=== PATIENT | female | born 1935 | race Caucasian/White ===

== ENCOUNTER → 2016-12-28 | Outpatient (CLI) | payer OTHER ==
[2015-07-13 09:33] VITALS: BP 134/63
[2016-12-28 10:12] LABS: BASOPHILS % (AUTO) 0.7 % (0.2-1.0); EOSINOPHILS # (AUTO) 0.1 x10^3/uL (0.0-0.2); EOSINOPHILS % (AUTO) 2.7 % (0.9-2.9); HEMATOCRIT 42.1 % (36.0-47.0); HEMOGLOBIN 14.1 g/dL (12.0-16.0); LYMPHOCYTES # (AUTO) 1.1 X10^3/uL (1.3-2.9); LYMPHOCYTES % (AUTO) 30.9 % (21.0-51.0); MEAN CORPUSCULAR HEMOGLOBIN 33.2 pg (27.0-34.0); MEAN CORPUSCULAR HGB CONC 33.5 g/dL (33.0-35.0); MEAN CORPUSCULAR VOLUME 99.1 fL (80.0-100.0); MEAN PLATELET VOLUME 9.2 fL (7.4-11.0); MONOCYTES # (AUTO) 0.7 x10^3/uL (0.3-0.8); MONOCYTES % (AUTO) 19.8 % (0.0-13.0); NEUTROPHILS # (AUTO) 1.6 x10^3/uL (2.2-4.8); NEUTROPHILS % (AUTO) 45.9 % (42.0-75.0); PLATELET COUNT 122 X10^3/uL (150.0-450.0); RED BLOOD COUNT 4.25 X10^6/uL (3.5-5.4); RED CELL DISTRIBUTION WIDTH 16.5 % (11.6-16.5); WHITE BLOOD COUNT 3.5 X10^3/uL (3.6-10.0)
[2016-12-28 10:22] LABS: ALANINE AMINOTRANSFERASE 26 Units/L (12-78); ALBUMIN 3.6 g/dL (3.4-5.0); ALKALINE PHOSPHATASE 77 Units/L (46-116); ASPARTATE AMINO TRANSFERASE 29 Units/L (15-37); BLOOD UREA NITROGEN 14 mg/dL (7-18); CALCIUM 8.8 mg/dL (8.5-10.1); CARBON DIOXIDE 30.1 mmol/L (21-32); CHLORIDE 107 mmol/L (98-107); CREATININE 0.87 mg/dL (0.55-1.02); GLUCOSE 90 mg/dL (65-99); SODIUM 146 mmol/L (136-145); TOTAL PROTEIN 7.3 g/dL (6.4-8.2); eGFR BLACK RACES > 60 (>60); eGFR NON BLACK RACES > 60 (>60)
== END ==
LOC: LAB 09:36
PROVIDERS: ATTEND Internal Medicine Medical Oncology
DX: C18.0 Malignant neoplasm of cecum (principal)
CPT/HCPCS: 36415; 80053; 85025

== ENCOUNTER → 2017-01-02 | Outpatient (CLI) | payer OTHER ==
[2015-07-13 09:33] VITALS: BP 134/63
[2017-01-02 10:12] LABS: BASOPHILS % (AUTO) 1.3 % (0.2-1.0); EOSINOPHILS # (AUTO) 0.1 x10^3/uL (0.0-0.2); HEMATOCRIT 40.3 % (36.0-47.0); HEMOGLOBIN 13.5 g/dL (12.0-16.0); LYMPHOCYTES # (AUTO) 1.2 X10^3/uL (1.3-2.9); LYMPHOCYTES % (AUTO) 31.8 % (21.0-51.0); MEAN CORPUSCULAR HEMOGLOBIN 33.2 pg (27.0-34.0); MEAN CORPUSCULAR HGB CONC 33.6 g/dL (33.0-35.0); MEAN CORPUSCULAR VOLUME 98.9 fL (80.0-100.0); MEAN PLATELET VOLUME 8.7 fL (7.4-11.0); MONOCYTES # (AUTO) 0.8 x10^3/uL (0.3-0.8); MONOCYTES % (AUTO) 20.5 % (0.0-13.0); NEUTROPHILS # (AUTO) 1.6 x10^3/uL (2.2-4.8); NEUTROPHILS % (AUTO) 43.4 % (42.0-75.0); PLATELET COUNT 90 X10^3/uL (150.0-450.0); RED BLOOD COUNT 4.08 X10^6/uL (3.5-5.4); RED CELL DISTRIBUTION WIDTH 16.6 % (11.6-16.5); WHITE BLOOD COUNT 3.7 X10^3/uL (3.6-10.0)
[2017-01-02 10:18] LABS: ALANINE AMINOTRANSFERASE 23 Units/L (12-78); ALBUMIN 3.4 g/dL (3.4-5.0); ALKALINE PHOSPHATASE 75 Units/L (46-116); ASPARTATE AMINO TRANSFERASE 31 Units/L (15-37); BLOOD UREA NITROGEN 9 mg/dL (7-18); CALCIUM 8.6 mg/dL (8.5-10.1); CARBON DIOXIDE 28.1 mmol/L (21-32); CHLORIDE 106 mmol/L (98-107); CREATININE 0.79 mg/dL (0.55-1.02); GLUCOSE 96 mg/dL (65-99); SODIUM 143 mmol/L (136-145); eGFR BLACK RACES > 60 (>60); eGFR NON BLACK RACES > 60 (>60)
[2017-01-02 10:38] LABS: PLATELET MORPHOLOGY COMMENT NORMAL (NORMAL)
== END ==
LOC: LAB 09:42
PROVIDERS: ATTEND Internal Medicine Medical Oncology
DX: C18.0 Malignant neoplasm of cecum (principal)
CPT/HCPCS: 36415; 80053; 85025

== ENCOUNTER → 2017-01-04 | Outpatient (CLI) | payer OTHER ==
[2015-07-13 09:33] VITALS: BP 134/63
== END ==
LOC: LAB 09:22
PROVIDERS: ATTEND Internal Medicine Medical Oncology
DX: C18.0 Malignant neoplasm of cecum (principal)
CPT/HCPCS: 36415; 82378

== ENCOUNTER → 2017-01-11 | Outpatient (CLI) | payer OTHER ==
[2015-07-13 09:33] VITALS: BP 134/63
[2017-01-11 09:12] LABS: BASOPHILS % (AUTO) 1.1 % (0.2-1.0); EOSINOPHILS # (AUTO) 0.1 x10^3/uL (0.0-0.2); HEMATOCRIT 41.2 % (36.0-47.0); LYMPHOCYTES # (AUTO) 1.2 X10^3/uL (1.3-2.9); LYMPHOCYTES % (AUTO) 38.2 % (21.0-51.0); MEAN CORPUSCULAR HEMOGLOBIN 33.4 pg (27.0-34.0); MEAN CORPUSCULAR VOLUME 98.3 fL (80.0-100.0); MEAN PLATELET VOLUME 8.5 fL (7.4-11.0); MONOCYTES # (AUTO) 0.7 x10^3/uL (0.3-0.8); MONOCYTES % (AUTO) 22.4 % (0.0-13.0); NEUTROPHILS # (AUTO) 1.1 x10^3/uL (2.2-4.8); NEUTROPHILS % (AUTO) 35.3 % (42.0-75.0); PLATELET COUNT 108 X10^3/uL (150.0-450.0); RED BLOOD COUNT 4.19 X10^6/uL (3.5-5.4); RED CELL DISTRIBUTION WIDTH 15.6 % (11.6-16.5); WHITE BLOOD COUNT 3.1 X10^3/uL (3.6-10.0)
[2017-01-11 09:20] LABS: ALANINE AMINOTRANSFERASE 25 Units/L (12-78); ALBUMIN 3.6 g/dL (3.4-5.0); ALKALINE PHOSPHATASE 65 Units/L (46-116); ASPARTATE AMINO TRANSFERASE 32 Units/L (15-37); BLOOD UREA NITROGEN 13 mg/dL (7-18); CALCIUM 8.8 mg/dL (8.5-10.1); CARBON DIOXIDE 28.4 mmol/L (21-32); CHLORIDE 104 mmol/L (98-107); CREATININE 0.92 mg/dL (0.55-1.02); GLUCOSE 104 mg/dL (65-99); SODIUM 143 mmol/L (136-145); TOTAL PROTEIN 7.4 g/dL (6.4-8.2); eGFR BLACK RACES > 60 (>60); eGFR NON BLACK RACES > 60 (>60)
[2017-01-11 10:35] LABS: PLATELET MORPHOLOGY COMMENT NORMAL (NORMAL)
== END ==
LOC: LAB 08:50
PROVIDERS: ATTEND Internal Medicine Medical Oncology
DX: C18.0 Malignant neoplasm of cecum (principal)
CPT/HCPCS: 36415; 80053; 85025

== ENCOUNTER → 2017-02-01 | Outpatient (CLI) | payer OTHER ==
[2015-07-13 09:33] VITALS: BP 134/63
[2017-02-01 10:26] LABS: BASOPHILS % (AUTO) 0.8 % (0.2-1.0); EOSINOPHILS # (AUTO) 0.1 x10^3/uL (0.0-0.2); EOSINOPHILS % (AUTO) 3.2 % (0.9-2.9); HEMATOCRIT 40.9 % (36.0-47.0); HEMOGLOBIN 13.9 g/dL (12.0-16.0); LYMPHOCYTES # (AUTO) 1.2 X10^3/uL (1.3-2.9); LYMPHOCYTES % (AUTO) 29.2 % (21.0-51.0); MEAN CORPUSCULAR HEMOGLOBIN 33.7 pg (27.0-34.0); MEAN CORPUSCULAR VOLUME 99.2 fL (80.0-100.0); MEAN PLATELET VOLUME 9.4 fL (7.4-11.0); MONOCYTES # (AUTO) 0.7 x10^3/uL (0.3-0.8); MONOCYTES % (AUTO) 17.5 % (0.0-13.0); NEUTROPHILS # (AUTO) 2.1 x10^3/uL (2.2-4.8); NEUTROPHILS % (AUTO) 49.3 % (42.0-75.0); PLATELET COUNT 140 X10^3/uL (150.0-450.0); RED BLOOD COUNT 4.12 X10^6/uL (3.5-5.4); RED CELL DISTRIBUTION WIDTH 15.2 % (11.6-16.5); WHITE BLOOD COUNT 4.2 X10^3/uL (3.6-10.0)
[2017-02-01 11:02] LABS: ALANINE AMINOTRANSFERASE 18 Units/L (12-78); ALBUMIN 3.5 g/dL (3.4-5.0); ALKALINE PHOSPHATASE 64 Units/L (46-116); ASPARTATE AMINO TRANSFERASE 29 Units/L (15-37); BLOOD UREA NITROGEN 14 mg/dL (7-18); CARBON DIOXIDE 30.7 mmol/L (21-32); CHLORIDE 107 mmol/L (98-107); CREATININE 0.81 mg/dL (0.55-1.02); GLUCOSE 89 mg/dL (65-99); SODIUM 144 mmol/L (136-145); TOTAL PROTEIN 7.2 g/dL (6.4-8.2); eGFR BLACK RACES > 60 (>60); eGFR NON BLACK RACES > 60 (>60)
== END ==
LOC: LAB 09:16
PROVIDERS: ATTEND Internal Medicine Medical Oncology
DX: I26.99 Other pulmonary embolism without acute cor pulmonale (principal)
CPT/HCPCS: 36415; 80053; 85025

== ENCOUNTER → 2017-05-02 | Outpatient (CLI) | payer OTHER ==
[2015-07-13 09:33] VITALS: BP 134/63
[2017-05-02 11:07] LABS: BASOPHILS # (AUTO) 0.1 X10^3/uL (0.0-0.1); EOSINOPHILS # (AUTO) 0.1 x10^3/uL (0.0-0.2); EOSINOPHILS % (AUTO) 2.7 % (0.9-2.9); HEMATOCRIT 44.9 % (36.0-47.0); HEMOGLOBIN 15.3 g/dL (12.0-16.0); LYMPHOCYTES # (AUTO) 1.2 X10^3/uL (1.3-2.9); LYMPHOCYTES % (AUTO) 21.6 % (21.0-51.0); MEAN CORPUSCULAR HEMOGLOBIN 32.8 pg (27.0-34.0); MEAN CORPUSCULAR HGB CONC 34.2 g/dL (33.0-35.0); MEAN CORPUSCULAR VOLUME 95.9 fL (80.0-100.0); MEAN PLATELET VOLUME 9.4 fL (7.4-11.0); MONOCYTES # (AUTO) 0.4 x10^3/uL (0.3-0.8); MONOCYTES % (AUTO) 7.3 % (0.0-13.0); NEUTROPHILS # (AUTO) 3.7 x10^3/uL (2.2-4.8); NEUTROPHILS % (AUTO) 67.4 % (42.0-75.0); PLATELET COUNT 198 X10^3/uL (150.0-450.0); RED BLOOD COUNT 4.68 X10^6/uL (3.5-5.4); RED CELL DISTRIBUTION WIDTH 12.6 % (11.6-16.5); WHITE BLOOD COUNT 5.5 X10^3/uL (3.6-10.0)
[2017-05-02 11:26] LABS: ALANINE AMINOTRANSFERASE 19 Units/L (12-78); ALBUMIN 3.8 g/dL (3.4-5.0); ALKALINE PHOSPHATASE 64 Units/L (46-116); ASPARTATE AMINO TRANSFERASE 21 Units/L (15-37); BLOOD UREA NITROGEN 12 mg/dL (7-18); CALCIUM 9.2 mg/dL (8.5-10.1); CHLORIDE 106 mmol/L (98-107); CREATININE 0.92 mg/dL (0.55-1.02); GLUCOSE 99 mg/dL (65-99); SODIUM 145 mmol/L (136-145); TOTAL PROTEIN 7.6 g/dL (6.4-8.2); eGFR BLACK RACES > 60 (>60); eGFR NON BLACK RACES > 60 (>60)
== END ==
LOC: LAB 10:04
PROVIDERS: ATTEND Internal Medicine Medical Oncology
DX: C18.0 Malignant neoplasm of cecum (principal)
CPT/HCPCS: 36415; 80053; 82378; 85025

== ENCOUNTER 2017-06-08 07:02 | Day surgery (SDC) | payer OTHER ==
[2017-06-08] MEDS ORDERED: D5 LR 1000 ML 1,000 ML IV ONE (07:18)
[2017-06-08] MEDS ORDERED: XYLOCAINE 2 % (PLAIN) ONE (08:27)
[2017-06-08] MEDS ORDERED: DIPRIVAN VIAL 20 ML ONE (08:27)
[2017-06-08 10:16] VITALS: BP 137/76
== END 2017-06-08 09:25 | disposition home or self-care (01) ==
LOC: SURG1 07:02
PROVIDERS: ATTEND Internal Medicine Gastroenterology
PROC: 0DJD8ZZ Inspection of Lower Intestinal Tract, Via Natural or Artificial Opening Endoscopic (ICD-10-PCS; principal; 2017-06-08 08:30)
DX: K57.30 Diverticulosis of large intestine without perforation or abscess without bleeding (principal); Z80.0 Family history of malignant neoplasm of digestive organs
CPT/HCPCS: 99100; A4217; J2001; J3490; J7120

== ENCOUNTER → 2017-07-24 | Outpatient (CLI) | payer OTHER ==
[2015-07-13 09:33] VITALS: BP 134/63
--- NOTE | 2017-07-24 16:29 | MG ---
HISTORY: Screening, left breast cancer treated by mastectomy Study: Screening digital unilateral mammogram Comparison: 07/19/2016 Findings Cc and MLO views of the right breast are provided. Patient is status post left mastectomy. H eterogeneously dense fibroglandular tissue is seen with scattered coarse and benign calcifications. N o dominant mass, pathological microcalcification, architectural distortion or skin thickening is seen . Images are reviewed by the R2 device. Impression: Benign findings ACR category 2-benign findings Follow-up examination 1 year. Diagnostic CAD was utilized and reviewed. A negative x-ray report should not delay biopsy if a dominant or clinically suspicious mass is presen t; 4-8% of cancers are not identified by x-ray. A negative report may reinforce clinical impression. Adenosis and dense breast may obscure an underlying neoplasm. Reported By:
== END ==
LOC: RAD 08:44
PROVIDERS: ATTEND Internal Medicine Medical Oncology
DX: C18.2 Malignant neoplasm of ascending colon (principal); C50.912 Malignant neoplasm of unspecified site of left female breast; Z17.0 Estrogen receptor positive status [ER+]; I26.99 Other pulmonary embolism without acute cor pulmonale
CPT/HCPCS: 77067

== ENCOUNTER → 2017-08-08 | Outpatient (CLI) | payer OTHER ==
[2017-08-08 09:30] LABS: BASOPHILS % (AUTO) 0.7 % (0.2-1.0); EOSINOPHILS # (AUTO) 0.2 x10^3/uL (0.0-0.2); EOSINOPHILS % (AUTO) 3.3 % (0.9-2.9); HEMOGLOBIN 14.8 g/dL (12.0-16.0); LYMPHOCYTES # (AUTO) 1.4 X10^3/uL (1.3-2.9); LYMPHOCYTES % (AUTO) 23.6 % (21.0-51.0); MEAN CORPUSCULAR HEMOGLOBIN 32.4 pg (27.0-34.0); MEAN CORPUSCULAR HGB CONC 34.4 g/dL (33.0-35.0); MEAN CORPUSCULAR VOLUME 94.2 fL (80.0-100.0); MEAN PLATELET VOLUME 9.1 fL (7.4-11.0); MONOCYTES # (AUTO) 0.7 x10^3/uL (0.3-0.8); MONOCYTES % (AUTO) 11.9 % (0.0-13.0); NEUTROPHILS # (AUTO) 3.5 x10^3/uL (2.2-4.8); NEUTROPHILS % (AUTO) 60.5 % (42.0-75.0); PLATELET COUNT 195 X10^3/uL (150.0-450.0); RED BLOOD COUNT 4.56 X10^6/uL (3.5-5.4); RED CELL DISTRIBUTION WIDTH 13.3 % (11.6-16.5); WHITE BLOOD COUNT 5.8 X10^3/uL (3.6-10.0)
[2017-08-08 09:40] LABS: ALANINE AMINOTRANSFERASE 15 Units/L (12-78); ALBUMIN 3.8 g/dL (3.4-5.0); ALKALINE PHOSPHATASE 76 Units/L (46-116); ASPARTATE AMINO TRANSFERASE 18 Units/L (15-37); BLOOD UREA NITROGEN 12 mg/dL (7-18); CALCIUM 9.3 mg/dL (8.5-10.1); CHLORIDE 104 mmol/L (98-107); SODIUM 142 mmol/L (136-145); TOTAL PROTEIN 7.7 g/dL (6.4-8.2); eGFR BLACK RACES > 60 (>60); eGFR NON BLACK RACES 57 (>60)
== END ==
LOC: LAB 08:54
PROVIDERS: ATTEND Internal Medicine Medical Oncology
DX: C18.2 Malignant neoplasm of ascending colon (principal); C50.912 Malignant neoplasm of unspecified site of left female breast; Z17.0 Estrogen receptor positive status [ER+]; I26.99 Other pulmonary embolism without acute cor pulmonale
CPT/HCPCS: 36415; 80053; 82378; 85025

== ENCOUNTER → 2017-12-15 | Outpatient (CLI) | payer OTHER ==
[2017-12-15 10:05] LABS: BASOPHILS % (AUTO) 0.5 % (0.2-1.0); EOSINOPHILS # (AUTO) 0.2 x10^3/uL (0.0-0.2); EOSINOPHILS % (AUTO) 2.7 % (0.9-2.9); HEMOGLOBIN 14.9 g/dL (12.0-16.0); LYMPHOCYTES # (AUTO) 1.8 X10^3/uL (1.3-2.9); LYMPHOCYTES % (AUTO) 31.4 % (21.0-51.0); MEAN CORPUSCULAR HEMOGLOBIN 32.1 pg (27.0-34.0); MEAN CORPUSCULAR VOLUME 94.6 fL (80.0-100.0); MEAN PLATELET VOLUME 9.4 fL (7.4-11.0); MONOCYTES # (AUTO) 0.6 x10^3/uL (0.3-0.8); MONOCYTES % (AUTO) 10.1 % (0.0-13.0); NEUTROPHILS # (AUTO) 3.2 x10^3/uL (2.2-4.8); NEUTROPHILS % (AUTO) 55.3 % (42.0-75.0); PLATELET COUNT 199 X10^3/uL (150.0-450.0); RED BLOOD COUNT 4.65 X10^6/uL (3.5-5.4); RED CELL DISTRIBUTION WIDTH 13.7 % (11.6-16.5); WHITE BLOOD COUNT 5.8 X10^3/uL (3.6-10.0)
[2017-12-15 10:13] LABS: ALANINE AMINOTRANSFERASE 19 Units/L (12-78); ALKALINE PHOSPHATASE 60 Units/L (46-116); ASPARTATE AMINO TRANSFERASE 19 Units/L (15-37); BLOOD UREA NITROGEN 14 mg/dL (7-18); CALCIUM 9.1 mg/dL (8.5-10.1); CHLORIDE 104 mmol/L (98-107); CREATININE 0.99 mg/dL (0.55-1.02); SODIUM 143 mmol/L (136-145); TOTAL PROTEIN 7.5 g/dL (6.4-8.2); eGFR BLACK RACES > 60 (>60); eGFR NON BLACK RACES 57 (>60)
== END ==
LOC: LAB 09:39
PROVIDERS: ATTEND Internal Medicine Medical Oncology
DX: C18.2 Malignant neoplasm of ascending colon (principal); E55.9 Vitamin D deficiency, unspecified
CPT/HCPCS: 36415; 80053; 82306; 82378; 85025

== ENCOUNTER → 2018-03-01 | Outpatient (CLI) | payer OTHER ==
--- NOTE | 2018-03-01 10:55 | RAD ---
HISTORY: Left knee pain. History of colon cancer. Breast cancer. Study: Left knee: 2 views Comparison: None Findings: Moderate joint space narrowing is noted in the medial compartment with mild sclerosis of the tibial p lateau and medial femoral condyle. Moderate spurring is noted medially. Minimal is noted laterally. Mild patellofemoral joint degeneration is noted. Tiny joint effusion is noted. IMPRESSION: 1. Degenerative change in the left knee as described above. 2. Tiny joint effusion. Reported By:
== END | disposition home or self-care (01) | DRG 556 ==
LOC: RAD 10:19
PROVIDERS: ATTEND Nurse Practitioner Family
DX: M25.562 Pain in left knee (principal); M17.12 Unilateral primary osteoarthritis, left knee; M25.462 Effusion, left knee
CPT/HCPCS: 73560

== ENCOUNTER 2021-12-22 22:30 | Inpatient (IN) ==
[2021-12-22] MEDS ORDERED: LEVSIN/MAALOX/LIDOC VISC PO ONE (23:18)
[2021-12-22] MEDS ORDERED: LEVSIN/MAALOX/LIDOC VISC ONE (23:23)
--- NOTE | 2021-12-22 23:24 | DR.NAUSEAF ---
HPI Time Seen Time Seen by Provider: 12/22/21 23:12 Primary Care Physician Primary Care Physician: LISSETT BOWDEN HPI Comment HPI Comment: An 86 y/o female presenting with c/o epigastric pain onset since about 1630 hrs. this evening. She can't describe the pain, "it just hurts". There is associated nausea and she has vomited thrice since. She had similar p ain about 2.5 months ago and the ED work-up was unrevealing. She has since had an EGD done by the gastro-enterologist (Dr. Vasquez), with findings of gastritis. She is maintained on a PPI (she doesn't recollect which one). She is s/p Cholecystectomy by hx. Complaints Chief Complaint:: PT AMBULTORY IN ED WITH C/O 10/10 RUQ & LUQ ABD PAIN. PT C/O VOMITING SINCE 1630 TODAY. PT STATES SHE WAS HERE IN SEPTEMBER FOR SAME ISSUE. PT HAD EGD DONE ON 11/11/[address] VASQUEZ Self Treatment fo Chief Complaint: PT STATES AT 1700 SHE TOOK "HALF OF A PAIN PILL" THAT SHE GOT FROM HER DAUGHTER, BUT CANNOT RECALL THE NAME OF THE MED. COVID-19 Coronavirus risk:travel/contact w/high risk person: No Has patient experienced Coronavirus symptoms: No Reviewed Nurses Notes Reviewed: Yes Source History Provided: Patient and Family Member Mode of Arrival Mode of Arrival: Ambulatory Timing Onset of Chief Complaint: 12/22/21 Context Onset: Spontaneous Recent: denies Travel, Contact Exposure and None : No Associated Signs and Symptoms Abdominal Pain Location: Epigastric Symptoms: Abdominal Pain PMH PMH Past Medical History: Yes Past Medical History: Arthritis, Asthma, COPD, Coronary Artery Disease, Diabetes, Dyslipidemia, GERD, Hypertension, Hypothyroidism and Kidney Stones Past Medical History Comment: BREAST CA COLON CA GASTRITIS ESOPHAGITIS Past Surgical History: Yes Surgical History: Cholecystectomy, Hysterectomy and Mastectomy Past Surgical History Comment: BILAT MASTECTOMY HERNIA REPAIR COLON MASS REMOVAL EGD LYPOMA REMOVAL Family History History of Family Medical Conditions: Yes Family Medical History: Diabetes Mellitus Social History Type of Tobacco Use: None Alcohol Use: None Do you use any recreational Drugs:: No Travel Risk Coronavirus risk:travel/contact w/high risk person: No Has patient experienced Coronavirus symptoms: No Infectious screening Have you traveled outside the country in the last 6 months?: No Isolation: Standard ROS Review of Systems Constitutional: No Symptoms Reported Eyes: No Symptoms Reported ENTM: No Symptoms Reported Respiratoy: No Symptoms Reported Cardiovascular: No Symptoms Reported Gastrointestinal/Abdominal: Abdominal Pain (epigastric), Nausea and Vomiting Genitourinary: No Symptoms Reported Neurological: No Symptoms Reported Musculoskeletal: No Symptoms Reported Integumentary: No Symptoms Reported Hematologic/Lymphatic: No Symptoms Reported Endocrine: No Symptoms Reported Psychiatric: No Symptoms Reported PE Vital Signs Vitals: Temperature 98.7 F Pulse Rate 74 Respiratory Rate 20 Blood Pressure [Right Arm] 134/63 Blood Pressure 136/76 O2 Sat by Pulse Oximetry 97 General Limitations: No Limitations General Appearance: Alert and In No Apparent Distress Head Head Exam: Normal Inspection, Atraumatic and Normocephalic Eyes Eye exam: Normal Appearance and EOMI ENT ENT Exam: Normal Exam, Normal Oropharynx, Normal External Ear Exam and Mucous Membranes Moist Neck Neck Exam: Normal Inspection, Full ROM and Trachea Midline Chest Chest Inspection: Normal Inspection and Symmetric Chest Wall Rise Respiratory Respiratory Exam: Normal Lung Sounds Bilat Cardiovascular Cardiovascular Exam: Regular Rate, Normal Rhythm, Normal Heart Sounds, +S1 and +S2 Abdominal Exam Abdominal Exam: Normal Inspection, Normal Bowel Sounds, Soft and Tenderness Abdominal Tenderness: Epigastrium Rectal Rectal Exam: Deferred External Exam: Female: Deferred Extremities Extremities Exam: Normal Inspection and Full ROM Back Back Exam: Normal Inspection and Full ROM Neurologic Neurological Exam: Alert and Oriented X3 Psychiatric Psychiatric Exam: Normal Affect and Normal Mood Skin Skin Exam: Intact COURSE Reevaluation 1st: Improved Consultation Consultation Comments: I spoke with Dr. León ( staff Surgeon ) at about 0015 hrs. discussing the pt's presentation, clinical and radiographic findings. He agrees to Obs. admission to his service with repeat labs and abd. x-rays in the morning. I informed the pt. and her daughter of the findings and recommended care plan. Their questions were answered. Education/Counseling Education/Counseling: Patient, Family, Education and Counseling Educated On: Treatment, Diagnosis, Prognosis and Needs for Follow Up ROR Labs Reviewed Result Diagrams: 12/22/21 23:30 12/22/21 23:30 Laboratory: WBC 11.2 X10^3/uL (3.6-10.0) H 12/22/21 23:30 RBC 4.11 X10^6/uL (3.5-5.4) 12/22/21 23:30 Hgb 13.2 g/dL (12.0-16.0) 12/22/21: Hct 38.9 % (36.0-47.0) 12/22/21: MCV 94.6 fL (80.0-100.0) 12/22/21: MCH 32.1 pg (27.0-34.0) 12/22/21: MCHC 33.9 g/dL (33.0-35.0) 12/22/21: RDW 14.4 % (11.6-16.5) 12/22/21: Plt Count 231 X10^3/uL (150.0-450.0) 12/22/21: MPV 9.4 fL (7.4-11.0) 12/22/21 Neut % (Auto) 86.8 % (42.0-75.0) H 12/22/21: Lymph % (Auto) 6.0 % (21.0-51.0) L 12/22/21: [place] % (Auto) 6.1 % (0.0-13.0) 12/22/21: Eos % (Auto) 0.5 % (0.9-2.9) L 12/22/21: Baso % (Auto) 0.6 % (0.2-1.0) 12/22/21: Neut # (Auto) 9.7 x10^3/uL (2.2-4.8) H 12/22/21: Lymph # (Auto) 0.7 X10^3/uL (1.3-2.9) L 12/22/21: [place] # (Auto) 0.7 x10^3/uL (0.3-0.8) 12/22/21: Eos # (Auto) 0.1 x10^3/uL (0.0-0.2) 12/22/21 Baso # (Auto) 0.1 X10^3/uL (0.0-0.1) 12/22/21: Absolute Nucleated RBC 0.0 /100WBC 03/09/22 23:30 Sodium 139 mmol/L (136-145) 12/22/21 23:30 Corrected Sodium 139 mmol/L (136-145) 12/22/21 23:30 Potassium 3.6 mmol/L (3.5-5.1) 12/22/21 23:30 Chloride 104 mmol/L (98-107) 12/22/21 23:30 Carbon Dioxide 30.3 mmol/L (21-32) 12/22/21 23:30 BUN 14 mg/dL (7-18) 12/22/21 23:30 Creatinine 1.15 mg/dL (0.55-1.02) H 12/22/21 23:30 Est GFR (MDRD) Af Amer 58 (>60) L 12/22/21 23:30 Est GFR (MDRD) Non-Af 48 (>60) L 12/22/21 23:30 Glucose 120 mg/dL (65-99) H 12/22/21 23:30 Calcium 8.7 mg/dL (8.5-10.1) 12/22/21 23:30 Corrected Calcium TNP 12/22/21 23:30 Total Bilirubin 1.00 mg/dL (0.2-1.0) 12/22/21 23:30 AST 22 Units/L (15-37) 12/22/21 23:30 ALT 19 Units/L (12-78) 12/22/21 23:30 Alkaline Phosphatase 78 Units/L (46-116) 12/22/21 23:30 Total Protein 6.6 g/dL (6.4-8.2) 12/22/21 23:30 Albumin 3.4 g/dL (3.4-5.0) 12/22/21 23:30 Globulin 3.2 g/dL (2.5-4.5) 12/22/21 23:30 Albumin/Globulin Ratio 1.1 Ratio (1.1-2.1) 12/22/21 23:30 Lipase 115 Units/L (73-393) 12/22/21 23:30 SARS CoV-2 RNA Rapid SORIN Negative (NEGATIVE) 12/23/21 00:18 Opioid Opioid Risk Tool Age (Jeet box if 16-45): No History of Preadolescent Sexual Abuse: No Total: 0 Total Score Risk Category: Low Risk Copyright: Dockery LR predicting aberrant behaviors Diagnosis Discharge Problem: Partial small bowel obstruction, Abdominal pain, epigastric, Hypothyroidism, Essential hypertension Hyperlipidemia Qualifiers: Hyperlipidemia type: mixed hyperlipidemia Qualified Code(s): E78.2 - Mixed hyperlipidemia Diabetes Qualifiers: Diabetes mellitus type: type 2 Diabetes mellitus cloth drier insulin use: without cloth drier use Diabetes mellitus complication status: without complication Qual ified Code(s): E11.9 - Type 2 diabetes mellitus without complications
[2021-12-22 23:36] LABS: BASOPHILS # (AUTO) 0.1 X10^3/uL (0.0-0.1); BASOPHILS % (AUTO) 0.6 % (0.2-1.0); EOSINOPHILS # (AUTO) 0.1 x10^3/uL (0.0-0.2); EOSINOPHILS % (AUTO) 0.5 % (0.9-2.9); HEMATOCRIT 38.9 % (36.0-47.0); HEMOGLOBIN 13.2 g/dL (12.0-16.0); LYMPHOCYTES # (AUTO) 0.7 X10^3/uL (1.3-2.9); MEAN CORPUSCULAR HEMOGLOBIN 32.1 pg (27.0-34.0); MEAN CORPUSCULAR HGB CONC 33.9 g/dL (33.0-35.0); MEAN CORPUSCULAR VOLUME 94.6 fL (80.0-100.0); MEAN PLATELET VOLUME 9.4 fL (7.4-11.0); MONOCYTES # (AUTO) 0.7 x10^3/uL (0.3-0.8); MONOCYTES % (AUTO) 6.1 % (0.0-13.0); NEUTROPHILS # (AUTO) 9.7 x10^3/uL (2.2-4.8); NEUTROPHILS % (AUTO) 86.8 % (42.0-75.0); RED BLOOD COUNT 4.11 X10^6/uL (3.5-5.4); RED CELL DISTRIBUTION WIDTH 14.4 % (11.6-16.5); WHITE BLOOD COUNT 11.2 X10^3/uL (3.6-10.0)
[2021-12-22 23:47] LABS: ALANINE AMINOTRANSFERASE 19 Units/L (12-78); ALBUMIN 3.4 g/dL (3.4-5.0); ALKALINE PHOSPHATASE 78 Units/L (46-116); ASPARTATE AMINO TRANSFERASE 22 Units/L (15-37); BLOOD UREA NITROGEN 14 mg/dL (7-18); CALCIUM 8.7 mg/dL (8.5-10.1); CARBON DIOXIDE 30.3 mmol/L (21-32); CHLORIDE 104 mmol/L (98-107); COR NA(FOR HYPERGLY) 139 mmol/L (136-145); CREATININE 1.15 mg/dL (0.55-1.02); LIPASE 115 Units/L (73-393); SODIUM 139 mmol/L (136-145); TOTAL PROTEIN 6.6 g/dL (6.4-8.2); eGFR NON BLACK RACES 48 (>60)
--- NOTE | 2021-12-22 23:55 | CT ---
PROCEDURE: CT Abdomen and Pelvis without Contrast .HISTORY: Right and left upper quadrant pain.TECHNIQUE: Axial images were performed through the abdomen and pelvis without the administration of IV contrast with multiplanar reformations . Oral contrast was not administered . Dose reduction techniques including Automated Exposure Control (AEC) and adjustment of mA and kV were utilized .COMPARISON: 08/29/2019.TECHNICAL QUALITY: Satisfactory .FINDINGS:Clear lung bases.Punctate calcified granulomas in the liver and spleen. Adrenals and pancreas are unremarkable.Kidneys show no stones or obstruction.Previous cholecystectomy.Small amount of ascites adjacent to the liver and spleen and in the pericolic gutters. No pneumoperitoneum.Moderate atherosclerosis aorta. [place] filter in the inferior vena cava.No lymphadenopathy.Dilated small bowel loops throughout the abdomen may represent partial obstruction with perienteric stranding and dilatation to 3 cm. Site knee etiology of the partial obstruction is not apparent from the study. Normal distal small-bowel loops with ileocolic anastomosis right upper quadrant. Mild colonic diverticulosis. No bowel inflammation.Pelvis shows previous hysterectomy and no masses. Small amount of free fluid inferior pericolic gutters. Normal urinary bladder.No acute bony abnormality.IMPRESSION:1. Findings suspicious for partial small bowel obstruction with site knee etiology not apparent from the study.2. Ileocolic anastomosis right abdomen.3. Small amount of ascites.4. [place]annielle filter.5. Mild colonic diverticulosis.Electronically signed by: Fercho Mora (Dec 22, 2021 23:54:21)
[2021-12-23] MEDS ORDERED: ZOFRAN INJ 4 MG VIAL IVP PRN (00:52)
[2021-12-23 02:28] VITALS: BMI 30.8
--- NOTE | 2021-12-23 05:48 | RAD ---
PROCEDURE: Acute Abdomen Series .HISTORY: Small-bowel obstruction.TECHNIQUE: AP supine and upright abdomen with AP chest x-ray views .COMPARISON: 10/06/2021.TECHNICAL QUALITY: Satisfactory .FINDINGS:Unchanged start size upper limits of normal.Clear lungs.No pneumoperitoneum.Mild gas and feces in the colon without distention. Some small bowel gas mid abdomen that is nondistended. The fluid filled dilated small bowel loops seen on CT from 12/23/2019 2s not visible on the plain films.Surgical clips right upper quadrant. [place] filter in the inferior vena cava.No abnormal calcifications.No acute bony abnormality.IMPRESSION:1. Nonspecific bowel gas pattern.2. Unchanged start size upper limits of normal.Electronically signed by: Fercho Mora (Dec 23, 2021 05:47:08)
[2021-12-23 06:22] LABS: BASOPHILS % (AUTO) 0.5 % (0.2-1.0); EOSINOPHILS # (AUTO) 0.1 x10^3/uL (0.0-0.2); EOSINOPHILS % (AUTO) 0.7 % (0.9-2.9); HEMOGLOBIN 12.2 g/dL (12.0-16.0); LYMPHOCYTES % (AUTO) 12.7 % (21.0-51.0); MEAN CORPUSCULAR HEMOGLOBIN 32.4 pg (27.0-34.0); MEAN CORPUSCULAR VOLUME 95.2 fL (80.0-100.0); MEAN PLATELET VOLUME 9.8 fL (7.4-11.0); MONOCYTES # (AUTO) 0.5 x10^3/uL (0.3-0.8); MONOCYTES % (AUTO) 6.3 % (0.0-13.0); NEUTROPHILS # (AUTO) 6.3 x10^3/uL (2.2-4.8); NEUTROPHILS % (AUTO) 79.8 % (42.0-75.0); RED BLOOD COUNT 3.78 X10^6/uL (3.5-5.4); RED CELL DISTRIBUTION WIDTH 14.5 % (11.6-16.5); WHITE BLOOD COUNT 7.9 X10^3/uL (3.6-10.0)
[2021-12-23 06:27] LABS: ALANINE AMINOTRANSFERASE 18 Units/L (12-78); ALBUMIN 2.8 g/dL (3.4-5.0); ALKALINE PHOSPHATASE 63 Units/L (46-116); ASPARTATE AMINO TRANSFERASE 19 Units/L (15-37); BLOOD UREA NITROGEN 14 mg/dL (7-18); CALCIUM 7.7 mg/dL (8.5-10.1); CARBON DIOXIDE 29.2 mmol/L (21-32); CHLORIDE 105 mmol/L (98-107); COR CA(FOR HYPOALB) 8.7 mg/dL (8.5-10.1); CREATININE 0.91 mg/dL (0.55-1.02); SODIUM 141 mmol/L (136-145); TOTAL PROTEIN 5.6 g/dL (6.4-8.2); eGFR NON BLACK RACES > 60 (>60)
[2021-12-23] MEDS: NS 1,000 ML IV 1,000 ML IV SCH ×2 (07:13→16:55)
[2021-12-23] MEDS ORDERED: EXEMESTANE 25 MG PO SCH (12:45)
[2021-12-23] MEDS: ASPIRIN EC 81 MG PO SCH (13:54)
[2021-12-23] MEDS: CALAN SR 120 MG PO SCH (13:55)
[2021-12-23] MEDS: HYDROCHLOROTHIAZIDE 25 MG TAB PO SCH (13:55)
[2021-12-23] MEDS: PROTONIX TAB 40 MG PO SCH (13:55)
--- NOTE | 2021-12-23 14:51 | DR.CONSULT ---
CONSULT Consultation for Day of: Date: 12/23/21 Chief Complaint Chief Complaint: abdominal pain, vomiting Allergies Allergies Allergy/AdvReac Type Severity Reaction Status Date / Time zolpidem [From Ambien] Allergy Verified 11/11/21 09:12 History of Present Illness History of Present Illness: Ms Daniel is a 86y/o female with multiple comorbidities including CVA, breast cancer, colon cancer, PE, IVC filter, hypothyroidism and arthritis presented with worsening abdominal pain, nausea and vomiting. Patient has had similar episodes in the past. She has a hx of several abdominal surgeries including right hemicolectomy and cholecystectomy. In the ER, she was found to have partial SBO. Dr León was consulted and patient was admitted to his service. She has been kept NPO with IV fluids. She does feel better today. Denies any nausea or vomiting. She states abdominal pain has improved. Medicine consulted for chronic disease management. Labs/imaging reviewed Plan: follow recommendations as per surgery. Continue IVF and anti-emetics. Replace K as per protocol. Discuss starting clear liquids as patient's symptoms have resolved. Will resume home medications. Continue warfarin. Monitor AM labs. Past Medical History Past Medical History: Arthritis, Asthma, COPD, Dyslipidemia, GERD, Hypertension, Hypothyroidism and Kidney Stones Additional Medical History: Syncope, Left Carotid Artery Occlusion, Chronic Back Pain, Breast Cancer Colon cancer PE Past Surgical History Surgical History: Unknown, Abdominal Surgery, Carotid Endarterectomy, Hysterectomy and Mastectomy Additional Surgical History: Heart Catherization x 2, Left Mastectomy, Hernia Repair Colon surgery IVC Family History Family Medical History: Diabetes Mellitus Social History Does patient currently use any type of tobacco product: No Have you used tobacco products in the last 12 months: No Type of Tobacco Use: None Does any household member use tobacco: Yes Alcohol Use: None Drug Use: None Medications Home Medications: zolpidem [From Ambien] Allergy (Verified 11/11/21 09:12) CONTINUE taking the following medications pantoprazole 40 mg PO DAILY 12/23/21 [History] simvastatin 20 mg PO HS 12/23/21 [History] warfarin 5 mg PO DAILY 12/23/21 [History] Review of Systems Constitutional: No Symptoms Reported Eyes: No Symptoms Reported ENT: No Symptoms Reported Respiratory: No Symptoms Reported Cardiovascular: No Symptoms Reported Gastrointestinal: Nausea, Vomiting and Abdominal Pain Genitourinary: No Symptoms Reported Musculoskeletal: No Symptoms Reported Skin: No Symptoms Reported Neurological: No Symptoms Reported Physical Exam Vital Signs: Temperature 98 F Pulse Rate [Right Brachial] 92 Pulse Rate 74 Respiratory Rate 20 Blood Pressure [Left Arm] 136/71 Blood Pressure [Right Arm] 130/60 Blood Pressure 136/76 O2 Sat by Pulse Oximetry 95 Oriented: Normal Eyes: Normal Ear: Normal Nose: Normal Respiratory: Diminished Throughout Cardiovascular: Normal Auscultation: Bowel Sounds: Decreased Palpation: Normal Tenderness: Normal Skin: Decreased [place] Musculoskeletal: Normal Psychiatric: Normal Mood Description: Calm Affect: Normal Speech Pattern: Clear and Appropriate Plan (1) Partial small bowel obstruction: Status: Acute (2) Nausea & vomiting: Status: Acute Qualifiers: Vomiting type: unspecified Qualified Code(s): R11.2 - Nausea with vomiting, unspecified (3) Dehydration: Status: Acute (4) Essential hypertension: Status: Chronic (5) Hypothyroidism: Status: Chronic (6) CVA (cerebral vascular accident): Status: Acute Qualifiers: CVA mechanism: unspecified Qualified Code(s): I63.9 - Cerebral inf arction, unspecified (7) Hyperlipidemia: Status: Chronic Qualifiers: Hyperlipidemia type: mixed hyperlipidemia Qualified Code(s): E78.2 - Mixed hyperlipidemia (8) Breast cancer: Status: Chronic Qualifiers: Breast location: unspecified site of breast Estrogen receptor status: unspecified Laterality: unspecified laterality Patient gender: female Patient sex: female Qualified Code(s): C50.919 - Malignant neoplasm of unspecified site of unspecified female breast (9) S/P CABG (coronary artery bypass graft): Status: Chronic (10) H/O mastectomy: Status: Chronic Qualifiers: Laterality: left Qualified Code(s): Z90.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
--- NOTE | 2021-12-23 17:17 | DR.PROGNOT ---
Hospital Progress Notes - Progress Note for Day of: Progress Note Date: 12/23/21 - Chief Complaint Chief Complaint: feeling better with less abdominal pain . no nausea or vomiting . X ray showed no obstruction .. - Past Medical Family Social History Past Med/Fam/Surg Hx: No changes since H&P Allergies: Allergies zolpidem [From Ambien] Allergy (Verified 11/11/21 09:12) - Vital Signs Vital Signs: Temperature 97.8 F Pulse Rate [Right Brachial] 66 Pulse Rate 74 Respiratory Rate 18 Blood Pressure [Left Arm] 167/80 Blood Pressure [Right Arm] 130/60 Blood Pressure 136/76 O2 Sat by Pulse Oximetry 96 - Physical Exam Oriented: Normal Eyes: Normal Ear: Normal Nose: Normal Cardiovascular: Normal GI:Auscultation: Decreased GI:Palpation: Normal GI: Tenderness: Normal (soft, flat abdomen .. BS+ only moderate diffuse tenderness .) Skin: Decreased Turgur Musculoskeletal: Normal Psychiatric: Normal Mood Description: Calm Affect: Normal Speech Pattern: Clear, Appropriate - Laboratory and Diagnostics Result Diagrams: 12/23/21 05:45 12/23/21 05:45 Labs: Laboratory WBC 7.9 X10^3/uL (3.6-10.0) 12/23/21 05:45 RBC 3.78 X10^6/uL (3.5-5.4) 12/23/21 05:45 Hgb 12.2 g/dL (12.0-16.0) 12/23/21 05:45 Hct 36.0 % (36.0-47.0) 12/23/21 05:45 MCV 95.2 fL (80.0-100.0) 12/23/21 05:45 MCH 32.4 pg (27.0-34.0) 12/23/21 05:45 MCHC 34.0 g/dL (33.0-35.0) 12/23/21 05:45 RDW 14.5 % (11.6-16.5) 12/23/21 05:45 Plt Count 189 X10^3/uL (150.0-450.0) 12/23/21 05:45 MPV 9.8 fL (7.4-11.0) 12/23/21 05:45 Neut % (Auto) 79.8 % (42.0-75.0) H 12/23/21 05:45 Lymph % (Auto) 12.7 % (21.0-51.0) L 12/23/21 05:45 [place] % (Auto) 6.3 % (0.0-13.0) 12/23/21 05:45 Eos % (Auto) 0.7 % (0.9-2.9) L 12/23/21 05:45 Baso % (Auto) 0.5 % (0.2-1.0) 12/23/21 05:45 Neut # (Auto) 6.3 x10^3/uL (2.2-4.8) H 12/23/21 05:45 Lymph # (Auto) 1.0 X10^3/uL (1.3-2.9) L 12/23/21 05:45 [place] # (Auto) 0.5 x10^3/uL (0.3-0.8) 12/23/21 05:45 Eos # (Auto) 0.1 x10^3/uL (0.0-0.2) 12/23/21 05:45 Baso # (Auto) 0.0 X10^3/uL (0.0-0.1) 12/23/21 05:45 Absolute Nucleated RBC 0.0 /100WBC 12/23/21 05:45 PT 19.3 SECONDS (11.8-14.3) 12/23/21 05:45 INR Target Range - 12/23/21 05:45 INR 1.72 (0.8-1.3) H 12/23/21 05:45 APTT 34.0 SECONDS (22.9-36.5) 12/23/21 05:45 PTT Comment - 12/23/21 05:45 Sodium 141 mmol/L (136-145) 12/23/21 05:45 Corrected Sodium TNP 12/23/21 05:45 Potassium 3.3 mmol/L (3.5-5.1) L 12/23/21 05:45 Chloride 105 mmol/L (98-107) 12/23/21 05:45 Carbon Dioxide 29.2 mmol/L (21-32) 12/23/21 05:45 BUN 14 mg/dL (7-18) 12/23/21 05:45 Creatinine 0.91 mg/dL (0.55-1.02) 12/23/21 05:45 Est GFR (MDRD) Af Amer > 60 (>60) 12/23/21 05:45 Est GFR (MDRD) Non-Af > 60 (>60) 12/23/21 05:45 Glucose 103 mg/dL (65-99) H 12/23/21 05:45 Calcium 7.7 mg/dL (8.5-10.1) L 12/23/21 05:45 Corrected Calcium 8.7 mg/dL (8.5-10.1) 12/23/21 05:45 Total Bilirubin 0.90 mg/dL (0.2-1.0) 12/23/21 05:45 AST 19 Units/L (15-37) 12/23/21 05:45 ALT 18 Units/L (12-78) 12/23/21 05:45 Alkaline Phosphatase 63 Units/L (46-116) 12/23/21 05:45 Total Protein 5.6 g/dL (6.4-8.2) L 12/23/21 05:45 Albumin 2.8 g/dL (3.4-5.0) L 12/23/21 05:45 Globulin 2.8 g/dL (2.5-4.5) 12/23/21 05:45 Albumin/Globulin Ratio 1.0 Ratio (1.1-2.1) L 12/23/21 05:45 Lipase 115 Units/L (73-393) 12/22/21 23:30 SARS CoV-2 RNA Rapid SORIN Negative (NEGATIVE) 12/23/21 00:18 - Assessment and Plan 1: subsiding partial SBO . abdominal adhesions . to advance diet . - Problem Patient Problems: Patient Problems Essential hypertension (Chronic) Hypothyroidism (Chronic) Diabetes (Chronic) E11.9 Hyperlipidemia (Chronic) E78.5 Partial small bowel obstruction (Acute) K56.600 Abdominal pain, epigastric (Acute) R10.13
[2021-12-23] MEDS ORDERED: COUMADIN TAB 5 MG (JANTOVEN) PO SCH (21:00)
[2021-12-23] MEDS ORDERED: ZOCOR TAB 20 MG PO SCH (21:00)
[2021-12-24 04:57] LABS: BASOPHILS % (AUTO) 0.7 % (0.2-1.0); BLOOD UREA NITROGEN 12 mg/dL (7-18); CALCIUM 7.9 mg/dL (8.5-10.1); CARBON DIOXIDE 29.2 mmol/L (21-32); CHLORIDE 106 mmol/L (98-107); CREATININE 0.83 mg/dL (0.55-1.02); EOSINOPHILS # (AUTO) 0.1 x10^3/uL (0.0-0.2); EOSINOPHILS % (AUTO) 2.5 % (0.9-2.9); HEMATOCRIT 33.8 % (36.0-47.0); HEMOGLOBIN 11.5 g/dL (12.0-16.0); LYMPHOCYTES % (AUTO) 21.6 % (21.0-51.0); MEAN CORPUSCULAR HEMOGLOBIN 32.5 pg (27.0-34.0); MEAN CORPUSCULAR HGB CONC 34.1 g/dL (33.0-35.0); MEAN CORPUSCULAR VOLUME 95.5 fL (80.0-100.0); MEAN PLATELET VOLUME 10.2 fL (7.4-11.0); MONOCYTES # (AUTO) 0.5 x10^3/uL (0.3-0.8); MONOCYTES % (AUTO) 10.7 % (0.0-13.0); NEUTROPHILS # (AUTO) 2.9 x10^3/uL (2.2-4.8); NEUTROPHILS % (AUTO) 64.5 % (42.0-75.0); RED BLOOD COUNT 3.54 X10^6/uL (3.5-5.4); RED CELL DISTRIBUTION WIDTH 14.9 % (11.6-16.5); SODIUM 144 mmol/L (136-145); WHITE BLOOD COUNT 4.5 X10^3/uL (3.6-10.0); eGFR NON BLACK RACES > 60 (>60)
[2021-12-24] MEDS: NS 1,000 ML IV 1,000 ML IV SCH (05:45)
[2021-12-24] MEDS ORDERED: POTASSIUM CHL 60 MEQ/NS 0.45% 500 ML IV PRN (07:18)
[2021-12-24] MEDS ORDERED: K-DUR TAB 20 MEQ PO PRN (07:18)
[2021-12-24] MEDS ORDERED: POTASSIUM CHL 40 MEQ/NS 0.45% 500 ML IV PRN (07:18)
[2021-12-24] MEDS ORDERED: KLOR-CON PO PRN (07:18)
[2021-12-24] MEDS ORDERED: K-RIDER 10 MEQ/NS 100 ML 10 MEQ/100 ML BAG IV PRN (07:18)
[2021-12-24] MEDS ORDERED: MICRO K EXTEN CAP 10 MEQ PO PRN (07:18)
[2021-12-24] MEDS ORDERED: POTASSIUM CHLORIDE LIQ 20 MEQ UDC PO PRN (07:18)
[2021-12-24] MEDS ORDERED: MAGNESIUM SULFATE 1 GRAM/100 mL PREMIX 1 G/100 ML BAG IV PRN (07:59)
[2021-12-24] MEDS: ASPIRIN EC 81 MG PO SCH (08:18)
[2021-12-24] MEDS: HYDROCHLOROTHIAZIDE 25 MG TAB PO SCH (08:19)
[2021-12-24] MEDS: PROTONIX TAB 40 MG PO SCH (08:19)
[2021-12-24] MEDS: CALAN SR 120 MG PO SCH (08:27)
[2021-12-24] MEDS ORDERED: SYNTHROID 100 mcg TAB PO SCH (09:00)
[2021-12-24] MEDS ORDERED: MICRO K EXTEN CAP 10 MEQ PO SCH (11:00)
--- NOTE | 2021-12-24 11:15 | RAD ---
HISTORYSMALL BOWEL OBSTRUCTIONSTUDYKUB x-ray one viewCOMPARISONX-ray 12/23/2021FINDINGSDiminished small-bowel air is seen without dilation. Little colonic air is seen. Postsurgical changes are seen in the right upper quadrant of the abdomen. IVC filter is unchanged in position. Persistent moderate levoscoliosis in the lumbar spine.IMPRESSIONNo small bowel dilation is seen. Appearance is improved from prior study.Electronically signed by: Piotr Cameron (Dec 24, 2021 11:14:15)
--- NOTE | 2021-12-24 12:55 | PCM.PROG ---
Progress Note Progress Note for Day of Date of Exam: 12/24/21 Subjective Subjective: Patient seen at bedside, no events overnight. She has been doing well. She was started on clear liquids and tolerated well. Denies abdominal pain, N/V. She did have 2 normal BMs. Labs/imaging reviewed Plan: advance diet as tolerated, Dr León advanced her to soft diet for lunch. Continue home medications. Resume home KCl dose. Replace K as per protocol. Patient can be discharged after lunch if she is able to tolerate her diet. F/U with PCP and Dr León as scheduled. Past Medical Family Social History Past Med/Fam/Surg Hx: No changes since H&P Allergies: Allergies zolpidem [From Ambien] Allergy (Verified 11/11/21 09:12) Review of Systems ROS: No change since H&P Vital Signs and I&O's Vital Signs: Temperature 98 F Pulse Rate [Right Brachial] 65 Pulse Rate 74 Respiratory Rate 20 Blood Pressure [Left Arm] 130/61 Blood Pressure [Right Arm] 130/60 Blood Pressure 136/76 O2 Sat by Pulse Oximetry 96 Intake and Output: Intake & Output 12/21/21 12/22/21 12/23/21 12/24/21 23:59 23:59 23:59 23:59 Intake Total 1440 / 1440 100 / 100 Balance 1440 / 1440 100 / 100 Physical Exam Oriented: Normal Eyes: Normal Ear: Normal Nose: Normal Respiratory: Normal Cardiovascular: Normal Auscultation: Bowel Sounds: Normal Tenderness: Normal Skin: Decreased [place]urgur Musculoskeletal: Normal Psychiatric: Normal Mood Description: Calm Affect: Normal Speech Pattern: Clear and Appropriate Laboratory and Diagnostics Result Diagrams: 12/24/21 03:46 12/24/21 03:46 Labs: Laboratory WBC 4.5 X10^3/uL (3.6-10.0) 12/24/21 03:46 RBC 3.54 X10^6/uL (3.5-5.4) 12/24/21 03:46 Hgb 11.5 g/dL (12.0-16.0) L 12/24/21 03:46 Hct 33.8 % (36.0-47.0) L 12/24/21 03:46 MCV 95.5 fL (80.0-100.0) 12/24/21 03:46 MCH 32.5 pg (27.0-34.0) 12/24/21 03:46 MCHC 34.1 g/dL (33.0-35.0) 12/24/21 03:46 RDW 14.9 % (11.6-16.5) 12/24/21 03:46 Plt Count 168 X10^3/uL (150.0-450.0) 12/24/21 03:46 MPV 10.2 fL (7.4-11.0) 12/24/21 03:46 Neut % (Auto) 64.5 % (42.0-75.0) 12/24/21 03:46 Lymph % (Auto) 21.6 % (21.0-51.0) 12/24/21 03:46 [place] % (Auto) 10.7 % (0.0-13.0) 12/24/21 03:46 Eos % (Auto) 2.5 % (0.9-2.9) 12/24/21 03:46 Baso % (Auto) 0.7 % (0.2-1.0) 12/24/21 03:46 Neut # (Auto) 2.9 x10^3/uL (2.2-4.8) 12/24/21 03:46 Lymph # (Auto) 1.0 X10^3/uL (1.3-2.9) L 12/24/21 03:46 [place] # (Auto) 0.5 x10^3/uL (0.3-0.8) 12/24/21 03:46 Eos # (Auto) 0.1 x10^3/uL (0.0-0.2) 12/24/21 03:46 Baso # (Auto) 0.0 X10^3/uL (0.0-0.1) 12/24/21 03:46 Absolute Nucleated RBC 0.1 /100WBC 12/24/21 03:46 PT 17.8 SECONDS (11.8-14.3) 12/24/21 03:46 INR Target Range - 12/24/21 03:46 INR 1.55 (0.8-1.3) H 12/24/21 03:46 APTT 34.0 SECONDS (22.9-36.5) 12/23/21 05:45 PTT Comment - 12/23/21 05:45 Sodium 144 mmol/L (136-145) 12/24/21 03:46 Corrected Sodium TNP 12/24/21 03:46 Potassium 3.3 mmol/L (3.5-5.1) L 12/24/21 03:46 Chloride 106 mmol/L (98-107) 12/24/21 03:46 Carbon Dioxide 29.2 mmol/L (21-32) 12/24/21 03:46 BUN 12 mg/dL (7-18) 12/24/21 03:46 Creatinine 0.83 mg/dL (0.55-1.02) 12/24/21 03:46 Est GFR (MDRD) Af Amer > 60 (>60) 12/24/21 03:46 Est GFR (MDRD) Non-Af > 60 (>60) 12/24/21 03:46 Glucose 88 mg/dL (65-99) 12/24/21 03:46 Calcium 7.9 mg/dL (8.5-10.1) L 12/24/21 03:46 Corrected Calcium 8.7 mg/dL (8.5-10.1) 12/23/21 05:45 Magnesium 2.1 mg/dL (1.7-2.9) 12/24/21 03:46 Total Bilirubin 0.90 mg/dL (0.2-1.0) 12/23/21 05:45 AST 19 Units/L (15-37) 12/23/21 05:45 ALT 18 Units/L (12-78) 12/23/21 05:45 Alkaline Phosphatase 63 Units/L (46-116) 12/23/21 05:45 Total Protein 5.6 g/dL (6.4-8.2) L 12/23/21 05:45 Albumin 2.8 g/dL (3.4-5.0) L 12/23/21 05:45 Globulin 2.8 g/dL (2.5-4.5) 12/23/21 05:45 Albumin/Globulin Ratio 1.0 Ratio (1.1-2.1) L 12/23/21 05:45 Lipase 115 Units/L (73-393) 12/22/21 23:30 SARS CoV-2 RNA Rapid SORIN Negative (NEGATIVE) 12/23/21 00:18 Plan (1) Partial small bowel obstruction: Status: Acute (2) Nausea & vomiting: Status: Acute Qualifiers: Vomiting type: unspecified Qualified Code(s): R11.2 - Nausea with vomiting, unspecified (3) Dehydration: Status: Acute (4) Essential hypertension: Status: Chronic (5) Hypothyroidism: Status: Chronic (6) CVA (cerebral vascular accident): Status: Acute Qualifiers: CVA mechanism: unspecified Qualified Code(s): I63.9 - Cerebral infarction, unspecified (7) Hyperlipidemia: Status: Chronic Qualifiers: Hyperlipidemia type: mixed hyperlipidemia Qualified Code(s): E78.2 - Mixed hyperlipidemia (8) Breast cancer: Status: Chronic Qualifiers: Breast location: unspecified site of breast Estrogen receptor status: unspecified Laterality: unspecified laterality Patient gender: female Patient sex: female Qualified Code(s): C50.919 - Malignant neoplasm of unspecified site of unspecified female breast (9) S/P CABG (coronary artery bypass graft): Status: Chronic (10) H/O mastectomy: Status: Chronic Qualifiers: Laterality: left Qualified Code(s): Z90.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
[2021-12-24 13:35] VITALS: BP 111/51
[2021-12-24] MEDS ORDERED: EXEMESTANE 25 MG PO SCH (21:00)
[2021-12-24] MEDS ORDERED: COUMADIN TAB 5 MG (JANTOVEN) PO SCH (21:00)
== END 2021-12-24 14:45 | disposition home or self-care (01) | DRG 389 ==
LOC: ER 22:30 → MED/SURG 12-23 00:51
PROVIDERS: ADMIT Surgery; ATTEND Surgery
DX: Z85.3 Personal history of malignant neoplasm of breast; E11.9 Type 2 diabetes mellitus without complications; Z86.711 Personal history of pulmonary embolism; E03.9 Hypothyroidism, unspecified; Z11.52 Encounter for screening for COVID-19; Z95.828 Presence of other vascular implants and grafts; J44.9 Chronic obstructive pulmonary disease, unspecified; R06.02 Shortness of breath; R26.2 Difficulty in walking, not elsewhere classified; Z85.038 Personal history of other malignant neoplasm of large intestine; K56.51 Intestinal adhesions [bands], with partial obstruction; Z98.0 Intestinal bypass and anastomosis status; Z90.10 Acquired absence of unspecified breast and nipple; I10 Essential (primary) hypertension; R10.9 Unspecified abdominal pain; E86.0 Dehydration; D68.9 Coagulation defect, unspecified; I25.10 Atherosclerotic heart disease of native coronary artery without angina pectoris

== ENCOUNTER 2022-08-15 23:34 | Observation (INO) ==
--- NOTE | 2022-08-15 23:50 | DR.GENAD ---
HPI Time Seen Time Seen by Provider: 08/15/22 23:49 HPI Comment HPI Comment: PATIENT IS 87YR OLD FEMALE IN ER VIA EMS WITH SPEECH DISTURBANCES. PATIENT HAD CVA RECENTLY 08/04/22. SHE ALSO HAD AORTIC HEART VALVE SURGERY 08/02/22. EVALUATED BY TELESTROKE AND OBSERVATION IN HOSPITAL RECOMENTED. PATIENT ANSWERING QUESTIONS AND FOLLOWING COMMAND IN ER. SPEECH IS CHANGE. SHE IS ON ANTICOAGULATION THERAPY. Complaint/Symptoms Chief Complaint Doctors Comments: PATIENT IN ER VIA EMS FOR SPEECH DISTURBANCES. COVID-19 Coronavirus risk:travel/contact w/high risk person: No Has patient experienced Coronavirus symptoms: No Nurses notes reviewed Nurses Notes Review: Yes Source History Provided: Patient and Family Member Mode of Arrival Mode of Arrival: EMS Timing Came on: Suddenly Duration Duration: Constant Duration: Hours PMH PMH Past Medical History: Arthritis, Asthma, COPD, Dyslipidemia, GERD, Hypertension, Hypothyroidism and Kidney Stones Past Surgical History: Yes Surgical History: Unknown, Abdominal Surgery, Carotid Endarterectomy, Hysterectomy and Mastectomy Family History Family Medical History: Diabetes Mellitus Social History Do you use any recreational Drugs:: No ROS Review of Systems Constitutional: Weakness and Fatigue; negative Fever Eyes: No Symptoms Reported ENTM: No Symptoms Reported; negative Nose Discharge or Nose Congestion Respiratoy: No Symptoms Reported; negative Moist Cough, Short of Breath or Wheezing Cardiovascular: No Symptoms Reported; negative Chest Pain Gastrointestinal/Abdominal: No Symptoms Reported; negative Abdominal Pain, Diarrhea, Nausea or Vomiting Genitourinary: No Symptoms Reported; negative Dysuria Neurological: Weakness; negative Headache or Dizziness Musculoskeletal: No Symptoms Reported Integumentary: Dryness; negative Rash or Juandice Hematologic/Lymphatic: Easy Bleeding and Easy Bruising Endocrine: No Symptoms Reported; negative Increased Thirst or Increased Urine Psychiatric: No Symptoms Reported All Other Systems: Reviewed and Negative PE Vital Signs Vitals: Temperature 98.5 F Pulse Rate 66 Respiratory Rate 18 Blood Pressure [Left Arm] 111/51 Blood Pressure [Right Arm] 130/60 Blood Pressure 122/59 O2 Sat by Pulse Oximetry 99 General Limitations: No Limitations General Appearance: Alert and In No Apparent Distress Head Head Exam: Normal Inspection and Atraumatic Eyes Eye exam: Normal Appearance ENT ENT Exam: Normal Exam, Normal Oropharynx, Normal External Ear Exam and TM's Normal Bilaterally External Ear Exam: Normal External Inspection; negative Mastoid Tenderness TM/Canal Exam: Bilateral: Normal Nose Exam: Normal Nose Exam Throat Exam: Normal Inspection; negative Tonsillar Erythema, Tonsillomegaly or Tonsillar Exudate Neck Neck Exam: Normal Inspection and Trachea Midline; negative Tenderness Chest Chest Inspection: Normal Inspection and Symmetric Chest Wall Rise; negative Tenderness Respiratory Respiratory Exam: Normal Lung Sounds Bilat; negative Accessory Muscle Use, Chest Wall Tenderness or Respiratory Distress Respiratory Exam: Bilateral: Rhonchi Cardiovascular Cardiovascular Exam: Regular Rate, Normal Rhythm, Normal Heart Sounds and Systolic Murmur; negative Diastolic Murmur Abdominal Exam Abdominal Exam: Normal Inspection, Normal Bowel Sounds and Soft; negative Tenderness Extremities Extremities Exam: Normal Inspection and Normal Capillary Refill Back Back Exam: Normal Inspection; negative (R) CVA Tenderness or (L) CVA Tenderness Neurologic Neurological Exam: Alert, Oriented X3 and Other (DYSARTHRIA.); negative Motor Sensory Deficit Psychiatric Psychiatric Exam: Normal Affect and Anxious Skin Skin Exam: Intact; negative Rash or Pallor MDM Differential Diagnosis Differential Diagnosis: DYSARTHRIA, RECENT AORTIC VALVE SURGERY, RECENT CVA, HYPERTENSION. COURSE Treatment Treatment: SEE ORDERS DONE WHILE PATIENT WAS IN ER. DISCUSSED LABS AND XRAY, EKG, AND CT REPORTS WITH PATIENT AND FAMILY. Consultation Consultation Comments: DISCUSSED PATIENT WITH DR. MISHRA. HE WILL ADMIT PATIENT. Education/Counseling Education/Counseling: Patient Educated On: Needs for Follow Up ROR Labs Reviewed Laboratory Results Reviewed?: Yes Result Diagrams: 08/17/22 04:55 08/17/22 04:55 Laboratory: WBC 10.7 X10^3/uL (3.6-10.0) H 08/16/22 00:10 RBC 3.54 X10^6/uL (3.5-5.4) 08/16/22 00:10 Hgb 10.8 g/dL (12.0-16.0) L 08/16/22 00:10 Hct 32.2 % (36.0-47.0) L 08/16/22 00:10 MCV 90.9 fL (80.0-100.0) 08/16/22 00:10 MCH 30.6 pg (27.0-34.0) 08/16/22 00:10 MCHC 33.7 g/dL (33.0-35.0) 08/16/22 00:10 RDW 16.2 % (11.6-16.5) 08/16/22 00:10 Plt Count 235 X10^3/uL (150.0-450.0) 08/16/22 00:10 MPV 9.3 fL (7.4-11.0) 08/16/22 00:10 Neut % (Auto) 79.7 % (42.0-75.0) H 08/16/22 00:10 Lymph % (Auto) 10.8 % (21.0-51.0) L 08/16/22 00:10 [place] % (Auto) 7.9 % (0.0-13.0) 08/16/22 00:10 Eos % (Auto) 1.6 % (0.9-2.9) 08/16/22 00:10 Baso % (Auto) 0 % (0.2-1.0) L 08/16/22 00:10 Neut # (Auto) 8.5 x10^3/uL (2.2-4.8) H 08/16/22 00:10 Lymph # (Auto) 1.2 X10^3/uL (1.3-2.9) L 08/16/22 00:10 [place] # (Auto) 0.8 x10^3/uL (0.3-0.8) 08/16/22 00:10 Eos # (Auto) 0.2 x10^3/uL (0.0-0.2) 08/16/22 00:10 Baso # (Auto) 0.0 X10^3/uL (0.0-0.1) 08/16/22 00:10 Absolute Nucleated RBC 0.0 /100WBC 08/16/22 00:10 PT 26.3 SECONDS (11.8-14.3) 08/16/22 00:10 INR Target Range - 08/16/22 00:10 INR 2.55 (0.8-1.3) H 08/16/22 00:10 APTT 59.2 SECONDS (22.9-36.5) H 08/16/22 00:10 PTT Comment - 08/16/22 00:10 Sodium 138 mmol/L (136-145) 08/16/22 00:10 Corrected Sodium TNP 08/16/22 00:10 Potassium 4.0 mmol/L (3.5-5.1) 08/16/22 00:10 Chloride 100 mmol/L (98-107) 08/16/22 00:10 Carbon Dioxide 31.5 mmol/L (21-32) 08/16/22 00:10 BUN 18 mg/dL (7-18) 08/16/22 00:10 Creatinine 1.15 mg/dL (0.55-1.02) H 08/16/22 00:10 Est GFR (MDRD) Af Amer 58 (>60) L 08/16/22 00:10 Est GFR (MDRD) Non-Af 48 (>60) L 08/16/22 00:10 Glucose 86 mg/dL (65-99) 08/16/22 00:10 Calcium 8.7 mg/dL (8.5-10.1) 08/16/22 00:10 Corrected Calcium 9.7 mg/dL (8.5-10.1) 08/16/22 00:10 Total Bilirubin 0.50 mg/dL (0.2-1.0) 08/16/22 00:10 AST 42 Units/L (15-37) H 08/16/22 00:10 ALT 32 Units/L (12-78) 08/16/22 00:10 Alkaline Phosphatase 69 Units/L (46-116) 08/16/22 00:10 Creatine Kinase 77 Units/L (26-192) 08/16/22 00:10 Troponin I High Sens 148.2 ng/L (4.0-60.0) H* 08/16/22 00:10 B-Natriuretic Peptide 301 pg/mL (0-79) H 08/16/22 00:10 Total Protein 6.3 g/dL (6.4-8.2) L 08/16/22 00:10 Albumin 2.8 g/dL (3.4-5.0) L 08/16/22 00:10 Globulin 3.5 g/dL (2.5-4.5) 08/16/22 00:10 Albumin/Globulin Ratio 0.8 Ratio (1.1-2.1) L 08/16/22 00:10 Specimen Type Clean catch urine 08/16/22 Urine Color Pale yellow (YELLOW) 08/16/22 Urine Appearance Clear (CLEAR) 08/16/22: Urine pH 6.5 (5.0 - 8.0) 08/16/22 01: Ur Specific [place] 1.010 (1.000-1.030) 08/16/22 01: Urine Protein Negative (NEGATIVE) 08/16/22: Urine Glucose (UA) Negative (NEGATIVE) 08/16/22: Urine Ketones Negative (NEGATIVE) 08/16/22: Urine Blood 4+ (NEGATIVE) 08/16/22: Urine Nitrite Negative (NEGATIVE) 08/16/22: Urine Bilirubin Negative (NEGATIVE) 08/16/22: Urine Urobilinogen Normal (NORMAL) 08/16/22: Ur Leukocyte Esterase Negative (NEGATIVE) 08/16/22: Urine RBC 3-5 /HPF (0-3) A 08/16/22: Urine WBC None seen /HPF (0-5) 08/16/22: Ur Squamous Epith Cells Few /HPF (NEGATIVE) 08/16/22: Urine Bacteria Trace /HPF (NEGATIVE) 08/16/22: Ur Culture Indicated? No/not indicated 08/16/22 01: XRAY XRAY Interpreted by: Radiologist (REPORT NOTED.) and Self EKG Rate: 73 [place]: Normal Rhythm: Paced Block: None Hypertrophy: None ST: Nonsp Opioid Opioid Risk Tool Age (Jeet box if 16-45): No History of Preadolescent Sexual Abuse: No Total: 0 Total Score Risk Category: Low Risk Copyright: Sarkis NOGUERA predicting aberrant behaviors Discharge Plan Diagnosis Discharge Problem: Neurological impairment in adult, Hypertension, S/P placement of cardiac pacemaker Discharge Plan Patient Disposition: 09 ADMITTED INPATIENT Condition: Stable
[2022-08-16 00:20] LABS: EOSINOPHILS # (AUTO) 0.2 x10^3/uL (0.0-0.2); HEMOGLOBIN 10.8 g/dL (12.0-16.0)
[2022-08-16 00:25] LABS: BASOPHILS % (AUTO) 0 % (0.2-1.0); EOSINOPHILS % (AUTO) 1.6 % (0.9-2.9); HEMATOCRIT 32.2 % (36.0-47.0); LYMPHOCYTES # (AUTO) 1.2 X10^3/uL (1.3-2.9); LYMPHOCYTES % (AUTO) 10.8 % (21.0-51.0); MEAN CORPUSCULAR HEMOGLOBIN 30.6 pg (27.0-34.0); MEAN CORPUSCULAR HGB CONC 33.7 g/dL (33.0-35.0); MEAN CORPUSCULAR VOLUME 90.9 fL (80.0-100.0); MEAN PLATELET VOLUME 9.3 fL (7.4-11.0); MONOCYTES # (AUTO) 0.8 x10^3/uL (0.3-0.8); MONOCYTES % (AUTO) 7.9 % (0.0-13.0); NEUTROPHILS # (AUTO) 8.5 x10^3/uL (2.2-4.8); NEUTROPHILS % (AUTO) 79.7 % (42.0-75.0); RED BLOOD COUNT 3.54 X10^6/uL (3.5-5.4); RED CELL DISTRIBUTION WIDTH 16.2 % (11.6-16.5); WHITE BLOOD COUNT 10.7 X10^3/uL (3.6-10.0)
[2022-08-16 00:54] LABS: ALANINE AMINOTRANSFERASE 32 Units/L (12-78); ALBUMIN 2.8 g/dL (3.4-5.0); ALKALINE PHOSPHATASE 69 Units/L (46-116); ASPARTATE AMINO TRANSFERASE 42 Units/L (15-37); BLOOD UREA NITROGEN 18 mg/dL (7-18); CALCIUM 8.7 mg/dL (8.5-10.1); CARBON DIOXIDE 31.5 mmol/L (21-32); CHLORIDE 100 mmol/L (98-107); COR CA(FOR HYPOALB) 9.7 mg/dL (8.5-10.1); CREATINE KINASE 77 Units/L (26-192); CREATININE 1.15 mg/dL (0.55-1.02); SODIUM 138 mmol/L (136-145); TOTAL PROTEIN 6.3 g/dL (6.4-8.2); eGFR NON BLACK RACES 48 (>60)
--- NOTE | 2022-08-16 01:01 | CT ---
History: PT IN ED VIA [facility]. EMS STATES THEY WERE CALLED OUT D/T DIFFICUTY SPEAKING, STATES UPON ARRIVAL THAT PT WAS EXPERIENCING SOME DYSPHAGIA BUT WAS ABLE TO FOLLOW COMMANDS APPROPRIATELY. 08/02/22 - HEART VALVE REPLACEMENT @ [facility]. 08/04/22 - PT FLOWN BACK TO [facility] D/T STROKE. 08/08/22 - CARDIAC ICP PLACEMENT. ASTHMA, COPD, CAD, CVA, DM, GERD, HTN, COLON CA, BREAST CA, ARRHYTHMIA, HX OF PE SX: CABG/VALVE SURG, HYST, MAST, PACEMAKER, CAROTID ENDARTERECTOMYExam :BRAIN W/O CONTechnique: Thin section axial ct images of the brain were obtained from the foramen magnum to the vertex without contrast. Sagittal and coronal reconstructions were also performed.Comparison: NoneFindings:The ventricles are within normal limits in size. No midline shift, mass effect or extra-axial fluid collections. No evidence of acute hemorrhage or acute macroinfarction. Moderate cortical atrophy compatible with patient's age. Decreased attenuation in the periventricular and subcortical white matter consistent with microvascular ischemic white matter changes.The visualized paranasal sinuses and mastoids are unremarkable. The calvarium is intact.Impression:Moderate cortical atrophy with microvascular ischemic white matter changes.No acute intracranial pathology.Electronically signed by: Jimy Coats (Aug 16, 2022 00:59:38)
--- NOTE | 2022-08-16 01:16 | TELESTROKE ---
Tele[facility]Specialist Consult Date of Consult Date of Exam: 08/15/22 Time of Arrival to the ED: 01:14 Allergies Allergies Allergy/AdvReac Type Severity Reaction Status Date / Time zolpidem [From Ambien] Allergy Verified 11/11/21 09:12 Vital Signs Vital Signs: Temp Pulse Resp BP BP BP Pulse Ox 08/16/22 01:01 114/73 08/16/22 01:01 66 98 08/16/22 01:00 67 99 08/16/22 00:49 120/56 08/16/22 00:49 67 95 08/16/22 00:48 70 95 08/16/22 00:30 69 97 08/16/22 00:15 70 97 08/16/22 00:00 70 97 08/15/22 23:46 75 99 08/15/22 23:42 98.5 F 75 18 122/59 99 08/04/22 22:01 140/64 12/24/21 12:00 111/51 12/23/21 04:00 130/60 O2 Del Method 08/16/22 01:01 08/16/22 01:01 08/16/22 01:00 08/16/22 00:49 08/16/22 00:49 08/16/22 00:48 08/16/22 00:30 08/16/22 00:15 08/16/22 00:00 08/15/22 23:46 08/15/22 23:42 Room Air 08/04/22 22:01 12/24/21 12:00 12/23/21 04:00 Medical Decision Making Result Diagrams: 08/16/22 00:10 08/16/22 00:10 Labs: Laboratory Results - last 24 hr 08/16/22 08/16/22 00:10 00:10 WBC 10.7 H RBC 3.54 Hgb 10.8 L Hct 32.2 L MCV 90.9 MCH 30.6 MCHC 33.7 RDW 16.2 Plt Count 235 MPV 9.3 Neut % (Auto) 79.7 H Lymph % (Auto) 10.8 L [place] % (Auto) 7.9 Eos % (Auto) 1.6 Baso % (Auto) 0 L Neut # (Auto) 8.5 H Lymph # (Auto) 1.2 L [place] # (Auto) 0.8 Eos # (Auto) 0.2 Baso # (Auto) 0.0 Absolute Nucleated RBC 0.0 Sodium 138 Corrected Sodium TNP Potassium 4.0 Chloride 100 Carbon Dioxide 31.5 BUN 18 Creatinine 1.15 H Est GFR (MDRD) Af Amer 58 L Est GFR (MDRD) Non-Af 48 L Glucose 86 Calcium 8.7 Corrected Calcium 9.7 Total Bilirubin 0.50 AST 42 H ALT 32 Alkaline Phosphatase 69 Creatine Kinase 77 Troponin I High Sens 148.2 H* B-Natriuretic Peptide 301 H Total Protein 6.3 L Albumin 2.8 L Globulin 3.5 Albumin/Globulin Ratio 0.8 L HPI PCP Primary Care Physician: LISSETT BOWDEN HPI comment HPI Comment: [facility] Patient Name: VICENTA THORNE Date of : 1935 Identification Number: Date of Service: 08/16/2022 00:11:34 Diagnosis: R47.81 - Slurred speech Impression: 87 yo female with history of HTN, HLD, recent hospitalization for valve replacement complicated by multifocal strokes currently on ASA (only 7 day course, last dose tomorrow) and warfarin presenting now with an episode of choking followed by some mild confusion and slurred speech. She is currently m ostly back to baseline, daughters still feel like her speech is "slow". NIHSS 1 for mild confusion. She is not a thrombolytic candidate due to recent strokes. Etiology for symptoms not entirely clear, possible transient symptom worsening given prior stroke. Would obtain MRI Brain wo for further evaluation to ensure no new or worsening stroke. Infectious/metabolic work-up per primary team. Metrics: Last Known Well: 08/15/2022 21:00:00 [facility] Notification Time: 08/16/2022 00:11:34 Arrival Time: 08/15/2022 23:34:00 Stamp Time: 08/16/2022 00:11:34 Initial Response Time: 08/16/2022 00:12:39 Symptoms: slurred speech. NIHSS Start Assessment Time: 08/16/2022 00:17:31 Patient is not a candidate for Thrombolytic. Thrombolytic Medical Decision: 08/16/2022 00:15:32 Patient was not deemed candidate for Thrombolytic because of following reasons: Stroke in last [address] head showed no acute hemorrhage or acute core infarct. ED Physician notified of diagnostic impression and management plan on 08/16/2022 01:12:14 Advanced Imaging: Advanced Imaging Not Completed because: Low suspicion for LVO given current symptoms Our recommendations are outlined below. Recommendations: Stroke/Telemetry Floor Neuro Checks Bedside Swallow Eval DVT Prophylaxis IV Fluids, Normal Saline Head of Bed 30 Degrees Euglycemia and Avoid Hyperthermia (PRN Acetaminophen) Antihypertensives PRN if Blood pressure is greater than 220/120 or there is a concern for End organ damage/contraindications for permissive HTN. If blood pressure is greater than 220/120 give labetalol PO or IV or Vasotec IV with a goal of 15% reduction in BP during the first 24 hours. Okay to continue warfarin pending INR Routine Consultation with Inhouse Neurology for Follow up Care Sign Out: Discussed with Emergency Department Provider History of Present Illness: Patient is a 87 year old Female. Patient was brought by private transportation with symptoms of slurred speech. Patient presenting from home accompanied by her daughters who help to provide the history. Patient woke up abruptly like she was choking to clear her throat and was having difficulty. They noticed that her speech seemed slurred and that she was having difficulty getting her words out. She was recently discharge home on 08/11 following a valve replacement complicated by multifocal strokes on 08/04. Has been recovering well from her stroke, though still has some confusion. She is having home health therapies for rehab. Past Medical History: Hypertension Hyperlipidemia Stroke heart valve replacement a few weeks ago Anticoagulant use: Yes warfarin Antiplatelet use: Yes ASA 81 mg Allergies: Reviewed Examination: BP(122/59), Pulse(71), 1A: Level of Consciousness - Alert; keenly responsive + 0 1B: Ask Month and Age - 1 Question Right + 1 1C: Blink Eyes & Squeeze Hands - Performs Both Tasks + 0 2: Test Horizontal Extraocular Movements - Normal + 0 3: Test Visual [place] - No Visual Loss + 0 4: Test Facial Palsy (Use Grimace if Obtunded) - Normal symmetry + 0 5A: Test Left Arm Motor Drift - No Drift for 10 Seconds + 0 5B: Test Right Arm Motor Drift - No Drift for 10 Seconds + 0 6A: Test Left Leg Motor Drift - No Drift for 5 Seconds + 0 6B: Test Right Leg Motor Drift - No Drift for 5 Seconds + 0 7: Test Limb Ataxia (FNF/Heel-Goodman) - No Ataxia + 0 8: Test Sensation - Normal; No sensory loss + 0 9: Test Language/Aphasia - Normal; No aphasia + 0 10: Test Dysarthria - Normal + 0 11: Test Extinction/Inattention - No abnormality + 0 NIHSS Score: 1 Pre-Morbid Modified [place] Scale: 3 Points = Moderate disability; requiring some help, but able to walk without assistance Patient/Family was informed the Neurology Consult would occur via TeleHealth consult by way of interactive audio and video telecommunications and consented to receiving care in this manner. Patient is being evaluated for possible acute neurologic impairment and high pr obability of imminent or life-threatening deterioration. I spent total of 30 minutes providing care to this patient, including time for face to face visit via telemedicine, review of medical records, imaging studies and discussion of findings with providers, the patient and/or family. Dr Richard Saba [facility] Case [id number] Complaint Chief Complaint:: PT IN ED VIA [facility]. EMS STATES THEY WERE CALLED OUT D/T DIFFICUTY SPEAKING, STATES UPON ARRIVAL THAT PT WAS EXPERIENCING SOME DYSPHAGIA BUT WAS ABLE TO FOLLOW COMMANDS APPROPRIATELY. UPON ARRIVAL TO ER PT IS A&O, ABLE TO FOLLOW COMMANDS AND ANSWER QUESTIONS APPROPRIATELY. Source History Provided: Patient and EMS Mode of Arrival Mode of Arrival: EMS Timing Onset of Chief Complaint: 08/15/22
--- NOTE | 2022-08-16 01:18 | RAD ---
HISTORYPT IN ED VIA [facility]. EMS STATES THEY WERE CALLED OUT D/T DIFFICUTY SPEAKING, STATES UPON ARRIVAL THAT PT WAS EXPERIENCING SOME DYSPHAGIA BUT WAS ABLE TO FOLLOW COMMANDS APPROPRIATELY.STUDYCHEST, 1 VIEWCOMPARISONNone.TECHNIQUEA single frontal view of the chest was obtained.FINDINGSThere is a permanent pacemaker overlying the left chest wall with its proximal lead in the right atrium and distal lead in the right ventricle. There are multiple EKG leads and wires seen overlying the patient. There is mild to moderate cardiomegaly. There is no focal infiltrate. There is no effusion. There is no pneumothorax. The osseous structures are intact. There are surgical clips within the left axilla.IMPRESSIONNo focal infiltrate or effusion.Electronically signed by: Rola Velarde (Aug 16, 2022 01:16:45)
[2022-08-16 01:25] LABS: INR 2.55 (0.8-1.3)
[2022-08-16 01:33] LABS: BILIRUBIN,URINE NEGATIVE (NEGATIVE); BLOOD/HEMOGLOBIN,URINE 4+ (NEGATIVE); GLUCOSE, URINE NEGATIVE (NEGATIVE); KETONES,URINE NEGATIVE (NEGATIVE); LEUKOCYTE ESTERASE ,URINE NEGATIVE (NEGATIVE); NITRITES,URINE NEGATIVE (NEGATIVE); PH,URINE 6.5 (5.0 - 8.0); PROTEIN,URINE NEGATIVE (NEGATIVE); UROBILINOGEN,URINE NORMAL (NORMAL)
[2022-08-16 01:40] LABS: APPEARANCE,URINE CLEAR (CLEAR); COLOR,URINE PALE YELLOW (YELLOW)
[2022-08-16 01:41] LABS: BACTERIA,URINE TRACE /HPF (NEGATIVE)
[2022-08-16 01:42] LABS: SQUAMOUS EPITHELIAL CELL,UR FEW /HPF (NEGATIVE)
[2022-08-16] MEDS ORDERED: NS 1/2 1,000 ML IV 1,000 ML IV SCH (04:02)
[2022-08-16 05:13] VITALS: BMI 30.1
[2022-08-16] MEDS ORDERED: NS 1/2 1,000 ML IV 1,000 ML IV ONE (05:34)
[2022-08-16 06:31] LABS: BASOPHILS % (AUTO) 0 % (0.2-1.0); EOSINOPHILS # (AUTO) 0.2 x10^3/uL (0.0-0.2); EOSINOPHILS % (AUTO) 1.7 % (0.9-2.9); HEMATOCRIT 30.8 % (36.0-47.0); HEMOGLOBIN 10.5 g/dL (12.0-16.0); LYMPHOCYTES # (AUTO) 0.9 X10^3/uL (1.3-2.9); LYMPHOCYTES % (AUTO) 8.7 % (21.0-51.0); MEAN CORPUSCULAR HEMOGLOBIN 30.9 pg (27.0-34.0); MEAN PLATELET VOLUME 9.1 fL (7.4-11.0); MONOCYTES # (AUTO) 0.6 x10^3/uL (0.3-0.8); MONOCYTES % (AUTO) 6.3 % (0.0-13.0); NEUTROPHILS # (AUTO) 8.3 x10^3/uL (2.2-4.8); NEUTROPHILS % (AUTO) 83.3 % (42.0-75.0); RED BLOOD COUNT 3.39 X10^6/uL (3.5-5.4); WHITE BLOOD COUNT 9.9 X10^3/uL (3.6-10.0)
[2022-08-16 07:03] LABS: ALANINE AMINOTRANSFERASE 26 Units/L (12-78); ALBUMIN 2.7 g/dL (3.4-5.0); ALKALINE PHOSPHATASE 64 Units/L (46-116); ASPARTATE AMINO TRANSFERASE 39 Units/L (15-37); BLOOD UREA NITROGEN 17 mg/dL (7-18); CALCIUM 8.7 mg/dL (8.5-10.1); CARBON DIOXIDE 28.4 mmol/L (21-32); CHLORIDE 102 mmol/L (98-107); COR CA(FOR HYPOALB) 9.7 mg/dL (8.5-10.1); CREATINE KINASE 69 Units/L (26-192); CREATININE 0.98 mg/dL (0.55-1.02); SODIUM 139 mmol/L (136-145); TOTAL PROTEIN 3.8 g/dL (6.4-8.2); eGFR NON BLACK RACES 57 (>60)
[2022-08-16] MEDS ORDERED: HYDROCHLOROTHIAZIDE 25 MG TAB PO SCH ×2 (11:00→21:00)
[2022-08-16] MEDS: PROTONIX TAB 40 MG PO SCH (12:02)
[2022-08-16] MEDS: CALAN SR 120 MG PO SCH (12:02)
[2022-08-16] MEDS: ASPIRIN EC 81 MG PO SCH (12:02)
--- NOTE | 2022-08-16 19:19 | DR.H&P ---
H&P History & Physical for Day of: H&P Date: 08/16/22 Chief Complaint Chief Complaint: Speech difficulty Allergies Allergies Allergy/AdvReac Type Severity Reaction Status Date / Time zolpidem [From Ambien] Allergy Verified 11/11/21 09:12 History of Present Illness History of Present Illness: Pt is a 87 year old female past medical history of CVA, Aortic valve replacement, Pacemaker, Hypertension, Hypothyroidism, and COPD presenting after having episode with speech difficulty around 11PM last night. Per daughter, pt stays with her and all of a sudden sat up in bed and was having difficulty speaking. Daughter called EMS and patient was taken to [facility], which after neuro-telemedicine consult was recommended she get admitted for observation and MRI if possible. Pt's symptoms had resolved. She does have a history of recent aortic valve replacement at [facility] and then was transferred shortly after discharge back due to CVA and embolism per daughter. Will need to obtain records for review. She also required a pacemaker. Labs/imaging: Wbc 9.9, Hgb 10.5, Plt 193, Na 139, K 3.8, Creatinine 0.98, Glucose 92, INR 2.5, UA negative, Troponin 148>172, CXR: no acute cardiopulmonary findings, CT brain: Moderate cortical atrophy with microvascular ischemic white matter changes. No acute intracranial pathology. Will restart home medications that includes coumadin and statin that patient is currently taking. Unable to obtain MRI due to pacemaker. Pt's symptoms have resolved. Her troponin is elevated but patient does not exhibit cardiopulmonary symptoms. Will continue to trend and consult cardiology. Pt is on telemetry. Will continue to closely monitor and follow up labs/imaging. Past Medical History Past Medical History: Arthritis, Asthma, COPD, Dyslipidemia, GERD, Hypertension, Hypothyroidism and Kidney Stones Additional Medical History: Syncope, Left Carotid Artery Occlusion, Chronic Back Pain, Breast Cancer Colon cancer PE Past Surgical History Surgical History: CABG/Valve Surgery, Carotid Endarterectomy, Cholecystectomy, Hysterectomy and Mastectomy Additional Surgical History: Heart Catherization x 2, Left Mastectomy, Hernia Repair Colon surgery IVC Family History Family Medical History: Diabetes Mellitus Social History Does patient currently use any type of tobacco product: No Have you used tobacco products in the last 12 months: No Type of Tobacco Use: None Does any household member use tobacco: No Alcohol Use: None Drug Use: None Medications Home Medications: zolpidem [From Ambien] Allergy (Verified 11/11/21 09:12) CONTINUE taking the following medications atorvastatin 80 mg tablet 80 mg PO QHS 08/16/22 [History] famotidine 20 mg tablet 20 mg PO QHS 08/16/22 [History] Labs Result Diagrams: 08/16/22 06:15 08/16/22 06:15 Labs: Laboratory WBC 9.9 X10^3/uL (3.6-10.0) 08/16/22 06:15 RBC 3.39 X10^6/uL (3.5-5.4) L 08/16/22 06:15 Hgb 10.5 g/dL (12.0-16.0) L 08/16/22 06:15 Hct 30.8 % (36.0-47.0) L 08/16/22 06:15 MCV 91.0 fL (80.0-100.0) 08/16/22 06:15 MCH 30.9 pg (27.0-34.0) 08/16/22 06:15 MCHC 34.0 g/dL (33.0-35.0) 08/16/22 06:15 RDW 16.0 % (11.6-16.5) 08/16/22 06:15 Plt Count 193 X10^3/uL (150.0-450.0) 08/16/22 06:15 MPV 9.1 fL (7.4-11.0) 08/16/22 06:15 Neut % (Auto) 83.3 % (42.0-75.0) H 08/16/22 06:15 Lymph % (Auto) 8.7 % (21.0-51.0) L 08/16/22 06:15 [place] % (Auto) 6.3 % (0.0-13.0) 08/16/22 06:15 Eos % (Auto) 1.7 % (0.9-2.9) 08/16/22 06:15 Baso % (Auto) 0 % (0.2-1.0) L 08/16/22 06:15 Neut # (Auto) 8.3 x10^3/uL (2.2-4.8) H 08/16/22 06:15 Lymph # (Auto) 0.9 X10^3/uL (1.3-2.9) L 08/16/22 06:15 [place] # (Auto) 0.6 x10^3/uL (0.3-0.8) 08/16/22 06:15 Eos # (Auto) 0.2 x10^3/uL (0.0-0.2) 08/16/22 06:15 Baso # (Auto) 0.0 X10^3/uL (0.0-0.1) 08/16/22 06:15 Absolute Nucleated RBC 0.0 /100WBC 08/16/22 06:15 PT 26.3 SECONDS (11.8-14.3) 08/16/22 00:10 INR Target Range - 08/16/22 00:10 INR 2.55 (0.8-1.3) H 08/16/22 00:10 APTT 59.2 SECONDS (22.9-36.5) H 08/16/22 00:10 PTT Comment - 08/16/22 00:10 Sodium 139 mmol/L (136-145) 08/16/22 06:15 Corrected Sodium TNP 08/16/22 06:15 Potassium 3.8 mmol/L (3.5-5.1) 08/16/22 06:15 Chloride 102 mmol/L (98-107) 08/16/22 06:15 Carbon Dioxide 28.4 mmol/L (21-32) 08/16/22 06:15 BUN 17 mg/dL (7-18) 08/16/22 06:15 Creatinine 0.98 mg/dL (0.55-1.02) 08/16/22 06:15 Est GFR (MDRD) Af Amer > 60 (>60) 08/16/22 06:15 Est GFR (MDRD) Non-Af 57 (>60) L 08/16/22 06:15 Glucose 92 mg/dL (65-99) 08/16/22 06:15 Calcium 8.7 mg/dL (8.5-10.1) 08/16/22 06:15 Corrected Calcium 9.7 mg/dL (8.5-10.1) 08/16/22 06:15 Total Bilirubin 0.40 mg/dL (0.2-1.0) 08/16/22 06:15 AST 39 Units/L (15-37) H 08/16/22 06:15 ALT 26 Units/L (12-78) 08/16/22 06:15 Alkaline Phosphatase 64 Units/L (46-116) 08/16/22 06:15 Creatine Kinase 69 Units/L (26-192) 08/16/22 06:15 Troponin I High Sens 212.5 ng/L (4.0-60.0) H* 08/16/22 18:20 B-Natriuretic Peptide 301 pg/mL (0-79) H 08/16/22 00:10 Total Protein 3.8 g/dL (6.4-8.2) L 08/16/22 06:15 Albumin 2.7 g/dL (3.4-5.0) L 08/16/22 06:15 Globulin 1.1 g/dL (2.5-4.5) L 08/16/22 06:15 Albumin/Globulin Ratio 2.5 Ratio (1.1-2.1) H 08/16/22 06:15 Specimen Type Clean catch urine 08/16/22 01:23 Urine Color Pale yellow (YELLOW) 08/16/22 01: Urine Appearance Clear (CLEAR) 08/16/22 01: Urine pH 6.5 (5.0 - 8.0) 08/16/22 01:23 Ur Specific [place] 1.010 (1.000-1.030) 08/16/22 01: Urine Protein Negative (NEGATIVE) 08/16/22 01: Urine Glucose (UA) Negative (NEGATIVE) 08/16/22: Urine Ketones Negative (NEGATIVE) 08/16/22 01: Urine Blood 4+ (NEGATIVE) 08/16/22 01: Urine Nitrite Negative (NEGATIVE) 08/16/22 01: Urine Bilirubin Negative (NEGATIVE) 08/16/22 01: Urine Urobilinogen Normal (NORMAL) 08/16/22 01: Ur Leukocyte Esterase Negative (NEGATIVE) 08/16/22 01: Urine RBC 3-5 /HPF (0-3) A 08/16/22 01: Urine WBC None seen /HPF (0-5) 08/16/22 01: Ur Squamous Epith Cells Few /HPF (NEGATIVE) 08/16/22 01: Urine Bacteria Trace /HPF (NEGATIVE) 08/16/22 01:23 Ur Culture Indicated? No/not indicated 08/16/22 01:23 Review of Systems Constitutional: No Symptoms Reported Eyes: No Symptoms Reported ENT: No Symptoms Reported Respiratory: No Symptoms Reported Cardiovascular: No Symptoms Reported Gastrointestinal: No Symptoms Reported Genitourinary: No Symptoms Reported Musculoskeletal: No Symptoms Reported Skin: No Symptoms Reported Neurological: Change in Speech Physical Exam Vital Signs: Temperature 98.2 F Pulse Rate [Apical] 66 Pulse Rate 66 Respiratory Rate 21 Blood Pressure [Left Arm] 111/51 Blood Pressure [Right Arm] 116/59 Blood Pressure 122/58 O2 Sat by Pulse Oximetry 95 Oriented: Normal Eyes: Normal Ear: Normal Nose: Normal Throat: Normal Respiratory: Clear Throughout Cardiovascular: Normal : Normal Auscultation: Bowel Sounds: Normal Palpation: Normal Tenderness: Normal Skin: Normal Musculoskeletal: Normal Psychiatric: Normal Mood Description: Calm and Appropriate Affect: Normal Speech Pattern: Clear and Appropriate Assessment/Plan (1) Difficulty with speech: Status: Acute Plan: Symptoms resolved Restart home medications, continue neuro checks. (2) Elevated troponin: Narrative Support Text: Continue to trend cardiac enzymes. Consult cardiology Status: Acute Review H&P Reviewed: Yes Patient was examined?: Yes
[2022-08-16] MEDS ORDERED: COUMADIN TAB 5 MG (JANTOVEN) PO SCH (21:00)
[2022-08-16] MEDS ORDERED: PEPCID TAB 20 MG PO SCH (21:00)
[2022-08-16] MEDS ORDERED: LIPITOR TAB 80 MG PO SCH (21:00)
[2022-08-17 05:36] LABS: BASOPHILS # (AUTO) 0.1 X10^3/uL (0.0-0.1); BASOPHILS % (AUTO) 1.2 % (0.2-1.0); EOSINOPHILS # (AUTO) 0.2 x10^3/uL (0.0-0.2); EOSINOPHILS % (AUTO) 2.2 % (0.9-2.9); HEMATOCRIT 30.1 % (36.0-47.0); HEMOGLOBIN 10.3 g/dL (12.0-16.0); LYMPHOCYTES # (AUTO) 0.8 X10^3/uL (1.3-2.9); LYMPHOCYTES % (AUTO) 8.4 % (21.0-51.0); MEAN CORPUSCULAR HGB CONC 34.2 g/dL (33.0-35.0); MEAN CORPUSCULAR VOLUME 90.6 fL (80.0-100.0); MEAN PLATELET VOLUME 9.5 fL (7.4-11.0); MONOCYTES # (AUTO) 0.6 x10^3/uL (0.3-0.8); NEUTROPHILS # (AUTO) 8.1 x10^3/uL (2.2-4.8); NEUTROPHILS % (AUTO) 82.2 % (42.0-75.0); RED BLOOD COUNT 3.32 X10^6/uL (3.5-5.4); WHITE BLOOD COUNT 9.9 X10^3/uL (3.6-10.0)
[2022-08-17 06:08] LABS: ALANINE AMINOTRANSFERASE 25 Units/L (12-78); ALBUMIN 2.7 g/dL (3.4-5.0); ALKALINE PHOSPHATASE 70 Units/L (46-116); ASPARTATE AMINO TRANSFERASE 35 Units/L (15-37); BLOOD UREA NITROGEN 15 mg/dL (7-18); CALCIUM 8.8 mg/dL (8.5-10.1); CHLORIDE 103 mmol/L (98-107); COR CA(FOR HYPOALB) 9.8 mg/dL (8.5-10.1); CREATININE 0.99 mg/dL (0.55-1.02); SODIUM 141 mmol/L (136-145); TOTAL PROTEIN 6.2 g/dL (6.4-8.2); eGFR NON BLACK RACES 57 (>60)
[2022-08-17] MEDS: PROTONIX TAB 40 MG PO SCH (09:25)
[2022-08-17] MEDS: CALAN SR 120 MG PO SCH (09:25)
[2022-08-17] MEDS: ASPIRIN EC 81 MG PO SCH (09:25)
--- NOTE | 2022-08-17 11:50 | W.DIS.FURT ---
Summary of Discharge Admission Diagnosis Patient Problems (Updated 08/20/22 @ 06:43 by RIGOBERTO DONALD) Neurological impairment in adult (Acute) R29.818 Hypertension (Acute) I10 S/P placement of cardiac pacemaker (Acute) Z95.0 Vital Signs: Vital Signs (72 hours) 08/15/22 23:42 08/15/22 23:46 08/16/22 00:00 Temperature 98.5 F Pulse Rate 75 75 70 Pulse Rate [Apical] Respiratory Rate 18 Blood Pressure 122/59 Blood Pressure [Right Arm] O2 Sat by Pulse Oximetry 99 99 97 Oxygen Delivery Method Room Air 08/16/22 00:15 08/16/22 00:30 08/16/22 00:48 Temperature Pulse Rate 70 69 70 Pulse Rate [Apical] Respiratory Rate Blood Pressure Blood Pressure [Right Arm] O2 Sat by Pulse Oximetry 97 97 95 Oxygen Delivery Method 08/16/22 00:49 08/16/22 00:49 08/16/22 01:00 Temperature Pulse Rate 67 67 Pulse Rate [Apical] Respiratory Rate Blood Pressure 120/56 Blood Pressure [Right Arm] O2 Sat by Pulse Oximetry 95 99 Oxygen Delivery Method 08/16/22 01:01 08/16/22 01:01 08/16/22 01:15 Temperature Pulse Rate 66 67 Pulse Rate [Apical] Respiratory Rate Blood Pressure 114/73 Blood Pressure [Right Arm] O2 Sat by Pulse Oximetry 98 97 Oxygen Delivery Method 08/16/22 01:30 08/16/22 01:30 08/16/22 01:45 Temperature Pulse Rate 70 66 Pulse Rate [Apical] Respiratory Rate Blood Pressure 142/62 Blood Pressure [Right Arm] O2 Sat by Pulse Oximetry 97 97 Oxygen Delivery Method 08/16/22 02:00 08/16/22 02:03 08/16/22 02:03 Temperature Pulse Rate 66 65 Pulse Rate [Apical] Respiratory Rate Blood Pressure 121/59 Blood Pressure [Right Arm] O2 Sat by Pulse Oximetry 94 L 96 Oxygen Delivery Method 08/16/22 02:15 08/16/22 02:30 08/16/22 02:30 Temperature Pulse Rate 66 65 Pulse Rate [Apical] Respiratory Rate Blood Pressure 122/59 Blood Pressure [Right Arm] O2 Sat by Pulse Oximetry 92 L 98 Oxygen Delivery Method 08/16/22 02:30 08/16/22 02:30 08/16/22 02:45 Temperature Pulse Rate 66 Pulse Rate [Apical] Respiratory Rate Blood Pressure 122/59 122/59 Blood Pressure [Right Arm] O2 Sat by Pulse Oximetry 99 Oxygen Delivery Method 08/16/22 03:00 08/16/22 03:00 08/16/22 03:15 Temperature Pulse Rate 65 66 Pulse Rate [Apical] Respiratory Rate Blood Pressure 122/58 Blood Pressure [Right Arm] O2 Sat by Pulse Oximetry 94 L 98 Oxygen Delivery Method 08/16/22 03:35 08/16/22 04:00 08/16/22 03:35 Temperature 98.3 F Pulse Rate Pulse Rate [Apical] 65 66 Respiratory Rate 22 24 Blood Pressure Blood Pressure [Right Arm] 147/67 117/55 O2 Sat by Pulse Oximetry 97 97 Oxygen Delivery Method Room Air Room Air Room Air 08/16/22 05:00 08/16/22 06:00 08/16/22 07:00 Temperature Pulse Rate Pulse Rate [Apical] 65 66 80 Respiratory Rate 23 18 20 Blood Pressure Blood Pressure [Right Arm] 98/51 95/48 110/53 O2 Sat by Pulse Oximetry 97 96 96 Oxygen Delivery Method Room Air Room Air Room Air 08/16/22 08:00 08/16/22 09:00 08/16/22 07:00 Temperature 98.4 F Pulse Rate Pulse Rate [Apical] 65 72 Respiratory Rate 18 20 Blood Pressure Blood Pressure [Right Arm] 114/55 133/59 O2 Sat by Pulse Oximetry 95 95 Oxygen Delivery Method Room Air Room Air Room Air 08/16/22 10:00 08/16/22 11:00 08/16/22 12:00 Temperature 98.4 F Pulse Rate Pulse Rate [Apical] 72 67 67 Respiratory Rate 16 21 14 Blood Pressure Blood Pressure [Right Arm] 114/55 135/63 124/58 O2 Sat by Pulse Oximetry 96 97 97 Oxygen Delivery Method Room Air Room Air Room Air 08/16/22 14:00 08/16/22 15:00 08/16/22 16:00 Temperature 98.2 F Pulse Rate Pulse Rate [Apical] 68 66 66 Respiratory Rate 16 15 24 Blood Pressure Blood Pressure [Right Arm] 130/63 143/67 120/60 O2 Sat by Pulse Oximetry 97 97 95 Oxygen Delivery Method Room Air Room Air Room Air 08/16/22 17:00 08/16/22 18:00 08/16/22 19:00 Temperature Pulse Rate Pulse Rate [Apical] 66 66 Respiratory Rate 23 21 Blood Pressure Blood Pressure [Right Arm] 120/57 116/59 O2 Sat by Pulse Oximetry 93 L 95 Oxygen Delivery Method Room Air Room Air Room Air 08/16/22 19:00 08/16/22 20:00 08/16/22 22:00 Temperature 98.7 F Pulse Rate Pulse Rate [Apical] 61 60 60 Respiratory Rate 24 24 20 Blood Pressure Blood Pressure [Right Arm] 115/55 114/54 106/53 O2 Sat by Pulse Oximetry 92 L 92 L 93 L Oxygen Delivery Method Room Air Room Air Room Air 08/16/22 23:00 08/17/22 00:00 08/17/22 01:00 Temperature 98.9 F Pulse Rate Pulse Rate [Apical] 60 64 63 Respiratory Rate 18 18 18 Blood Pressure Blood Pressure [Right Arm] 109/54 118/56 115/56 O2 Sat by Pulse Oximetry 93 L 96 94 L Oxygen Delivery Method Room Air Room Air Room Air 08/17/22 02:00 08/17/22 03:00 08/17/22 04:00 Temperature Pulse Rate Pulse Rate [Apical] 68 67 65 Respiratory Rate 22 20 21 Blood Pressure Blood Pressure [Right Arm] 123/58 95/49 108/55 O2 Sat by Pulse Oximetry 96 97 95 Oxygen Delivery Method Nasal Cannula Nasal Cannula Nasal Cannula 08/17/22 05:00 08/17/22 06:00 08/17/22 07:00 Temperature 98.4 F Pulse Rate Pulse Rate [Apical] 63 62 62 Respiratory Rate 20 21 21 Blood Pressure Blood Pressure [Right Arm] 112/56 107/53 126/58 O2 Sat by Pulse Oximetry 96 95 94 L Oxygen Delivery Method Nasal Cannula Nasal Cannula Nasal Cannula 08/17/22 07:00 08/17/22 08:30 08/17/22 09:00 Temperature 97.8 F 97.8 F Pulse Rate Pulse Rate [Apical] 66 64 Respiratory Rate 20 18 Blood Pressure Blood Pressure [Right Arm] 111/55 111/55 O2 Sat by Pulse Oximetry 99 98 Oxygen Delivery Method Room Air Room Air Room Air 08/17/22 10:00 Temperature Pulse Rate Pulse Rate [Apical] 66 Respiratory Rate 21 Blood Pressure Blood Pressure [Right Arm] 133/60 O2 Sat by Pulse Oximetry 95 Oxygen Delivery Method Room Air Labs: Laboratory Last Values WBC 9.9 X10^3/uL (3.6-10.0) 08/17/22 04:55 RBC 3.32 X10^6/uL (3.5-5.4) L 08/17/22 04:55 Hgb 10.3 g/dL (12.0-16.0) L 08/17/22 04:55 Hct 30.1 % (36.0-47.0) L 08/17/22 04:55 MCV 90.6 fL (80.0-100.0) 08/17/22 04:55 MCH 31.0 pg (27.0-34.0) 08/17/22 04:55 MCHC 34.2 g/dL (33.0-35.0) 08/17/22 04:55 RDW 16.0 % (11.6-16.5) 08/17/22 04:55 Plt Count 217 X10^3/uL (150.0-450.0) 08/17/22 04:55 MPV 9.5 fL (7.4-11.0) 08/17/22 04:55 Neut % (Auto) 82.2 % (42.0-75.0) H 08/17/22 04:55 Lymph % (Auto) 8.4 % (21.0-51.0) L 08/17/22 04:55 [place] % (Auto) 6.0 % (0.0-13.0) 08/17/22 04:55 Eos % (Auto) 2.2 % (0.9-2.9) 08/17/22 04:55 Baso % (Auto) 1.2 % (0.2-1.0) H 08/17/22 04:55 Neut # (Auto) 8.1 x10^3/uL (2.2-4.8) H 08/17/22 04:55 Lymph # (Auto) 0.8 X10^3/uL (1.3-2.9) L 08/17/22 04:55 [place] # (Auto) 0.6 x10^3/uL (0.3-0.8) 08/17/22 04:55 Eos # (Auto) 0.2 x10^3/uL (0.0-0.2) 08/17/22 04:55 Baso # (Auto) 0.1 X10^3/uL (0.0-0.1) 08/17/22 04:55 Absolute Nucleated RBC 0.0 /100WBC 08/17/22 04:55 PT 26.3 SECONDS (11.8-14.3) 08/16/22 00:10 INR Target Range - 08/16/22 00:10 INR 2.55 (0.8-1.3) H 08/16/22 00:10 APTT 59.2 SECONDS (22.9-36.5) H 08/16/22 00:10 PTT Comment - 08/16/22 00:10 Sodium 141 mmol/L (136-145) 08/17/22 04:55 Corrected Sodium TNP 08/17/22 04:55 Potassium 3.8 mmol/L (3.5-5.1) 08/17/22 04:55 Chloride 103 mmol/L (98-107) 08/17/22 04:55 Carbon Dioxide 29.0 mmol/L (21-32) 08/17/22 04:55 BUN 15 mg/dL (7-18) 08/17/22 04:55 Creatinine 0.99 mg/dL (0.55-1.02) 08/17/22 04:55 Est GFR (MDRD) Af Amer > 60 (>60) 08/17/22 04:55 Est GFR (MDRD) Non-Af 57 (>60) L 08/17/22 04:55 Glucose 107 mg/dL (65-99) H 08/17/22 04:55 Calcium 8.8 mg/dL (8.5-10.1) 08/17/22 04:55 Corrected Calcium 9.8 mg/dL (8.5-10.1) 08/17/22 04:55 Total Bilirubin 0.40 mg/dL (0.2-1.0) 08/17/22 04:55 AST 35 Units/L (15-37) 08/17/22 04:55 ALT 25 Units/L (12-78) 08/17/22 04:55 Alkaline Phosphatase 70 Units/L (46-116) 08/17/22 04:55 Creatine Kinase 69 Units/L (26-192) 08/16/22 06:15 Troponin I High Sens 197.7 ng/L (4.0-60.0) H* 08/17/22 04:55 B-Natriuretic Peptide 301 pg/mL (0-79) H 08/16/22 00:10 Total Protein 6.2 g/dL (6.4-8.2) L 08/17/22 04:55 Albumin 2.7 g/dL (3.4-5.0) L 08/17/22 04:55 Globulin 3.5 g/dL (2.5-4.5) 08/17/22 04:55 Albumin/Globulin Ratio 0.8 Ratio (1.1-2.1) L 08/17/22 04:55 Specimen Type Clean catch urine 08/16/22 01: Urine Color Pale yellow (YELLOW) 08/16/22: Urine Appearance Clear (CLEAR) 08/16/22: Urine pH 6.5 (5.0 - 8.0) 08/16/22: Ur Specific [place] 1.010 (1.000-1.030) 08/16/22 01: Urine Protein Negative (NEGATIVE) 08/16/22: Urine Glucose (UA) Negative (NEGATIVE) 08/16/22: Urine Ketones Negative (NEGATIVE) 08/16/22: Urine Blood 4+ (NEGATIVE) 08/16/22: Urine Nitrite Negative (NEGATIVE) 08/16/22: Urine Bilirubin Negative (NEGATIVE) 08/16/22: Urine Urobilinogen Normal (NORMAL) 08/16/22 01: Ur Leukocyte Esterase Negative (NEGATIVE) 08/16/22: Urine RBC 3-5 /HPF (0-3) A 08/16/22 01: Urine WBC None seen /HPF (0-5) 08/16/22 01: Ur Squamous Epith Cells Few /HPF (NEGATIVE) 08/16/22 01: Urine Bacteria Trace /HPF (NEGATIVE) 08/16/22: Ur Culture Indicated? No/not indicated 08/16/22 01: Reason For Visit: ACUTE NEUROLOGIC IMPAIRMENT, RECENT PACEMAKER Discharge Diagnosis All Active Problems (Updated 08/20/22 @ 06:40 by RIGOBERTO DONALD) Neurological impairment in adult (Acute) Hypertension (Acute) S/P placement of cardiac pacemaker (Acute) Elevated troponin (Acute) Difficulty with speech (Acute) Cardiac arrhythmia (Acute) Altered mental status (Acute) Nausea & vomiting (Acute) Dehydration (Acute) Presence of IVC filter (Acute) History of pulmonary embolism (Acute) Essential hypertension (Chronic) Hypothyroidism (Chronic) CVA (cerebral vascular accident) (Acute) Diabetes (Chronic) CAD (coronary artery disease) (Chronic) Hyperlipidemia (Chronic) Breast cancer (Chronic) S/P CABG (coronary artery bypass graft) (Chronic) H/O mastectomy (Chronic) Abdominal pain (Acute) Nausea & vomiting (Acute) Partial small bowel obstruction (Acute) Abdominal pain, epigastric (Acute) Plan of Treatment: Continue with present treatment and follow up plan. Pt is to keep follow up appointment as instructed and take medications as ordered. Discharge Medications Discharge Medications: zolpidem [From Ambien] Allergy (Verified 11/11/21 09:12) CONTINUE taking the following medications atorvastatin 80 mg tablet 80 mg PO QHS 08/16/22 [History] famotidine 20 mg tablet 20 mg PO QHS 08/16/22 [History] Discharge Plan Discharge Plan Patient Disposition: 06 [facility] Condition: Stable Health Concerns: Post Hospitalization: new medications and changes needed to prevent readmission or further decline. Pt educated and given instructions on all concerns. Care Plan Goals: Problem: Pain/Alteration in Comfort Goal: Improve/ Resolve Pain; Achieve Pain Tolerance Instructions: Take pain medications as prescribed. Contact your primary care provider if your pain is unrelieved or worsens. Follow up with primary care provider as directed. Plan of Treatment: Continue with present treatment and follow up plan. Pt is to keep follow up appointment as instructed and take medications as ordered. Prescriptions: Continued verapamil 120 MG tablet extended release 120 mg PO DAILY aspirin [Aspir-Low] 81 MG tablet,delayed release (DR/EC) 81 mg PO DAILY hydrochlorothiazide 25 MG tablet 25 mg PO DAILY cholecalciferol (vitamin D3) [Vitamin D3] 1,000 UNIT tablet,chewable 2,000 unit PO DAILY exemestane [Aromasin] 25 MG tablet 25 mg PO DAILY cyanocobalamin (vitamin B-12) 5,000 MCG tablet,disintegrating 5,000 mcg PO DAILY atorvastatin 80 mg Tablet 80 mg PO QHS famotidine 20 mg Tablet 20 mg PO QHS levothyroxine [Euthyrox] 100 mcg tablet 100 mcg PO DAILY warfarin 5 mg Tablet 5 mg PO DAILY pantoprazole 40 mg Tablet,Delayed Release (Dr/Ec) 40 mg PO DAILY Follow ups/Referrals Follow ups/Referrals: MACKENZIE BOWDEN [Primary Care Provider] - 3 days ALEYDA MEDINA [REFERRING] - 08/24/22 3:45 pm (hospital follow up ) Instructions Instructions: Eating Plan After Stroke, Nausea and Vomiting, Adult, [id number], Diabetes Basics, Rehabilitation After a Stroke, Adult, Ischemic Stroke Activity Restrictions/Additional Instructions: Follow up with primary care and cardio as scheduled Continue home health services Stand Alone Forms: Excuse From Work or School, Precautions for COVID19, [facility], Patient Portal, Social Distancing
[2022-08-17 12:53] VITALS: BP 132/62
== END 2022-08-17 13:00 | disposition home health service (06) ==
LOC: ER 23:34 → ICU 23:34
PROVIDERS: ADMIT Family Medicine; ATTEND Family Medicine
DX: R77.8 Other specified abnormalities of plasma proteins; E03.8 Other specified hypothyroidism; R29.818 Other symptoms and signs involving the nervous system; Z95.0 Presence of cardiac pacemaker; Z98.890 Other specified postprocedural states; R79.1 Abnormal coagulation profile; M19.90 Unspecified osteoarthritis, unspecified site; R94.31 Abnormal electrocardiogram [ECG] [EKG]; R13.11 Dysphagia, oral phase; R47.81 Slurred speech; Z86.73 Personal history of transient ischemic attack (TIA), and cerebral infarction without residual deficits

== ENCOUNTER 2022-10-11 18:06 | Observation (INO) ==
--- NOTE | 2022-10-11 18:14 | DR.WEAKNES ---
HPI Time Seen Time Seen by Provider: 10/11/22 18:14 Complaints Chief Complaint Doctors Comments: 87 y/o female brought in with slurred speech. Was fine this am. Developed some itchy eyes, took a benadryl. Then had physical therapy. After physical therapy, felt tired, started slurring her speech, vomi lisa x 1. Has felt too weak to walk since. Has had CVAs recently. Also had elevated troponin few weeks ago. Had a pacemaker placed in 07/2022. Denies headache, chest pain, diaphoresis, nausea at present. No abdominal pain. Reviewed Nurses Notes Reviewed: Yes Source History Provided: Patient and Family Member Timing Symptom Onset: Known Context Stroke Symptoms: Slurring PMH PMH Past Medical History: Arthritis, Asthma, COPD, Dyslipidemia, GERD, Hypertension, Hypothyroidism and Kidney Stones Past Surgical History: Yes Surgical History: CABG/Valve Surgery, Carotid Endarterectomy, Cholecystectomy, Hysterectomy and Mastectomy Past Surgical History Comment: pacemaker Family History Family Medical History: Diabetes Mellitus Social History Do you use any recreational Drugs:: No ROS Review of Systems Constitutional: Weakness Eyes: No Symptoms Reported ENTM: No Symptoms Reported Respiratoy: No Symptoms Reported Cardiovascular: No Symptoms Reported Gastrointestinal/Abdominal: Vomiting Genitourinary: No Symptoms Reported Neurological: Weakness and Speech Problem Musculoskeletal: No Symptoms Reported Integumentary: No Symptoms Reported Hematologic/Lymphatic: No Symptoms Reported Psychiatric: No Symptoms Reported All Other Systems: Reviewed and Negative PE Vital Signs Vitals: Temperature 97.9 F Pulse Rate 61 Respiratory Rate 17 Blood Pressure [Left Arm] 111/51 Blood Pressure [Right Arm] 132/62 Blood Pressure 126/60 O2 Sat by Pulse Oximetry 98 General General Appearance: Alert and In No Apparent Distress Head Head Exam: Normal Inspection, Atraumatic and Normocephalic Eyes Eye exam: PERRL and EOMI ENT ENT Exam: Normal Exam, Normal Oropharynx, Mucous Membranes Moist and TM's Normal Bilaterally COURSE Treatment Treatment: 87 y/o female presents with stroke like symptoms. Per family, started around 6 hours ago, with an episode of vomiting. Speech started being affected then. W/u initiated for CVA. Pt sent to CT, no obvious bleed. Has a good glucose level. Teleneurology done. No criteria for tPA. Recommends admission for metabolic w/u, MRI (if pacer compatible). 2110 - CBC, CMP, U/a all acceptable. Troponin elevated a bit @ 88.9. Will do a 2 hr repeat (was here recently with higher level). Repeat higher, 298. Had discussed admission with Dr Maradiaga, updated him with the higher troponin. To repeat troponin in am, continue the eliquis, consult with Dr Caldwell tomorrow. [facility] Labs Reviewed Laboratory Results Reviewed?: Yes Result Diagrams: 10/11/22 18:30 10/11/22 18:30 Laboratory: WBC 6.5 X10^3/uL (3.6-10.0) 10/11/22 18:30 RBC 3.34 X10^6/uL (3.5-5.4) L 10/11/22 18:30 Hgb 10.5 g/dL (12.0-16.0) L 10/11/22 18:30 Hct 31.5 % (36.0-47.0) L 10/11/22 18:30 MCV 94.6 fL (80.0-100.0) 10/11/22 18: MCH 31.5 pg (27.0-34.0) 10/11/22 18:30 MCHC 33.3 g/dL (33.0-35.0) 10/11/22 18:30 RDW 19.0 % (11.6-16.5) H 10/11/22 18: Plt Count 132 X10^3/uL (150.0-450.0) L 10/11/22 18:30 MPV 9.5 fL (7.4-11.0) 10/11/22 18:30 Neut % (Auto) 72.3 % (42.0-75.0) 10/11/22 18:30 Lymph % (Auto) 18.0 % (21.0-51.0) L 10/11/22 18:30 [place] % (Auto) 8.7 % (0.0-13.0) 10/11/22 18: Eos % (Auto) 0.6 % (0.9-2.9) L 10/11/22 18:30 Baso % (Auto) 0.4 % (0.2-1.0) 10/11/22 18: Neut # (Auto) 4.7 x10^3/uL (2.2-4.8) 10/11/22 18:30 Lymph # (Auto) 1.2 X10^3/uL (1.3-2.9) L 10/11/22 18:30 [place] # (Auto) 0.6 x10^3/uL (0.3-0.8) 10/11/22 18:30 Eos # (Auto) 0.0 x10^3/uL (0.0-0.2) 10/11/22 18:30 Baso # (Auto) 0.0 X10^3/uL (0.0-0.1) 10/11/22 18:30 Absolute Nucleated RBC 0.1 /100WBC 10/11/22 18:30 PT 18.6 SECONDS (11.8-14.3) 10/11/22 18:30 INR Target Range - 10/11/22 18:30 INR 1.62 (0.8-1.3) H 10/11/22 18:30 APTT 35.3 SECONDS (22.9-36.5) 10/11/22 18:30 PTT Comment - 10/11/22 18:30 Fibrinogen 425 mg/dL (239-489) 10/11/22 18:30 Sodium 143 mmol/L (136-145) 10/11/22 18:30 Corrected Sodium TNP 10/11/22 18:30 Potassium 3.9 mmol/L (3.5-5.1) 10/11/22 18:30 Chloride 107 mmol/L (98-107) 10/11/22 18:30 Carbon Dioxide 31.1 mmol/L (21-32) 10/11/22 18:30 BUN 18 mg/dL (7-18) 10/11/22 18:30 Creatinine 1.23 mg/dL (0.55-1.02) H 10/11/22 18:30 Est GFR (MDRD) Af Amer 53 (>60) L 10/11/22 18:30 Est GFR (MDRD) Non-Af 44 (>60) L 10/11/22 18:30 Glucose 95 mg/dL (65-99) 10/11/22 18:30 POC Glucose (mg/dL) 89 mg/dL (65-99) 10/11/22 18:23 Calcium 8.3 mg/dL (8.5-10.1) L 10/11/22 18:30 Corrected Calcium 9.3 mg/dL (8.5-10.1) 10/11/22 18:30 Total Bilirubin 0.90 mg/dL (0.2-1.0) 10/11/22 18:30 AST 23 Units/L (15-37) 10/11/22 18:30 ALT 16 Units/L (12-78) 10/11/22 18:30 Alkaline Phosphatase 73 Units/L (46-116) 10/11/22 18:30 Creatine Kinase 39 Units/L (26-192) 10/11/22 18:30 Troponin I High Sens 298.0 ng/L (4.0-60.0) H* 10/11/22 21:20 Total Protein 5.6 g/dL (6.4-8.2) L 10/11/22 18:30 Albumin 2.7 g/dL (3.4-5.0) L 10/11/22 18:30 Globulin 2.9 g/dL (2.5-4.5) 10/11/22 18:30 Albumin/Globulin Ratio 0.9 Ratio (1.1-2.1) L 10/11/22 18:30 Triglycerides 64 mg/dL (0-150) 10/11/22 18:30 Cholesterol 118 mg/dL (0-200) 10/11/22 18:30 LDL Cholesterol, Calc 47 mg/dL (0-100) 10/11/22 18:30 HDL Cholesterol 58 mg/dL (40-60) 10/11/22 18:30 Cholesterol/HDL Ratio 2.0 (0.0-5.0) 10/11/22 18:30 Specimen Type Catherized urine 10/11/22 19:50 Urine Color Pale yellow (YELLOW) 10/11/22 19:50 Urine Appearance Clear (CLEAR) 10/11/22 19:50 Urine pH 6.0 (5.0 - 8.0) 10/11/22 19:50 Ur Specific [place] 1.015 (1.000-1.030) 10/11/22 19:50 Urine Protein Negative (NEGATIVE) 10/11/22 19:50 Urine Glucose (UA) Negative (NEGATIVE) 10/11/22 19:50 Urine Ketones Negative (NEGATIVE) 10/11/22 19:50 Urine Blood Negative (NEGATIVE) 10/11/22 19:50 Urine Nitrite Negative (NEGATIVE) 10/11/22 19:50 Urine Bilirubin Negative (NEGATIVE) 10/11/22 19:50 Urine Urobilinogen Normal (NORMAL) 10/11/22 19:50 Ur Leukocyte Esterase 1+ (NEGATIVE) 10/11/22 19:50 Urine RBC 0-2 /HPF (0-3) 10/11/22 19:50 Urine WBC 0-2 /HPF (0-5) 10/11/22 19:50 Ur Squamous Epith Cells Rare /HPF (NEGATIVE) 10/11/22 19:50 Urine Bacteria Negative /HPF (NEGATIVE) 10/11/22 19:50 Ur Culture Indicated? No/not indicated 10/11/22 19:50 Elevated troponin XRAY XRAY Interpreted by: Radiologist X-ray Results: CT head without acute abnormalities EKG Rate: 64 [place]: Normal Rhythm: NSR Block: [address]: Nonsp Opioid Opioid Risk Tool Age (Jeet box if 16-45): No History of Preadolescent Sexual Abuse: No Total: 0 Total Score Risk Category: Low Risk Copyright: Sarkis NOGUERA predicting aberrant behaviors Discharge Plan Diagnosis Discharge Problem: Difficulty with speech, Elevated troponin, General weakness Discharge Plan Patient Disposition: 09 ADMITTED INPATIENT Condition: Stable Orders to Discharge Patient Discharge Orders: Transfer (Routine); Ordered 10/11/22 Ordered By: Pavan Dickson
[2022-10-11 18:43] LABS: BASOPHILS % (AUTO) 0.4 % (0.2-1.0); EOSINOPHILS % (AUTO) 0.6 % (0.9-2.9); HEMATOCRIT 31.5 % (36.0-47.0); HEMOGLOBIN 10.5 g/dL (12.0-16.0); LYMPHOCYTES # (AUTO) 1.2 X10^3/uL (1.3-2.9); MEAN CORPUSCULAR HEMOGLOBIN 31.5 pg (27.0-34.0); MEAN CORPUSCULAR HGB CONC 33.3 g/dL (33.0-35.0); MEAN CORPUSCULAR VOLUME 94.6 fL (80.0-100.0); MEAN PLATELET VOLUME 9.5 fL (7.4-11.0); MONOCYTES # (AUTO) 0.6 x10^3/uL (0.3-0.8); MONOCYTES % (AUTO) 8.7 % (0.0-13.0); NEUTROPHILS # (AUTO) 4.7 x10^3/uL (2.2-4.8); NEUTROPHILS % (AUTO) 72.3 % (42.0-75.0); RED BLOOD COUNT 3.34 X10^6/uL (3.5-5.4); WHITE BLOOD COUNT 6.5 X10^3/uL (3.6-10.0)
--- NOTE | 2022-10-11 18:45 | EKG ---
Test Reason : SLURRED SPEECH Blood Pressure : */* mmHG Vent. Rate : 64 BPM Atrial Rate : 64 BPM P-R Int : 248 ms QRS Dur : 134 ms QT Int : 450 ms P-R-T Axes : 7 -13 7 degrees QTc Int : 464 ms Sinus rhythm with 1st degree AV block Left bundle branch block Abnormal ECG When compared with ECG of 01-SEP-2022 18:45, Sinus rhythm has replaced Atrial fibrillation Vent. rate has decreased BY 72 BPM Left bundle branch block has replaced Incomplete left bundle branch block Confirmed by Chandler Caldwell ([id number]) on 10/12/2022 9:50:48 AM Referred By: Confirmed By: Chandler Caldwell
[2022-10-11 18:49] LABS: INR 1.62 (0.8-1.3)
--- NOTE | 2022-10-11 18:55 | TELESTROKE ---
[facility]ist Consult Date of Consult Date of Exam: 10/11/22 Time of Arrival to the ED: 18:15 Allergies Allergies Allergy/AdvReac Type Severity Reaction Status Date / Time zolpidem [From Ambien] Allergy Verified 11/11/21 09:12 Vital Signs Vital Signs: Temp Pulse Resp BP BP BP Pulse Ox 10/11/22 18:15 66 97 10/11/22 18:15 146/70 10/11/22 18:13 66 98 10/11/22 18:13 149/67 10/11/22 18:12 97.9 F 62 24 145/70 100 09/02/22 14:01 147/66 08/17/22 12:00 132/62 12/24/21 12:00 111/51 O2 Del Method 10/11/22 18:15 10/11/22 18:15 10/11/22 18:13 10/11/22 18:13 10/11/22 18:12 Room Air 09/02/22 14:01 08/17/22 12:00 12/24/21 12:00 History of Present Illness History of Present Illness: [facility] TeleNeurology Consult Services Patient Name:Shantell Daniel Date of :1935 Identification Number: Date of Service:10/11/2022 18:19:09 Diagnosis:I63.9 - Cerebrovascular accident (CVA), unspecified mechanism (HCC) Impression: 87-year-old woman with history of strokes and mild slurred speech and imbalance. I would like to check an MRI of her brain to rule out any new stroke. She is not a thrombolytic candidate. Continue Eliquis at this point. We will have to confirm that her pacemaker is MRI compatible. Metrics: Last Known Well: 10/11/2022 12:00:00 [facility] Notification Time: 10/11/2022 18:19:09 Arrival Time: 10/11/2022 18:15:00 Stamp Time: 10/11/2022 18:19:09 Initial Response Time: 10/11/2022 18:26:42Symptoms: slurred speech. NIHSS Start Assessment Time: 10/11/2022 18:40:09Patient is not a candidate for Thrombolytic. Thrombolytic Medical Decision: 10/11/2022 18:33:04Patient was not deemed michael date for Thrombolytic because of following reasons: Last Well Known Above 4.5 Hours. Use of NOAs within 48 hours. I personally reviewed the CT head ED Physician notified of diagnostic impression and management plan on 10/11/2022 18:44:42 Advanced Imaging:Advanced Imaging Not Completed because: not indicated Our recommendations are outlined below. Recommendations: Stroke/Telemetry Floor Neuro Checks Bedside Swallow Eval DVT Prophylaxis IV Fluids, Normal Saline Head of Bed 30 Degrees Euglycemia and Avoid Hyperthermia (PRN Acetaminophen) History of Present Illness:Patient is a 87 year old Female. Patient was brought by private transportation with symptoms of slurred speech. This is an 87 year old woman who presents with confusion and slurred speech. Her last known was well was about 12:00 today. She was with her physical therapist. She felt as if her head was falling to the side. Her balance was poor and she started to slur her speech Past Medical History: Stroke Medications: Anticoagulant use:Yeseliquis No Antiplatelet use Reviewed EMR for current medications Allergies: Reviewed Social History: Smoking: No Family History: There is no family history of premature cerebrovascular disease pertinent to this consultation ROS : 14 Points Review of Systems was performed and was negative except mentioned in HPI. Past Surgical History: There Is No Surgical History Contributory To Todays Visit Examination: 1A: Level of Consciousness - Alert; keenly responsive+ 0 1B: Ask Month and Age - Both Questions Right+ 0 1C: Blink Eyes & Squeeze Hands - Performs Both Tasks+ 0 2: Test Horizontal Extraocular Movements - Normal+ 0 3: Test Visual B[place]reaux - No Visual Loss+ 0 4: Test Facial Palsy (Use Grimace if Obtunded) - Normal symmetry+ 0 5A: Test Left Arm Motor Drift - Drift, but doesn't hit bed+ 1 5B: Test Right Arm Motor Drift - No Drift for 10 Seconds+ 0 6A: Test Left Leg Motor Drift - No Drift for 5 Seconds+ 0 6B: Test Right Leg Motor Drift - No Drift for 5 Seconds+ 0 7: Test Limb Ataxia (FNF/Heel-Goodman) - No Ataxia+ 0 8: Test Sensation - Normal; No sensory loss+ 0 9: Test Language/Aphasia - Normal; No aphasia+ 0 10: Test Dysarthria - Mild-Moderate Dysarthria: Slurring but can be understood+ 1 11: Test Extinction/Inattention - No abnormality+ 0 NIHSS Score:2 Pre-Morbid Modified [place] Scale:2 Points = Slight disability; unable to carry out all previous activities, but able to look after own affairs without assistance Patient/Family was informed the Neurology Consult would occur via TeleHealth consult by way of interactive audio and video telecommunications and consented to receiving care in this manner. Patient is being evaluated for possible acute neurologic impairment and high probability of imminent or life-threatening deterioration. I spent total of 30 minutes providing care to this patient, including time for face to face visit via telemedicine, review of medical records, imaging studies and discussion of findings with providers, the patient and/or family. Dr Frank James [facility] Case [id number] Medical Decision Making Result Diagrams: 10/11/22 18:30 10/11/22 18:30 Labs: Laboratory Results - last 24 hr 10/11/22 10/11/22 10/11/22 18:23 18:30 18:30 WBC 6.5 RBC 3.34 L Hgb 10.5 L Hct 31.5 L MCV 94.6 MCH 31.5 MCHC 33.3 RDW 19.0 H Plt Count 132 L MPV 9.5 Neut % (Auto) 72.3 Lymph % (Auto) 18.0 L [place] % (Auto) 8.7 Eos % (Auto) 0.6 L Baso % (Auto) 0.4 Neut # (Auto) 4.7 Lymph # (Auto) 1.2 L [place] # (Auto) 0.6 Eos # (Auto) 0.0 Baso # (Auto) 0.0 Absolute Nucleated RBC 0.1 INR Target Range - PTT Comment - Fibrinogen 425 POC Glucose (mg/dL) 89
--- NOTE | 2022-10-11 18:59 | CT ---
HISTORYC/O HER EYES ITCHING, DGT GAVE BENADRYL, THEN PT VOMITTED X1, SPEECH BEGAN TO SLUR, INCREASE IN UNSTEADY GAIT; BALANCE AND COORDINATION IS "OFF" PER DAUGHTERS.STUDYBRAIN W/O [id number]/01/2022.TECHNIQUE br techniques including Automated Exposure Control (AEC) and adjustment of mA and kV were utilized.Contrast: NoneFINDINGSBRAIN PARENCHYMA: No acute hemorrhage, infarct, mass, or mass effect.Mai-white differentiation is maintained.Scattered white matter chronic small vessel ischemic changes.VENTRICLES/EXTRA-AXIAL SPACES: Unremarkable size and configuration. No hydrocephalus or extra-axial fluid collections.EXTRACRANIAL STRUCTURES:Unremarkable bones and soft tissues. Visualized paranasal sinuses and mastoids are clear.IMPRESSION1. Nothing acute. 2. Generalized atrophy and small vessel ischemic disease.Electronically signed by: Dev Parrish (Oct 11, 2022 18:56:28)
[2022-10-11 19:11] LABS: ALANINE AMINOTRANSFERASE 16 Units/L (12-78); ALBUMIN 2.7 g/dL (3.4-5.0); ALKALINE PHOSPHATASE 73 Units/L (46-116); ASPARTATE AMINO TRANSFERASE 23 Units/L (15-37); BLOOD UREA NITROGEN 18 mg/dL (7-18); CALCIUM 8.3 mg/dL (8.5-10.1); CARBON DIOXIDE 31.1 mmol/L (21-32); CHLORIDE 107 mmol/L (98-107); CHOLESTEROL 118 mg/dL (0-200); COR CA(FOR HYPOALB) 9.3 mg/dL (8.5-10.1); CREATINE KINASE 39 Units/L (26-192); CREATININE 1.23 mg/dL (0.55-1.02); HDL CHOLESTEROL 58 mg/dL (40-60); SODIUM 143 mmol/L (136-145); TOTAL PROTEIN 5.6 g/dL (6.4-8.2); TRIGLYCERIDES 64 mg/dL (0-150); eGFR NON BLACK RACES 44 (>60)
[2022-10-11 20:00] LABS: BILIRUBIN,URINE NEGATIVE (NEGATIVE); BLOOD/HEMOGLOBIN,URINE NEGATIVE (NEGATIVE); GLUCOSE, URINE NEGATIVE (NEGATIVE); KETONES,URINE NEGATIVE (NEGATIVE); LEUKOCYTE ESTERASE ,URINE 1+ (NEGATIVE); NITRITES,URINE NEGATIVE (NEGATIVE); PROTEIN,URINE NEGATIVE (NEGATIVE); UROBILINOGEN,URINE NORMAL (NORMAL)
[2022-10-11 20:08] LABS: APPEARANCE,URINE CLEAR (CLEAR); COLOR,URINE PALE YELLOW (YELLOW)
[2022-10-11 20:09] LABS: BACTERIA,URINE NEGATIVE /HPF (NEGATIVE); RBC,URINE 0-2 /HPF (0-3); SQUAMOUS EPITHELIAL CELL,UR RARE /HPF (NEGATIVE)
--- NOTE | 2022-10-11 22:15 | RAD ---
HISTORYC/O HER EYES ITCHING, DGT GAVE BENADRYL, THEN PT VOMITTED X1, SPEECH BEGAN TO SLUR, INCREASE IN UNSTEADY GAIT; BALANCE AND COORDINATION IS "OFF" PER DAUGHTERS. Relevant Clinical InformationSTUDYCHEST, 1 [id number]/17/2022.FINDINGSThe trachea is midline. The cardiac silhouette is enlarged. Aorta is tortuous with calcification. The lungs are grossly clear without effusion. The bony thorax is unremarkable.IMPRESSIONNo acute cardiopulmonary findings .Electronically signed by: Dev Parrish (Oct 11, 2022 22:12:41)
[2022-10-11] MEDS ORDERED: LOVENOX INJ 30 MG SYR SC SCH (23:00)
[2022-10-11 23:45] VITALS: BMI 29.2
[2022-10-11] MEDS: PEPCID TAB 20 MG PO SCH (23:50)
[2022-10-11] MEDS: LIPITOR TAB 80 MG PO SCH (23:50)
[2022-10-12 04:12] LABS: BASOPHILS % (AUTO) 0.7 % (0.2-1.0); EOSINOPHILS # (AUTO) 0.1 x10^3/uL (0.0-0.2); EOSINOPHILS % (AUTO) 1.2 % (0.9-2.9); HEMATOCRIT 28.4 % (36.0-47.0); HEMOGLOBIN 9.6 g/dL (12.0-16.0); LYMPHOCYTES # (AUTO) 1.3 X10^3/uL (1.3-2.9); LYMPHOCYTES % (AUTO) 24.4 % (21.0-51.0); MEAN CORPUSCULAR HEMOGLOBIN 31.6 pg (27.0-34.0); MEAN CORPUSCULAR HGB CONC 33.8 g/dL (33.0-35.0); MEAN CORPUSCULAR VOLUME 93.4 fL (80.0-100.0); MEAN PLATELET VOLUME 9.9 fL (7.4-11.0); MONOCYTES # (AUTO) 0.6 x10^3/uL (0.3-0.8); MONOCYTES % (AUTO) 10.9 % (0.0-13.0); NEUTROPHILS # (AUTO) 3.4 x10^3/uL (2.2-4.8); NEUTROPHILS % (AUTO) 62.8 % (42.0-75.0); RED BLOOD COUNT 3.04 X10^6/uL (3.5-5.4); RED CELL DISTRIBUTION WIDTH 18.5 % (11.6-16.5); WHITE BLOOD COUNT 5.4 X10^3/uL (3.6-10.0)
[2022-10-12 04:27] LABS: ALANINE AMINOTRANSFERASE 14 Units/L (12-78); ALBUMIN 2.3 g/dL (3.4-5.0); ALKALINE PHOSPHATASE 62 Units/L (46-116); ASPARTATE AMINO TRANSFERASE 23 Units/L (15-37); BLOOD UREA NITROGEN 16 mg/dL (7-18); CARBON DIOXIDE 34.9 mmol/L (21-32); CHLORIDE 108 mmol/L (98-107); COR CA(FOR HYPOALB) 9.4 mg/dL (8.5-10.1); CREATININE 1.12 mg/dL (0.55-1.02); SODIUM 144 mmol/L (136-145); TOTAL PROTEIN 4.9 g/dL (6.4-8.2); eGFR NON BLACK RACES 49 (>60)
[2022-10-12] MEDS ORDERED: KLOR-CON PO PRN (07:38)
[2022-10-12] MEDS ORDERED: POTASSIUM CHLORIDE LIQ 20 MEQ UDC PO PRN (07:38)
[2022-10-12] MEDS ORDERED: MICRO K EXTEN CAP 10 MEQ PO PRN (07:38)
[2022-10-12] MEDS ORDERED: POTASSIUM CHL 40 MEQ/NS 0.45% 500 ML IV PRN (07:38)
[2022-10-12] MEDS ORDERED: K-DUR TAB 20 MEQ PO PRN (07:38)
[2022-10-12] MEDS ORDERED: POTASSIUM CHL 60 MEQ/NS 0.45% 500 ML IV PRN (07:38)
[2022-10-12] MEDS ORDERED: K-RIDER 10 MEQ/NS 100 ML 10 MEQ/100 ML BAG IV PRN (07:38)
[2022-10-12] MEDS ORDERED: [UNRECOGNIZED DRUG - OTHER] PO SCH (09:00)
[2022-10-12] MEDS ORDERED: CHOLECALCIFEROL 1000 UNIT PO SCH (09:00)
[2022-10-12] MEDS: VITAMIN D3 25 mcg (1,000 UNITS) PO SCH (09:04)
[2022-10-12] MEDS: SYNTHROID 100 mcg TAB PO SCH (09:04)
[2022-10-12] MEDS: COZAAR PO SCH (09:04)
[2022-10-12] MEDS: ELIQUIS PO SCH ×2 (09:04→20:23)
[2022-10-12] MEDS: VITAMIN B-12 PO SCH (09:05)
[2022-10-12] MEDS: PROTONIX TAB 40 MG PO SCH (09:05)
[2022-10-12] MEDS: EXEMESTANE 25 MG PO SCH (09:06)
--- NOTE | 2022-10-12 11:10 | EKG ---
Test Reason : Elevated Troponin Blood Pressure : */* mmHG Vent. Rate : 60 BPM Atrial Rate : 60 BPM P-R Int : 244 ms QRS Dur : 132 ms QT Int : 484 ms P-R-T Axes : 27 -28 12 degrees QTc Int : 484 ms Atrial-paced rhythm with prolonged AV conduction Left bundle branch block Abnormal ECG When compared with ECG of 11-OCT-2022 18:43, (Unconfirmed) Electronic atrial pacemaker has replaced Sinus rhythm Confirmed by Chandler Caldwell ([id number]) on 10/13/2022 10:29:31 AM Referred By: Confirmed By: Chandler Caldwell
[2022-10-12] MEDS: CORDARONE TAB 200 MG PO SCH (11:36)
[2022-10-12] MEDS: LASIX PO SCH (11:36)
--- NOTE | 2022-10-12 13:23 | EKG ---
Test Reason : R/O AMI Blood Pressure : */* mmHG Vent. Rate : 60 BPM Atrial Rate : 60 BPM P-R Int : 284 ms QRS Dur : 126 ms QT Int : 484 ms P-R-T Axes : 21 -25 -10 degrees QTc Int : 484 ms Atrial-paced rhythm with prolonged AV conduction Left bundle branch block Abnormal ECG When compared with ECG of 12-OCT-2022 08:22, (Unconfirmed) No significant change was found Confirmed by Chandler Caldwell ([id number]) on 10/13/2022 10:26:41 AM Referred By: Confirmed By: Chandler Caldwell
--- NOTE | 2022-10-12 17:30 | EKG ---
Test Reason : R/O AMI Blood Pressure : */* mmHG Vent. Rate : 70 BPM Atrial Rate : 70 BPM P-R Int : 252 ms QRS Dur : 136 ms QT Int : 474 ms P-R-T Axes : 39 83 39 degrees QTc Int : 511 ms Sinus rhythm with 1st degree AV block with occasional premature ventricular complexes Nonspecific intraventricular block Cannot rule out Septal infarct , age undetermined Abnormal ECG LBBB When compared with ECG of 12-OCT-2022 13:18, (Unconfirmed) Sinus rhythm has replaced Electronic atrial pacemaker QRS axis shifted right Confirmed by Chandler Caldwell ([id number]) on 10/13/2022 10:26:31 AM Referred By: Confirmed By: Chandler Caldwell
--- NOTE | 2022-10-12 19:01 | DR.H&P ---
H&P - History & Physical for Day of: H&P Date: 10/11/22 - Chief Complaint Chief Complaint: slurred speech, weakness - History of Present Illness History of Present Illness: History of Present Illness: Pt is a 87 year old female patient of [facility]. She has a past medical history of CVA, CABG/Aortic valve replacement, Pacemaker, Hypertension, Hypothyroidism, dyslipidemia, and COPD presenting at approximately 18:00 on 10/11 after having slurred speech. Per daughter, patient had an episode of itchy, watery eyes. She reportedly took Benadryl 25mg x 1 dose and then went to physical therapy. After therapy, patient was noted to have increased drowsiness, weakness, and slurred speech. Patient denied headache, chest pain, diaphoresis, abdominal pain, or fever. She does have a history of recent aortic valve replacement at [facility] and then was transferred shortly after discharge back due to CVA and embolism per daughter. She also required placement of the pacemaker at that time. Additionally, patient was hospitalized at the beginning of August with these same neurological symptoms. She had a Tele-neurology consult at that time. A brain MRI was recommended, but was not performed due to pacemaker. During that hospital stay, patient was noted to have elevated troponins. , curtains and draperies salesperson, consulted with patient during the August visit. At that time, he recommended that patient take an 81mg Aspirin in addition to her current anticoagulant therapy. He did not feel that further work-up was indicated at that time due to recent extensive work-up and procedures. On arrival to the er at this visit, slurred speech had resolved. Her vitals were: 97.9-62-24-100%-145/70. Labs were obtained. WBC 6.5, RBC 3.34, HGB 10.5, HCT 31.5, PLT COUNT 132, INR 1.62, SODIUM 143, POTASSIUM 3.9, CHLORIDE 107, CARBON DIOXIDE 31.1, BUN 18, CREATININE 1.23, GLUCOSE 95, CALCIUM 8.3, TOTAL BILI 0.90, AST 23, ALT 16, ALK PHOS 73, CREATINE KINASE 39, TROPONIN 88.9, TOTAL PROTEIN 5.6, ALBUMIN 2.7, TRIGLYCERIDES 64, CHOLESTEROL 118, LDL 47, HDL 58. URINALYSIS WAS OBTAINED AND WAS UNREMARKABLE. BRAIN CT WAS OBTAINED AND REVEALED: 1. Nothing acute. 2. Generalized atrophy and small vessel ischemic disease. CHEST XRAY WAS OBTAINED AND REVEALED: The trachea is midline. The cardiac silhouette is enlarged. Aorta is tortuous with calcification. The lungs are grossly clear without effusion. The bony thorax is unremarkable. EKG WAS OBTAINED AND REVEALED: Sinus rhythm with 1st degree AV block. Left bundle branch block. Rate 64 BPM. Tele-Neurology consult was done in the ER. Dr.Joshua James recommended a brain MRI if pacemaker is MRI compatible. She is not a thrombolytic candidate. He suggested to continue Eliquis. She was admitted to the hospital for further evaluation and treatment of slurred speech, generalized weakness, elevated troponin. We planned to obtained serial cardiac enzymes and ekgs. Her home medications of amiodarone, Eliquis, Lipitor, vitamin d3, vitamin b12, Pepcid, Lasix, Synthroid, cozaar, melatonin, multivitamins, and protonix were resumed. Otherwise, we planned to follow-up with am labs and continue to monitor. TIME SPENT ON CLINICAL ASSESSMENT, REVIEWING LABS AND IMAGING, DECISION MAKING, AND DOCUMENTATION GREATER THAN 75 MINUTES. - Past Medical History Past Medical History: Hypertension, Dyslipidemia, Hypothyroidism, COPD, Asthma, GERD, Arthritis, Kidney Stones Additional Medical History: Syncope, Left Carotid Artery Occlusion, Chronic Back Pain, Breast Cancer. Colon cancer. PE - Past Surgical History Surgical History: Abdominal Surgery, Cholecystectomy, Hysterectomy, Mastectomy Additional Surgical History: Heart Catherization x 2, Left Mastectomy, Hernia Repair. Colon surgery. IVC - Family History Family Medical History: Diabetes Mellitus, Cancer, [place], Heart Failure, Hypertension - Social History Does patient currently use any type of tobacco product: No Have you used tobacco products in the last 12 months: No Type of Tobacco Use: None Does any household member use tobacco: No Alcohol Use: None Drug Use: None - Medications Home Medications: zolpidem [From Ambien] Allergy (Verified 10/12/22 00:32) CONTINUE taking the following medications amiodarone 200 mg tablet 200 mg PO QDAY 10/12/22 [History] apixaban 5 mg tablet (Eliquis) 5 mg PO BID 10/12/22 [History] carvedilol 3.125 mg tablet 3.125 mg PO QDAY 10/12/22 [History] furosemide 20 mg tablet 20 mg PO QDAY 10/12/22 [History] levothyroxine 100 mcg tablet (Euthyrox) 100 mcg PO QDAY 10/12/22 [History] losartan 25 mg tablet 12.5 mg PO QDAY 10/12/22 [History] melatonin 10 mg tablet 10 mg PO HS 10/12/22 [History] plcwkmlw-svj-vyzo-FA-Ca carb-vit K 18 mg iron-400 mcg-500 mg tablet 1 tab PO QDAY 10/12/22 [History] potassium bicarbonate-citric acid 10 mEq effervescent tablet 10 meq PO BID 10/12/22 [History] - Review of Systems Constitutional: Weakness Eyes: No Symptoms Reported ENT: No Symptoms Reported Respiratory: No Symptoms Reported Cardiovascular: No Symptoms Reported Gastrointestinal: No Symptoms Reported Genitourinary: No Symptoms Reported Musculoskeletal: No Symptoms Reported Skin: No Symptoms Reported Neurological: See HPI, Weakness, Change in Speech - Physical Exam Vital Signs: Temperature 98.4 F Pulse Rate [Brachial] 64 Pulse Rate 61 Respiratory Rate 20 Blood Pressure [Left Arm] 131/60 Blood Pressure [Right Arm] 135/62 Blood Pressure 126/60 O2 Sat by Pulse Oximetry 98 Oriented: Normal Eyes: Normal Ear: Normal Nose: Normal Throat: Normal Respiratory: Diminished Throughout Cardiovascular: Normal : Normal Auscultation: Bowel Sounds: Normal Palpation: Normal Tenderness: Normal Skin: Normal Musculoskeletal: Normal Psychiatric: Normal Mood Description: Calm Affect: Normal Speech Pattern: Clear, Appropriate - Assessment/Plan (1) Neurological impairment in adult Status: Acute Plan: ADMIT, RESUME HOME MEDS, IF PACEMAKER IS MRI COMPATIBLE, OBTAIN MRI. IF NOT, REPEAT BRAIN CT. SERIAL CARDIAC ENZYMES AND EKGS. OBTAIN CAROTID DOPPLER. [facility] (2) Slurred speech Status: Acute (3) General weakness Status: Acute (4) Elevated troponin Status: Acute (5) Hypertension Qualifiers: Hypertension type: primary hypertension Qualified Code(s): I10 - Essential (primary) hypertension Status: Chronic (6) Paroxysmal atrial fibrillation Status: Chronic (7) History of pulmonary embolism Status: Chronic (8) Hypothyroidism Status: Chronic (9) CVA (cerebral vascular accident) Qualifiers: CVA mechanism: unspecified Qualified Code(s): I63.9 - Cerebral infarction, unspecified Status: Chronic (10) CAD (coronary artery disease) Qualifiers: Coronary Disease-Associated Artery/Lesion type: bypass graft [place] vs. transplanted heart: [place] heart Associated angina: without angina Qualified Code(s): I25.810 - Atherosclerosis of coronary artery bypass graft(s) without angina pectoris Status: Chronic (11) Hyperlipidemia Qualifiers: Hyperlipidemia type: mixed hyperlipidemia Qualified Code(s): E78.2 - Mixed hyperlipidemia Status: Chronic - Allergies Allergies/Adverse Reactions: Allergies Allergy/AdvReac Type Severity Reaction Status Date / Time zolpidem [From Ambien] Allergy Verified 10/12/22 00:32
[2022-10-12] MEDS: LIPITOR TAB 80 MG PO SCH (20:23)
[2022-10-12] MEDS: PEPCID TAB 20 MG PO SCH (20:23)
[2022-10-12] MEDS ORDERED: MELATONIN PO SCH (21:00)
--- NOTE | 2022-10-12 21:06 | EKG ---
Test Reason : R/O AMI Blood Pressure : */* mmHG Vent. Rate : 60 BPM Atrial Rate : 60 BPM P-R Int : 294 ms QRS Dur : 130 ms QT Int : 484 ms P-R-T Axes : -9 -8 -12 degrees QTc Int : 484 ms Atrial-paced rhythm with prolonged AV conduction Left bundle branch block Abnormal ECG When compared with ECG of 12-OCT-2022 17:25, (Unconfirmed) Electronic atrial pacemaker has replaced Sinus rhythm Questionable change in QRS axis Confirmed by Chandler Caldwell ([id number]) on 10/13/2022 10:25:46 AM Referred By: Confirmed By: Chandler Caldwell
[2022-10-13 05:27] LABS: BASOPHILS % (AUTO) 0.6 % (0.2-1.0); EOSINOPHILS # (AUTO) 0.1 x10^3/uL (0.0-0.2); EOSINOPHILS % (AUTO) 1.4 % (0.9-2.9); HEMATOCRIT 27.5 % (36.0-47.0); HEMOGLOBIN 9.3 g/dL (12.0-16.0); LYMPHOCYTES # (AUTO) 1.1 X10^3/uL (1.3-2.9); LYMPHOCYTES % (AUTO) 20.5 % (21.0-51.0); MEAN CORPUSCULAR HEMOGLOBIN 31.5 pg (27.0-34.0); MEAN CORPUSCULAR HGB CONC 33.9 g/dL (33.0-35.0); MEAN CORPUSCULAR VOLUME 92.9 fL (80.0-100.0); MEAN PLATELET VOLUME 9.8 fL (7.4-11.0); MONOCYTES # (AUTO) 0.6 x10^3/uL (0.3-0.8); MONOCYTES % (AUTO) 10.6 % (0.0-13.0); NEUTROPHILS # (AUTO) 3.7 x10^3/uL (2.2-4.8); NEUTROPHILS % (AUTO) 66.9 % (42.0-75.0); RED BLOOD COUNT 2.96 X10^6/uL (3.5-5.4); WHITE BLOOD COUNT 5.6 X10^3/uL (3.6-10.0)
[2022-10-13 05:52] LABS: ALANINE AMINOTRANSFERASE 14 Units/L (12-78); ALBUMIN 2.3 g/dL (3.4-5.0); ALKALINE PHOSPHATASE 66 Units/L (46-116); ASPARTATE AMINO TRANSFERASE 18 Units/L (15-37); BLOOD UREA NITROGEN 13 mg/dL (7-18); CALCIUM 7.8 mg/dL (8.5-10.1); CARBON DIOXIDE 34.7 mmol/L (21-32); CHLORIDE 107 mmol/L (98-107); COR CA(FOR HYPOALB) 9.2 mg/dL (8.5-10.1); CREATININE 1.25 mg/dL (0.55-1.02); SODIUM 145 mmol/L (136-145); TOTAL PROTEIN 4.8 g/dL (6.4-8.2); eGFR NON BLACK RACES 43 (>60)
[2022-10-13 06:25] LABS: ANISOCYTOSIS SLIGHT; PLATELET MORPHOLOGY COMMENT NORMAL (NORMAL)
[2022-10-13 06:26] LABS: SCHISTOCYTES SLIGHT
--- NOTE | 2022-10-13 07:46 | CT ---
HISTORYSpeech difficultySTUDYCT head without contrastTechnique: Axial noncontrast images with coronal and sagittal reformats. Dose reduction procedures were used with mA/kv adjusted for body size.[id number]/27/2022, 08/16/2022FINDINGSThe ventricles are normal in size shape and position. There is generalized cortical atrophy present likely age related. There is decreased attenuation in the periventricular white matter suggestive of diffuse small vessel vascular disease. There is a focus of decreased attenuation in the left centrum semiovale likely representing an old CVA. It is unchanged since 08/16/2022. There are no areas of abnormal attenuation to suggest recent CVA, hemorrhage, mass lesion, or extra-axial fluid collection. The visualized sinuses are clear. The calvarium is intact. If acute CVA or extension of the patient's old CVA is a strong clinical consideration MRI with diffusion imaging is recommended for further evaluation.IMPRESSIONNo definite acute intracranial abnormality identified. See recommendation as aboveGeneralized cortical atrophy likely age relatedDiffuse small vessel vascular diseaseOld CVA in the left centrum semiovale, unchangedElectronically signed by: AURORA TAFOYA (Oct 13, 2022 07:44:03)
--- NOTE | 2022-10-13 07:54 | VAS ---
HISTORYSpeech difficulty, left-sided weaknessSTUDYBilateral carotid sonogramTechnique: Multiple grayscale sonographic images were obtained. Color duplex Doppler evaluation was performed.COMPARISONNoneFINDINGSOn the right, plaque is identified in the carotid bulb. Peak systolic velocity in the internal carotid artery 121 cm/second. ICA/CCA ratio 1.9. Findings are consistent with a less than 50 percent stenosis of the proximal internal carotid artery not hemodynamically significant. Flow in the vertebral artery was antegrade. On the left, plaques identified in the carotid bulb. Peak systolic velocity in the internal carotid artery 86 cm/second. ICA/CCA ratio 1.0. No hemodynamically significant stenosis identified. Flow in the left vertebral artery was antegrade.IMPRESSIONNo evidence for hemodynamically significant stenosis on either sideElectronically signed by: AURORA TAFOYA (Oct 13, 2022 07:53:03)
[2022-10-13] MEDS ORDERED: TAB-A-VITE PO SCH (09:00)
[2022-10-13] MEDS: CORDARONE TAB 200 MG PO SCH (09:22)
[2022-10-13] MEDS: PROTONIX TAB 40 MG PO SCH (09:22)
[2022-10-13] MEDS: SYNTHROID 100 mcg TAB PO SCH (09:23)
[2022-10-13] MEDS: ELIQUIS PO SCH (09:23)
[2022-10-13] MEDS: LASIX PO SCH (09:23)
[2022-10-13] MEDS: COZAAR PO SCH (09:23)
[2022-10-13] MEDS: VITAMIN B-12 PO SCH (09:23)
[2022-10-13] MEDS: EXEMESTANE 25 MG PO SCH (09:24)
[2022-10-13] MEDS: VITAMIN D3 25 mcg (1,000 UNITS) PO SCH (09:24)
[2022-10-13] MEDS ORDERED: PLAVIX PO SCH (13:00)
[2022-10-13 15:48] VITALS: BP 124/58
== END 2022-10-13 17:40 | disposition short-term general hospital (02) ==
LOC: ER 18:06 → MED/SURG 18:06
PROVIDERS: ADMIT Internal Medicine; ATTEND Internal Medicine
DX: Z86.73 Personal history of transient ischemic attack (TIA), and cerebral infarction without residual deficits; Z95.0 Presence of cardiac pacemaker; I48.0 Paroxysmal atrial fibrillation; Z79.01 Long term (current) use of anticoagulants; I25.810 Atherosclerosis of coronary artery bypass graft(s) without angina pectoris; R94.4 Abnormal results of kidney function studies; R47.81 Slurred speech; R94.31 Abnormal electrocardiogram [ECG] [EKG]; K21.9 Gastro-esophageal reflux disease without esophagitis; E03.8 Other specified hypothyroidism; I10 Essential (primary) hypertension; R29.818 Other symptoms and signs involving the nervous system; R79.1 Abnormal coagulation profile; Z86.711 Personal history of pulmonary embolism; R26.89 Other abnormalities of gait and mobility; E78.2 Mixed hyperlipidemia; J44.9 Chronic obstructive pulmonary disease, unspecified; R77.8 Other specified abnormalities of plasma proteins; R53.1 Weakness

== ENCOUNTER 2023-02-16 11:44 | Observation (INO) ==
[2023-02-16] MEDS ORDERED: NS 500 ML IV 500 ML IV ONE ×2 (11:53→12:10)
[2023-02-16 12:01] VITALS: BMI 26.7
[2023-02-16 12:15] LABS: HEMATOCRIT 31.2 % (36.0-47.0); HEMOGLOBIN 10.7 g/dL (12.0-16.0); LYMPHOCYTES # (AUTO) 0.2 X10^3/uL (1.3-2.9); MEAN CORPUSCULAR HGB CONC 34.2 g/dL (33.0-35.0); MONOCYTES # (AUTO) 0.2 x10^3/uL (0.3-0.8); PLATELET COUNT 147 X10^3/uL (150.0-450.0)
[2023-02-16 12:18] LABS: BASOPHILS % (AUTO) 0.3 % (0.2-1.0); EOSINOPHILS % (AUTO) 0.6 % (0.9-2.9); LYMPHOCYTES % (AUTO) 3.4 % (21.0-51.0); MEAN CORPUSCULAR HEMOGLOBIN 32.7 pg (27.0-34.0); MEAN CORPUSCULAR VOLUME 95.6 fL (80.0-100.0); MEAN PLATELET VOLUME 9.7 fL (7.4-11.0); MONOCYTES % (AUTO) 3.4 % (0.0-13.0); NEUTROPHILS # (AUTO) 6.1 x10^3/uL (2.2-4.8); NEUTROPHILS % (AUTO) 92.3 % (42.0-75.0); RED BLOOD COUNT 3.26 X10^6/uL (3.5-5.4); RED CELL DISTRIBUTION WIDTH 14.7 % (11.6-16.5); WHITE BLOOD COUNT 6.6 X10^3/uL (3.6-10.0)
--- NOTE | 2023-02-16 12:18 | RAD ---
HISTORYWEAKNESS Relevant Clinical InformationSTUDYCHEST, 1 [id number]/30/2023FINDINGSTrachea is midline. There is mild cardiomegaly. There is a left-sided pacemaker with 2 leads. There is an aortic stent unchanged since prior, there are surgical clips in the left axillary region. There is no evidence of pneumothorax, no dominant pleural effusions. There is mild central congestion with vascular cephalization and Eulalia B-lines in the bases, it could represent early interstitial pulmonary edema.IMPRESSIONEarly interstitial pulmonary edema.Electronically signed by: Jazmin Burton (February 16, 2023 12:16:28)
[2023-02-16 12:25] LABS: ALANINE AMINOTRANSFERASE 332 Units/L (12-78); ALBUMIN 2.9 g/dL (3.4-5.0); ALKALINE PHOSPHATASE 209 Units/L (46-116); ASPARTATE AMINO TRANSFERASE 640 Units/L (15-37); BLOOD UREA NITROGEN 19 mg/dL (7-18); CARBON DIOXIDE 28.6 mmol/L (21-32); CHLORIDE 104 mmol/L (98-107); COR CA(FOR HYPOALB) 8.9 mg/dL (8.5-10.1); CREATININE 1.33 mg/dL (0.55-1.02); GLUCOSE 95 mg/dL (65-99); LIPASE 300 Units/L (73-393); POTASSIUM 3.3 mmol/L (3.5-5.1); SODIUM 139 mmol/L (136-145); TOTAL PROTEIN 5.7 g/dL (6.4-8.2); eGFR NON BLACK RACES 40 (>60)
[2023-02-16 12:33] LABS: PLATELET MORPHOLOGY COMMENT NORMAL (NORMAL)
--- NOTE | 2023-02-16 12:33 | DR.GENAD ---
HPI Time Seen Time Seen by Provider: 02/16/23 11:52 PCP Primary Care Physician: Alyssa Kunz Complaint/Symptoms Chief Complaint Doctors Comments: 87 y/o female brought in by EMS for evaluation. Not feeling well past few days, having generalized weakness. Having pain in both of her legs this am. Was having chills all last night. No known fever. + nausea vomited once this am. Having discomfort across the upper abdomen. Denies diarrhea or constipation. Is urinating frequently, no dysuria. + slight blood in her depends the other day. Chief Complaint:: EMS reports that she is having weakness and bilateral pain and has noticed blood in her depends x2 weeks Self Treatment fo Chief Complaint: none COVID-19 Coronavirus risk:travel/contact w/high risk person: No Has patient experienced Coronavirus symptoms: No Source History Provided: Patient and EMS Mode of Arrival Mode of Arrival: EMS Timing Onset of Chief Complaint: 02/14/23 PMH PMH Past Medical History: Yes Past Medical History: CVA and Hypertension Past Surgical History: Yes Surgical History: Mastectomy Past Surgical History Comment: left sided mastectomy pacemaker Family History Family Medical History: Diabetes Mellitus, Cancer, [place], Heart Failure and Hypertension Social History Does patient currently use any type of tobacco product: No Alcohol Use: None Do you use any recreational Drugs:: No Travel Risk Coronavirus risk:travel/contact w/high risk person: No Has patient experienced Coronavirus symptoms: No Infectious screening Have you traveled outside the country in the last 6 months?: No Isolation: Standard ROS Review of Systems Constitutional: Chills and Weakness Eyes: No Symptoms Reported ENTM: No Symptoms Reported Respiratoy: No Symptoms Reported Cardiovascular: No Symptoms Reported Gastrointestinal/Abdominal: Abdominal Pain, Nausea and Vomiting Genitourinary: Frequency Neurological: Weakness Musculoskeletal: Muscle Pain Integumentary: No Symptoms Reported Hematologic/Lymphatic: No Symptoms Reported Psychiatric: No Symptoms Reported All Other Systems: Reviewed and Negative PE Vital Signs Vitals: Temperature 98.8 F Pulse Rate [Left Radial] 65 Pulse Rate 61 Respiratory Rate 18 Blood Pressure [Left Arm] 120/57 Blood Pressure [Right Arm] 135/62 Blood Pressure 90/45 O2 Sat by Pulse Oximetry 98 General General Appearance: Alert and In No Apparent Distress Eyes Eye exam: PERRL and EOMI ENT ENT Exam: Normal Oropharynx and Mucous Membranes Moist Neck Neck Exam: Normal Inspection; negative Tenderness Respiratory Respiratory Exam: Normal Lung Sounds Bilat; negative Accessory Muscle Use or Respiratory Distress Cardiovascular Cardiovascular Exam: Regular Rate, Normal Rhythm and Normal Heart Sounds Abdominal Exam Abdominal Exam: Normal Bowel Sounds, Soft and Tenderness (across upper abdomen. No guarding or rebound) Extremities Extremities Exam: Normal Inspection and Full ROM; negative Edema Neurologic Neurological Exam: Alert, Oriented X3 and CN II-XII Intact; negative Motor Sensory Deficit Skin Skin Exam: Warm and Dry COURSE Treatment Treatment: 87 y/o with weakness, muscle pain. W/u initiated. Given IV fluids. 1424 - CBC acceptable. CMP notable for elevated AST 640, ALT 332. CXR with degree of pulmonary vascular congestion. BNP 669. Negative for Covid/flu. CT abd/pelvis obtained. Has small, bilateral pleural effusions, has small amount of ascites. IVC filter present, has some struts that extend thru the IVC wall. CT otherwise unremarkable. BP running a bit low. Will give additional IV fluiids, with lasix, 20 mg IV. Call put out to Dr San, her attending, to see about admission. 1627 - Dr San accepts the admission. [facility]OR Labs Reviewed Laboratory Results Reviewed?: Yes Result Diagrams: 02/16/23 12:04 02/16/23 12:04 Laboratory: WBC 6.6 X10^3/uL (3.6-10.0) 02/16/23 12:04 RBC 3.26 X10^6/uL (3.5-5.4) L 02/16/23 12:04 Hgb 10.7 g/dL (12.0-16.0) L 02/16/23 12:04 Hct 31.2 % (36.0-47.0) L 02/16/23 12:04 MCV 95.6 fL (80.0-100.0) 02/16/23 12:04 MCH 32.7 pg (27.0-34.0) 02/16/23 12:04 MCHC 34.2 g/dL (33.0-35.0) 02/16/23 12:04 RDW 14.7 % (11.6-16.5) 02/16/23 12:04 Plt Count 147 X10^3/uL (150.0-450.0) L 02/16/23 12:04 Plt Count Comment Adequate (ADEQUATE) 02/16/23 12:04 MPV 9.7 fL (7.4-11.0) 02/16/23 12:04 Neut % (Auto) 92.3 % (42.0-75.0) H 02/16/23 12:04 Lymph % (Auto) 3.4 % (21.0-51.0) L 02/16/23 12:04 [place] % (Auto) 3.4 % (0.0-13.0) 02/16/23 12:04 Eos % (Auto) 0.6 % (0.9-2.9) L 02/16/23 12:04 Baso % (Auto) 0.3 % (0.2-1.0) 02/16/23 12:04 Neut # (Auto) 6.1 x10^3/uL (2.2-4.8) H 02/16/23 12:04 Lymph # (Auto) 0.2 X10^3/uL (1.3-2.9) L 02/16/23 12:04 [place] # (Auto) 0.2 x10^3/uL (0.3-0.8) L 02/16/23 12:04 Eos # (Auto) 0.0 x10^3/uL (0.0-0.2) 02/16/23 12:04 Baso # (Auto) 0.0 X10^3/uL (0.0-0.1) 02/16/23 12:04 Absolute Nucleated RBC 0.0 /100WBC 02/16/23 12:04 Total Counted 100 02/16/23 12:04 Neutrophils % (Manual) 96 % (39-76) H 02/16/23 12:04 Lymphocytes % (Manual) 3 % (13-43) L 02/16/23 12:04 Monocytes % (Manual) 1 % (4-9) L 02/16/23 12:04 Plt Morphology Comment Normal (NORMAL) 02/16/23 12:04 RBC Morphology Abnormal (NORMAL) A 02/16/23 12:04 Acanthocytes (Spur) Present 02/16/23 12:04 Sodium 139 mmol/L (136-145) 02/16/23 12:04 Corrected Sodium TNP 02/16/23 12:04 Potassium 3.3 mmol/L (3.5-5.1) L 02/16/23 12:04 Chloride 104 mmol/L (98-107) 02/16/23 12:04 Carbon Dioxide 28.6 mmol/L (21-32) 02/16/23 12:04 BUN 19 mg/dL (7-18) H 02/16/23 12:04 Creatinine 1.33 mg/dL (0.55-1.02) H 02/16/23 12:04 Est GFR (MDRD) Af Amer 49 (>60) L 02/16/23 12:04 Est GFR (MDRD) Non-Af 40 (>60) L 02/16/23 12:04 Glucose 95 mg/dL (65-99) 02/16/23 12:04 Calcium 8.0 mg/dL (8.5-10.1) L 02/16/23 12:04 Corrected Calcium 8.9 mg/dL (8.5-10.1) 02/16/23 12:04 Total Bilirubin 1.90 mg/dL (0.2-1.0) H 02/16/23 12:04 AST 640 Units/L (15-37) H 02/16/23 12:04 ALT 332 Units/L (12-78) H 02/16/23 12:04 Alkaline Phosphatase 209 Units/L (46-116) H 02/16/23 12:04 Troponin I High Sens 30.5 ng/L (4.0-60.0) 02/16/23 12:04 B-Natriuretic Peptide 669 pg/mL (0-79) H* 02/16/23 12:04 Total Protein 5.7 g/dL (6.4-8.2) L 02/16/23 12:04 Albumin 2.9 g/dL (3.4-5.0) L 02/16/23 12:04 Globulin 2.8 g/dL (2.5-4.5) 02/16/23 12:04 Albumin/Globulin Ratio 1.0 Ratio (1.1-2.1) L 02/16/23 12:04 Lipase 300 Units/L (73-393) 02/16/23 12:04 Specimen Type Clean catch urine 02/16/23 14:34 Urine Color Yellow (YELLOW) 02/16/23 14:34 Urine Appearance Clear (CLEAR) 02/16/23 14:34 Urine pH 5.0 (5.0 - 8.0) 02/16/23 14:34 Ur Specific [place] 1.015 (1.000-1.030) 02/16/23 14:34 Urine Protein 2+ (NEGATIVE) 02/16/23 14:34 Urine Glucose (UA) Negative (NEGATIVE) 02/16/23 14:34 Urine Ketones Negative (NEGATIVE) 02/16/23 14:34 Urine Blood Negative (NEGATIVE) 02/16/23 14:34 Urine Nitrite Negative (NEGATIVE) 02/16/23 14:34 Urine Bilirubin Negative (NEGATIVE) 02/16/23 14:34 Urine Urobilinogen 1+ (NORMAL) 02/16/23 14:34 Ur Leukocyte Esterase Negative (NEGATIVE) 02/16/23 14:34 Urine RBC 0-2 /HPF (0-3) 02/16/23 14:34 Urine WBC 3-5 /HPF (0-5) 02/16/23 14:34 Ur Squamous Epith Cells Few /HPF (NEGATIVE) 02/16/23 14:34 Urine Bacteria Trace /HPF (NEGATIVE) 02/16/23 14:34 Ur Culture Indicated? No/not indicated 02/16/23 14:34 SARS-CoV-2 (PCR) Negative (NEGATIVE) 02/16/23 12:17 Influenza Type A (PCR) Negative (NEGATIVE) 02/16/23 12:17 Influenza Type B (PCR) Negative (NEGATIVE) 02/16/23 12:17 RSV (PCR) Negative (NEGATIVE) 02/16/23 12:17 Elevated BNP 669 XRAY XRAY Interpreted by: Both X-ray Results: CXR - + cardiomegaly, w/pulmonary vascular congestion. CT abd/pelvis - + bilateral small pleural effusions, degree of ascites. Opioid Opioid Risk Tool Age (Jeet box if 16-45): No History of Preadolescent Sexual Abuse: No Total: 0 Total Score Risk Category: Low Risk Copyright: Sarkis NOGUERA predicting aberrant behaviors Discharge Plan Diagnosis Discharge Problem: Congestive heart failure Discharge Plan Patient Disposition: 09 ADMITTED INPATIENT Condition: Stable Orders to Discharge Patient Discharge Orders: Transfer (Routine); Ordered 02/16/23 Ordered By: Pavan Dickson
--- NOTE | 2023-02-16 14:15 | CT ---
HISTORYAbdominal pain, elevated liver enzymesSTUDYCT abdomen pelvis with contrastTechnique: Axial post-contrast images with coronal and sagittal reformats. Dose reduction procedures were used with mA/kv adjusted for body size.[id number]/09/2022FINDINGSTrace bilateral pleural effusions are identified. The lung bases are free of acute infiltrates. Bibasilar interstitial lung disease is present. The heart is enlarged. There is a small amount of ascites present perhaps just slightly more than on the prior examination. The liver is normal in size and configuration and without focal space-occupying disease. Patient is status post cholecystectomy. There is biliary ductal dilatation which can be followed to the ampulla. No opaque choledocholithiasis is identified. Findings are not significantly changed from the prior examination and are most likely due to post cholecystectomy state. However clinical and laboratory correlation is recommended in order to exclude an obstructive picture that would require further evaluation with ERCP or MRCP. The spleen, adrenal glands, and pancreas are within normal limits. Kidneys are unobstructed and without masses. No renal calculi identified. No ureteral calculi are identified. There is a CAVAL FILTER present. Calcific atherosclerotic changes present in a nondilated abdominal aorta. No intraperitoneal or retroperitoneal lymphadenopathy of significance is identified. Patient is status post ileocolic anastomosis which appears patent. There are no definite findings suggestive of enteritis, colitis or diverticulitis. There is no evidence for small or large bowel obstruction. No pelvic masses or pelvic lymphadenopathy identified. No bladder abnormality identified. No lytic or blastic skeletal lesions of significance are identified.IMPRESSIONNo definite acute intra-abdominal or intrapelvic abnormality identifiedSmall amount of ascites present but slightly increased when compared to the prior examination.Biliary ductal dilatation as described above most likely due to post cholecystectomy state however clinical and laboratory correlation is recommended in order to exclude an obstructive process which would require evaluation with MRCP or ERCP.Patent ileocolic anastomosisCAVAL FILTER presentElectronically signed by: AURORA TAFOYA (February 16, 2023 14:14:10)
[2023-02-16 14:46] LABS: BILIRUBIN,URINE NEGATIVE (NEGATIVE); BLOOD/HEMOGLOBIN,URINE NEGATIVE (NEGATIVE); GLUCOSE, URINE NEGATIVE (NEGATIVE); KETONES,URINE NEGATIVE (NEGATIVE); LEUKOCYTE ESTERASE ,URINE NEGATIVE (NEGATIVE); NITRITES,URINE NEGATIVE (NEGATIVE); PROTEIN,URINE 2+ (NEGATIVE); UROBILINOGEN,URINE 1+ (NORMAL)
[2023-02-16 15:00] LABS: APPEARANCE,URINE CLEAR (CLEAR); COLOR,URINE YELLOW (YELLOW)
[2023-02-16] MEDS ORDERED: LASIX IVP ONE (15:05)
[2023-02-16 15:07] LABS: BACTERIA,URINE TRACE /HPF (NEGATIVE); RBC,URINE 0-2 /HPF (0-3); SQUAMOUS EPITHELIAL CELL,UR FEW /HPF (NEGATIVE)
[2023-02-16] MEDS ORDERED: LASIX ONE (15:07)
[2023-02-16] MEDS: NS 1,000 ML IV 1,000 ML ONE ×2 (15:17→15:20)
[2023-02-16] MEDS: NS 500 ML IV 500 ML IV SCH ×3 (15:20→21:56)
[2023-02-16] MEDS ORDERED: ELIQUIS PO STA (16:31)
[2023-02-16] MEDS ORDERED: ELIQUIS ONE (16:33)
[2023-02-16] MEDS ORDERED: NORCO 7.5/325 MG TAB PO PRN (19:12)
[2023-02-16] MEDS ORDERED: PROVENTIL NEB TX 0.083% 2.5MG/ 3ML NEB PRN (19:17)
[2023-02-16] MEDS ORDERED: MELATONIN PO PRN (19:19)
[2023-02-16] MEDS: LASIX IVP SCH (20:20)
[2023-02-16] MEDS: CORDARONE TAB 200 MG PO SCH ×2 (20:45→21:53)
[2023-02-16] MEDS: MICRO K EXTEN CAP 10 MEQ PO SCH (21:54)
[2023-02-16] MEDS: ELIQUIS PO SCH (21:54)
[2023-02-16] MEDS: ARICEPT TAB 10 MG PO SCH (21:54)
[2023-02-16] MEDS: LIPITOR TAB 80 MG PO SCH (21:55)
[2023-02-16] MEDS: PEPCID TAB 20 MG PO SCH (21:55)
[2023-02-17] MEDS: NS 500 ML IV 500 ML IV SCH ×9 (02:00→21:01)
[2023-02-17 05:36] LABS: BASOPHILS % (AUTO) 0.3 % (0.2-1.0); EOSINOPHILS % (AUTO) 0.1 % (0.9-2.9); HEMATOCRIT 27.8 % (36.0-47.0); HEMOGLOBIN 9.4 g/dL (12.0-16.0); LYMPHOCYTES # (AUTO) 0.5 X10^3/uL (1.3-2.9); LYMPHOCYTES % (AUTO) 3.1 % (21.0-51.0); MEAN CORPUSCULAR HEMOGLOBIN 32.2 pg (27.0-34.0); MEAN CORPUSCULAR HGB CONC 33.7 g/dL (33.0-35.0); MEAN CORPUSCULAR VOLUME 95.5 fL (80.0-100.0); MEAN PLATELET VOLUME 10.5 fL (7.4-11.0); MONOCYTES # (AUTO) 0.5 x10^3/uL (0.3-0.8); MONOCYTES % (AUTO) 3.3 % (0.0-13.0); NEUTROPHILS % (AUTO) 93.2 % (42.0-75.0); PLATELET COUNT 126 X10^3/uL (150.0-450.0); RED BLOOD COUNT 2.91 X10^6/uL (3.5-5.4); RED CELL DISTRIBUTION WIDTH 14.7 % (11.6-16.5)
[2023-02-17 05:53] LABS: ALANINE AMINOTRANSFERASE 267 Units/L (12-78); ALBUMIN 2.5 g/dL (3.4-5.0); ALKALINE PHOSPHATASE 171 Units/L (46-116); ASPARTATE AMINO TRANSFERASE 322 Units/L (15-37); BLOOD UREA NITROGEN 22 mg/dL (7-18); CALCIUM 7.4 mg/dL (8.5-10.1); CHLORIDE 101 mmol/L (98-107); COR CA(FOR HYPOALB) 8.6 mg/dL (8.5-10.1); CREATININE 1.58 mg/dL (0.55-1.02); GLUCOSE 87 mg/dL (65-99); POTASSIUM 3.5 mmol/L (3.5-5.1); SODIUM 135 mmol/L (136-145); eGFR NON BLACK RACES 33 (>60)
[2023-02-17 05:59] LABS: BAND NEUTROPHILS % 1 % (0-10); PLATELET MORPHOLOGY COMMENT NORMAL (NORMAL)
[2023-02-17] MEDS ORDERED: KLOR-CON PO PRN (08:04)
[2023-02-17] MEDS ORDERED: MICRO K EXTEN CAP 10 MEQ PO PRN (08:04)
[2023-02-17] MEDS ORDERED: POTASSIUM CHL 60 MEQ/NS 0.45% 500 ML IV PRN (08:04)
[2023-02-17] MEDS ORDERED: K-RIDER 10 MEQ/NS 100 ML 10 MEQ/100 ML BAG IV PRN (08:04)
[2023-02-17] MEDS ORDERED: POTASSIUM CHL 40 MEQ/NS 0.45% 500 ML IV PRN (08:04)
[2023-02-17] MEDS ORDERED: POTASSIUM CHLORIDE LIQ 20 MEQ UDC PO PRN (08:04)
[2023-02-17] MEDS: ELIQUIS PO SCH ×2 (09:05→20:56)
[2023-02-17] MEDS: ARICEPT TAB 10 MG PO SCH ×2 (09:05→20:56)
[2023-02-17] MEDS: FERROUS GLUCONATE PO SCH (09:06)
[2023-02-17] MEDS: MICRO K EXTEN CAP 10 MEQ PO SCH ×2 (09:06→21:04)
[2023-02-17] MEDS: LASIX IVP SCH ×2 (09:06→17:49)
[2023-02-17] MEDS: PROTONIX TAB 40 MG PO SCH (09:06)
[2023-02-17] MEDS: VITAMIN D3 25 mcg (1,000 UNITS) PO SCH (09:07)
[2023-02-17] MEDS: MAGNESIUM SULFATE 1 GRAM/100 mL PREMIX 1 G/100 ML BAG IV PRN ×4 (09:58→14:59)
[2023-02-17] MEDS: COREG TAB 3.125 MG PO SCH (13:42)
[2023-02-17] MEDS: K-DUR TAB 20 MEQ PO PRN (14:21)
[2023-02-17] MEDS: LIPITOR TAB 80 MG PO SCH (20:53)
[2023-02-17] MEDS: LEVAQUIN PREMIX IV 500 MG 500 MG/100 ML BAG IV SCH (20:53)
[2023-02-17] MEDS: PEPCID TAB 20 MG PO SCH (20:56)
[2023-02-17] MEDS: CORDARONE TAB 200 MG PO SCH (21:01)
[2023-02-18] MEDS: NS 500 ML IV 500 ML IV SCH ×6 (00:37→21:16)
[2023-02-18 05:54] LABS: BASOPHILS % (AUTO) 0.4 % (0.2-1.0); EOSINOPHILS # (AUTO) 0.1 x10^3/uL (0.0-0.2); EOSINOPHILS % (AUTO) 1.1 % (0.9-2.9); HEMATOCRIT 26.7 % (36.0-47.0); HEMOGLOBIN 9.3 g/dL (12.0-16.0); LYMPHOCYTES # (AUTO) 0.4 X10^3/uL (1.3-2.9); LYMPHOCYTES % (AUTO) 3.6 % (21.0-51.0); MEAN CORPUSCULAR HEMOGLOBIN 33.3 pg (27.0-34.0); MEAN CORPUSCULAR HGB CONC 34.9 g/dL (33.0-35.0); MEAN CORPUSCULAR VOLUME 95.3 fL (80.0-100.0); MONOCYTES # (AUTO) 0.5 x10^3/uL (0.3-0.8); MONOCYTES % (AUTO) 5.1 % (0.0-13.0); NEUTROPHILS # (AUTO) 9.2 x10^3/uL (2.2-4.8); NEUTROPHILS % (AUTO) 89.8 % (42.0-75.0); PLATELET COUNT 109 X10^3/uL (150.0-450.0); RED BLOOD COUNT 2.81 X10^6/uL (3.5-5.4); WHITE BLOOD COUNT 10.2 X10^3/uL (3.6-10.0)
[2023-02-18 06:06] LABS: ALANINE AMINOTRANSFERASE 180 Units/L (12-78); ALBUMIN 2.4 g/dL (3.4-5.0); ALKALINE PHOSPHATASE 163 Units/L (46-116); ASPARTATE AMINO TRANSFERASE 180 Units/L (15-37); BLOOD UREA NITROGEN 21 mg/dL (7-18); CALCIUM 7.4 mg/dL (8.5-10.1); CARBON DIOXIDE 25.7 mmol/L (21-32); CHLORIDE 102 mmol/L (98-107); COR CA(FOR HYPOALB) 8.7 mg/dL (8.5-10.1); CREATININE 1.43 mg/dL (0.55-1.02); GLUCOSE 83 mg/dL (65-99); POTASSIUM 3.4 mmol/L (3.5-5.1); SODIUM 135 mmol/L (136-145); eGFR NON BLACK RACES 37 (>60)
[2023-02-18] MEDS: VITAMIN D3 25 mcg (1,000 UNITS) PO SCH (09:08)
[2023-02-18] MEDS: ARICEPT TAB 10 MG PO SCH ×2 (09:08→21:05)
[2023-02-18] MEDS: LASIX IVP SCH ×2 (09:08→18:02)
[2023-02-18] MEDS: MICRO K EXTEN CAP 10 MEQ PO SCH ×2 (09:08→21:06)
[2023-02-18] MEDS: LEVAQUIN PREMIX IV 500 MG 500 MG/100 ML BAG IV SCH (09:08)
[2023-02-18] MEDS: FERROUS GLUCONATE PO SCH (09:09)
[2023-02-18] MEDS: COREG TAB 3.125 MG PO SCH (09:09)
[2023-02-18] MEDS: PROTONIX TAB 40 MG PO SCH (09:09)
[2023-02-18] MEDS: ELIQUIS PO SCH ×2 (09:09→21:05)
--- NOTE | 2023-02-18 11:49 | DR.H&P ---
H&P History & Physical for Day of: H&P Date: 02/17/23 Chief Complaint Chief Complaint: shortness of breath generalized weakness Allergies Allergies Allergy/AdvReac Type Severity Reaction Status Date / Time zolpidem [From Ambien] Allergy Verified 10/12/22 00:32 History of Present Illness History of Present Illness: Pt is a 87 year old female with past medical history of hypertension, CVA, presenting after generalized weakness and shortness of breath for the past 2-3 days. She reports having chills the previous night but no known fever. She has been having nausea and vomited once. Denies diarrhea, constipation, or dysuria. Labs/imaging: Wbc 15, Hgb 9.4, Plt 126, Na 135, K 3.5, Creatinine 1.58, Glucose 87, CXR: Early interstitial pulmonary edema. CT abdomen and pelvis was obtained that revealed: No definite acute intra-abdominal or intrapelvic abnormality identified. Pt was admitted for CHF exacerbation and pneumonia. She was started on IV lasix 20mg bid and antibiotics IV levaquin. Will restart home medications. Will continue to closely monitor and follow up labs/imaging. Past Medical History Past Medical History: CVA and Hypertension Additional Medical History: Syncope, Left Carotid Artery Occlusion, Chronic Back Pain, Breast Cancer Colon cancer PE Past Surgical History Surgical History: Cholecystectomy and Hysterectomy Additional Surgical History: Heart Catherization x 2, Left Mastectomy, Hernia Repair Colon surgery IVC Family History Family Medical History: Cancer Social History Does patient currently use any type of tobacco product: No Have you used tobacco products in the last 12 months: No Type of Tobacco Use: None Alcohol Use: None Drug Use: None Medications Home Medications: zolpidem [From Ambien] Allergy (Verified 10/12/22 00:32) CONTINUE taking the following medications albuterol sulfate 90 mcg/actuation aerosol inhaler 2 puff inhalation QID PRN 02/16/23 [History] apixaban 5 mg tablet (Eliquis) 5 mg PO BID 02/16/23 [History] cholecalciferol (vitamin D3) 50 mcg (2,000 unit) tablet (Vitamin D3) 50 mcg PO QDAY 02/16/23 [History] clopidogrel 75 mg tablet (Plavix) 75 mg PO QDAY 02/16/23 [History] cyanocobalamin (vitamin B-12) 5,000 mcg sublingual tablet (Vitamin B-12) 5,000 mcg sublingual QDAY 02/16/23 [History] donepezil 10 mg tablet (Aricept) 10 mg PO BID 02/16/23 [History] ferrous sulfate 27 mg iron tablet 27 mg PO QDAY 02/16/23 [History] hydrocodone 7.5 mg-acetaminophen 325 mg tablet 1 tab PO Q4-6H PRN 02/16/23 [History] melatonin 10 mg tablet 10 mg PO HS PRN 02/16/23 [History] ondansetron HCl 4 mg tablet 4 mg PO Q6H PRN 02/16/23 [History] potassium chloride 10 mEq capsule,extended release 10 meq PO BID 02/16/23 [History] Labs Result Diagrams: 02/18/23 04:56 02/18/23 04:56 Labs: Laboratory WBC 10.2 X10^3/uL (3.6-10.0) H 02/18/23 04:56 RBC 2.81 X10^6/uL (3.5-5.4) L 02/18/23 04:56 Hgb 9.3 g/dL (12.0-16.0) L 02/18/23 04:56 Hct 26.7 % (36.0-47.0) L 02/18/23 04:56 MCV 95.3 fL (80.0-100.0) 02/18/23 04:56 MCH 33.3 pg (27.0-34.0) 02/18/23 04:56 MCHC 34.9 g/dL (33.0-35.0) 02/18/23 04:56 RDW 15.0 % (11.6-16.5) 02/18/23 04:56 Plt Count 109 X10^3/uL (150.0-450.0) L 02/18/23 04:56 Plt Count Comment Decreased (ADEQUATE) A 02/17/23 04:50 MPV 11.0 fL (7.4-11.0) 02/18/23 04:56 Neut % (Auto) 89.8 % (42.0-75.0) H 02/18/23 04:56 Lymph % (Auto) 3.6 % (21.0-51.0) L 02/18/23 04:56 [place] % (Auto) 5.1 % (0.0-13.0) 02/18/23 04:56 Eos % (Auto) 1.1 % (0.9-2.9) 02/18/23 04:56 Baso % (Auto) 0.4 % (0.2-1.0) 02/18/23 04:56 Neut # (Auto) 9.2 x10^3/uL (2.2-4.8) H 02/18/23 04:56 Lymph # (Auto) 0.4 X10^3/uL (1.3-2.9) L 02/18/23 04:56 [place] # (Auto) 0.5 x10^3/uL (0.3-0.8) 02/18/23 04:56 Eos # (Auto) 0.1 x10^3/uL (0.0-0.2) 02/18/23 04:56 Baso # (Auto) 0.0 X10^3/uL (0.0-0.1) 02/18/23 04:56 Absolute Nucleated RBC 0.1 /100WBC 02/18/23 04:56 Total Counted 100 02/17/23 04:50 Neutrophils % (Manual) 96 % (39-76) H 02/17/23 04:50 Band Neutrophils % 1 % (0-10) 02/17/23 04:50 Lymphocytes % (Manual) 2 % (13-43) L 02/17/23 04:50 Monocytes % (Manual) 1 % (4-9) L 02/17/23 04:50 Plt Morphology Comment Normal (NORMAL) 02/17/23 04:50 RBC Morphology Abnormal (NORMAL) A 02/17/23 04:50 Acanthocytes (Spur) Present 02/17/23 04:50 Sodium 135 mmol/L (136-145) L 02/18/23 04:56 Corrected Sodium TNP 02/18/23 04:56 Potassium 3.4 mmol/L (3.5-5.1) L 02/18/23 04:56 Chloride 102 mmol/L (98-107) 02/18/23 04:56 Carbon Dioxide 25.7 mmol/L (21-32) 02/18/23 04:56 BUN 21 mg/dL (7-18) H 02/18/23 04:56 Creatinine 1.43 mg/dL (0.55-1.02) H 02/18/23 04:56 Est GFR (MDRD) Af Amer 45 (>60) L 02/18/23 04:56 Est GFR (MDRD) Non-Af 37 (>60) L 02/18/23 04:56 Glucose 83 mg/dL (65-99) 02/18/23 04:56 POC Glucose (mg/dL) 86 mg/dL (65-99) 02/17/23 05:37 Calcium 7.4 mg/dL (8.5-10.1) L 02/18/23 04:56 Corrected Calcium 8.7 mg/dL (8.5-10.1) 02/18/23 04:56 Magnesium 2.0 mg/dL (2.0-2.9) 02/18/23 04:56 Total Bilirubin 1.90 mg/dL (0.2-1.0) H 02/18/23 04:56 AST 180 Units/L (15-37) H 02/18/23 04:56 ALT 180 Units/L (12-78) H 02/18/23 04:56 Alkaline Phosphatase 163 Units/L (46-116) H 02/18/23 04:56 Troponin I High Sens 30.5 ng/L (4.0-60.0) 02/16/23 12:04 B-Natriuretic Peptide 669 pg/mL (0-79) H* 02/16/23 12:04 Total Protein 5.0 g/dL (6.4-8.2) L 02/18/23 04:56 Albumin 2.4 g/dL (3.4-5.0) L 02/18/23 04:56 Globulin 2.6 g/dL (2.5-4.5) 02/18/23 04:56 Albumin/Globulin Ratio 0.9 Ratio (1.1-2.1) L 02/18/23 04:56 Lipase 300 Units/L (73-393) 02/16/23 12:04 Specimen Type Clean catch urine 02/16/23 14:34 Urine Color Yellow (YELLOW) 02/16/23 14:34 Urine Appearance Clear (CLEAR) 02/16/23 14:34 Urine pH 5.0 (5.0 - 8.0) 02/16/23 14:34 Ur Specific [place] 1.015 (1.000-1.030) 02/16/23 14:34 Urine Protein 2+ (NEGATIVE) 02/16/23 14:34 Urine Glucose (UA) Negative (NEGATIVE) 02/16/23 14:34 Urine Ketones Negative (NEGATIVE) 02/16/23 14:34 Urine Blood Negative (NEGATIVE) 02/16/23 14:34 Urine Nitrite Negative (NEGATIVE) 02/16/23 14:34 Urine Bilirubin Negative (NEGATIVE) 02/16/23 14:34 Urine Urobilinogen 1+ (NORMAL) 02/16/23 14:34 Ur Leukocyte Esterase Negative (NEGATIVE) 02/16/23 14:34 Urine RBC 0-2 /HPF (0-3) 02/16/23 14:34 Urine WBC 3-5 /HPF (0-5) 02/16/23 14:34 Ur Squamous Epith Cells Few /HPF (NEGATIVE) 02/16/23 14:34 Urine Bacteria Trace /HPF (NEGATIVE) 02/16/23 14:34 Ur Culture Indicated? No/not indicated 02/16/23 14:34 SARS-CoV-2 (PCR) Negative (NEGATIVE) 02/16/23 12:17 Influenza Type A (PCR) Negative (NEGATIVE) 02/16/23 12:17 Influenza Type B (PCR) Negative (NEGATIVE) 02/16/23 12:17 RSV (PCR) Negative (NEGATIVE) 02/16/23 12:17 Review of Systems Constitutional: Chills and Weakness Eyes: No Symptoms Reported ENT: No Symptoms Reported Respiratory: Shortness of Breath Cardiovascular: No Symptoms Reported Gastrointestinal: No Symptoms Reported Genitourinary: No Symptoms Reported Musculoskeletal: No Symptoms Reported Skin: No Symptoms Reported Neurological: No Symptoms Reported Physical Exam Vital Signs: Temperature 97.6 F Pulse Rate [Left Radial] 62 Pulse Rate 64 Respiratory Rate 18 Blood Pressure [Left Arm] 118/56 Blood Pressure [Right Arm] 145/67 Blood Pressure 134/59 O2 Sat by Pulse Oximetry 99 Oriented: Normal Eyes: Normal Ear: Normal Nose: Normal Throat: Normal Respiratory: Clear Throughout Cardiovascular: Normal : Normal Auscultation: Bowel Sounds: Normal Palpation: Normal Tenderness: Normal Skin: Normal Musculoskeletal: Normal Psychiatric: Normal Mood Description: Calm and Appropriate Affect: Normal Speech Pattern: Clear and Appropriate Assessment/Plan (1) CHF exacerbation: Status: Acute Plan: Continue IV lasix. (2) Pneumonia: Status: Acute Plan: antibiotics: IV Levaquin Review H&P Reviewed: Yes Patient was examined?: Yes
--- NOTE | 2023-02-18 13:50 | RAD ---
HISTORYSOBSTUDYPortable AP chestCOMPARISONMay 2022FINDINGSBorderline cardiomegaly remains with pacemaker and T AVR. There is interval improvement in the previous interstitial edema. The lungs are now relatively clear without definite congestion, pneumonia or pleural fluid.IMPRESSIONInterval improvement in the congestive pattern. Residual cardiac prominence with no new abnormality identified.Electronically signed by: RAF PIZANO (February 18, 2023 13:48:59)
[2023-02-18] MEDS: K-DUR TAB 20 MEQ PO PRN (14:54)
[2023-02-18] MEDS: LIPITOR TAB 80 MG PO SCH (21:05)
[2023-02-18] MEDS: CORDARONE TAB 200 MG PO SCH (21:06)
[2023-02-18] MEDS: PEPCID TAB 20 MG PO SCH (21:06)
[2023-02-19] MEDS: NS 500 ML IV 500 ML IV SCH ×2 (02:39)
[2023-02-19 05:08] LABS: BASOPHILS % (AUTO) 0.4 % (0.2-1.0); EOSINOPHILS # (AUTO) 0.1 x10^3/uL (0.0-0.2); EOSINOPHILS % (AUTO) 1.3 % (0.9-2.9); HEMATOCRIT 27.4 % (36.0-47.0); HEMOGLOBIN 9.5 g/dL (12.0-16.0); LYMPHOCYTES # (AUTO) 0.5 X10^3/uL (1.3-2.9); LYMPHOCYTES % (AUTO) 7.3 % (21.0-51.0); MEAN CORPUSCULAR HEMOGLOBIN 32.8 pg (27.0-34.0); MEAN CORPUSCULAR HGB CONC 34.6 g/dL (33.0-35.0); MONOCYTES # (AUTO) 0.6 x10^3/uL (0.3-0.8); MONOCYTES % (AUTO) 7.7 % (0.0-13.0); NEUTROPHILS # (AUTO) 6.1 x10^3/uL (2.2-4.8); NEUTROPHILS % (AUTO) 83.3 % (42.0-75.0); PLATELET COUNT 117 X10^3/uL (150.0-450.0); RED BLOOD COUNT 2.88 X10^6/uL (3.5-5.4); RED CELL DISTRIBUTION WIDTH 14.6 % (11.6-16.5); WHITE BLOOD COUNT 7.3 X10^3/uL (3.6-10.0)
[2023-02-19 05:18] LABS: ALANINE AMINOTRANSFERASE 147 Units/L (12-78); ALBUMIN 2.6 g/dL (3.4-5.0); ALKALINE PHOSPHATASE 181 Units/L (46-116); ASPARTATE AMINO TRANSFERASE 139 Units/L (15-37); BLOOD UREA NITROGEN 16 mg/dL (7-18); CALCIUM 7.6 mg/dL (8.5-10.1); CARBON DIOXIDE 28.7 mmol/L (21-32); CHLORIDE 102 mmol/L (98-107); COR CA(FOR HYPOALB) 8.7 mg/dL (8.5-10.1); CREATININE 1.46 mg/dL (0.55-1.02); GLUCOSE 89 mg/dL (65-99); POTASSIUM 3.5 mmol/L (3.5-5.1); SODIUM 136 mmol/L (136-145); TOTAL PROTEIN 5.5 g/dL (6.4-8.2); eGFR NON BLACK RACES 36 (>60)
--- NOTE | 2023-02-19 06:04 | RAD ---
HISTORYCHFSTUDYCHEST, 1 [id number]/06/2023.FINDINGSThere is a dual lead cardiac pacing device on the left. The cardiac silhouette is enlarged similar to the comparison study. The lungs are clear without focal consolidation, pleural effusion or pneumothorax. Surgical clips project over the left axillary region. The bony thorax is grossly unremarkable.IMPRESSIONUnchanged exam compared with the previous day.Electronically signed by: SIMIN REDD (February 19, 2023 06:03:19)
[2023-02-19 09:46] VITALS: BP 144/63
[2023-02-19] MEDS: FERROUS GLUCONATE PO SCH (10:22)
[2023-02-19] MEDS: VITAMIN D3 25 mcg (1,000 UNITS) PO SCH (10:22)
[2023-02-19] MEDS: ARICEPT TAB 10 MG PO SCH (10:22)
[2023-02-19] MEDS: MICRO K EXTEN CAP 10 MEQ PO SCH (10:22)
[2023-02-19] MEDS: PROTONIX TAB 40 MG PO SCH (10:22)
[2023-02-19] MEDS: LEVAQUIN PREMIX IV 500 MG 500 MG/100 ML BAG IV SCH (10:23)
[2023-02-19] MEDS: ELIQUIS PO SCH (10:23)
[2023-02-19] MEDS: LASIX IVP SCH (10:23)
[2023-02-19] MEDS: COREG TAB 3.125 MG PO SCH (10:23)
--- NOTE | 2023-02-19 10:49 | PCM.PROG ---
Progress Note Progress Note for Day of Date of Exam: 02/18/23 Subjective Subjective: Pt is a 87 year old female with past medical history of hypertension, CVA, admitted for CHF exacerbation and pneumonia. This morning patient reports some improvement in her symptoms. No acute events overnight. Labs/imaging: Wbc 10.2, Hgb 9.3, Plt 109, Na 135, K 3.4, Creatinine 1.43, Glucose 83, CXR was obtained that revealed: Interval improvement in the congestive pattern. Residual cardiac prominence with no new abnormality identified. Pt is currently receiving IV lasix 20mg bid and antibiotics IV levaquin. Home medications have been resumed. Replete potassium per protocol. Otherwise, will continue with current treatment plan. Continue to closely monitor and follow up labs/imaging. Past Medical Family Social History Allergies: Allergies zolpidem [From Ambien] Allergy (Verified 10/12/22 00:32) Review of Systems ROS changes noted: see HPI Vital Signs and I&O's Vital Signs: Temperature 97.6 F Pulse Rate [Left Radial] 62 Pulse Rate 64 Respiratory Rate 18 Blood Pressure [Left Arm] 118/56 Blood Pressure [Right Arm] 145/67 Blood Pressure 134/59 O2 Sat by Pulse Oximetry 99 Intake and Output: Intake & Output 02/15/23 02/16/23 02/17/23 02/18/23 23:59 23:59 23:59 23:59 Intake Total 240 / 240 1320 / 1320 1116 / 1116 Balance 240 / 240 1320 / 1320 1116 / 1116 Physical Exam Oriented: Normal Eyes: Normal Ear: Normal Nose: Normal Throat: Normal Respiratory: Normal Cardiovascular: Normal : Normal Auscultation: Bowel Sounds: Normal Tenderness: Normal Skin: Normal Musculoskeletal: Normal Psychiatric: Normal Mood Description: Calm and Appropriate Affect: Normal Speech Pattern: Clear and Appropriate Laboratory and Diagnostics Result Diagrams: 02/19/23 04:13 02/19/23 04:13 Labs: Laboratory WBC 10.2 X10^3/uL (3.6-10.0) H 02/18/23 04:56 RBC 2.81 X10^6/uL (3.5-5.4) L 02/18/23 04:56 Hgb 9.3 g/dL (12.0-16.0) L 02/18/23 04:56 Hct 26.7 % (36.0-47.0) L 02/18/23 04:56 MCV 95.3 fL (80.0-100.0) 02/18/23 04:56 MCH 33.3 pg (27.0-34.0) 02/18/23 04:56 MCHC 34.9 g/dL (33.0-35.0) 02/18/23 04:56 RDW 15.0 % (11.6-16.5) 02/18/23 04:56 Plt Count 109 X10^3/uL (150.0-450.0) L 02/18/23 04:56 Plt Count Comment Decreased (ADEQUATE) A 02/17/23 04:50 MPV 11.0 fL (7.4-11.0) 02/18/23 04:56 Neut % (Auto) 89.8 % (42.0-75.0) H 02/18/23 04:56 Lymph % (Auto) 3.6 % (21.0-51.0) L 02/18/23 04:56 [place] % (Auto) 5.1 % (0.0-13.0) 02/18/23 04:56 Eos % (Auto) 1.1 % (0.9-2.9) 02/18/23 04:56 Baso % (Auto) 0.4 % (0.2-1.0) 02/18/23 04:56 Neut # (Auto) 9.2 x10^3/uL (2.2-4.8) H 02/18/23 04:56 Lymph # (Auto) 0.4 X10^3/uL (1.3-2.9) L 02/18/23 04:56 [place] # (Auto) 0.5 x10^3/uL (0.3-0.8) 02/18/23 04:56 Eos # (Auto) 0.1 x10^3/uL (0.0-0.2) 02/18/23 04:56 Baso # (Auto) 0.0 X10^3/uL (0.0-0.1) 02/18/23 04:56 Absolute Nucleated RBC 0.1 /100WBC 02/18/23 04:56 Total Counted 100 02/17/23 04:50 Neutrophils % (Manual) 96 % (39-76) H 02/17/23 04:50 Band Neutrophils % 1 % (0-10) 02/17/23 04:50 Lymphocytes % (Manual) 2 % (13-43) L 02/17/23 04:50 Monocytes % (Manual) 1 % (4-9) L 02/17/23 04:50 Plt Morphology Comment Normal (NORMAL) 02/17/23 04:50 RBC Morphology Abnormal (NORMAL) A 02/17/23 04:50 Acanthocytes (Spur) Present 02/17/23 04:50 Sodium 135 mmol/L (136-145) L 02/18/23 04:56 Corrected Sodium TNP 02/18/23 04:56 Potassium 3.4 mmol/L (3.5-5.1) L 02/18/23 04:56 Chloride 102 mmol/L (98-107) 02/18/23 04:56 Carbon Dioxide 25.7 mmol/L (21-32) 02/18/23 04:56 BUN 21 mg/dL (7-18) H 02/18/23 04:56 Creatinine 1.43 mg/dL (0.55-1.02) H 02/18/23 04:56 Est GFR (MDRD) Af Amer 45 (>60) L 02/18/23 04:56 Est GFR (MDRD) Non-Af 37 (>60) L 02/18/23 04:56 Glucose 83 mg/dL (65-99) 02/18/23 04:56 POC Glucose (mg/dL) 86 mg/dL (65-99) 02/17/23 05:37 Calcium 7.4 mg/dL (8.5-10.1) L 02/18/23 04:56 Corrected Calcium 8.7 mg/dL (8.5-10.1) 02/18/23 04:56 Magnesium 2.0 mg/dL (2.0-2.9) 02/18/23 04:56 Total Bilirubin 1.90 mg/dL (0.2-1.0) H 02/18/23 04:56 AST 180 Units/L (15-37) H 02/18/23 04:56 ALT 180 Units/L (12-78) H 02/18/23 04:56 Alkaline Phosphatase 163 Units/L (46-116) H 02/18/23 04:56 Troponin I High Sens 30.5 ng/L (4.0-60.0) 02/16/23 12:04 B-Natriuretic Peptide 669 pg/mL (0-79) H* 02/16/23 12:04 Total Protein 5.0 g/dL (6.4-8.2) L 02/18/23 04:56 Albumin 2.4 g/dL (3.4-5.0) L 02/18/23 04:56 Globulin 2.6 g/dL (2.5-4.5) 02/18/23 04:56 Albumin/Globulin Ratio 0.9 Ratio (1.1-2.1) L 02/18/23 04:56 Lipase 300 Units/L (73-393) 02/16/23 12:04 Specimen Type Clean catch urine 02/16/23 14:34 Urine Color Yellow (YELLOW) 02/16/23 14:34 Urine Appearance Clear (CLEAR) 02/16/23 14:34 Urine pH 5.0 (5.0 - 8.0) 02/16/23 14:34 Ur Specific [place] 1.015 (1.000-1.030) 02/16/23 14:34 Urine Protein 2+ (NEGATIVE) 02/16/23 14:34 Urine Glucose (UA) Negative (NEGATIVE) 02/16/23 14:34 Urine Ketones Negative (NEGATIVE) 02/16/23 14:34 Urine Blood Negative (NEGATIVE) 02/16/23 14:34 Urine Nitrite Negative (NEGATIVE) 02/16/23 14:34 Urine Bilirubin Negative (NEGATIVE) 02/16/23 14:34 Urine Urobilinogen 1+ (NORMAL) 02/16/23 14:34 Ur Leukocyte Esterase Negative (NEGATIVE) 02/16/23 14:34 Urine RBC 0-2 /HPF (0-3) 02/16/23 14:34 Urine WBC 3-5 /HPF (0-5) 02/16/23 14:34 Ur Squamous Epith Cells Few /HPF (NEGATIVE) 02/16/23 14:34 Urine Bacteria Trace /HPF (NEGATIVE) 02/16/23 14:34 Ur Culture Indicated? No/not indicated 02/16/23 14:34 SARS-CoV-2 (PCR) Negative (NEGATIVE) 02/16/23 12:17 Influenza Type A (PCR) Negative (NEGATIVE) 02/16/23 12:17 Influenza Type B (PCR) Negative (NEGATIVE) 02/16/23 12:17 RSV (PCR) Negative (NEGATIVE) 02/16/23 12:17 Plan (1) CHF exacerbation: Status: Acute Plan: Continue IV lasix. (2) Pneumonia: Status: Acute Plan: antibiotics: IV Levaquin
--- NOTE | 2023-02-21 14:32 | W.DIS.FURT ---
Summary of Discharge Discharge Summary of Date Date of Exam: 02/19/23 Admission Date Date of Admission: 02/16/23 Admission Diagnosis Patient Problems (Updated 02/18/23 @ 11:48 by Fletcher Garrett) Congestive heart failure (Acute) I50.9 Hospital Course: Pt is a 87 year old female with past medical history of hypertension, CVA, admitted for CHF exacerbation and pneumonia. Her hospital/treatment course i ncluded receiving IV lasix 20mg bid and antibiotics IV levaquin. Pt responded well to treatment and symptoms resolved. Pt was discharged in stable condition. Rx Levaquin. Pt instructed to follow up with pcp in 1 week. Vital Signs: Vital Signs (72 hours) 02/16/23 11:53 02/16/23 12:00 02/16/23 12:02 Temperature 98.8 F 98.8 F Pulse Rate 65 64 Pulse Rate [Left Radial] 65 Respiratory Rate 20 18 Blood Pressure 120/57 Blood Pressure [Left Arm] 120/57 Blood Pressure [Right Arm] O2 Sat by Pulse Oximetry 100 100 99 Oxygen Delivery Method Nasal Cannula Room Air Oxygen Flow Rate FIO2% 02/16/23 12:15 02/16/23 12:30 02/16/23 12:45 Temperature Pulse Rate 62 60 61 Pulse Rate [Left Radial] Respiratory Rate Blood Pressure Blood Pressure [Left Arm] Blood Pressure [Right Arm] O2 Sat by Pulse Oximetry 99 100 100 Oxygen Delivery Method Oxygen Flow Rate FIO2% 02/16/23 13:00 02/16/23 13:24 02/16/23 13:30 Temperature Pulse Rate 61 67 64 Pulse Rate [Left Radial] Respiratory Rate Blood Pressure Blood Pressure [Left Arm] Blood Pressure [Right Arm] O2 Sat by Pulse Oximetry 99 93 L 95 Oxygen Delivery Method Oxygen Flow Rate FIO2% 02/16/23 13:45 02/16/23 14:00 02/16/23 14:11 Temperature Pulse Rate 60 64 Pulse Rate [Left Radial] Respiratory Rate Blood Pressure 95/50 Blood Pressure [Left Arm] Blood Pressure [Right Arm] O2 Sat by Pulse Oximetry 95 99 Oxygen Delivery Method Oxygen Flow Rate FIO2% 02/16/23 14:11 02/16/23 14:15 02/16/23 14:27 Temperature Pulse Rate 61 62 Pulse Rate [Left Radial] Respiratory Rate Blood Pressure 111/68 Blood Pressure [Left Arm] Blood Pressure [Right Arm] O2 Sat by Pulse Oximetry 94 L 93 L Oxygen Delivery Method Oxygen Flow Rate FIO2% 02/16/23 14:27 02/16/23 14:32 02/16/23 14:33 Temperature Pulse Rate 62 Pulse Rate [Left Radial] Respiratory Rate Blood Pressure 121/56 Blood Pressure [Left Arm] Blood Pressure [Right Arm] O2 Sat by Pulse Oximetry 98 74 L Oxygen Delivery Method Oxygen Flow Rate FIO2% 02/16/23 14:33 02/16/23 14:45 02/16/23 15:00 Temperature Pulse Rate 77 61 61 Pulse Rate [Left Radial] Respiratory Rate Blood Pressure 108/53 Blood Pressure [Left Arm] Blood Pressure [Right Arm] O2 Sat by Pulse Oximetry 96 99 Oxygen Delivery Method Nasal Cannula Oxygen Flow Rate 99 FIO2% 02/16/23 15:15 02/16/23 15:00 02/16/23 15:01 Temperature Pulse Rate 62 61 Pulse Rate [Left Radial] Respiratory Rate Blood Pressure 106/60 108/53 Blood Pressure [Left Arm] Blood Pressure [Right Arm] O2 Sat by Pulse Oximetry 99 99 Oxygen Delivery Method Nasal Cannula Oxygen Flow Rate FIO2% 02/16/23 15:01 02/16/23 15:15 02/16/23 15:25 Temperature Pulse Rate 61 62 Pulse Rate [Left Radial] Respiratory Rate Blood Pressure 105/55 Blood Pressure [Left Arm] Blood Pressure [Right Arm] O2 Sat by Pulse Oximetry 99 100 Oxygen Delivery Method Oxygen Flow Rate FIO2% 02/16/23 15:25 02/16/23 15:30 02/16/23 15:30 Temperature Pulse Rate 61 60 Pulse Rate [Left Radial] Respiratory Rate Blood Pressure 107/51 Blood Pressure [Left Arm] Blood Pressure [Right Arm] O2 Sat by Pulse Oximetry 100 100 Oxygen Delivery Method Oxygen Flow Rate FIO2% 02/16/23 15:40 02/16/23 15:45 02/16/23 15:54 Temperature Pulse Rate 60 60 Pulse Rate [Left Radial] Respiratory Rate Blood Pressure 93/45 Blood Pressure [Left Arm] Blood Pressure [Right Arm] O2 Sat by Pulse Oximetry 99 98 Oxygen Delivery Method Oxygen Flow Rate FIO2% 02/16/23 16:00 02/16/23 16:00 02/16/23 16:15 Temperature Pulse Rate 61 Pulse Rate [Left Radial] Respiratory Rate Blood Pressure 90/42 90/45 Blood Pressure [Left Arm] Blood Pressure [Right Arm] O2 Sat by Pulse Oximetry 98 Oxygen Delivery Method Oxygen Flow Rate FIO2% 02/16/23 16:15 02/16/23 16:30 02/16/23 16:30 Temperature Pulse Rate 61 64 Pulse Rate [Left Radial] Respiratory Rate Blood Pressure 89/52 Blood Pressure [Left Arm] Blood Pressure [Right Arm] O2 Sat by Pulse Oximetry 98 98 Oxygen Delivery Method Oxygen Flow Rate FIO2% 02/16/23 16:45 02/16/23 16:46 02/16/23 16:46 Temperature Pulse Rate 60 61 Pulse Rate [Left Radial] Respiratory Rate Blood Pressure 104/85 Blood Pressure [Left Arm] Blood Pressure [Right Arm] O2 Sat by Pulse Oximetry 93 L 100 Oxygen Delivery Method Oxygen Flow Rate FIO2% 02/16/23 17:00 02/16/23 17:00 02/16/23 17:15 Temperature Pulse Rate 61 Pulse Rate [Left Radial] Respiratory Rate Blood Pressure 117/58 131/59 Blood Pressure [Left Arm] Blood Pressure [Right Arm] O2 Sat by Pulse Oximetry 100 Oxygen Delivery Method Oxygen Flow Rate FIO2% 02/16/23 17:15 02/16/23 17:21 02/16/23 17:21 Temperature Pulse Rate 61 64 Pulse Rate [Left Radial] Respiratory Rate Blood Pressure 134/59 Blood Pressure [Left Arm] Blood Pressure [Right Arm] O2 Sat by Pulse Oximetry 97 98 Oxygen Delivery Method Oxygen Flow Rate FIO2% 02/16/23 17:25 02/16/23 17:06 02/16/23 19:00 Temperature 100.3 F H Pulse Rate Pulse Rate [Left Radial] 63 Respiratory Rate 20 Blood Pressure Blood Pressure [Left Arm] 134/59 Blood Pressure [Right Arm] O2 Sat by Pulse Oximetry 98 Oxygen Delivery Method Nasal Cannula Room Air Room Air Oxygen Flow Rate 2 FIO2% 02/16/23 20:00 02/16/23 20:30 02/16/23 20:30 Temperature 98.9 F Pulse Rate Pulse Rate [Left Radial] 58 L Respiratory Rate 18 Blood Pressure Blood Pressure [Left Arm] 93/47 Blood Pressure [Right Arm] O2 Sat by Pulse Oximetry 98 98 Oxygen Delivery Method Nasal Cannula Nasal Cannula Oxygen Flow Rate 2 FIO2% 28 02/17/23 00:00 02/17/23 04:00 02/17/23 08:00 Temperature 99.0 F 98.1 F 99.4 F Pulse Rate Pulse Rate [Left Radial] 61 63 67 Respiratory Rate 20 20 18 Blood Pressure Blood Pressure [Left Arm] 92/47 106/55 111/53 Blood Pressure [Right Arm] O2 Sat by Pulse Oximetry 98 99 99 Oxygen Delivery Method Nasal Cannula Nasal Cannula Nasal Cannula Oxygen Flow Rate FIO2% 02/17/23 07:00 02/17/23 12:00 02/17/23 16:00 Temperature 99.1 F 98.0 F Pulse Rate Pulse Rate [Left Radial] 62 61 Respiratory Rate 18 18 Blood Pressure Blood Pressure [Left Arm] 98/49 115/55 Blood Pressure [Right Arm] O2 Sat by Pulse Oximetry 96 97 Oxygen Delivery Method Room Air Nasal Cannula Nasal Cannula Oxygen Flow Rate FIO2% 02/17/23 19:25 02/17/23 20:00 02/17/23 21:00 Temperature 98.4 F Pulse Rate Pulse Rate [Left Radial] 60 Respiratory Rate 19 Blood Pressure Blood Pressure [Left Arm] Blood Pressure [Right Arm] 145/67 O2 Sat by Pulse Oximetry 100 Oxygen Delivery Method Nasal Cannula Nasal Cannula Nasal Cannula Oxygen Flow Rate 2 2 FIO2% 28 02/18/23 00:00 02/18/23 04:00 02/18/23 07:00 Temperature 98.2 F 98.2 F Pulse Rate Pulse Rate [Left Radial] 61 70 Respiratory Rate 20 22 Blood Pressure Blood Pressure [Left Arm] 125/63 128/59 Blood Pressure [Right Arm] O2 Sat by Pulse Oximetry 99 98 Oxygen Delivery Method Nasal Cannula Nasal Cannula Nasal Cannula Oxygen Flow Rate 2 FIO2% 02/18/23 07:56 02/18/23 08:00 02/18/23 12:00 Temperature 97.6 F 98.2 F Pulse Rate Pulse Rate [Left Radial] 62 60 Respiratory Rate 18 20 Blood Pressure Blood Pressure [Left Arm] 118/56 109/54 Blood Pressure [Right Arm] O2 Sat by Pulse Oximetry 99 96 Oxygen Delivery Method Nasal Cannula Nasal Cannula Room Air Oxygen Flow Rate 2 FIO2% 28 02/18/23 16:00 02/18/23 19:00 02/18/23 20:00 Temperature 97.8 F 98.3 F Pulse Rate Pulse Rate [Left Radial] 60 61 Respiratory Rate 18 18 Blood Pressure Blood Pressure [Left Arm] 124/58 118/53 Blood Pressure [Right Arm] O2 Sat by Pulse Oximetry 97 97 Oxygen Delivery Method Room Air Nasal Cannula Room Air Oxygen Flow Rate 2 FIO2% 02/18/23 20:25 02/19/23 00:00 02/19/23 04:00 Temperature 98.6 F 97.6 F Pulse Rate Pulse Rate [Left Radial] 60 61 Respiratory Rate 18 18 Blood Pressure Blood Pressure [Left Arm] 124/56 134/62 Blood Pressure [Right Arm] O2 Sat by Pulse Oximetry 98 100 Oxygen Delivery Method Nasal Cannula Room Air Room Air Oxygen Flow Rate 2 FIO2% 28 02/19/23 09:35 02/19/23 07:00 02/19/23 08:00 Temperature 97.9 F Pulse Rate Pulse Rate [Left Radial] 62 Respiratory Rate 20 Blood Pressure Blood Pressure [Left Arm] 144/63 Blood Pressure [Right Arm] O2 Sat by Pulse Oximetry 100 Oxygen Delivery Method Room Air Room Air Oxygen Flow Rate 2 FIO2% 28 Labs: Laboratory Last Values WBC 7.3 X10^3/uL (3.6-10.0) 02/19/23 04:13 RBC 2.88 X10^6/uL (3.5-5.4) L 02/19/23 04:13 Hgb 9.5 g/dL (12.0-16.0) L 02/19/23 04:13 Hct 27.4 % (36.0-47.0) L 02/19/23 04:13 MCV 95.0 fL (80.0-100.0) 02/19/23 04:13 MCH 32.8 pg (27.0-34.0) 02/19/23 04:13 MCHC 34.6 g/dL (33.0-35.0) 02/19/23 04:13 RDW 14.6 % (11.6-16.5) 02/19/23 04:13 Plt Count 117 X10^3/uL (150.0-450.0) L 02/19/23 04:13 Plt Count Comment Decreased (ADEQUATE) A 02/17/23 04:50 MPV 11.0 fL (7.4-11.0) 02/19/23 04:13 Neut % (Auto) 83.3 % (42.0-75.0) H 02/19/23 04:13 Lymph % (Auto) 7.3 % (21.0-51.0) L 02/19/23 04:13 [place] % (Auto) 7.7 % (0.0-13.0) 02/19/23 04:13 Eos % (Auto) 1.3 % (0.9-2.9) 02/19/23 04:13 Baso % (Auto) 0.4 % (0.2-1.0) 02/19/23 04:13 Neut # (Auto) 6.1 x10^3/uL (2.2-4.8) H 02/19/23 04:13 Lymph # (Auto) 0.5 X10^3/uL (1.3-2.9) L 02/19/23 04:13 [place] # (Auto) 0.6 x10^3/uL (0.3-0.8) 02/19/23 04:13 Eos # (Auto) 0.1 x10^3/uL (0.0-0.2) 02/19/23 04:13 Baso # (Auto) 0.0 X10^3/uL (0.0-0.1) 02/19/23 04:13 Absolute Nucleated RBC 0.0 /100WBC 02/19/23 04:13 Total Counted 100 02/17/23 04:50 Neutrophils % (Manual) 96 % (39-76) H 02/17/23 04:50 Band Neutrophils % 1 % (0-10) 02/17/23 04:50 Lymphocytes % (Manual) 2 % (13-43) L 02/17/23 04:50 Monocytes % (Manual) 1 % (4-9) L 02/17/23 04:50 Plt Morphology Comment Normal (NORMAL) 02/17/23 04:50 RBC Morphology Abnormal (NORMAL) A 02/17/23 04:50 Acanthocytes (Spur) Present 02/17/23 04:50 Sodium 136 mmol/L (136-145) 02/19/23 04:13 Corrected Sodium TNP 02/19/23 04:13 Potassium 3.5 mmol/L (3.5-5.1) 02/19/23 04:13 Chloride 102 mmol/L (98-107) 02/19/23 04:13 Carbon Dioxide 28.7 mmol/L (21-32) 02/19/23 04:13 BUN 16 mg/dL (7-18) 02/19/23 04:13 Creatinine 1.46 mg/dL (0.55-1.02) H 02/19/23 04:13 Est GFR (MDRD) Af Amer 44 (>60) L 02/19/23 04:13 Est GFR (MDRD) Non-Af 36 (>60) L 02/19/23 04:13 Glucose 89 mg/dL (65-99) 02/19/23 04:13 POC Glucose (mg/dL) 86 mg/dL (65-99) 02/17/23 05:37 Calcium 7.6 mg/dL (8.5-10.1) L 02/19/23 04:13 Corrected Calcium 8.7 mg/dL (8.5-10.1) 02/19/23 04:13 Magnesium 2.0 mg/dL (2.0-2.9) 02/18/23 04:56 Total Bilirubin 1.40 mg/dL (0.2-1.0) H 02/19/23 04:13 AST 139 Units/L (15-37) H 02/19/23 04:13 ALT 147 Units/L (12-78) H 02/19/23 04:13 Alkaline Phosphatase 181 Units/L (46-116) H 02/19/23 04:13 Troponin I High Sens 30.5 ng/L (4.0-60.0) 02/16/23 12:04 B-Natriuretic Peptide 669 pg/mL (0-79) H* 02/16/23 12:04 Total Protein 5.5 g/dL (6.4-8.2) L 02/19/23 04:13 Albumin 2.6 g/dL (3.4-5.0) L 02/19/23 04:13 Globulin 2.9 g/dL (2.5-4.5) 02/19/23 04:13 Albumin/Globulin Ratio 0.9 Ratio (1.1-2.1) L 02/19/23 04:13 Lipase 300 Units/L (73-393) 02/16/23 12:04 Specimen Type Clean catch urine 02/16/23 14:34 Urine Color Yellow (YELLOW) 02/16/23 14:34 Urine Appearance Clear (CLEAR) 02/16/23 14:34 Urine pH 5.0 (5.0 - 8.0) 02/16/23 14:34 Ur Specific [place] 1.015 (1.000-1.030) 02/16/23 14:34 Urine Protein 2+ (NEGATIVE) 02/16/23 14:34 Urine Glucose (UA) Negative (NEGATIVE) 02/16/23 14:34 Urine Ketones Negative (NEGATIVE) 02/16/23 14:34 Urine Blood Negative (NEGATIVE) 02/16/23 14:34 Urine Nitrite Negative (NEGATIVE) 02/16/23 14:34 Urine Bilirubin Negative (NEGATIVE) 02/16/23 14:34 Urine Urobilinogen 1+ (NORMAL) 02/16/23 14:34 Ur Leukocyte Esterase Negative (NEGATIVE) 02/16/23 14:34 Urine RBC 0-2 /HPF (0-3) 02/16/23 14:34 Urine WBC 3-5 /HPF (0-5) 02/16/23 14:34 Ur Squamous Epith Cells Few /HPF (NEGATIVE) 02/16/23 14:34 Urine Bacteria Trace /HPF (NEGATIVE) 02/16/23 14:34 Ur Culture Indicated? No/not indicated 02/16/23 14:34 SARS-CoV-2 (PCR) Negative (NEGATIVE) 02/16/23 12:17 Influenza Type A (PCR) Negative (NEGATIVE) 02/16/23 12:17 Influenza Type B (PCR) Negative (NEGATIVE) 02/16/23 12:17 RSV (PCR) Negative (NEGATIVE) 02/16/23 12:17 Reason For Visit: CHF Discharge Date Discharge Date: 02/19/23 Discharge Diagnosis All Active Problems (Updated 11/11/22 @ 16:26 by Lidia Brizuela) Pneumonia (Acute) CHF exacerbation (Acute) Difficulty with speech (Acute) Elevated troponin (Acute) General weakness (Acute) Slurred speech (Acute) Head trauma (Acute) Neck pain (Acute) Acute dehydration (Acute) Hematoma of occipital region of scalp (Acute) Congestive heart failure (Acute) Neurological impairment in adult (Acute) Hypertension (Chronic) S/P placement of cardiac pacemaker (Chronic) Paroxysmal atrial fibrillation (Chronic) Acute hypokalemia (Acute) Elevated troponin (Acute) Difficulty with speech (Acute) Cardiac arrhythmia (Acute) Nausea & vomiting (Acute) Dehydration (Acute) Presence of IVC filter (Chronic) History of pulmonary embolism (Chronic) Hypothyroidism (Chronic) CVA (cerebral vascular accident) (Chronic) Diabetes (Chronic) CAD (coronary artery disease) (Chronic) Hyperlipidemia (Chronic) Breast cancer (Chronic) S/P CABG (coronary artery bypass graft) (Chronic) H/O mastectomy (Chronic) Plan of Treatment: Continue with present treatment and follow up plan. Pt is to keep follow up appointment as instructed and take medications as ordered. Discharge Medications Discharge Medications: zolpidem [From Ambien] Allergy (Verified 10/12/22 00:32) CONTINUE taking the following medications albuterol sulfate 90 mcg/actuation aerosol inhaler 2 puff inhalation QID PRN 02/16/23 [History] apixaban 5 mg tablet (Eliquis) 5 mg PO BID 02/16/23 [History] cholecalciferol (vitamin D3) 50 mcg (2,000 unit) tablet (Vitamin D3) 50 mcg PO QDAY 02/16/23 [History] clopidogrel 75 mg tablet (Plavix) 75 mg PO QDAY 02/16/23 [History] cyanocobalamin (vitamin B-12) 5,000 mcg sublingual tablet (Vitamin B-12) 5,000 mcg sublingual QDAY 02/16/23 [History] donepezil 10 mg tablet (Aricept) 10 mg PO BID 02/16/23 [History] ferrous sulfate 27 mg iron tablet 27 mg PO QDAY 02/16/23 [History] hydrocodone 7.5 mg-acetaminophen 325 mg tablet 1 tab PO Q4-6H PRN 02/16/23 [History] melatonin 10 mg tablet 10 mg PO HS PRN 02/16/23 [History] ondansetron HCl 4 mg tablet 4 mg PO Q6H PRN 02/16/23 [History] potassium chloride 10 mEq capsule,extended release 10 meq PO BID 02/16/23 [History] New Prescriptions levofloxacin 500 mg tablet 500 mg PO QDAY 5 days #5 tabs 02/19/23 [Rx] Discharge Plan Discharge Plan Hospital Course: Pt is a 87 year old female with past medical history of hypertension, CVA, admitted for CHF exacerbation and pneumonia. Her hospital/treatment course included receiving IV lasix 20mg bid and antibiotics IV levaquin. Pt responded well to treatment and symptoms resolved. Pt was discharged in stable condition. Rx Levaquin. Pt instructed to follow up with pcp in 1 week. Patient Disposition: 01 HOME, SELF-CARE Condition: Stable Health Concerns: Post Hospitalization: new medications and changes needed to prevent readmission or further decline. Pt educated and given instructions on all concerns. Plan of Treatment: Continue with present treatment and follow up plan. Pt is to keep follow up appointment as instructed and take medications as ordered. Prescriptions: New levofloxacin 500 mg tablet 500 mg PO QDAY 5 Days Qty: 5 0RF Continued atorvastatin 80 mg Tablet 80 mg PO QPM famotidine 20 mg Tablet 20 mg PO QHS potassium chloride 10 mEq Capsule, Extended Release 10 meq PO BID donepezil [Aricept] 10 mg Tablet 10 mg PO BID ondansetron HCl [Zofran] 4 mg Tablet 4 mg PO Q6H PRN clopidogrel [Plavix] 75 mg Tablet 75 mg PO QDAY hydrocodone-acetaminophen [[place]] 7.5-325 mg Tablet 1 tab PO Q4-6H PRN albuterol sulfate 90 mcg/actuation Hfa Aerosol Inhaler 2 puff INHALATION QID PRN ferrous sulfate 27 mg iron Tablet 27 mg PO QDAY cholecalciferol (vitamin D3) [Vitamin D3] 50 mcg (2,000 unit) Tablet 50 mcg PO QDAY cyanocobalamin (vitamin B-12) [Vitamin B-12] 5,000 mcg Tablet, Sublingual 5,000 mcg SUBLINGUAL QDAY melatonin 10 mg Tablet 10 mg PO HS PRN Eliquis 5 mg Tablet 5 mg PO BID pantoprazole 40 mg Tablet,Delayed Release (Dr/Ec) 40 mg PO DAILY amiodarone 200 mg Tablet 200 mg PO QPM carvedilol 3.125 mg Tablet 3.125 mg PO QDAY Rx Instructions: must administer with a meal/food furosemide 20 mg Tablet 20 mg PO QDAY Orders to Discharge Patient Discharge Orders: Discharge (Routine); Ordered 02/19/23 Ordered By: Fletcher Garrett Follow ups/Referrals Follow ups/Referrals: MACKENZIE BOWDEN [Primary Care Provider] - 3 days Instructions Stand Alone Forms: Excuse From Work or School
== END 2023-02-19 11:10 | disposition home or self-care (01) ==
LOC: ER 11:44 → MED/SURG 11:44
PROVIDERS: ADMIT Family Medicine; ATTEND Family Medicine
DX: Z20.822 Contact with and (suspected) exposure to COVID-19; I11.0 Hypertensive heart disease with heart failure; I50.9 Heart failure, unspecified; R53.1 Weakness; R94.5 Abnormal results of liver function studies; R06.02 Shortness of breath; J18.8 Other pneumonia, unspecified organism; Z86.73 Personal history of transient ischemic attack (TIA), and cerebral infarction without residual deficits

== ENCOUNTER 2023-06-10 22:15 | Observation (INO) ==
[2023-06-10 23:16] LABS: BILIRUBIN,URINE NEGATIVE (NEGATIVE); BLOOD/HEMOGLOBIN,URINE NEGATIVE (NEGATIVE); GLUCOSE, URINE NEGATIVE (NEGATIVE); KETONES,URINE NEGATIVE (NEGATIVE); LEUKOCYTE ESTERASE ,URINE 2+ (NEGATIVE); NITRITES,URINE NEGATIVE (NEGATIVE); PROTEIN,URINE 1+ (NEGATIVE); UROBILINOGEN,URINE NORMAL (NORMAL)
[2023-06-10] MEDS ORDERED: ZOFRAN INJ 4 MG VIAL IVP ONE (23:27)
[2023-06-10] MEDS ORDERED: DEMEROL INJ IVP ONE (23:27)
[2023-06-10 23:29] LABS: APPEARANCE,URINE CLEAR (CLEAR); BACTERIA,URINE 3+ /HPF (NEGATIVE); COLOR,URINE YELLOW (YELLOW); RBC,URINE NONE SEEN /HPF (0-3); SQUAMOUS EPITHELIAL CELL,UR FEW /HPF (NEGATIVE)
[2023-06-10] MEDS ORDERED: DEMEROL INJ ONE (23:30)
[2023-06-10] MEDS ORDERED: ZOFRAN INJ 4 MG VIAL ONE (23:31)
[2023-06-10] MEDS ORDERED: NS 1,000 ML IV 1,000 ML ONE (23:31)
--- NOTE | 2023-06-10 23:32 | ED.ABDFE ---
HPI Time Seen Time Seen by Provider: 06/10/23 23:32 PCP Primary Care Physician: Joaquina Complaint Chief Complaint:: Pt c/o abd pain and dizziness. She states this started this afternoon. Family member states pt has been diagnosed with hydronephrosis and h as appt with urology Monday. Source History Provided: Patient Mode of arrival Mode of Arrival: Wheelchair Timing Onset of Chief Complaint: 06/10/23 PMH PMH Past Medical History: Yes Past Medical History: CVA and Hypertension Past Surgical History: Yes Surgical History: Cholecystectomy and Hysterectomy Past Surgical History Comment: pacemaker Family History History of Family Medical Conditions: Yes Family Medical History: Cancer Social History Does patient currently use any type of tobacco product: No Have you used tobacco products in the last 12 months: No Type of Tobacco Use: None Does any household member use tobacco: No Alcohol Use: None Do you use any recreational Drugs:: No Lives With: Family Lives Where: Home Infectious screening In the last 2 months have you had wt loss of >10#?: NO Have you had fever, night sweats or hemotysis?: No Have you traveled outside the country in the last 6 months?: No Isolation: Standard PE Vital Signs Vitals: Vital Signs Temperature 97.9 F Pulse Rate 60 Pulse Rate 60 Pulse Rate 60 Pulse Rate 60 Pulse Rate 60 Pulse Rate 60 Pulse Rate 60 Pulse Rate 67 Pulse Rate 60 Pulse Rate 60 Pulse Rate 61 Pulse Rate 61 Pulse Rate 60 Pulse Rate 61 Respiratory Rate 21 Respiratory Rate 12 Respiratory Rate 18 Respiratory Rate 21 Respiratory Rate 16 Respiratory Rate 19 Respiratory Rate 18 Respiratory Rate 31 Respiratory Rate 20 Respiratory Rate 42 Respiratory Rate 22 Respiratory Rate 24 Blood Pressure 134/62 Blood Pressure 149/64 Blood Pressure 117/55 Blood Pressure 135/59 Blood Pressure 166/96 Blood Pressure 142/67 O2 Sat by Pulse Oximetry 99 O2 Sat by Pulse Oximetry 99 O2 Sat by Pulse Oximetry 99 O2 Sat by Pulse Oximetry 99 O2 Sat by Pulse Oximetry 99 O2 Sat by Pulse Oximetry 84 O2 Sat by Pulse Oximetry 75 O2 Sat by Pulse Oximetry 92 O2 Sat by Pulse Oximetry 98 O2 Sat by Pulse Oximetry 100 O2 Sat by Pulse Oximetry 99 O2 Sat by Pulse Oximetry 98 O2 Sat by Pulse Oximetry 98 O2 Sat by Pulse Oximetry 97 [facility] Labs Reviewed 06/10/23 23:36 06/10/23 23:36 Laboratory: WBC 6.5 X10^3/uL (3.6-10.0) 06/10/23 23:36 RBC 3.47 X10^6/uL (3.5-5.4) L 06/10/23 23:36 Hgb 11.4 g/dL (12.0-16.0) L 06/10/23 23:36 Hct 33.4 % (36.0-47.0) L 06/10/23 23:36 MCV 96.5 fL (80.0-100.0) 06/10/23 23:36 MCH 33.0 pg (27.0-34.0) 06/10/23 23:36 MCHC 34.2 g/dL (33.0-35.0) 06/10/23 23: RDW 15.1 % (11.6-16.5) 06/10/23 23:36 Plt Count 156 X10^3/uL (150.0-450.0) 06/10/23 23: MPV 10.2 fL (7.4-11.0) 06/10/23 23:36 Neut % (Auto) 74.8 % (42.0-75.0) 06/10/23 23:36 Lymph % (Auto) 14.6 % (21.0-51.0) L 06/10/23 23:36 [place] % (Auto) 8.5 % (0.0-13.0) 06/10/23 23:36 Eos % (Auto) 0.8 % (0.9-2.9) L 06/10/23 23:36 Baso % (Auto) 1.3 % (0.2-1.0) H 06/10/23 23:36 Neut # (Auto) 4.9 x10^3/uL (2.2-4.8) H 06/10/23 23:36 Lymph # (Auto) 1.0 X10^3/uL (1.3-2.9) L 06/10/23 23:36 [place] # (Auto) 0.6 x10^3/uL (0.3-0.8) 06/10/23 23:36 Eos # (Auto) 0.1 x10^3/uL (0.0-0.2) 06/10/23 23:36 Baso # (Auto) 0.1 X10^3/uL (0.0-0.1) 06/10/23 23:36 Absolute Nucleated RBC 0.0 /100WBC 06/10/23 23:36 Sodium 141 mmol/L (136-145) 06/10/23 23:36 Corrected Sodium TNP 06/10/23 23:36 Potassium 4.2 mmol/L (3.5-5.1) 06/10/23 23:36 Chloride 103 mmol/L (98-107) 06/10/23 23:36 Carbon Dioxide 31.2 mmol/L (21-32) 06/10/23 23:36 BUN 16 mg/dL (7-18) 06/10/23 23:36 Creatinine 1.63 mg/dL (0.55-1.02) H 06/10/23 23:36 Est GFR (MDRD) Af Amer 38 (>60) L 06/10/23 23:36 Est GFR (MDRD) Non-Af 32 (>60) L 06/10/23 23:36 Glucose 94 mg/dL (65-99) 06/10/23 23:36 Calcium 8.3 mg/dL (8.5-10.1) L 06/10/23 23:36 Corrected Calcium 9.0 mg/dL (8.5-10.1) 06/10/23 23:36 Total Bilirubin 0.70 mg/dL (0.2-1.0) 06/10/23 23:36 AST 38 Units/L (15-37) H 06/10/23 23:36 ALT 25 Units/L (12-78) 06/10/23 23:36 Alkaline Phosphatase 69 Units/L (46-116) 06/10/23 23:36 Total Protein 5.9 g/dL (6.4-8.2) L 06/10/23 23:36 Albumin 3.1 g/dL (3.4-5.0) L 06/10/23 23:36 Globulin 2.8 g/dL (2.5-4.5) 06/10/23 23:36 Albumin/Globulin Ratio 1.1 Ratio (1.1-2.1) 06/10/23 23:36 Amylase 60 Units/L (25-115) 06/10/23 23:36 Lipase 92 Units/L (73-393) 06/10/23 23:36 Specimen Type Clean catch urine 06/10/23 22:55 Urine Color Yellow (YELLOW) 06/10/23 22:55 Urine Appearance Clear (CLEAR) 06/10/23 22:55 Urine pH 6.0 (5.0 - 8.0) 06/10/23 22:55 Ur Specific [place] 1.015 (1.000-1.030) 06/10/23 22:55 Urine Protein 1+ (NEGATIVE) 06/10/23 22:55 Urine Glucose (UA) Negative (NEGATIVE) 06/10/23 22:55 Urine Ketones Negative (NEGATIVE) 06/10/23 22:55 Urine Blood Negative (NEGATIVE) 06/10/23 22:55 Urine Nitrite Negative (NEGATIVE) 06/10/23 22:55 Urine Bilirubin Negative (NEGATIVE) 06/10/23 22:55 Urine Urobilinogen Normal (NORMAL) 06/10/23 22:55 Ur Leukocyte Esterase 2+ (NEGATIVE) 06/10/23 22:55 Urine RBC None seen /HPF (0-3) 06/10/23 22:55 Urine WBC 10-20 /HPF (0-5) A 06/10/23 22:55 Ur Squamous Epith Cells Few /HPF (NEGATIVE) 06/10/23 22:55 Urine Bacteria 3+ /HPF (NEGATIVE) 06/10/23 22:55 Ur Culture Indicated? Yes/culture set up 06/10/23 22:55 Opioid Opioid Risk Tool Age (Jeet box if 16-45): No History of Preadolescent Sexual Abuse: No Total: 0 Total Score Risk Category: Low Risk Copyright: Sarkis NOGUERA predicting aberrant behaviors Discharge Plan Discharge Plan Patient Disposition: 01 HOME, SELF-CARE Condition: Stable Orders to Discharge Patient Discharge Orders: Transfer (Routine); Ordered 06/11/23 Ordered By: RIGOBERTO DONALD
[2023-06-10] MEDS ORDERED: NS 1,000 ML IV 1,000 ML IV SCH (23:45)
[2023-06-10 23:46] LABS: BASOPHILS # (AUTO) 0.1 X10^3/uL (0.0-0.1); BASOPHILS % (AUTO) 1.3 % (0.2-1.0); EOSINOPHILS # (AUTO) 0.1 x10^3/uL (0.0-0.2); EOSINOPHILS % (AUTO) 0.8 % (0.9-2.9); HEMATOCRIT 33.4 % (36.0-47.0); HEMOGLOBIN 11.4 g/dL (12.0-16.0); LYMPHOCYTES % (AUTO) 14.6 % (21.0-51.0); MEAN CORPUSCULAR HGB CONC 34.2 g/dL (33.0-35.0); MEAN CORPUSCULAR VOLUME 96.5 fL (80.0-100.0); MEAN PLATELET VOLUME 10.2 fL (7.4-11.0); MONOCYTES # (AUTO) 0.6 x10^3/uL (0.3-0.8); MONOCYTES % (AUTO) 8.5 % (0.0-13.0); NEUTROPHILS # (AUTO) 4.9 x10^3/uL (2.2-4.8); NEUTROPHILS % (AUTO) 74.8 % (42.0-75.0); PLATELET COUNT 156 X10^3/uL (150.0-450.0); RED BLOOD COUNT 3.47 X10^6/uL (3.5-5.4); RED CELL DISTRIBUTION WIDTH 15.1 % (11.6-16.5); WHITE BLOOD COUNT 6.5 X10^3/uL (3.6-10.0)
[2023-06-10 23:55] LABS: ALANINE AMINOTRANSFERASE 25 Units/L (12-78); ALBUMIN 3.1 g/dL (3.4-5.0); ALKALINE PHOSPHATASE 69 Units/L (46-116); AMYLASE 60 Units/L (25-115); ASPARTATE AMINO TRANSFERASE 38 Units/L (15-37); BLOOD UREA NITROGEN 16 mg/dL (7-18); CALCIUM 8.3 mg/dL (8.5-10.1); CARBON DIOXIDE 31.2 mmol/L (21-32); CHLORIDE 103 mmol/L (98-107); CREATININE 1.63 mg/dL (0.55-1.02); GLUCOSE 94 mg/dL (65-99); LIPASE 92 Units/L (73-393); POTASSIUM 4.2 mmol/L (3.5-5.1); SODIUM 141 mmol/L (136-145); TOTAL PROTEIN 5.9 g/dL (6.4-8.2); eGFR NON BLACK RACES 32 (>60)
--- NOTE | 2023-06-11 00:34 | CT ---
STUDY: CT ABDOMEN AND PELVIS WITHOUT IV CONTRASTCOMPARISON: NoneTECHNIQUE: Axial images were obtained of the abdomen and pelvis without IV contrast. Sagittal and coronal reformatted images were provided. All images were reviewed in a variety of windows and levels.RADIATION REDUCTION TECHNIQUE: Automated exposure control, adjustment of the mA or kV according to patient size, or iterative reconstruction techniques were used.HISTORY: ABD PAINFINDINGS:Please note that lack of IV contrast does limit evaluation of the soft tissues and vascular detail.The visualized lower lung zones are clear. Heart size is normal. No pericardial effusion is seen.The liver, spleen, pancreas, adrenal glands, and kidneys are grossly unremarkable. Moderate to large amount of free fluid is seen throughout the abdomen pelvis. The patient is status post hysterectomy. Constipation is noted. Moderate amount of enteric gas is seen throughout the GI tract. Dilated fluid-filled loops of small bowel are seen which may represent ileus although I would also consider bowel obstruction the differential diagnosis. The loops of small bowel are difficult to discern because of the free fluid in the abdomen pelvis. IVC filter noted. No evidence of an abdominal aortic aneurysm. Patient is status post cholecystectomy.The visualized bones demonstrate degenerative changes. There are no concerning lytic or blastic lesions identified.IMPRESSION:1. Status post cholecystectomy2. Large amount of free fluid noted throughout the abdomen pelvis3. Findings may represent ileus versus small-bowel obstruction. Surgical consultation may be obtained as clinically indicated.Electronically signed by: Gui Nova (Jun 11, 2023 00:32:55)
[2023-06-11] MEDS ORDERED: ANCEF VIAL 1 GRAM ONE (01:57)
[2023-06-11] MEDS ORDERED: ANCEF VIAL 1 GRAM IVP ONE (01:57)
[2023-06-11] MEDS ORDERED: PROTONIX INJ 40 MG VIAL IVP ONE (02:02)
[2023-06-11] MEDS ORDERED: PROTONIX INJ 40 MG VIAL ONE (02:03)
[2023-06-11] MEDS ORDERED: ZOFRAN INJ 4 MG VIAL IVP PRN (02:23)
[2023-06-11 02:46] VITALS: BMI 25.1
[2023-06-11] MEDS ORDERED: PROVENTIL NEB TX 0.083% 2.5MG/ 3ML NEB PRN (02:48)
[2023-06-11 05:18] LABS: BASOPHILS % (AUTO) 0.6 % (0.2-1.0); EOSINOPHILS # (AUTO) 0.1 x10^3/uL (0.0-0.2); HEMATOCRIT 32.2 % (36.0-47.0); HEMOGLOBIN 10.9 g/dL (12.0-16.0); LYMPHOCYTES % (AUTO) 15.5 % (21.0-51.0); MEAN CORPUSCULAR HEMOGLOBIN 32.8 pg (27.0-34.0); MEAN CORPUSCULAR HGB CONC 33.8 g/dL (33.0-35.0); MEAN CORPUSCULAR VOLUME 97.1 fL (80.0-100.0); MEAN PLATELET VOLUME 10.3 fL (7.4-11.0); MONOCYTES # (AUTO) 0.5 x10^3/uL (0.3-0.8); MONOCYTES % (AUTO) 7.3 % (0.0-13.0); NEUTROPHILS # (AUTO) 4.8 x10^3/uL (2.2-4.8); NEUTROPHILS % (AUTO) 75.6 % (42.0-75.0); PLATELET COUNT 139 X10^3/uL (150.0-450.0); RED BLOOD COUNT 3.32 X10^6/uL (3.5-5.4); RED CELL DISTRIBUTION WIDTH 14.9 % (11.6-16.5); WHITE BLOOD COUNT 6.4 X10^3/uL (3.6-10.0)
[2023-06-11 05:34] LABS: ALANINE AMINOTRANSFERASE 29 Units/L (12-78); ALBUMIN 2.9 g/dL (3.4-5.0); ALKALINE PHOSPHATASE 64 Units/L (46-116); ASPARTATE AMINO TRANSFERASE 43 Units/L (15-37); BLOOD UREA NITROGEN 15 mg/dL (7-18); CARBON DIOXIDE 31.5 mmol/L (21-32); CHLORIDE 106 mmol/L (98-107); COR CA(FOR HYPOALB) 8.9 mg/dL (8.5-10.1); CREATININE 1.44 mg/dL (0.55-1.02); GLUCOSE 88 mg/dL (65-99); POTASSIUM 4.4 mmol/L (3.5-5.1); SODIUM 142 mmol/L (136-145); TOTAL PROTEIN 5.5 g/dL (6.4-8.2); eGFR NON BLACK RACES 37 (>60)
[2023-06-11] MEDS: D5 LR 1,000 ML 1,000 ML IV SCH ×4 (05:47→17:25)
[2023-06-11] MEDS: DEMEROL INJ IVP PRN ×2 (06:14→18:02)
--- NOTE | 2023-06-11 07:43 | RAD ---
HISTORYABD PAIN HX: CVA, CHF, HTN, ASTHMA, COLON AND BREAST CANCER SX: CABG, HYSTERECTOMY, GB, LT [id number]/26/2023 br.br.br.br gas pattern. No pathological soft tissue mass or calcification can be observed. The bony structures are grossly intact. IVC filter.IMPRESSIONNo evidence for acute abdominal pathology identified.Electronically signed by: AURORA TAFOYA (Jun 11, 2023 07:42:49)
[2023-06-11] MEDS: PROTONIX INJ 40 MG VIAL IVP SCH ×2 (08:13→20:20)
[2023-06-11] MEDS: ANCEF VIAL 1 GRAM IVP SCH (14:33)
[2023-06-12] MEDS: D5 LR 1,000 ML 1,000 ML IV SCH ×2 (00:14→03:14)
[2023-06-12] MEDS: ANCEF VIAL 1 GRAM IVP SCH (03:14)
[2023-06-12 06:14] LABS: BASOPHILS % (AUTO) 0.4 % (0.2-1.0); EOSINOPHILS # (AUTO) 0.1 x10^3/uL (0.0-0.2); EOSINOPHILS % (AUTO) 1.3 % (0.9-2.9); HEMOGLOBIN 10.8 g/dL (12.0-16.0); LYMPHOCYTES # (AUTO) 0.8 X10^3/uL (1.3-2.9); LYMPHOCYTES % (AUTO) 15.6 % (21.0-51.0); MEAN CORPUSCULAR HEMOGLOBIN 32.9 pg (27.0-34.0); MEAN CORPUSCULAR HGB CONC 33.6 g/dL (33.0-35.0); MEAN PLATELET VOLUME 10.2 fL (7.4-11.0); MONOCYTES # (AUTO) 0.5 x10^3/uL (0.3-0.8); MONOCYTES % (AUTO) 9.3 % (0.0-13.0); NEUTROPHILS # (AUTO) 3.8 x10^3/uL (2.2-4.8); NEUTROPHILS % (AUTO) 73.4 % (42.0-75.0); PLATELET COUNT 123 X10^3/uL (150.0-450.0); RED BLOOD COUNT 3.27 X10^6/uL (3.5-5.4); RED CELL DISTRIBUTION WIDTH 15.1 % (11.6-16.5); WHITE BLOOD COUNT 5.2 X10^3/uL (3.6-10.0)
[2023-06-12 06:23] LABS: ALANINE AMINOTRANSFERASE 26 Units/L (12-78); ALBUMIN 2.3 g/dL (3.4-5.0); ALKALINE PHOSPHATASE 61 Units/L (46-116); ASPARTATE AMINO TRANSFERASE 45 Units/L (15-37); BLOOD UREA NITROGEN 15 mg/dL (7-18); CALCIUM 7.7 mg/dL (8.5-10.1); CARBON DIOXIDE 29.5 mmol/L (21-32); CHLORIDE 106 mmol/L (98-107); COR CA(FOR HYPOALB) 9.1 mg/dL (8.5-10.1); GLUCOSE 97 mg/dL (65-99); POTASSIUM 4.1 mmol/L (3.5-5.1); SODIUM 141 mmol/L (136-145); TOTAL PROTEIN 4.9 g/dL (6.4-8.2); eGFR NON BLACK RACES 50 (>60)
--- NOTE | 2023-06-12 07:59 | RAD ---
HISTORYSmall bowel [id number]/27/2023 KUB, 06/10/2023 CT abdomen pelvisFINDINGSThere is a CAVAL FILTER present. Abdominal gas pattern is nonspecific. No significantly dilated small bowel loops are present. However it should be noted that many of the dilated small bowel loops identified on the recent CT were fluid-filled and would not definitely be identified on plain films. No abnormal masses or abnormal calcifications are identified. Regional skeleton is intact.IMPRESSIONNo significant small bowel dilatation identified, however, see discussion aboveElectronically signed by: AURORA TAFOYA (Jun 12, 2023 07:58:06)
[2023-06-12 08:29] VITALS: BP 106/57; PULSE 60; RESP 18; TEMP 98; O2SAT 96
[2023-06-12] MEDS: PROTONIX INJ 40 MG VIAL IVP SCH (08:50)
[2023-06-12] MEDS ORDERED: ANCEF VIAL 1 GRAM 1 G in NS 100 ML IV 100 ML IV SCH (09:00)
== END 2023-06-12 09:45 | disposition home health service (06) ==
LOC: MED/SURG 22:28 → ER 22:28 → MED/SURG 06-11 02:24
PROVIDERS: ADMIT Surgery; ATTEND Surgery
DX: R18.8 Other ascites; I10 Essential (primary) hypertension; R53.1 Weakness; R10.84 Generalized abdominal pain; R97.0 Elevated carcinoembryonic antigen [CEA]; B96.1 Klebsiella pneumoniae [K. pneumoniae] as the cause of diseases classified elsewhere; Z95.0 Presence of cardiac pacemaker; N13.30 Unspecified hydronephrosis; R63.4 Abnormal weight loss; D64.89 Other specified anemias; Z86.73 Personal history of transient ischemic attack (TIA), and cerebral infarction without residual deficits; Z90.12 Acquired absence of left breast and nipple; R42 Dizziness and giddiness; Z85.038 Personal history of other malignant neoplasm of large intestine; N39.0 Urinary tract infection, site not specified

== ENCOUNTER 2023-10-25 11:29 | Inpatient (IN) ==
--- NOTE | 2023-10-25 11:47 | DR.DIZZY ---
HPI Time seen Time Seen by Provider: 10/25/23 11:47 PCP Primary Care Physician: quinn harris Complaint Chief Complaint Doctor Comments: 88-year-old female, not feeling well over the past 2 weeks. Having increasing generalized weakness. Has a history of a scites, having increased distention and tightness of her abdomen. Has had cough, productive of some yellow sputum, with increasing shortness of breath. Has had some cold chills, denies known fever. No report of vomiting, diarrhea or urinary issues. Due for paracentesis in the near future with GI. Chief Complaint:: patient c/o of sob and weakness and diarrhea that has been going on for a while states she has had a paracentesis done [address] sahu and is due for another one next week. Self Treatment fo Chief Complaint: imodium COVID-19 Coronavirus risk:travel/contact w/high risk person: No Has patient experienced Coronavirus symptoms: Yes Coronavirus symptoms experienced: Shortness of Breath Nurses Notes Reviewed Nurses Notes Review: Yes Source History Provided: Patient and Family Member Mode of Arrival Mode of Arrival: Stretcher Timing Onset of Chief Complaint: 09/27/23 Context Stroke Symptoms: None PMH PMH Past Medical History: Yes Past Medical History: CHF, CVA and Hypertension Past Medical History Comment: a-fib, pulm emboli, breast ca, colon ca, chronic venous insuff Past Surgical History: Yes Surgical History: Cholecystectomy and Hysterectomy Past Surgical History Comment: l breast mastectomy, lymphoma,carotid artery, colon ca mass, heart valve replacment, pacemaker, ivc filter Family History History of Family Medical Conditions: Yes Family Medical History: Cancer Social History Does patient currently use any type of tobacco product: No Have you used tobacco products in the last 12 months: No Type of Tobacco Use: None Does any household member use tobacco: No Alcohol Use: None Do you use any recreational Drugs:: No Lives With: Family Lives Where: Home Travel Risk Coronavirus risk:travel/contact w/high risk person: No Has patient experienced Coronavirus symptoms: Yes Coronavirus symptoms experienced: Shortness of Breath Infectious screening In the last 2 months have you had wt loss of >10#?: NO Have you had fever, night sweats or hemotysis?: No Have you traveled outside the country in the last 6 months?: No Isolation: Standard ROS Review of Systems Constitutional: Weakness Eyes: No Symptoms Reported ENTM: No Symptoms Reported Respiratoy: Moist Cough and Short of Breath Cardiovascular: No Symptoms Reported Gastrointestinal/Abdominal: Abdominal Pain Genitourinary: No Symptoms Reported Neurological: Weakness Musculoskeletal: No Symptoms Reported Integumentary: No Symptoms Reported All Other Systems: Reviewed and Negative PE Vital Signs Vitals: Vital Signs Temperature 97.6 F Pulse Rate 61 Pulse Rate 60 Pulse Rate 60 Pulse Rate 60 Pulse Rate 62 Pulse Rate 60 Pulse Rate 60 Pulse Rate 60 Pulse Rate 60 Pulse Rate 60 Pulse Rate 61 Pulse Rate 62 Pulse Rate 60 Pulse Rate 61 Pulse Rate 61 Pulse Rate 61 Pulse Rate 60 Pulse Rate 60 Pulse Rate 60 Pulse Rate 61 Pulse Rate 63 Pulse Rate 61 Pulse Rate 62 Pulse Rate 61 Pulse Rate 60 Pulse Rate 62 Pulse Rate 62 Pulse Rate 60 Pulse Rate 61 Pulse Rate 61 Pulse Rate 60 Respiratory Rate 33 Respiratory Rate 25 Respiratory Rate 16 Respiratory Rate 31 Respiratory Rate 15 Respiratory Rate 18 Respiratory Rate 14 Respiratory Rate 52 Respiratory Rate 26 Respiratory Rate 21 Respiratory Rate 25 Respiratory Rate 29 Respiratory Rate 19 Respiratory Rate 28 Respiratory Rate 20 Respiratory Rate 25 Respiratory Rate 39 Respiratory Rate 31 Respiratory Rate 22 Blood Pressure 92/50 Blood Pressure 102/51 Blood Pressure 91/53 Blood Pressure 97/54 Blood Pressure 92/53 Blood Pressure 91/50 Blood Pressure 98/55 Blood Pressure 87/54 Blood Pressure 106/52 Blood Pressure 100/58 Blood Pressure 104/61 Blood Pressure 86/49 Blood Pressure 105/57 O2 Sat by Pulse Oximetry 99 O2 Sat by Pulse Oximetry 100 O2 Sat by Pulse Oximetry 100 O2 Sat by Pulse Oximetry 100 O2 Sat by Pulse Oximetry 100 O2 Sat by Pulse Oximetry 100 O2 Sat by Pulse Oximetry 99 O2 Sat by Pulse Oximetry 100 O2 Sat by Pulse Oximetry 98 O2 Sat by Pulse Oximetry 100 O2 Sat by Pulse Oximetry 100 O2 Sat by Pulse Oximetry 90 O2 Sat by Pulse Oximetry 100 O2 Sat by Pulse Oximetry 100 O2 Sat by Pulse Oximetry 100 O2 Sat by Pulse Oximetry 100 O2 Sat by Pulse Oximetry 100 O2 Sat by Pulse Oximetry 100 O2 Sat by Pulse Oximetry 99 O2 Sat by Pulse Oximetry 100 O2 Sat by Pulse Oximetry 100 O2 Sat by Pulse Oximetry 99 O2 Sat by Pulse Oximetry 100 O2 Sat by Pulse Oximetry 100 O2 Sat by Pulse Oximetry 100 O2 Sat by Pulse Oximetry 100 O2 Sat by Pulse Oximetry 100 O2 Sat by Pulse Oximetry 100 O2 Sat by Pulse Oximetry 100 O2 Sat by Pulse Oximetry 100 O2 Sat by Pulse Oximetry 100 General General Appearance: Alert and In No Apparent Distress Eyes Eye exam: PERRL and EOMI ENT ENT Exam: Normal Oropharynx and Mucous Membranes Moist Neck Neck Exam: Normal Inspection Respiratory Respiratory Exam: Normal Lung Sounds Bilat; negative Accessory Muscle Use or Respiratory Distress Cardiovascular Cardiovascular Exam: Regular Rate, Normal Rhythm and Normal Heart Sounds Abdominal Exam Abdominal Exam: Normal Bowel Sounds and Distention (soft, + diffuse tenderness, no guarding/rebound. ) Extremeties Extremities Exam: Tenderness (bilateral lower ext, mild edema bilaterally) COURSE Treatment Treatment: 88-year-old female with history of ascites, last had paracentesis done few weeks ago. The increasing swelling and pain of the abdomen, coming more uncomfortable. Has an appointment with GI in 2 weeks. No fever, vomiting, diarrhea. Workup initiated. Labs overall acceptable.. Will admit to medicine and consult with general surgery for possible paracentesis in the a.m. [facility] Labs Reviewed Laboratory Results Reviewed?: Yes 10/25/23 12:12 10/25/23 12:12 Laboratory: WBC 5.1 X10^3/uL (3.6-10.0) 10/25/23 12:12 RBC 3.36 X10^6/uL (3.5-5.4) L 10/25/23 12:12 Hgb 11.1 g/dL (12.0-16.0) L 10/25/23 12:12 Hct 33.7 % (36.0-47.0) L 10/25/23 12:12 MCV 100.4 fL (80.0-100.0) H 10/25/23 12:12 MCH 33.2 pg (27.0-34.0) 10/25/23 12:12 MCHC 33.1 g/dL (33.0-35.0) 10/25/23 12:12 RDW 15.9 % (11.6-16.5) 10/25/23 12:12 Plt Count 209 X10^3/uL (150.0-450.0) 10/25/23 12:12 MPV 9.6 fL (7.4-11.0) 10/25/23 12:12 Neut % (Auto) 80.9 % (42.0-75.0) H 10/25/23 12:12 Lymph % (Auto) 10.0 % (21.0-51.0) L 10/25/23 12:12 [place] % (Auto) 7.3 % (0.0-13.0) 10/25/23 12:12 Eos % (Auto) 1.0 % (0.9-2.9) 10/25/23 12:12 Baso % (Auto) 0.8 % (0.2-1.0) 10/25/23 12:12 Neut # (Auto) 4.1 x10^3/uL (2.2-4.8) 10/25/23 12:12 Lymph # (Auto) 0.5 X10^3/uL (1.3-2.9) L 10/25/23 12:12 [place] # (Auto) 0.4 x10^3/uL (0.3-0.8) 10/25/23 12:12 Eos # (Auto) 0.0 x10^3/uL (0.0-0.2) 10/25/23 12:12 Baso # (Auto) 0.0 X10^3/uL (0.0-0.1) 10/25/23 12:12 Absolute Nucleated RBC 0.1 /100WBC 10/25/23 12:12 Sodium 132 mmol/L (136-145) L 10/25/23 12:12 Corrected Sodium TNP 10/25/23 12:12 Potassium 4.7 mmol/L (3.5-5.1) 10/25/23 12:12 Chloride 99 mmol/L (98-107) 10/25/23 12:12 Carbon Dioxide 32.2 mmol/L (21-32) H 10/25/23 12:12 BUN 28 mg/dL (7-18) H 10/25/23 12:12 Creatinine 1.84 mg/dL (0.55-1.02) H 10/25/23 12:12 Est GFR (MDRD) Af Amer 33 (>60) L 10/25/23 12:12 Est GFR (MDRD) Non-Af 28 (>60) L 10/25/23 12:12 Glucose 78 mg/dL (65-99) 10/25/23 12:12 Lactic Acid 1.3 mmol/L (0.4-2.0) 10/25/23 12:22 Calcium 8.3 mg/dL (8.5-10.1) L 10/25/23 12:12 Corrected Calcium 9.7 mg/dL (8.5-10.1) 10/25/23 12:12 Magnesium 2.0 mg/dL (2.0-2.9) 10/25/23 12:12 Total Bilirubin 0.50 mg/dL (0.2-1.0) 10/25/23 12:12 AST 125 Units/L (15-37) H 10/25/23 12:12 ALT 78 Units/L (12-78) 10/25/23 12:12 Alkaline Phosphatase 75 Units/L (46-116) 10/25/23 12:12 Troponin I High Sens 43.6 ng/L (4.0-60.0) 10/25/23 12:12 B-Natriuretic Peptide 519 pg/mL (0-79) H 10/25/23 12:12 Total Protein 5.8 g/dL (6.4-8.2) L 10/25/23 12:12 Albumin 2.2 g/dL (3.4-5.0) L 10/25/23 12:12 Globulin 3.6 g/dL (2.5-4.5) 10/25/23 12:12 Albumin/Globulin Ratio 0.6 Ratio (1.1-2.1) L 10/25/23 12:12 Labs acceptable, with an elevated BNP XRAY XRAY Interpreted by: Self X-ray Results: No acute abnormalities, no congestive heart failure EKG Rate: 60 [place]ax: LAD Rhythm: Paced Opioid Opioid Risk Tool Age (Jeet box if 16-45): No History of Preadolescent Sexual Abuse: No Total: 0 Total Score Risk Category: Low Risk Copyright: Sarkis NOGUERA predicting aberrant behaviors Discharge Plan Diagnosis Discharge Problem: Tense ascites Discharge Plan Patient Disposition: 09 ADMITTED INPATIENT Condition: Stable Orders to Discharge Patient Discharge Orders: Transfer (Routine); Ordered 10/25/23 Ordered By: Pavan Dickson
--- NOTE | 2023-10-25 12:06 | EKG ---
Test Reason : dyspnea Blood Pressure : */* mmHG Vent. Rate : 60 BPM Atrial Rate : 60 BPM P-R Int : 332 ms QRS Dur : 138 ms QT Int : 492 ms P-R-T Axes : 180 -22 130 degrees QTc Int : 492 ms AV dual-paced rhythm Left bundle branch block Abnormal ECG When compared with ECG of 22-SEP-2023 17:28, No significant change was found Confirmed by Chandler Caldwell ([id number]) on 10/25/2023 2:07:54 PM Referred By: Confirmed By: Chandler Caldwell
[2023-10-25 12:35] LABS: BASOPHILS % (AUTO) 0.8 % (0.2-1.0); HEMATOCRIT 33.7 % (36.0-47.0); HEMOGLOBIN 11.1 g/dL (12.0-16.0); LYMPHOCYTES # (AUTO) 0.5 X10^3/uL (1.3-2.9); MEAN CORPUSCULAR HEMOGLOBIN 33.2 pg (27.0-34.0); MEAN CORPUSCULAR HGB CONC 33.1 g/dL (33.0-35.0); MEAN CORPUSCULAR VOLUME 100.4 fL (80.0-100.0); MEAN PLATELET VOLUME 9.6 fL (7.4-11.0); MONOCYTES # (AUTO) 0.4 x10^3/uL (0.3-0.8); MONOCYTES % (AUTO) 7.3 % (0.0-13.0); NEUTROPHILS # (AUTO) 4.1 x10^3/uL (2.2-4.8); NEUTROPHILS % (AUTO) 80.9 % (42.0-75.0); PLATELET COUNT 209 X10^3/uL (150.0-450.0); RED BLOOD COUNT 3.36 X10^6/uL (3.5-5.4); RED CELL DISTRIBUTION WIDTH 15.9 % (11.6-16.5); WHITE BLOOD COUNT 5.1 X10^3/uL (3.6-10.0)
[2023-10-25 12:48] LABS: ALANINE AMINOTRANSFERASE 78 Units/L (12-78); ALBUMIN 2.2 g/dL (3.4-5.0); ALKALINE PHOSPHATASE 75 Units/L (46-116); ASPARTATE AMINO TRANSFERASE 125 Units/L (15-37); BLOOD UREA NITROGEN 28 mg/dL (7-18); CALCIUM 8.3 mg/dL (8.5-10.1); CARBON DIOXIDE 32.2 mmol/L (21-32); CHLORIDE 99 mmol/L (98-107); COR CA(FOR HYPOALB) 9.7 mg/dL (8.5-10.1); CREATININE 1.84 mg/dL (0.55-1.02); GLUCOSE 78 mg/dL (65-99); POTASSIUM 4.7 mmol/L (3.5-5.1); SODIUM 132 mmol/L (136-145); TOTAL PROTEIN 5.8 g/dL (6.4-8.2); eGFR NON BLACK RACES 28 (>60)
--- NOTE | 2023-10-25 15:05 | RAD ---
EXAM:CHEST, 1 VIEWHISTORY:SOB; CVA, CHF, HTN, ASTHMA, COLON AND BREAST CANCER CABG, HYSTERECTOMY, GB, LT MASTECTOMYCOMPARISON:09/22/2023TECHNIQUE: .br.br.br.br.br Left-sided pacemaker generator with lead or leads in satisfactory position.Mediastinum: Cardiac and mediastinal shadow is within normal limits for size and contour.Pulmonary vessels: No pulmonary vascular congestion.Lung bishop: No suspicious airspace opacity.Pleura: No effusion. No pneumothorax.Bones and soft tissues: No acute osseous or soft tissue abnormality.IMPRESSION:1. No acute cardiopulmonary abnormalityTHIS IS AN ELECTRONICALLY VERIFIED FINAL REPORT10/25/2023 3:02 PM - Electronically signed by Satish Cooper MD
[2023-10-25] MEDS ORDERED: PROVENTIL NEB TX 0.083% 2.5MG/ 3ML NEB PRN (19:31)
[2023-10-25 21:27] VITALS: BMI 23.8
[2023-10-26 06:53] LABS: BASOPHILS % (AUTO) 0.8 % (0.2-1.0); EOSINOPHILS # (AUTO) 0.1 x10^3/uL (0.0-0.2); EOSINOPHILS % (AUTO) 1.8 % (0.9-2.9); HEMATOCRIT 29.4 % (36.0-47.0); HEMOGLOBIN 9.8 g/dL (12.0-16.0); MEAN CORPUSCULAR HEMOGLOBIN 33.4 pg (27.0-34.0); MEAN CORPUSCULAR HGB CONC 33.4 g/dL (33.0-35.0); MEAN CORPUSCULAR VOLUME 100.2 fL (80.0-100.0); MEAN PLATELET VOLUME 9.9 fL (7.4-11.0); MONOCYTES # (AUTO) 0.4 x10^3/uL (0.3-0.8); NEUTROPHILS # (AUTO) 3.9 x10^3/uL (2.2-4.8); NEUTROPHILS % (AUTO) 71.4 % (42.0-75.0); PLATELET COUNT 181 X10^3/uL (150.0-450.0); RED BLOOD COUNT 2.93 X10^6/uL (3.5-5.4); RED CELL DISTRIBUTION WIDTH 15.9 % (11.6-16.5); WHITE BLOOD COUNT 5.5 X10^3/uL (3.6-10.0)
[2023-10-26 07:01] LABS: ALANINE AMINOTRANSFERASE 65 Units/L (12-78); ALBUMIN 1.8 g/dL (3.4-5.0); ALKALINE PHOSPHATASE 66 Units/L (46-116); ASPARTATE AMINO TRANSFERASE 110 Units/L (15-37); BLOOD UREA NITROGEN 28 mg/dL (7-18); CARBON DIOXIDE 28.5 mmol/L (21-32); CHLORIDE 102 mmol/L (98-107); COR CA(FOR HYPOALB) 9.8 mg/dL (8.5-10.1); CREATININE 1.71 mg/dL (0.55-1.02); GLUCOSE 73 mg/dL (65-99); POTASSIUM 4.9 mmol/L (3.5-5.1); SODIUM 133 mmol/L (136-145); eGFR NON BLACK RACES 30 (>60)
[2023-10-26 07:03] LABS: INR 2.17 (0.8-1.3)
--- NOTE | 2023-10-26 14:38 | DR.H&P ---
H&P History & Physical for Day of: H&P Date: 10/26/23 Chief Complaint Chief Complaint: Shortness of breath with weakness. Allergies Allergies Allergy/AdvReac Type Severity Reaction Status Date / Time zolpidem [From Ambien] Allergy Verified 10/12/23 11:42 History of Present Illness History of Present Illness: This is an 88-year-old white female who is a patient of local nurse practitioner Beena Kunz. The patient reports that she has not been feeling well over the last 2 weeks and has been having increasing generalized weakness along with increasing ascites. She reports a history of breast cancer and colon cancer in the past. She also reports having increased distention and tightness of her abdomen and tells us that she had a paracentesis 2 weeks ago. Since then, she has developed a cough with a productive cough of yellow sputum and increasing shortness of breath. She also has some cold chills but denies any fever. Past Medical History Past Medical History: CHF, CVA and Hypertension Additional Medical History: Syncope, Left Carotid Artery Occlusion, Chronic Back Pain, Breast Cancer Colon cancer PE Past Surgical History Surgical History: Abdominal Surgery, CABG/Valve Surgery, Cholecystectomy, Hysterectomy and Mastectomy Additional Surgical History: Heart Catherization x 2, Left Mastectomy, Hernia Repair Colon surgery IVC Family History Family Medical History: Diabetes Mellitus, Heart Failure and Hypertension Social History Does patient currently use any type of tobacco product: No Have you used tobacco products in the last 12 months: No Type of Tobacco Use: None Does any household member use tobacco: No Alcohol Use: None Drug Use: None Medications Home Medications: Home Medications Medication Instructions Recorded Confirmed Type pantoprazole 40 mg tablet,delayed 40 mg PO DAILY 12/23/21 10/25/23 History release atorvastatin 80 mg tablet 80 mg PO QPM 08/16/22 10/25/23 History famotidine 20 mg tablet 20 mg PO BID 08/16/22 10/25/23 History amiodarone 200 mg tablet 200 mg PO QPM 10/12/22 10/25/23 History carvedilol 3.125 mg tablet (Coreg) 3.125 mg PO QDAY 10/12/22 10/25/23 History furosemide 20 mg tablet 40 mg PO QDAY 10/12/22 10/25/23 History albuterol sulfate 90 mcg/actuation 2 puff inhalation QID PRN 02/16/23 10/25/23 History aerosol inhaler apixaban 5 mg tablet (Eliquis) 5 mg PO BID 02/16/23 10/25/23 History cholecalciferol (vitamin D3) 50 50 mcg PO QDAY 02/16/23 10/25/23 History mcg (2,000 unit) tablet (Vitamin D3) clopidogrel 75 mg tablet (Plavix) 75 mg PO QDAY 02/16/23 10/25/23 History cyanocobalamin (vitamin B-12) 5,000 mcg sublingual QDAY 02/16/23 10/25/23 History 5,000 mcg sublingual tablet (Vitamin B-12) donepezil 10 mg tablet (Aricept) 10 mg PO BID 02/16/23 10/25/23 History ferrous sulfate 27 mg iron tablet 27 mg PO QDAY 02/16/23 10/25/23 History hydrocodone 7.5 mg-acetaminophen 1 tab PO Q4-6H PRN 02/16/23 10/25/23 History 325 mg tablet melatonin 10 mg tablet 10 mg PO HS PRN 02/16/23 10/25/23 History ondansetron HCl 4 mg tablet 4 mg PO Q6H PRN 02/16/23 10/25/23 History potassium chloride 10 mEq 10 meq PO BID 02/16/23 10/25/23 History capsule,extended release levothyroxine 100 mcg tablet 100 mcg PO QAM 06/11/23 10/25/23 History losartan 25 mg tablet 12.5 mg PO QDAY 06/11/23 10/25/23 History Labs 10/26/23 05:55 10/26/23 05:55 Labs: Laboratory WBC 5.5 X10^3/uL (3.6-10.0) 10/26/23 05:55 RBC 2.93 X10^6/uL (3.5-5.4) L 10/26/23 05:55 Hgb 9.8 g/dL (12.0-16.0) L 10/26/23 05:55 Hct 29.4 % (36.0-47.0) L 10/26/23 05:55 MCV 100.2 fL (80.0-100.0) H 10/26/23 05:55 MCH 33.4 pg (27.0-34.0) 10/26/23 05:55 MCHC 33.4 g/dL (33.0-35.0) 10/26/23 05:55 RDW 15.9 % (11.6-16.5) 10/26/23 05:55 Plt Count 181 X10^3/uL (150.0-450.0) 10/26/23 05:55 MPV 9.9 fL (7.4-11.0) 10/26/23 05:55 Neut % (Auto) 71.4 % (42.0-75.0) 10/26/23 05:55 Lymph % (Auto) 18.0 % (21.0-51.0) L 10/26/23 05:55 [place] % (Auto) 8.0 % (0.0-13.0) 10/26/23 05:55 Eos % (Auto) 1.8 % (0.9-2.9) 10/26/23 05:55 Baso % (Auto) 0.8 % (0.2-1.0) 10/26/23 05:55 Neut # (Auto) 3.9 x10^3/uL (2.2-4.8) 10/26/23 05:55 Lymph # (Auto) 1.0 X10^3/uL (1.3-2.9) L 10/26/23 05:55 [place] # (Auto) 0.4 x10^3/uL (0.3-0.8) 10/26/23 05:55 Eos # (Auto) 0.1 x10^3/uL (0.0-0.2) 10/26/23 05:55 Baso # (Auto) 0.0 X10^3/uL (0.0-0.1) 10/26/23 05:55 Absolute Nucleated RBC 0.0 /100WBC 10/26/23 05:55 PT 23.8 SECONDS (11.8-14.3) 10/26/23 05:55 INR Target Range - 10/26/23 05:55 INR 2.17 (0.8-1.3) H 10/26/23 05:55 APTT 41.0 SECONDS (22.9-36.5) H 10/26/23 05:55 PTT Comment - 10/26/23 05:55 Sodium 133 mmol/L (136-145) L 10/26/23 05:55 Corrected Sodium TNP 10/26/23 05:55 Potassium 4.9 mmol/L (3.5-5.1) 10/26/23 05:55 Chloride 102 mmol/L (98-107) 10/26/23 05:55 Carbon Dioxide 28.5 mmol/L (21-32) 10/26/23 05:55 BUN 28 mg/dL (7-18) H 10/26/23 05:55 Creatinine 1.71 mg/dL (0.55-1.02) H 10/26/23 05:55 Est GFR (MDRD) Af Amer 36 (>60) L 10/26/23 05:55 Est GFR (MDRD) Non-Af 30 (>60) L 10/26/23 05:55 Glucose 73 mg/dL (65-99) 10/26/23 05:55 Lactic Acid 1.3 mmol/L (0.4-2.0) 10/25/23 12:22 Calcium 8.0 mg/dL (8.5-10.1) L 10/26/23 05:55 Corrected Calcium 9.8 mg/dL (8.5-10.1) 10/26/23 05:55 Magnesium 2.0 mg/dL (2.0-2.9) 10/25/23 12:12 Total Bilirubin 0.40 mg/dL (0.2-1.0) 10/26/23 05:55 AST 110 Units/L (15-37) H 10/26/23 05:55 ALT 65 Units/L (12-78) 10/26/23 05:55 Alkaline Phosphatase 66 Units/L (46-116) 10/26/23 05:55 Troponin I High Sens 43.6 ng/L (4.0-60.0) 10/25/23 12:12 B-Natriuretic Peptide 519 pg/mL (0-79) H 10/25/23 12:12 Total Protein 5.0 g/dL (6.4-8.2) L 10/26/23 05:55 Albumin 1.8 g/dL (3.4-5.0) L 10/26/23 05:55 Globulin 3.2 g/dL (2.5-4.5) 10/26/23 05:55 Albumin/Globulin Ratio 0.6 Ratio (1.1-2.1) L 10/26/23 05:55 Review of Systems Constitutional: Weakness and Malaise; denies Fever Eyes: No Symptoms Reported ENT: No Symptoms Reported Respiratory: Cough, Shortness of Breath, SOB with Excertion and Sputum; denies Hemoptysis or Pleuritic Pain Cardiovascular: Orthopnea Gastrointestinal: Abdominal Pain; denies Nausea, Vomiting, Diarrhea, Constipation, Melena or Hematochezia Genitourinary: No Symptoms Reported Musculoskeletal: Back Pain Skin: No Symptoms Reported Neurological: No Symptoms Reported Physical Exam Vital Signs: Vital Signs Temperature 97.9 F Temperature 97.7 F Pulse Rate [Right] 60 Pulse Rate [Right] 61 Respiratory Rate 20 Respiratory Rate 20 Blood Pressure [Right Arm] 103/52 Blood Pressure [Right Arm] 98/52 O2 Sat by Pulse Oximetry 94 O2 Sat by Pulse Oximetry 95 Oriented: Normal, Time, Person and Place Eyes: Normal Ear: Normal Nose: Normal Throat: Normal Respiratory: Clear Throughout Cardiovascular: Normal Auscultation: Bowel Sounds: Normal Palpation: Normal and Other (Distended abdomen) Tenderness: Normal Skin: Normal Musculoskeletal: Normal Psychiatric: Normal Mood Description: Calm Affect: Normal Speech Pattern: Clear and Appropriate Assessment/Plan (1) Tense ascites: Status: Acute Plan: I will consult general surgeon, Dr. Avalos for further evaluation and treatment to see if he wants to do a paracentesis. Will continue the patient on diuretics including her spironolactone to see if this helps control her ascites. (2) Breast cancer: Qualifiers: Breast location: unspecified site of breast Patient gender: female Laterality: unspecified laterality Estrogen receptor status: unspecified Patient sex: female Qualified Code(s): C50.919 - Malignant neoplasm of unspecified site of unspecified female breast Status: Chronic Plan: Patient tells me she has a history of breast cancer status postmastectomy. 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 (5) CVA (cerebral vascular accident): Qualifiers: CVA mechanism: unspecified Qualified Code(s): I63.9 - Cerebral infarction, unspecified Status: Chronic (6) Hypertension: Qualifiers: Hypertension type: primary hypertension Qualified Code(s): I10 - Essential (primary) hypertension Status: Chronic Plan: Monitor daily blood pressures and treat accordingly.
[2023-10-26] MEDS ORDERED: MELATONIN PO PRN (14:56)
[2023-10-26] MEDS: LASIX PO SCH (15:57)
[2023-10-26] MEDS: PROTONIX TAB 40 MG PO SCH (15:57)
[2023-10-26] MEDS: MICRO K EXTEN CAP 10 MEQ PO SCH (20:56)
[2023-10-26] MEDS: PEPCID TAB 20 MG PO SCH (20:56)
[2023-10-26] MEDS: NORCO 7.5/325 MG TAB PO PRN (20:56)
[2023-10-26] MEDS: LIPITOR TAB 80 MG PO SCH (20:56)
[2023-10-26] MEDS: CORDARONE TAB 200 MG PO SCH (23:03)
[2023-10-27] MEDS: NORCO 7.5/325 MG TAB PO PRN ×2 (01:25→11:04)
[2023-10-27] MEDS: ZOFRAN TAB 4 MG PO PRN (05:12)
[2023-10-27] MEDS ORDERED: PHENERGAN INJ 25 MG IM PRN (06:02)
[2023-10-27 06:27] LABS: BASOPHILS % (AUTO) 0.6 % (0.2-1.0); EOSINOPHILS # (AUTO) 0.1 x10^3/uL (0.0-0.2); EOSINOPHILS % (AUTO) 1.1 % (0.9-2.9); HEMATOCRIT 35.7 % (36.0-47.0); HEMOGLOBIN 11.7 g/dL (12.0-16.0); LYMPHOCYTES # (AUTO) 0.6 X10^3/uL (1.3-2.9); LYMPHOCYTES % (AUTO) 8.8 % (21.0-51.0); MEAN CORPUSCULAR HGB CONC 32.9 g/dL (33.0-35.0); MEAN CORPUSCULAR VOLUME 100.3 fL (80.0-100.0); MEAN PLATELET VOLUME 9.9 fL (7.4-11.0); MONOCYTES # (AUTO) 0.5 x10^3/uL (0.3-0.8); MONOCYTES % (AUTO) 7.3 % (0.0-13.0); NEUTROPHILS # (AUTO) 5.8 x10^3/uL (2.2-4.8); NEUTROPHILS % (AUTO) 82.2 % (42.0-75.0); PLATELET COUNT 198 X10^3/uL (150.0-450.0); RED BLOOD COUNT 3.56 X10^6/uL (3.5-5.4); RED CELL DISTRIBUTION WIDTH 15.9 % (11.6-16.5)
[2023-10-27 06:47] LABS: ALANINE AMINOTRANSFERASE 70 Units/L (12-78); ALBUMIN 1.7 g/dL (3.4-5.0); ALKALINE PHOSPHATASE 89 Units/L (46-116); ASPARTATE AMINO TRANSFERASE 128 Units/L (15-37); BLOOD UREA NITROGEN 24 mg/dL (7-18); CARBON DIOXIDE 32.3 mmol/L (21-32); CHLORIDE 101 mmol/L (98-107); COR CA(FOR HYPOALB) 9.8 mg/dL (8.5-10.1); CREATININE 1.54 mg/dL (0.55-1.02); GLUCOSE 89 mg/dL (65-99); MAGNESIUM 1.9 mg/dL (2.0-2.9); POTASSIUM 4.3 mmol/L (3.5-5.1); SODIUM 134 mmol/L (136-145); eGFR NON BLACK RACES 34 (>60)
[2023-10-27] MEDS ORDERED: COZAAR PO SCH (09:00)
[2023-10-27] MEDS ORDERED: COREG TAB 3.125 MG PO SCH (09:00)
[2023-10-27] MEDS: ALDACTONE TAB 25 MG PO SCH (09:34)
[2023-10-27] MEDS: LASIX PO SCH (09:35)
[2023-10-27] MEDS: HEMOCYTE-PLUS PO SCH (09:35)
[2023-10-27] MEDS: PEPCID TAB 20 MG PO SCH ×2 (09:36→20:30)
[2023-10-27] MEDS: MICRO K EXTEN CAP 10 MEQ PO SCH ×2 (09:36→20:31)
[2023-10-27] MEDS: PROTONIX TAB 40 MG PO SCH (09:37)
[2023-10-27] MEDS: PERIACTIN TAB 4 MG PO PRN (14:00)
--- NOTE | 2023-10-27 15:17 | DR.PROGNOT ---
HOSPITAL PROGRESS NOTE Progress Note for Day of: Progress Note Date: 10/27/23 Chief Complaint Chief Complaint: Status post paracentesis and drainage several liters of ascites. No more drainage in the drainage catheter. Patient is complaining of being weak and tired, still having poor appetite. Although she denies any significant abdominal pain. Hemoglobin is 11.7 WBC is 7 platelet 98 BUN 24 creatinine 1.5 albumin 1.7. No changes in her medical history. Drainage catheter was DC'd Past Medical Family Social History Allergies: Allergies zolpidem [From Ambien] Allergy (Verified 10/12/23 11:42) Vital Signs Vital Signs: Vital Signs Temperature 97.5 F Temperature 97.7 F Pulse Rate [Right] 60 Pulse Rate [Right] 61 Pulse Rate 67 Respiratory Rate 18 Respiratory Rate 20 Respiratory Rate 20 Respiratory Rate 18 Blood Pressure [Right Arm] 89/52 Blood Pressure [Right Arm] 88/50 O2 Sat by Pulse Oximetry 100 O2 Sat by Pulse Oximetry 99 O2 Sat by Pulse Oximetry 99 Physical Exam Oriented: Normal, Time, Person and Place Eyes: Normal Ear: Normal Nose: Normal Throat: Normal Cardiovascular: Normal GI:Auscultation: Normal GI:Palpation: Normal and Other (Abdomen is soft and nondistended today) GI: Tenderness: Normal Skin: Normal Musculoskeletal: Normal Psychiatric: Normal Mood Description: Calm Affect: Normal Speech Pattern: Clear and Appropriate Laboratory and Diagnostics 10/27/23 05:35 10/27/23 05:35 Labs: 10/25/23 12:22 Blood Blood Culture - Preliminary 10/25/23 12:12 Blood Blood Culture - Preliminary 10/26/23 18:20 Paracentesis - Preliminary Laboratory WBC 7.0 X10^3/uL (3.6-10.0) 10/27/23 05:35 RBC 3.56 X10^6/uL (3.5-5.4) 10/27/23 05:35 Hgb 11.7 g/dL (12.0-16.0) L 10/27/23 05:35 Hct 35.7 % (36.0-47.0) L 10/27/23 05:35 MCV 100.3 fL (80.0-100.0) H 10/27/23 05:35 MCH 33.0 pg (27.0-34.0) 10/27/23 05:35 MCHC 32.9 g/dL (33.0-35.0) L 10/27/23 05:35 RDW 15.9 % (11.6-16.5) 10/27/23 05:35 Plt Count 198 X10^3/uL (150.0-450.0) 10/27/23 05:35 MPV 9.9 fL (7.4-11.0) 10/27/23 05:35 Neut % (Auto) 82.2 % (42.0-75.0) H 10/27/23 05:35 Lymph % (Auto) 8.8 % (21.0-51.0) L 10/27/23 05:35 [place] % (Auto) 7.3 % (0.0-13.0) 10/27/23 05:35 Eos % (Auto) 1.1 % (0.9-2.9) 10/27/23 05:35 Baso % (Auto) 0.6 % (0.2-1.0) 10/27/23 05:35 Neut # (Auto) 5.8 x10^3/uL (2.2-4.8) H 10/27/23 05:35 Lymph # (Auto) 0.6 X10^3/uL (1.3-2.9) L 10/27/23 05:35 [place] # (Auto) 0.5 x10^3/uL (0.3-0.8) 10/27/23 05:35 Eos # (Auto) 0.1 x10^3/uL (0.0-0.2) 10/27/23 05:35 Baso # (Auto) 0.0 X10^3/uL (0.0-0.1) 10/27/23 05:35 Absolute Nucleated RBC 0.0 /100WBC 10/27/23 05:35 PT 23.8 SECONDS (11.8-14.3) 10/26/23 05:55 INR Target Range - 10/26/23 05:55 INR 2.17 (0.8-1.3) H 10/26/23 05:55 APTT 41.0 SECONDS (22.9-36.5) H 10/26/23 05:55 PTT Comment - 10/26/23 05:55 Sodium 134 mmol/L (136-145) L 10/27/23 05:35 Corrected Sodium TNP 10/27/23 05:35 Potassium 4.3 mmol/L (3.5-5.1) 10/27/23 05:35 Chloride 101 mmol/L (98-107) 10/27/23 05:35 Carbon Dioxide 32.3 mmol/L (21-32) H 10/27/23 05:35 BUN 24 mg/dL (7-18) H 10/27/23 05:35 Creatinine 1.54 mg/dL (0.55-1.02) H 10/27/23 05:35 Est GFR (MDRD) Af Amer 41 (>60) L 10/27/23 05:35 Est GFR (MDRD) Non-Af 34 (>60) L 10/27/23 05:35 Glucose 89 mg/dL (65-99) 10/27/23 05:35 Lactic Acid 1.3 mmol/L (0.4-2.0) 10/25/23 12:22 Calcium 8.0 mg/dL (8.5-10.1) L 10/27/23 05:35 Corrected Calcium 9.8 mg/dL (8.5-10.1) 10/27/23 05:35 Magnesium 1.9 mg/dL (2.0-2.9) L 10/27/23 05:35 Total Bilirubin 0.60 mg/dL (0.2-1.0) 10/27/23 05:35 AST 128 Units/L (15-37) H 10/27/23 05:35 ALT 70 Units/L (12-78) 10/27/23 05:35 Alkaline Phosphatase 89 Units/L (46-116) 10/27/23 05:35 Troponin I High Sens 43.6 ng/L (4.0-60.0) 10/25/23 12:12 B-Natriuretic Peptide 554 pg/mL (0-79) H 10/27/23 05:35 Total Protein 5.0 g/dL (6.4-8.2) L 10/27/23 05:35 Albumin 1.7 g/dL (3.4-5.0) L 10/27/23 05:35 Globulin 3.3 g/dL (2.5-4.5) 10/27/23 05:35 Albumin/Globulin Ratio 0.5 Ratio (1.1-2.1) L 10/27/23 05:35 Assessment and Plan 1: Status post paracentesis and drainage of ascites. Patient could be discharged in the morning and will follow her as outpatient. To continue Aldactone and Lasix as before. Problem Patient Problems: Patient Problems (Updated 10/25/23 @ 18:59 by Pavan Dickson) Tense ascites (Acute) R18.8
[2023-10-27] MEDS ORDERED: NS 500 ML IV 500 ML IV ONE ×2 (15:45→16:32)
[2023-10-27] MEDS ORDERED: ALBUMIN HUMAN 25%- 100 ML 200 ML IV ONE (16:12)
[2023-10-27] MEDS ORDERED: ALBUMIN HUMAN 25%- 100 ML 200 ML ONE (16:32)
[2023-10-27] MEDS: NS 500 ML IV 500 ML IV SCH (18:40)
--- NOTE | 2023-10-27 20:24 | PCM.PROG ---
Progress Note Progress Note for Day of Date of Exam: 10/27/23 Subjective Subjective: The patient is reporting nausea this morning. She did undergo paracentesis yesterday and they removed over a liter of fluid. She is hypotensive this morning so we will hold her blood pressure medications and give her ondansetron for the nausea. Throughout the day the patient became more h ypotensive so we ended up giving her a normal saline bolus of 500 mL. We also ordered 2 packets of 25% albumin. We will hold off on her discharge today and see if her blood pressure improves with the IV fluid and albumin and if she is feeling better tomorrow morning she can be discharged home. Past Medical Family Social History Allergies: Allergies zolpidem [From Ambien] Allergy (Verified 10/12/23 11:42) Review of Systems ROS: Changes notes (describe) ROS changes noted: Positive nausea this morning Vital Signs and I&O's Vital Signs: Vital Signs Temperature 98.4 F Temperature 97.5 F Pulse Rate [Right] 60 Pulse Rate [Right] 61 Respiratory Rate 18 Respiratory Rate 17 Blood Pressure [Right Arm] 88/47 Blood Pressure [Right Arm] 69/39 O2 Sat by Pulse Oximetry 96 O2 Sat by Pulse Oximetry 98 Intake and Output: Intake & Output 10/25/23 10/26/23 10/27/23 10/28/23 11:59 11:59 11:59 11:59 Intake Total 310 / 310 810 / 810 490 / 490 Output Total 6500 / 6500 Balance 310 / 310 -5690 / -5690 490 / 490 Physical Exam Oriented: Normal, Time, Person and Place Eyes: Normal Ear: Normal Nose: Normal Throat: Normal Respiratory: Normal Cardiovascular: Normal Auscultation: Bowel Sounds: Normal Tenderness: Normal Skin: Normal Musculoskeletal: Normal Psychiatric: Normal Mood Description: Calm Affect: Normal Speech Pattern: Clear and Appropriate Laboratory and Diagnostics 10/27/23 05:35 10/27/23 05:35 Labs: 10/25/23 12:22 Blood Blood Culture - Preliminary 10/25/23 12:12 Blood Blood Culture - Preliminary 10/26/23 18:20 Paracentesis - Preliminary Laboratory WBC 7.0 X10^3/uL (3.6-10.0) 10/27/23 05:35 RBC 3.56 X10^6/uL (3.5-5.4) 10/27/23 05:35 Hgb 11.7 g/dL (12.0-16.0) L 10/27/23 05:35 Hct 35.7 % (36.0-47.0) L 10/27/23 05:35 MCV 100.3 fL (80.0-100.0) H 10/27/23 05:35 MCH 33.0 pg (27.0-34.0) 10/27/23 05:35 MCHC 32.9 g/dL (33.0-35.0) L 10/27/23 05:35 RDW 15.9 % (11.6-16.5) 10/27/23 05:35 Plt Count 198 X10^3/uL (150.0-450.0) 10/27/23 05:35 MPV 9.9 fL (7.4-11.0) 10/27/23 05:35 Neut % (Auto) 82.2 % (42.0-75.0) H 10/27/23 05:35 Lymph % (Auto) 8.8 % (21.0-51.0) L 10/27/23 05:35 [place] % (Auto) 7.3 % (0.0-13.0) 10/27/23 05:35 Eos % (Auto) 1.1 % (0.9-2.9) 10/27/23 05:35 Baso % (Auto) 0.6 % (0.2-1.0) 10/27/23 05:35 Neut # (Auto) 5.8 x10^3/uL (2.2-4.8) H 10/27/23 05:35 Lymph # (Auto) 0.6 X10^3/uL (1.3-2.9) L 10/27/23 05:35 [place] # (Auto) 0.5 x10^3/uL (0.3-0.8) 10/27/23 05:35 Eos # (Auto) 0.1 x10^3/uL (0.0-0.2) 10/27/23 05:35 Baso # (Auto) 0.0 X10^3/uL (0.0-0.1) 10/27/23 05:35 Absolute Nucleated RBC 0.0 /100WBC 10/27/23 05:35 PT 23.8 SECONDS (11.8-14.3) 10/26/23 05:55 INR Target Range - 10/26/23 05:55 INR 2.17 (0.8-1.3) H 10/26/23 05:55 APTT 41.0 SECONDS (22.9-36.5) H 10/26/23 05:55 PTT Comment - 10/26/23 05:55 Sodium 134 mmol/L (136-145) L 10/27/23 05:35 Corrected Sodium TNP 10/27/23 05:35 Potassium 4.3 mmol/L (3.5-5.1) 10/27/23 05:35 Chloride 101 mmol/L (98-107) 10/27/23 05:35 Carbon Dioxide 32.3 mmol/L (21-32) H 10/27/23 05:35 BUN 24 mg/dL (7-18) H 10/27/23 05:35 Creatinine 1.54 mg/dL (0.55-1.02) H 10/27/23 05:35 Est GFR (MDRD) Af Amer 41 (>60) L 10/27/23 05:35 Est GFR (MDRD) Non-Af 34 (>60) L 10/27/23 05:35 Glucose 89 mg/dL (65-99) 10/27/23 05:35 Lactic Acid 1.3 mmol/L (0.4-2.0) 10/25/23 12:22 Calcium 8.0 mg/dL (8.5-10.1) L 10/27/23 05:35 Corrected Calcium 9.8 mg/dL (8.5-10.1) 10/27/23 05:35 Magnesium 1.9 mg/dL (2.0-2.9) L 10/27/23 05:35 Total Bilirubin 0.60 mg/dL (0.2-1.0) 10/27/23 05:35 AST 128 Units/L (15-37) H 10/27/23 05:35 ALT 70 Units/L (12-78) 10/27/23 05:35 Alkaline Phosphatase 89 Units/L (46-116) 10/27/23 05:35 Troponin I High Sens 43.6 ng/L (4.0-60.0) 10/25/23 12:12 B-Natriuretic Peptide 554 pg/mL (0-79) H 10/27/23 05:35 Total Protein 5.0 g/dL (6.4-8.2) L 10/27/23 05:35 Albumin 1.7 g/dL (3.4-5.0) L 10/27/23 05:35 Globulin 3.3 g/dL (2.5-4.5) 10/27/23 05:35 Albumin/Globulin Ratio 0.5 Ratio (1.1-2.1) L 10/27/23 05:35 Plan (1) Tense ascites: Status: Acute Plan: Patient is postop day 1 for paracentesis. Her abdominal distention is much improved since yesterday. (2) Breast cancer: Status: Chronic Qualifiers: Breast location: unspecified site of breast Patient gender: female Laterality: unspecified laterality Estrogen receptor status: unspecified Patient sex: female Qualified Code(s): C50.919 - Malignant neoplasm of unspecified site of unspecified female breast Plan: Patient tells me she has a history of breast cancer status postmastectomy. 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 (5) CVA (cerebral vascular accident): Status: Chronic Qualifiers: CVA mechanism: unspecified Qualified Code(s): I63.9 - Cerebral infarction, unspecified (6) Hypertension: Status: Chronic Qualifiers: Hypertension type: primary hypertension Qualified Code(s): I10 - Essential (primary) hypertension Plan: Monitor daily blood pressures and treat accordingly. (7) Nausea: Status: Acute Plan: Ondansetron. (8) Hypotension: Status: Acute Plan: Hold blood pressure medication at this time. The patient will be given a 500 cc bolus of normal saline today. (9) Hypoalbuminemia: Status: Acute Plan: 25% albumin 100 mL IV x 2 today. Repeat CMP in the a.m. to see what her albumin is.
[2023-10-27] MEDS: LIPITOR TAB 80 MG PO SCH (20:31)
[2023-10-27] MEDS: CORDARONE TAB 200 MG PO SCH (20:33)
[2023-10-28] MEDS: NS 500 ML IV 500 ML IV SCH ×4 (01:27→18:18)
[2023-10-28 06:26] LABS: BASOPHILS % (AUTO) 0.6 % (0.2-1.0); EOSINOPHILS # (AUTO) 0.1 x10^3/uL (0.0-0.2); HEMATOCRIT 29.3 % (36.0-47.0); HEMOGLOBIN 9.8 g/dL (12.0-16.0); LYMPHOCYTES # (AUTO) 0.7 X10^3/uL (1.3-2.9); LYMPHOCYTES % (AUTO) 13.3 % (21.0-51.0); MEAN CORPUSCULAR HEMOGLOBIN 33.4 pg (27.0-34.0); MEAN CORPUSCULAR HGB CONC 33.4 g/dL (33.0-35.0); MEAN CORPUSCULAR VOLUME 100.2 fL (80.0-100.0); MEAN PLATELET VOLUME 9.4 fL (7.4-11.0); MONOCYTES # (AUTO) 0.5 x10^3/uL (0.3-0.8); MONOCYTES % (AUTO) 9.4 % (0.0-13.0); NEUTROPHILS # (AUTO) 4.2 x10^3/uL (2.2-4.8); NEUTROPHILS % (AUTO) 75.7 % (42.0-75.0); PLATELET COUNT 154 X10^3/uL (150.0-450.0); RED BLOOD COUNT 2.93 X10^6/uL (3.5-5.4); RED CELL DISTRIBUTION WIDTH 15.7 % (11.6-16.5); WHITE BLOOD COUNT 5.5 X10^3/uL (3.6-10.0)
[2023-10-28 06:41] LABS: ALANINE AMINOTRANSFERASE 64 Units/L (12-78); ALBUMIN 2.1 g/dL (3.4-5.0); ALKALINE PHOSPHATASE 65 Units/L (46-116); ASPARTATE AMINO TRANSFERASE 106 Units/L (15-37); BLOOD UREA NITROGEN 25 mg/dL (7-18); CALCIUM 7.5 mg/dL (8.5-10.1); CARBON DIOXIDE 29.8 mmol/L (21-32); CHLORIDE 102 mmol/L (98-107); CREATININE 1.56 mg/dL (0.55-1.02); GLUCOSE 78 mg/dL (65-99); MAGNESIUM 1.9 mg/dL (2.0-2.9); SODIUM 134 mmol/L (136-145); TOTAL PROTEIN 4.6 g/dL (6.4-8.2); eGFR NON BLACK RACES 33 (>60)
[2023-10-28 06:42] LABS: POTASSIUM 4.9 mmol/L (3.5-5.1)
[2023-10-28] MEDS: PROVENTIL NEB TX 0.083% 2.5MG/ 3ML NEB PRN (08:40)
[2023-10-28] MEDS: MICRO K EXTEN CAP 10 MEQ PO SCH ×2 (09:24→20:20)
[2023-10-28] MEDS: PROTONIX TAB 40 MG PO SCH (09:24)
[2023-10-28] MEDS: PEPCID TAB 20 MG PO SCH ×2 (09:24→20:20)
[2023-10-28] MEDS: ALDACTONE TAB 25 MG PO SCH (09:24)
[2023-10-28] MEDS: HEMOCYTE-PLUS PO SCH (09:24)
[2023-10-28] MEDS: LIPITOR TAB 80 MG PO SCH (20:20)
[2023-10-28] MEDS: CORDARONE TAB 200 MG PO SCH (20:24)
[2023-10-29] MEDS: NS 500 ML IV 500 ML IV SCH ×5 (00:45→18:24)
[2023-10-29 06:26] LABS: BASOPHILS % (AUTO) 0.7 % (0.2-1.0); EOSINOPHILS # (AUTO) 0.1 x10^3/uL (0.0-0.2); EOSINOPHILS % (AUTO) 1.2 % (0.9-2.9); HEMATOCRIT 29.8 % (36.0-47.0); LYMPHOCYTES # (AUTO) 0.8 X10^3/uL (1.3-2.9); LYMPHOCYTES % (AUTO) 12.9 % (21.0-51.0); MEAN CORPUSCULAR HEMOGLOBIN 33.7 pg (27.0-34.0); MEAN CORPUSCULAR HGB CONC 33.7 g/dL (33.0-35.0); MEAN PLATELET VOLUME 9.7 fL (7.4-11.0); MONOCYTES # (AUTO) 0.6 x10^3/uL (0.3-0.8); MONOCYTES % (AUTO) 9.4 % (0.0-13.0); NEUTROPHILS # (AUTO) 4.7 x10^3/uL (2.2-4.8); NEUTROPHILS % (AUTO) 75.8 % (42.0-75.0); PLATELET COUNT 159 X10^3/uL (150.0-450.0); RED BLOOD COUNT 2.98 X10^6/uL (3.5-5.4); RED CELL DISTRIBUTION WIDTH 15.8 % (11.6-16.5); WHITE BLOOD COUNT 6.2 X10^3/uL (3.6-10.0)
[2023-10-29 06:34] LABS: ALANINE AMINOTRANSFERASE 57 Units/L (12-78); ALBUMIN 1.7 g/dL (3.4-5.0); ALKALINE PHOSPHATASE 66 Units/L (46-116); ASPARTATE AMINO TRANSFERASE 90 Units/L (15-37); BLOOD UREA NITROGEN 23 mg/dL (7-18); CALCIUM 7.7 mg/dL (8.5-10.1); CARBON DIOXIDE 29.8 mmol/L (21-32); CHLORIDE 103 mmol/L (98-107); COR CA(FOR HYPOALB) 9.5 mg/dL (8.5-10.1); CREATININE 1.37 mg/dL (0.55-1.02); GLUCOSE 79 mg/dL (65-99); MAGNESIUM 1.9 mg/dL (2.0-2.9); SODIUM 137 mmol/L (136-145); TOTAL PROTEIN 4.4 g/dL (6.4-8.2); eGFR NON BLACK RACES 39 (>60)
[2023-10-29] MEDS: ALDACTONE TAB 25 MG PO SCH (08:13)
[2023-10-29] MEDS: HEMOCYTE-PLUS PO SCH (08:15)
[2023-10-29] MEDS: PROTONIX TAB 40 MG PO SCH (08:16)
[2023-10-29] MEDS: MICRO K EXTEN CAP 10 MEQ PO SCH ×2 (08:16→20:25)
[2023-10-29] MEDS: PEPCID TAB 20 MG PO SCH ×2 (08:16→20:25)
[2023-10-29] MEDS: PERIACTIN TAB 4 MG PO PRN ×2 (08:30→12:16)
[2023-10-29] MEDS: PROVENTIL NEB TX 0.083% 2.5MG/ 3ML NEB PRN (09:23)
[2023-10-29] MEDS: NORCO 7.5/325 MG TAB PO PRN ×2 (12:16→23:59)
[2023-10-29] MEDS ORDERED: BUTT CREAM (COMPOUND) TOP PRN (13:44)
[2023-10-29] MEDS: ELIQUIS PO SCH ×2 (17:46→20:17)
[2023-10-29] MEDS: PLAVIX PO SCH (17:46)
--- NOTE | 2023-10-29 18:39 | PCM.PROG ---
Progress Note - Progress Note for Day of Date of Exam: 10/28/23 - Subjective Subjective: IS A 88 YEAR OLD PATIENT OF . SHE IS CURRENTLY INPATIENT STATUS FOR TX OF TENSE ASCIETES, HYPOTENSION, HYPOALBUMINEMIA, AND NAUSEA. SHE HAS A PMH OF LEFT SIDED BREAST CANCER, DM II, CVA, HTN. SHE UNDERWENT PARACENTESIS TWO DAYS AGO. THEY REMOVED OVER A LITER OF FLUID AND T HEN SHE BECAME HYPOTENSIVE. SHE REMAINS HYPOTENSIVE THIS MORNING. SHE REPORTS FEELING SLIGHTLY BETTER THAN SHE DID YESTERDAY, BUT CONTINUES WITH SOME WEAKNESS. ON EXAMINATION, HEART IS REGULAR IN RATE AND RHYTHM. BILATERAL LUNGS ARE NOTED WITH DIMINISHED LUNG SOUNDS THROUGHOUT. ABDOMEN IS ROUND, SOFT, AND NON-TENDER WITH NORMAL BOWEL SOUNDS NOTED IN ALL QUADRANTS. GOOD RANGE OF MOTION NOTED TO UPPER AND LOWER EXTREMITIES WITH NO EDEMA NOTED. HER VITALS THIS MORNING ARE: 97.0-60-18-96%-95/50. LABS WERE OBTAINED. WBC 5.5, RBC 2.93, HGB 9.8, HCT 29.3, PLT COUNT 154, SODIUM 134, POTASSIUM 4.9, CHLORIDE 102, CARBON DIOXIDE 29.8, BUN 25, CREATININE 1.56, GLUCOSE 78, CALCIUM 7.5, MAGNESIUM 1.9, TOTAL BILI 0.80, AST 106, ALT 64, ALK PHOS 65, TOTAL PROTEIN 4.6, ALBUMIN 2.1. CYTOLOGY AND BLOOD CULTURES ARE PENDING. WE WILL CONTINUE WITH HER CURRENT PLAN OF CARE TODAY. WE WILL HOLD HER BLOOD PRESSURE MEDICATIONS. OTHERWISE, WE PLAN TO FOLLOW UP WITH AM LABS AND CONTINUE TO MONITOR. TIME SPENT ON CLINICAL ASSESSMENT, REVIEWING LABS AND IMAGING, DECISION MAKING, AND DOCUMENTATION GREATER THAN 45 MINUTES. - Past Medical Family Social History Allergies: Allergies zolpidem [From Ambien] Allergy (Verified 10/12/23 11:42) - Review of Systems ROS: Changes notes (describe) - Vital Signs and I&O's Vital Signs: Vital Signs Temperature 97.9 F Temperature 97.1 F Pulse Rate [Right] 61 Pulse Rate [Right] 60 Respiratory Rate 18 Respiratory Rate 18 Respiratory Rate 18 Respiratory Rate 20 Blood Pressure [Left Arm] 102/58 Blood Pressure [Left Arm] 107/53 O2 Sat by Pulse Oximetry 99 O2 Sat by Pulse Oximetry 98 Intake and Output: Intake & Output 10/27/23 10/28/23 10/29/2310/30/24 11:59 11:59 11:59 11:59 Intake Total 810 / 810 935 / 935 1112 / 1112 250 / 250 Output Total 6500 / 6500 Balance -5690 / -5690 935 / 935 1112 / 1112 250 / 250 - Physical Exam Oriented: Normal, Time, Person, Place Eyes: Normal Ear: Normal Nose: Normal Throat: Normal Respiratory: Normal Cardiovascular: Normal Auscultation: Bowel Sounds: Normal Palpation: Normal Tenderness: Normal Skin: Normal Musculoskeletal: Normal Psychiatric: Normal Mood Description: Calm Affect: Normal Speech Pattern: Clear, Appropriate - Laboratory and Diagnostics Result Diagrams: 10/29/23 05:27 10/29/23 05:27 Labs: 10/26/23 18:20 Paracentesis - Final 10/25/23 12:22 Blood Blood Culture - Preliminary 10/25/23 12:12 Blood Blood Culture - Preliminary Laboratory WBC 6.2 X10^3/uL (3.6-10.0) 10/29/23 05:27 RBC 2.98 X10^6/uL (3.5-5.4) L 10/29/23 05:27 Hgb 10.0 g/dL (12.0-16.0) L 10/29/23 05:27 Hct 29.8 % (36.0-47.0) L 10/29/23 05:27 MCV 100.0 fL (80.0-100.0) 10/29/23 05:27 MCH 33.7 pg (27.0-34.0) 10/29/23 05:27 MCHC 33.7 g/dL (33.0-35.0) 10/29/23 05:27 RDW 15.8 % (11.6-16.5) 10/29/23 05:27 Plt Count 159 X10^3/uL (150.0-450.0) 10/29/23 05:27 MPV 9.7 fL (7.4-11.0) 10/29/23 05:27 Neut % (Auto) 75.8 % (42.0-75.0) H 10/29/23 05:27 Lymph % (Auto) 12.9 % (21.0-51.0) L 10/29/23 05:27 [place] % (Auto) 9.4 % (0.0-13.0) 10/29/23 05:27 Eos % (Auto) 1.2 % (0.9-2.9) 10/29/23 05:27 Baso % (Auto) 0.7 % (0.2-1.0) 10/29/23 05:27 Neut # (Auto) 4.7 x10^3/uL (2.2-4.8) 10/29/23 05:27 Lymph # (Auto) 0.8 X10^3/uL (1.3-2.9) L 10/29/23 05:27 [place] # (Auto) 0.6 x10^3/uL (0.3-0.8) 10/29/23 05:27 Eos # (Auto) 0.1 x10^3/uL (0.0-0.2) 10/29/23 05:27 Baso # (Auto) 0.0 X10^3/uL (0.0-0.1) 10/29/23 05:27 Absolute Nucleated RBC 0.1 /100WBC 10/29/23 05:27 PT 23.8 SECONDS (11.8-14.3) 10/26/23 05:55 INR Target Range - 10/26/23 05:55 INR 2.17 (0.8-1.3) H 10/26/23 05:55 APTT 41.0 SECONDS (22.9-36.5) H 10/26/23 05:55 PTT Comment - 10/26/23 05:55 Sodium 137 mmol/L (136-145) 10/29/23 05:27 Corrected Sodium TNP 10/29/23 05:27 Potassium 5.0 mmol/L (3.5-5.1) 10/29/23 05:27 Chloride 103 mmol/L (98-107) 10/29/23 05:27 Carbon Dioxide 29.8 mmol/L (21-32) 10/29/23 05:27 BUN 23 mg/dL (7-18) H 10/29/23 05:27 Creatinine 1.37 mg/dL (0.55-1.02) H 10/29/23 05:27 Est GFR (MDRD) Af Amer 47 (>60) L 10/29/23 05:27 Est GFR (MDRD) Non-Af 39 (>60) L 10/29/23 05:27 Glucose 79 mg/dL (65-99) 10/29/23 05:27 Lactic Acid 1.3 mmol/L (0.4-2.0) 10/25/23 12:22 Calcium 7.7 mg/dL (8.5-10.1) L 10/29/23 05:27 Corrected Calcium 9.5 mg/dL (8.5-10.1) 10/29/23 05:27 Magnesium 1.9 mg/dL (2.0-2.9) L 10/29/23 05:27 Total Bilirubin 0.50 mg/dL (0.2-1.0) 10/29/23 05:27 AST 90 Units/L (15-37) H 10/29/23 05:27 ALT 57 Units/L (12-78) 10/29/23 05:27 Alkaline Phosphatase 66 Units/L (46-116) 10/29/23 05:27 Troponin I High Sens 43.6 ng/L (4.0-60.0) 10/25/23 12:12 B-Natriuretic Peptide 554 pg/mL (0-79) H 10/27/23 05:35 Total Protein 4.4 g/dL (6.4-8.2) L 10/29/23 05:27 Albumin 1.7 g/dL (3.4-5.0) L 10/29/23 05:27 Globulin 2.7 g/dL (2.5-4.5) 10/29/23 05:27 Albumin/Globulin Ratio 0.6 Ratio (1.1-2.1) L 10/29/23 05:27 - Plan (1) Tense ascites Status: Acute Plan: Patient is postop day 2 for paracentesis. Her abdominal distention is much improved since yesterday. (2) Hypoalbuminemia Status: Acute (3) Hypotension Status: Acute Qualifiers: Hypotension type: unspecified hypotension type Qualified Code(s): I95.9 - Hypotension, unspecified Plan: Hold blood pressure medication at this time. (4) Nausea Status: Acute Plan: Ondansetron. (5) Diabetes Status: Chronic Qualifiers: Diabetes mellitus type: type 2 Diabetes mellitus detention insulin use: with detention use Diabetes mellitus complication status: with hyperglycemia Qualified Code(s): E11.65 - Type 2 diabetes mellitus with hyperglycemia; Z79.4 - [employer] (current) use of insulin Plan: I will review the patient's sugars to see if she needs to be covered with a slight scale regular insulin per protocol. (6) CAD (coronary artery disease) Status: Chronic Qualifiers: Coronary Disease-Associated Artery/Lesion type: unspecified vessel or lesion type [place] vs. transplanted heart: unspecified whether [place] or transplanted heart Associated angina: unspecified whether angina present Qualified Code(s): I25.10 - Atherosclerotic heart disease of [place] coronary artery withou t angina pectoris (7) Breast cancer Status: Chronic Qualifiers: Breast location: unspecified site of breast Estrogen receptor status: unspecified Patient sex: female Laterality: left Qualified Code(s): C50.912 - Malignant neoplasm of unspecified site of left female breast Plan: Patient tells me she has a history of breast cancer status postmastectomy.
[2023-10-29] MEDS: CORDARONE TAB 200 MG PO SCH (20:24)
[2023-10-29] MEDS: LIPITOR TAB 80 MG PO SCH (20:25)
--- NOTE | 2023-10-29 22:47 | PCM.PROG ---
Progress Note - Progress Note for Day of Date of Exam: 10/29/23 - Subjective Subjective: IS A 88 YEAR OLD PATIENT OF . SHE IS CURRENTLY INPATIENT STATUS FOR TX OF TENSE ASCIETES, HYPOTENSION, HYPOALBUMINEMIA, AND NAUSEA. SHE HAS A PMH OF LEFT SIDED BREAST CANCER, DM II, CVA, HTN. SHE UNDERWENT PARACENTESIS TWO DAYS AGO. THEY REMOVED OVER A LITER OF FLUID AND T HEN SHE BECAME HYPOTENSIVE. SHE REMAINS HYPOTENSIVE THIS MORNING. SHE REPORTS FEELING SLIGHTLY BETTER THAN SHE DID YESTERDAY, BUT CONTINUES WITH SOME WEAKNESS. ON EXAMINATION, HEART IS REGULAR IN RATE AND RHYTHM. BILATERAL LUNGS ARE NOTED WITH DIMINISHED LUNG SOUNDS THROUGHOUT. ABDOMEN IS ROUND, SOFT, AND NON-TENDER WITH NORMAL BOWEL SOUNDS NOTED IN ALL QUADRANTS. GOOD RANGE OF MOTION NOTED TO UPPER AND LOWER EXTREMITIES WITH NO EDEMA NOTED. HER VITALS THIS MORNING ARE: 97.6-58-18-97%-108/53. LABS WERE OBTAINED. WBC 6.2, RBC 2.98, HGB 10.0, HCT 29.8, PLT COUNT 159, SODIUM 137, POTASSIUM 5.0, CHLORIDE 103, BUN 23, CREATININE 1.37, GLUCOSE 79, CALCIUM 7.7, MAGNESIUM 1.9, AST 90, ALT 57, ALK PH OS 66, TOTAL PROTEIN 4.4, ALBUMIN 1.7. CYTOLOGY AND BLOOD CULTURES ARE PENDING. WE WILL CONTINUE WITH HER CURRENT PLAN OF CARE TODAY. WE WILL HOLD HER BLOOD PRESSURE MEDICATIONS. OTHERWISE, WE PLAN TO FOLLOW UP WITH AM LABS AND CONTINUE TO MONITOR. TIME SPENT ON CLINICAL ASSESSMENT, REVIEWING LABS AND IMAGING, DECISION MAKING, AND DOCUMENTATION GREATER THAN 45 MINUTES. - Past Medical Family Social History Allergies: Allergies zolpidem [From Ambien] Allergy (Verified 10/12/23 11:42) - Review of Systems ROS: Changes notes (describe) - Vital Signs and I&O's Vital Signs: Vital Signs Temperature 98.2 F Temperature 97.9 F Pulse Rate [Right] 60 Pulse Rate [Right] 61 Respiratory Rate 20 Respiratory Rate 18 Blood Pressure [Left Arm] 99/52 Blood Pressure [Left Arm] 102/58 O2 Sat by Pulse Oximetry 99 O2 Sat by Pulse Oximetry 99 Intake and Output: Intake & Output 10/27/23 10/28/23 10/29/23 10/30/23 11:59 11:59 11:59 11:59 Intake Total 810 / 810 935 / 935 1112 / 1112 250 / 250 Output Total 6500 / 6500 Balance -5690 / -5690 935 / 935 1112 / 1112 250 / 250 - Physical Exam Oriented: Normal, Time, Person, Place Eyes: Normal Ear: Normal Nose: Normal Throat: Normal Respiratory: Normal Cardiovascular: Normal Auscultation: Bowel Sounds: Normal Tenderness: Normal Skin: Normal Musculoskeletal: Normal Psychiatric: Normal Mood Description: Calm Affect: Normal Speech Pattern: Clear, Appropriate - Laboratory and Diagnostics Result Diagrams: 10/29/23 05:27 10/29/23 05:27 Labs: 10/26/23 18:20 Paracentesis - Final 10/25/23 12:22 Blood Blood Culture - Preliminary 10/25/23 12:12 Blood Blood Culture - Preliminary Laboratory WBC 6.2 X10^3/uL (3.6-10.0) 10/29/23 05:27 RBC 2.98 X10^6/uL (3.5-5.4) L 10/29/23 05:27 Hgb 10.0 g/dL (12.0-16.0) L 10/29/23 05:27 Hct 29.8 % (36.0-47.0) L 10/29/23 05:27 MCV 100.0 fL (80.0-100.0) 10/29/23 05:27 MCH 33.7 pg (27.0-34.0) 10/29/23 05:27 MCHC 33.7 g/dL (33.0-35.0) 10/29/23 05:27 RDW 15.8 % (11.6-16.5) 10/29/23 05:27 Plt Count 159 X10^3/uL (150.0-450.0) 10/29/23 05:27 MPV 9.7 fL (7.4-11.0) 10/29/23 05:27 Neut % (Auto) 75.8 % (42.0-75.0) H 10/29/23 05:27 Lymph % (Auto) 12.9 % (21.0-51.0) L 10/29/23 05:27 [place] % (Auto) 9.4 % (0.0-13.0) 10/29/23 05:27 Eos % (Auto) 1.2 % (0.9-2.9) 10/29/23 05:27 Baso % (Auto) 0.7 % (0.2-1.0) 10/29/23 05:27 Neut # (Auto) 4.7 x10^3/uL (2.2-4.8) 10/29/23 05:27 Lymph # (Auto) 0.8 X10^3/uL (1.3-2.9) L 10/29/23 05:27 [place] # (Auto) 0.6 x10^3/uL (0.3-0.8) 10/29/23 05:27 Eos # (Auto) 0.1 x10^3/uL (0.0-0.2) 10/29/23 05:27 Baso # (Auto) 0.0 X10^3/uL (0.0-0.1) 10/29/23 05:27 Absolute Nucleated RBC 0.1 /100WBC 10/29/23 05:27 PT 23.8 SECONDS (11.8-14.3) 10/26/23 05:55 INR Target Range - 10/26/23 05:55 INR 2.17 (0.8-1.3) H 10/26/23 05:55 APTT 41.0 SECONDS (22.9-36.5) H 10/26/23 05:55 PTT Comment - 10/26/23 05:55 Sodium 137 mmol/L (136-145) 10/29/23 05:27 Corrected Sodium TNP 10/29/23 05:27 Potassium 5.0 mmol/L (3.5-5.1) 10/29/23 05:27 Chloride 103 mmol/L (98-107) 10/29/23 05:27 Carbon Dioxide 29.8 mmol/L (21-32) 10/29/23 05:27 BUN 23 mg/dL (7-18) H 10/29/23 05:27 Creatinine 1.37 mg/dL (0.55-1.02) H 10/29/23 05:27 Est GFR (MDRD) Af Amer 47 (>60) L 10/29/23 05:27 Est GFR (MDRD) Non-Af 39 (>60) L 10/29/23 05:27 Glucose 79 mg/dL (65-99) 10/29/23 05:27 Lactic Acid 1.3 mmol/L (0.4-2.0) 10/25/23 12:22 Calcium 7.7 mg/dL (8.5-10.1) L 10/29/23 05:27 Corrected Calcium 9.5 mg/dL (8.5-10.1) 10/29/23 05:27 Magnesium 1.9 mg/dL (2.0-2.9) L 10/29/23 05:27 Total Bilirubin 0.50 mg/dL (0.2-1.0) 10/29/23 05:27 AST 90 Units/L (15-37) H 10/29/23 05:27 ALT 57 Units/L (12-78) 10/29/23 05:27 Alkaline Phosphatase 66 Units/L (46-116) 10/29/23 05:27 Troponin I High Sens 43.6 ng/L (4.0-60.0) 10/25/23 12:12 B-Natriuretic Peptide 554 pg/mL (0-79) H 10/27/23 05:35 Total Protein 4.4 g/dL (6.4-8.2) L 10/29/23 05:27 Albumin 1.7 g/dL (3.4-5.0) L 10/29/23 05:27 Globulin 2.7 g/dL (2.5-4.5) 10/29/23 05:27 Albumin/Globulin Ratio 0.6 Ratio (1.1-2.1) L 10/29/23 05:27 - Plan (1) Tense ascites Status: Acute Plan: Patient is postop day 2 for paracentesis. Her abdominal distention is much improved since yesterday. (2) Hypoalbuminemia Status: Acute Plan: 25% albumin 100 mL IV x 2 today. Repeat CMP in the a.m. to see what her albumin is. (3) Hypotension Status: Acute Qualifiers: Hypotension type: unspecified hypotension type Qualified Code(s): I95.9 - Hypotension, unspecified Plan: Hold blood pressure medication at this time. (4) Nausea Status: Acute Plan: Ondansetron. (5) Diabetes Status: Chronic Qualifiers: Diabetes mellitus type: type 2 Diabetes mellitus usp insulin use: with usp use Diabetes mellitus complication status: with hyperglycemia Qualified Code(s): E11.65 - Type 2 diabetes mellitus with hyperglycemia; Z79.4 - MCFP (current) use of insulin Plan: I will review the patient's sugars to see if she needs to be covered with a slight scale regular insulin per protocol. (6) CAD (coronary artery disease) Status: Chronic Qualifiers: Coronary Disease-Associated Artery/Lesion type: unspecified vessel or lesion type [place] vs. transplanted heart: unspecified whether [place] or transplanted heart Associated angina: unspecified whether angina present Qualified Code(s): I25.10 - Atherosclerotic heart disease of [place] coronary artery w ithout angina pectoris (7) Breast cancer Status: Chronic Qualifiers: Breast location: unspecified site of breast Estrogen receptor status: unspecified Patient sex: female Laterality: left Qualified Code(s): C50.912 - Malignant neoplasm of unspecified site of left female breast Plan: Patient tells me she has a history of breast cancer status postmastectomy.
[2023-10-30] MEDS: NS 500 ML IV 500 ML IV SCH ×4 (00:18→18:10)
[2023-10-30 06:51] LABS: BASOPHILS # (AUTO) 0.1 X10^3/uL (0.0-0.1); BASOPHILS % (AUTO) 1.2 % (0.2-1.0); EOSINOPHILS # (AUTO) 0.1 x10^3/uL (0.0-0.2); EOSINOPHILS % (AUTO) 1.7 % (0.9-2.9); HEMATOCRIT 32.7 % (36.0-47.0); LYMPHOCYTES # (AUTO) 0.8 X10^3/uL (1.3-2.9); LYMPHOCYTES % (AUTO) 15.7 % (21.0-51.0); MEAN CORPUSCULAR HEMOGLOBIN 33.6 pg (27.0-34.0); MEAN CORPUSCULAR HGB CONC 33.5 g/dL (33.0-35.0); MEAN CORPUSCULAR VOLUME 100.3 fL (80.0-100.0); MEAN PLATELET VOLUME 9.7 fL (7.4-11.0); MONOCYTES # (AUTO) 0.5 x10^3/uL (0.3-0.8); MONOCYTES % (AUTO) 8.9 % (0.0-13.0); NEUTROPHILS # (AUTO) 3.8 x10^3/uL (2.2-4.8); NEUTROPHILS % (AUTO) 72.5 % (42.0-75.0); PLATELET COUNT 181 X10^3/uL (150.0-450.0); RED BLOOD COUNT 3.26 X10^6/uL (3.5-5.4); RED CELL DISTRIBUTION WIDTH 15.4 % (11.6-16.5); WHITE BLOOD COUNT 5.2 X10^3/uL (3.6-10.0)
[2023-10-30 07:23] LABS: ALANINE AMINOTRANSFERASE 58 Units/L (12-78); ALBUMIN 1.8 g/dL (3.4-5.0); ALKALINE PHOSPHATASE 69 Units/L (46-116); ASPARTATE AMINO TRANSFERASE 87 Units/L (15-37); BLOOD UREA NITROGEN 23 mg/dL (7-18); CALCIUM 7.7 mg/dL (8.5-10.1); CARBON DIOXIDE 30.6 mmol/L (21-32); CHLORIDE 104 mmol/L (98-107); COR CA(FOR HYPOALB) 9.5 mg/dL (8.5-10.1); CREATININE 1.35 mg/dL (0.55-1.02); GLUCOSE 74 mg/dL (65-99); MAGNESIUM 1.9 mg/dL (2.0-2.9); POTASSIUM 4.8 mmol/L (3.5-5.1); SODIUM 137 mmol/L (136-145); TOTAL PROTEIN 4.7 g/dL (6.4-8.2); eGFR NON BLACK RACES 40 (>60)
[2023-10-30] MEDS: PLAVIX PO SCH (08:23)
[2023-10-30] MEDS: PEPCID TAB 20 MG PO SCH (08:23)
[2023-10-30] MEDS: PROTONIX TAB 40 MG PO SCH (08:24)
[2023-10-30] MEDS: ELIQUIS PO SCH ×2 (08:24→20:53)
[2023-10-30] MEDS: MICRO K EXTEN CAP 10 MEQ PO SCH ×2 (08:25→20:53)
[2023-10-30] MEDS: HEMOCYTE-PLUS PO SCH (08:25)
[2023-10-30] MEDS: ALDACTONE TAB 25 MG PO SCH (08:29)
[2023-10-30] MEDS: NORCO 7.5/325 MG TAB PO PRN (10:05)
[2023-10-30] MEDS: ZOFRAN TAB 4 MG PO PRN (11:28)
[2023-10-30] MEDS: PERIACTIN TAB 4 MG PO SCH ×2 (14:07→21:00)
[2023-10-30] MEDS: LIPITOR TAB 80 MG PO SCH (20:53)
[2023-10-30] MEDS: CORDARONE TAB 200 MG PO SCH (20:54)
--- NOTE | 2023-10-30 21:06 | PCM.PROG ---
Progress Note Progress Note for Day of Date of Exam: 10/30/23 Subjective Subjective: The patient is reporting that she feels better. We went ahead and started to discharge her home; however, when we did that, she started becoming nauseated and feeling sick to her stomach. She was also complaining of some abdominal pain, so because of this, we decided we would keep her 1 more day and see how she was doing the following morning. If she feels better tomorrow morning, we will discharge her home. Past Medical Family Social History Allergies: Allergies zolpidem [From Ambien] Allergy (Verified 10/12/23 11:42) Review of Systems ROS: Changes notes (describe) Vital Signs and I&O's Vital Signs: Vital Signs Temperature 98.0 F Temperature 98.1 F Pulse Rate [Right] 61 Pulse Rate [Right] 61 Pulse Rate 66 Respiratory Rate 20 Respiratory Rate 19 Blood Pressure [Left Arm] 101/62 Blood Pressure [Left Arm] 101/60 O2 Sat by Pulse Oximetry 96 O2 Sat by Pulse Oximetry 96 O2 Sat by Pulse Oximetry 95 Intake and Output: Intake & Output 10/28/23 10/29/23 10/30/23 10/31/23 11:59 11:59 11:59 11:59 Intake Total 935 / 935 1112 / 1112 490 / 490 120 / 120 Balance 935 / 935 1112 / 1112 490 / 490 120 / 120 Physical Exam Oriented: Normal, Time, Person and Place Eyes: Normal Ear: Normal Nose: Normal Throat: Normal Respiratory: Normal Cardiovascular: Normal Auscultation: Bowel Sounds: Normal Tenderness: Normal Skin: Normal Musculoskeletal: Normal Psychiatric: Normal Mood Description: Calm Affect: Normal Speech Pattern: Clear and Appropriate Laboratory and Diagnostics 10/30/23 05:26 10/30/23 05:26 Labs: 10/26/23 18:20 Paracentesis - Final 10/25/23 12:22 Blood Blood Culture - Preliminary 10/25/23 12:12 Blood Blood Culture - Preliminary Laboratory WBC 5.2 X10^3/uL (3.6-10.0) 10/30/23 05:26 RBC 3.26 X10^6/uL (3.5-5.4) L 10/30/23 05:26 Hgb 11.0 g/dL (12.0-16.0) L 10/30/23 05:26 Hct 32.7 % (36.0-47.0) L 10/30/23 05:26 MCV 100.3 fL (80.0-100.0) H 10/30/23 05:26 MCH 33.6 pg (27.0-34.0) 10/30/23 05:26 MCHC 33.5 g/dL (33.0-35.0) 10/30/23 05:26 RDW 15.4 % (11.6-16.5) 10/30/23 05:26 Plt Count 181 X10^3/uL (150.0-450.0) 10/30/23 05:26 MPV 9.7 fL (7.4-11.0) 10/30/23 05:26 Neut % (Auto) 72.5 % (42.0-75.0) 10/30/23 05:26 Lymph % (Auto) 15.7 % (21.0-51.0) L 10/30/23 05:26 [place] % (Auto) 8.9 % (0.0-13.0) 10/30/23 05:26 Eos % (Auto) 1.7 % (0.9-2.9) 10/30/23 05:26 Baso % (Auto) 1.2 % (0.2-1.0) H 10/30/23 05:26 Neut # (Auto) 3.8 x10^3/uL (2.2-4.8) 10/30/23 05:26 Lymph # (Auto) 0.8 X10^3/uL (1.3-2.9) L 10/30/23 05:26 [place] # (Auto) 0.5 x10^3/uL (0.3-0.8) 10/30/23 05:26 Eos # (Auto) 0.1 x10^3/uL (0.0-0.2) 10/30/23 05:26 Baso # (Auto) 0.1 X10^3/uL (0.0-0.1) 10/30/23 05:26 Absolute Nucleated RBC 0.0 /100WBC 10/30/23 05:26 PT 23.8 SECONDS (11.8-14.3) 10/26/23 05:55 INR Target Range - 10/26/23 05:55 INR 2.17 (0.8-1.3) H 10/26/23 05:55 APTT 41.0 SECONDS (22.9-36.5) H 10/26/23 05:55 PTT Comment - 10/26/23 05:55 Sodium 137 mmol/L (136-145) 10/30/23 05:26 Corrected Sodium TNP 10/30/23 05:26 Potassium 4.8 mmol/L (3.5-5.1) 10/30/23 05:26 Chloride 104 mmol/L (98-107) 10/30/23 05:26 Carbon Dioxide 30.6 mmol/L (21-32) 10/30/23 05:26 BUN 23 mg/dL (7-18) H 10/30/23 05:26 Creatinine 1.35 mg/dL (0.55-1.02) H 10/30/23 05:26 Est GFR (MDRD) Af Amer 48 (>60) L 10/30/23 05:26 Est GFR (MDRD) Non-Af 40 (>60) L 10/30/23 05:26 Glucose 74 mg/dL (65-99) 10/30/23 05:26 Lactic Acid 1.3 mmol/L (0.4-2.0) 10/25/23 12:22 Calcium 7.7 mg/dL (8.5-10.1) L 10/30/23 05:26 Corrected Calcium 9.5 mg/dL (8.5-10.1) 10/30/23 05:26 Magnesium 1.9 mg/dL (2.0-2.9) L 10/30/23 05:26 Total Bilirubin 0.50 mg/dL (0.2-1.0) 10/30/23 05:26 AST 87 Units/L (15-37) H 10/30/23 05:26 ALT 58 Units/L (12-78) 10/30/23 05:26 Alkaline Phosphatase 69 Units/L (46-116) 10/30/23 05:26 Troponin I High Sens 43.6 ng/L (4.0-60.0) 10/25/23 12:12 B-Natriuretic Peptide 554 pg/mL (0-79) H 10/27/23 05:35 Total Protein 4.7 g/dL (6.4-8.2) L 10/30/23 05:26 Albumin 1.8 g/dL (3.4-5.0) L 10/30/23 05:26 Globulin 2.9 g/dL (2.5-4.5) 10/30/23 05:26 Albumin/Globulin Ratio 0.6 Ratio (1.1-2.1) L 10/30/23 05:26 Cytology See comment. 10/26/23 18:20 Plan (1) Tense ascites: Status: Acute Plan: Improved since paracentesis at the end of last week. (2) Hypoalbuminemia: Status: Acute Plan: The patient is status post-infusion of 2 packets of 25% albumin the day of her paracentesis last week. (3) Hypotension: Status: Resolved Qualifiers: Hypotension type: unspecified hypotension type Qualified Code(s): I95.9 - Hypotension, unspecified (4) Nausea: Status: Acute Plan: Ondansetron. (5) Diabetes: Status: Chronic Qualifiers: Diabetes mellitus type: type 2 Diabetes mellitus complication status: with hyperglycemia Diabetes mellitus skilled nursing insulin use: with skilled nursing use Qualified Code(s): E11.65 - Type 2 diabetes mellitus with hyperglycemia; Z79.4 - half-way (current) use of insulin Plan: I will review the patient's sugars to see if she needs to be covered with a slight scale regular insulin per protocol. (6) CAD (coronary artery disease): Status: Chronic Qualifiers: Coronary Disease-Associated Artery/Lesion type: unspecified vessel or lesion type [place] vs. transplanted heart: unspecified whether [place] or trans planted heart Associated angina: unspecified whether angina present Qualified Code(s): I25.10 - Atherosclerotic heart disease of [place] coronary artery without angina pectoris (7) Breast cancer: Status: Chronic Qualifiers: Breast location: unspecified site of breast Laterality: left Estrogen receptor status: unspecified Patient sex: female Qualified Code(s): C50.912 - Malignant neoplasm of unspecified site of left female breast Plan: Patient tells me she has a history of breast cancer status postmastectomy.
[2023-10-31 00:08] VITALS: RESP 18
[2023-10-31] MEDS: PERIACTIN TAB 4 MG PO SCH ×2 (05:55→14:39)
[2023-10-31] MEDS: NS 500 ML IV 500 ML IV SCH ×2 (06:00→14:32)
[2023-10-31 06:35] LABS: BASOPHILS # (AUTO) 0.1 X10^3/uL (0.0-0.1); EOSINOPHILS # (AUTO) 0.1 x10^3/uL (0.0-0.2); EOSINOPHILS % (AUTO) 1.4 % (0.9-2.9); HEMATOCRIT 32.3 % (36.0-47.0); HEMOGLOBIN 10.8 g/dL (12.0-16.0); LYMPHOCYTES # (AUTO) 0.9 X10^3/uL (1.3-2.9); LYMPHOCYTES % (AUTO) 15.3 % (21.0-51.0); MEAN CORPUSCULAR HEMOGLOBIN 33.5 pg (27.0-34.0); MEAN CORPUSCULAR HGB CONC 33.4 g/dL (33.0-35.0); MEAN CORPUSCULAR VOLUME 100.2 fL (80.0-100.0); MEAN PLATELET VOLUME 9.6 fL (7.4-11.0); MONOCYTES # (AUTO) 0.4 x10^3/uL (0.3-0.8); MONOCYTES % (AUTO) 7.2 % (0.0-13.0); NEUTROPHILS # (AUTO) 4.3 x10^3/uL (2.2-4.8); NEUTROPHILS % (AUTO) 75.1 % (42.0-75.0); PLATELET COUNT 177 X10^3/uL (150.0-450.0); RED BLOOD COUNT 3.23 X10^6/uL (3.5-5.4); RED CELL DISTRIBUTION WIDTH 15.6 % (11.6-16.5); WHITE BLOOD COUNT 5.7 X10^3/uL (3.6-10.0)
[2023-10-31 06:42] LABS: ALANINE AMINOTRANSFERASE 54 Units/L (12-78); ALBUMIN 1.7 g/dL (3.4-5.0); ALKALINE PHOSPHATASE 65 Units/L (46-116); ASPARTATE AMINO TRANSFERASE 79 Units/L (15-37); BLOOD UREA NITROGEN 23 mg/dL (7-18); CALCIUM 7.7 mg/dL (8.5-10.1); CARBON DIOXIDE 29.3 mmol/L (21-32); CHLORIDE 105 mmol/L (98-107); COR CA(FOR HYPOALB) 9.5 mg/dL (8.5-10.1); CREATININE 1.32 mg/dL (0.55-1.02); GLUCOSE 71 mg/dL (65-99); POTASSIUM 5.6 mmol/L (3.5-5.1); SODIUM 137 mmol/L (136-145); TOTAL PROTEIN 4.6 g/dL (6.4-8.2); eGFR NON BLACK RACES 41 (>60)
[2023-10-31] MEDS ORDERED: PEPCID TAB 20 MG PO SCH (09:00)
[2023-10-31] MEDS ORDERED: TOBREX DROPS LEFTEYE SCH (09:00)
[2023-10-31] MEDS: PLAVIX PO SCH (09:11)
[2023-10-31] MEDS: ELIQUIS PO SCH (09:12)
[2023-10-31] MEDS: PROTONIX TAB 40 MG PO SCH (09:12)
[2023-10-31] MEDS: ALDACTONE TAB 25 MG PO SCH (09:12)
[2023-10-31 09:43] VITALS: BP 109/53; PULSE 61; TEMP 97.6; O2SAT 96
[2023-10-31] MEDS: MICRO K EXTEN CAP 10 MEQ PO SCH (09:45)
[2023-10-31] MEDS: HEMOCYTE-PLUS PO SCH (09:57)
[2023-10-31] MEDS ORDERED: ZOFRAN ODT PO ONE (11:41)
[2023-10-31] MEDS: ZOFRAN TAB 4 MG PO PRN (11:45)
== END 2023-10-31 16:45 | disposition hospice, home (50) | DRG 948 ==
LOC: ER 11:29 → OBS 11:29 → OBSVTOIN 18:01 → OBS 20:02 → MED/SURG 10-26 15:14
PROVIDERS: ADMIT Family Medicine; ATTEND Family Medicine

== ENCOUNTER 2024-01-02 11:14 | Observation (INO) ==
--- NOTE | 2024-01-02 11:26 | DR.SOBA ---
HPI Time Seen Time Seen by Provider: 01/02/24 11:25 Complaints Chief Complaint Doctors Comments: 88-year-old female brought in via EMS for evaluation. Patient has a history of chronic ascites, feels it is been accumulating again. Last drainage was [address] Govea. Having increasing swelling and discomfort of the abdomen in general. Feels short of breath, having difficulty in breathing. Has an occasional cough. Denies fevers or chills. Having generalized weakness. Denies nausea, vomiting. Denies bowel or bladder issues. Reviewed Nurses Notes Reviewed: Yes Source History Provided: Patient, Parent and EMS PMH PMH Past Medical History: CHF, CVA and Hypertension Past Surgical History: Yes Surgical History: Abdominal Surgery, CABG/Valve Surgery, Cholecystectomy, Hysterectomy and Mastectomy Family History Family Medical History: Diabetes Mellitus, Heart Failure and Hypertension Social History Does patient currently use any type of tobacco product: No Alcohol Use: None Do you use any recreational Drugs:: No ROS Review of Systems Constitutional: Weakness Eyes: No Symptoms Reported ENTM: No Symptoms Reported Respiratoy: Short of Breath Cardiovascular: No Symptoms Reported Gastrointestinal/Abdominal: See HPI Genitourinary: No Symptoms Reported Neurological: Weakness Musculoskeletal: No Symptoms Reported Integumentary: No Symptoms Reported Hematologic/Lymphatic: No Symptoms Reported All Other Systems: Reviewed and Negative PE Vital Signs Vitals: Vital Signs Temperature 98.1 F Pulse Rate 64 Pulse Rate 63 Pulse Rate 62 Pulse Rate 63 Pulse Rate 63 Pulse Rate 63 Pulse Rate 63 Pulse Rate 64 Pulse Rate 63 Pulse Rate 63 Pulse Rate 62 Pulse Rate 61 Pulse Rate 64 Pulse Rate 63 Pulse Rate 62 Pulse Rate 61 Pulse Rate 63 Pulse Rate 67 Respiratory Rate 17 Respiratory Rate 16 Respiratory Rate 16 Respiratory Rate 15 Respiratory Rate 13 Respiratory Rate 22 Respiratory Rate 17 Respiratory Rate 19 Respiratory Rate 27 Respiratory Rate 29 Respiratory Rate 21 Respiratory Rate 20 Respiratory Rate 21 Respiratory Rate 18 Respiratory Rate 25 Respiratory Rate 17 Respiratory Rate 17 Respiratory Rate 24 Blood Pressure 123/60 Blood Pressure 121/57 Blood Pressure 122/58 Blood Pressure 122/58 Blood Pressure 124/61 Blood Pressure 120/60 Blood Pressure 140/67 Blood Pressure 141/75 Blood Pressure 119/65 Blood Pressure 119/65 Blood Pressure 111/56 Blood Pressure 111/56 Blood Pressure 111/56 Blood Pressure 124/59 Blood Pressure 123/62 Blood Pressure 122/60 Blood Pressure 134/64 O2 Sat by Pulse Oximetry 100 O2 Sat by Pulse Oximetry 100 O2 Sat by Pulse Oximetry 100 O2 Sat by Pulse Oximetry 100 O2 Sat by Pulse Oximetry 100 O2 Sat by Pulse Oximetry 100 O2 Sat by Pulse Oximetry 100 O2 Sat by Pulse Oximetry 100 O2 Sat by Pulse Oximetry 100 General General Appearance: Alert and In No Apparent Distress Eyes Eye exam: PERRL and EOMI ENT ENT Exam: Mucous Membranes Moist Neck Neck Exam: Normal Inspection Respiratory Respiratory Exam: Normal Lung Sounds Bilat; negative Accessory Muscle Use or Respiratory Distress Cardiovascular Cardiovascular Exam: Regular Rate, Normal Rhythm and Normal Heart Sounds Abdominal Exam Abdominal Exam: Normal Bowel Sounds, Soft and Tenderness (Mild, all quadrants) Extremities Extremities Exam: Normal Inspection Neurologic Neurological Exam: Alert, Oriented X3 and CN II-XII Intact; negative Motor Sensory Deficit Skin Skin Exam: Warm and Dry COURSE Treatment Treatment: 88-year-old female with gradual worsening of her ascites, presenting with shortness of breath. In no distress. Dyspnea probably related to her ascites. Workup initiated. EKG with left bundle branch block, no obvious acute ischemic changes. Called placed to surgery, Dr Gomes, about need for paracentesis. 1314 - Dr Gomes came and performed paracentesis, 2600 mls out. He request patient be admitted to medicine. Patient's primary physician Dr. Maradiaga, will call Dr. Palacio, who is accepting his admissions. [facility] Labs Reviewed Laboratory Results Reviewed?: Yes 01/02/24 11:23 01/02/24 11:23 Laboratory: WBC 4.1 X10^3/uL (3.6-10.0) 01/02/24 11:23 RBC 3.58 X10^6/uL (3.5-5.4) 01/02/24 11:23 Hgb 11.8 g/dL (12.0-16.0) L 01/02/24 11:23 Hct 35.9 % (36.0-47.0) L 01/02/24 11:23 MCV 100.4 fL (80.0-100.0) H 01/02/24 11:23 MCH 32.9 pg (27.0-34.0) 01/02/24 11:23 MCHC 32.8 g/dL (33.0-35.0) L 01/02/24 11:23 RDW 15.0 % (11.6-16.5) 01/02/24 11:23 Plt Count 228 X10^3/uL (150.0-450.0) 01/02/24 11:23 MPV 9.1 fL (7.4-11.0) 01/02/24 11:23 Neut % (Auto) 67.9 % (42.0-75.0) 01/02/24 11:23 Lymph % (Auto) 21.8 % (21.0-51.0) 01/02/24 11:23 [place] % (Auto) 7.5 % (0.0-13.0) 01/02/24 11:23 Eos % (Auto) 1.7 % (0.9-2.9) 01/02/24 11:23 Baso % (Auto) 1.1 % (0.2-1.0) H 01/02/24 11:23 Neut # (Auto) 2.8 x10^3/uL (2.2-4.8) 01/02/24 11:23 Lymph # (Auto) 0.9 X10^3/uL (1.3-2.9) L 01/02/24 11:23 [place] # (Auto) 0.3 x10^3/uL (0.3-0.8) 01/02/24 11:23 Eos # (Auto) 0.1 x10^3/uL (0.0-0.2) 01/02/24 11:23 Baso # (Auto) 0.0 X10^3/uL (0.0-0.1) 01/02/24 11:23 Absolute Nucleated RBC 0.2 /100WBC 01/02/24 11:23 PT 20.9 SECONDS (11.8-14.3) 01/02/24 11:23 INR Target Range - 01/02/24 11:23 INR 1.83 (0.8-1.3) H 01/02/24 11:23 APTT 41.4 SECONDS (22.9-36.5) H 01/02/24 11:23 PTT Comment - 01/02/24 11:23 Sodium 137 mmol/L (136-145) 01/02/24 11:23 Corrected Sodium TNP 01/02/24 11:23 Potassium 4.3 mmol/L (3.5-5.1) 01/02/24 11:23 Chloride 103 mmol/L (98-107) 01/02/24 11:23 Carbon Dioxide 30.5 mmol/L (21-32) 01/02/24 11:23 BUN 16 mg/dL (7-18) 01/02/24 11:23 Creatinine 0.91 mg/dL (0.55-1.02) 01/02/24 11:23 Est GFR (MDRD) Af Amer > 60 (>60) 01/02/24 11:23 Est GFR (MDRD) Non-Af > 60 (>60) 01/02/24 11:23 Glucose 91 mg/dL (65-99) 01/02/24 11:23 Calcium 8.2 mg/dL (8.5-10.1) L 01/02/24 11:23 Corrected Calcium 10.0 mg/dL (8.5-10.1) 01/02/24 11:23 Total Bilirubin 0.30 mg/dL (0.2-1.0) 01/02/24 11:23 AST 25 Units/L (15-37) 01/02/24 11:23 ALT 13 Units/L (12-78) 01/02/24 11:23 Alkaline Phosphatase 72 Units/L (46-116) 01/02/24 11:23 Troponin I High Sens 22.2 ng/L (4.0-60.0) 01/02/24 11:23 B-Natriuretic Peptide 533 pg/mL (0-79) H 01/02/24 11:23 Total Protein 5.7 g/dL (6.4-8.2) L 01/02/24 11:23 Albumin 1.8 g/dL (3.4-5.0) L 01/02/24 11:23 Globulin 3.9 g/dL (2.5-4.5) 01/02/24 11:23 Albumin/Globulin Ratio 0.5 Ratio (1.1-2.1) L 01/02/24 11:23 Labs acceptable XRAY XRAY Interpreted by: Both X-ray Results: EXAM: CHEST, 1 VIEW HISTORY: Shortness of Breath; HX: CVA, CHF, HTN, ASTHMA, COLON CANCER, BREAST CANCER SX: CABG, LT MASECTOMY COMPARISON: Prior study or studies were utilized for comparison during interpretation with the most relevant dated 10/25/2023 TECHNIQUE: CHEST, 1 VIEW FINDINGS: Chest: Lines and tubes: Left-sided pacemaker generator with lead or leads in satisfactory position. Mediastinum: Cardiac and mediastinal shadow is within normal limits for size and contour. There is a valve prosthesis Pulmonary vessels: No pulmonary vascular congestion. Lung bishop: No suspicious airspace opacity. Pleura: There is blunting of the left costophrenic angle. No pneumothorax. Bones and soft tissues: No acute osseous or soft tissue abnormality. IMPRESSION: 1. Left pleural effusion THIS IS AN ELECTRONICALLY VERIFIED FINAL REPORT 01/02/2024 12:12 PM - Electronically signed by Satish Cooper MD EKG Rate: 66 [place]: Normal Rhythm: NSR Block: LBBB ST: Normal Opioid Opioid Risk Tool Age (Jeet box if 16-45): No History of Preadolescent Sexual Abuse: No Total: 0 Total Score Risk Category: Low Risk Copyright: [facility] predicting aberrant behaviors Discharge Plan Diagnosis Discharge Problem: Abdominal ascites, Dyspnea Discharge Plan Patient Disposition: ADMITTED INPATIENT Condition: Stable Prescriptions: No Action oxycodone 5 mg tablet 5 mg PO Q8H MDD 3 PRN (Reason: pain) 30 Days Qty: 90 0RF famotidine 20 mg Tablet 20 mg PO BID potassium chloride 10 mEq Capsule, Extended Release 10 meq PO BID ondansetron HCl 4 mg Tablet 4 mg PO Q6H PRN clopidogrel [Plavix] 75 mg Tablet 75 mg PO QDAY Eliquis 5 mg Tablet 5 mg PO BID haloperidol 0.5 mg Tablet 0.5 mg PO Q4HR PRN sennosides [Senna Lax] 8.6 mg tablet 8.6 mg PO meclizine 12.5 mg Tablet 12.5 mg PO PRN PRN morphine 0.5 mg/mL Solution 0.25 mg Q3H lorazepam 0.5 mg Tablet 0.5 mg PO Q4H PRN docusate sodium 100 mg tablet 100 mg PO QDAY furosemide 20 mg Tablet 10 mg PO QDAY Health Concerns: Post Hospitalization: new medications and changes needed to prevent readmission or further decline. Pt educated and given instructions on all concerns. Plan of Treatment: Continue with present treatment and follow up plan. Pt is to keep follow up appointment as instructed and take medications as ordered. Orders to Discharge Patient Discharge Orders: Transfer (Routine); Ordered 01/02/24 Ordered By: Pavan Dickson Follow ups/Referrals Follow ups/Referrals: MACKENZIE BOWDEN [Primary Care Provider] - 3 days
--- NOTE | 2024-01-02 11:30 | EKG ---
Test Reason : chest pain Blood Pressure : */* mmHG Vent. Rate : 66 BPM Atrial Rate : 66 BPM P-R Int : 304 ms QRS Dur : 124 ms QT Int : 436 ms P-R-T Axes : * -14 130 degrees QTc Int : 457 ms Sinus rhythm with 1st degree AV block Left bundle branch block Abnormal ECG When compared with ECG of 25-OCT-2023 12:03, Sinus rhythm has replaced Electronic ventricular pacemaker Confirmed by Esau Fernandez MD ([id number]) on 01/03/2024 6:39:13 AM Referred By: Confirmed By: Esau Fernandez MD
[2024-01-02 11:32] VITALS: O2SAT 100
[2024-01-02 11:59] LABS: BASOPHILS % (AUTO) 1.1 % (0.2-1.0); EOSINOPHILS # (AUTO) 0.1 x10^3/uL (0.0-0.2); EOSINOPHILS % (AUTO) 1.7 % (0.9-2.9); HEMATOCRIT 35.9 % (36.0-47.0); HEMOGLOBIN 11.8 g/dL (12.0-16.0); LYMPHOCYTES # (AUTO) 0.9 X10^3/uL (1.3-2.9); LYMPHOCYTES % (AUTO) 21.8 % (21.0-51.0); MEAN CORPUSCULAR HEMOGLOBIN 32.9 pg (27.0-34.0); MEAN CORPUSCULAR HGB CONC 32.8 g/dL (33.0-35.0); MEAN CORPUSCULAR VOLUME 100.4 fL (80.0-100.0); MEAN PLATELET VOLUME 9.1 fL (7.4-11.0); MONOCYTES # (AUTO) 0.3 x10^3/uL (0.3-0.8); MONOCYTES % (AUTO) 7.5 % (0.0-13.0); NEUTROPHILS # (AUTO) 2.8 x10^3/uL (2.2-4.8); NEUTROPHILS % (AUTO) 67.9 % (42.0-75.0); PLATELET COUNT 228 X10^3/uL (150.0-450.0); RED BLOOD COUNT 3.58 X10^6/uL (3.5-5.4); WHITE BLOOD COUNT 4.1 X10^3/uL (3.6-10.0)
[2024-01-02 12:09] LABS: INR 1.83 (0.8-1.3)
--- NOTE | 2024-01-02 12:15 | RAD ---
EXAM:CHEST, 1 VIEWHISTORY:Shortness of Breath; HX: CVA, CHF, HTN, ASTHMA, COLON CANCER, BREAST CANCER SX: CABG, LT MASECTOMYCOMPARISON:Prior study or studies were utilized for comparison during interpretation with the most relevant dated 10/25/2023TECHNIQUE:CHEST, 1 VIEWFINDINGS:Chest:Lines and tubes: Left-sided pacemaker generator with lead or leads in satisfactory position.Mediastinum: Cardiac and mediastinal shadow is within normal limits for size and contour. There is a valve prosthesisPulmonary vessels: No pulmonary vascular congestion.Lung bishop: No suspicious airspace opacity.Pleura: There is blunting of the left costophrenic angle. No pneumothorax.Bones and soft tissues: No acute osseous or soft tissue abnormality.IMPRESSION:1. Left pleural effusionTHIS IS AN ELECTRONICALLY VERIFIED FINAL REPORT01/02/2024 12:12 PM - Electronically signed by Satish Cooper MD
[2024-01-02 12:38] LABS: ALANINE AMINOTRANSFERASE 13 Units/L (12-78); ALBUMIN 1.8 g/dL (3.4-5.0); ALKALINE PHOSPHATASE 72 Units/L (46-116); ASPARTATE AMINO TRANSFERASE 25 Units/L (15-37); BLOOD UREA NITROGEN 16 mg/dL (7-18); CALCIUM 8.2 mg/dL (8.5-10.1); CARBON DIOXIDE 30.5 mmol/L (21-32); CHLORIDE 103 mmol/L (98-107); CREATININE 0.91 mg/dL (0.55-1.02); GLUCOSE 91 mg/dL (65-99); POTASSIUM 4.3 mmol/L (3.5-5.1); SODIUM 137 mmol/L (136-145); TOTAL PROTEIN 5.7 g/dL (6.4-8.2); eGFR NON BLACK RACES > 60 (>60)
[2024-01-02] MEDS ORDERED: LR 1,000 ML IV 1,000 ML IV ONE (13:15)
[2024-01-02] MEDS: LR 1,000 ML IV 1,000 ML IV SCH (13:33)
[2024-01-02] MEDS ORDERED: ROXICODONE TAB 5 MG PO PRN (14:26)
[2024-01-02] MEDS ORDERED: HALDOL PO PRN (14:26)
[2024-01-02] MEDS ORDERED: ATIVAN TAB 0.5 MG PO SCH (14:26)
[2024-01-02] MEDS ORDERED: CONSULT PHARMACY - POTASSIUM & MAGNESIUM XX SCH ×2 (15:00→19:00)
[2024-01-02 15:47] VITALS: BMI 25.6
[2024-01-02] MEDS ORDERED: ATIVAN TAB 0.5 MG PO PRN (16:46)
[2024-01-02] MEDS: MAG-OX TAB PO SCH (20:13)
[2024-01-02] MEDS: ELIQUIS PO SCH (20:14)
[2024-01-02] MEDS: MICRO K EXTEN CAP 10 MEQ PO SCH (21:00)
[2024-01-02] MEDS: PEPCID TAB 20 MG PO SCH (21:00)
[2024-01-02] MEDS: BUTT CREAM (COMPOUND) TOP PRN (22:44)
[2024-01-03 04:47] LABS: BASOPHILS % (AUTO) 1.1 % (0.2-1.0); EOSINOPHILS # (AUTO) 0.1 x10^3/uL (0.0-0.2); EOSINOPHILS % (AUTO) 2.3 % (0.9-2.9); HEMATOCRIT 27.2 % (36.0-47.0); LYMPHOCYTES # (AUTO) 0.6 X10^3/uL (1.3-2.9); LYMPHOCYTES % (AUTO) 15.8 % (21.0-51.0); MEAN CORPUSCULAR HEMOGLOBIN 33.3 pg (27.0-34.0); MEAN CORPUSCULAR HGB CONC 33.4 g/dL (33.0-35.0); MEAN CORPUSCULAR VOLUME 99.5 fL (80.0-100.0); MEAN PLATELET VOLUME 9.2 fL (7.4-11.0); MONOCYTES # (AUTO) 0.4 x10^3/uL (0.3-0.8); MONOCYTES % (AUTO) 9.7 % (0.0-13.0); NEUTROPHILS # (AUTO) 2.8 x10^3/uL (2.2-4.8); NEUTROPHILS % (AUTO) 71.1 % (42.0-75.0); PLATELET COUNT 195 X10^3/uL (150.0-450.0); RED BLOOD COUNT 2.73 X10^6/uL (3.5-5.4); RED CELL DISTRIBUTION WIDTH 14.9 % (11.6-16.5); WHITE BLOOD COUNT 3.9 X10^3/uL (3.6-10.0)
[2024-01-03 04:58] LABS: ALANINE AMINOTRANSFERASE 8 Units/L (12-78); ALBUMIN 1.2 g/dL (3.4-5.0); ALKALINE PHOSPHATASE 63 Units/L (46-116); ASPARTATE AMINO TRANSFERASE 18 Units/L (15-37); BLOOD UREA NITROGEN 16 mg/dL (7-18); CALCIUM 7.4 mg/dL (8.5-10.1); CARBON DIOXIDE 32.2 mmol/L (21-32); CHLORIDE 107 mmol/L (98-107); COR CA(FOR HYPOALB) 9.6 mg/dL (8.5-10.1); CREATININE 0.76 mg/dL (0.55-1.02); GLUCOSE 83 mg/dL (65-99); MAGNESIUM 1.7 mg/dL (2.0-2.9); POTASSIUM 3.9 mmol/L (3.5-5.1); SODIUM 142 mmol/L (136-145); TOTAL PROTEIN 4.2 g/dL (6.4-8.2); eGFR NON BLACK RACES > 60 (>60)
[2024-01-03 05:04] LABS: HEMOGLOBIN 9.1 g/dL (12.0-16.0)
[2024-01-03] MEDS ORDERED: CONSULT PHARMACY - POTASSIUM & MAGNESIUM XX SCH (06:00)
[2024-01-03] MEDS: SENOKOT PO SCH (08:17)
[2024-01-03] MEDS: PLAVIX PO SCH (08:17)
[2024-01-03] MEDS: COLACE CAP 100 MG PO SCH (08:18)
[2024-01-03] MEDS: LASIX PO SCH (08:18)
[2024-01-03] MEDS: MAG-OX TAB PO SCH (09:40)
--- NOTE | 2024-01-03 09:41 | DR.H&P ---
H&P History & Physical for Day of: H&P Date: 01/03/24 Chief Complaint Chief Complaint: abdominal discomfort and SOB Allergies Allergies Allergy/AdvReac Type Severity Reaction Status Date / Time zolpidem [From Ambien] Allergy Verified 10/12/23 11:42 History of Present Illness History of Present Illness: Ms Daniel is a 88y/o female with a hx of breast cancer, liver cirrhosis, recurrent ascites, CABG/Valve repair presented with worsening abdominal pain and distension. She has been seen for similar symptoms in the past and has required paracentesis. In the ER, Dr León was consulted and paracentesis was performed. She had a total of 4700 cc drainage. She states she feels better this morning. She is on 3L O2 that she does use at home. Patient was currently home with hospice care. Labs/imaging reviewed - Hgb 9.1 WBC 3.9 INR: 1.83 Mag 1.7 -CXR: left pleural effusion Plan: follow surgery recommendations. Resume home medications. Replace electrolytes prn. Check anemia panel. Monitor Hgb. Will get echo to assess LV function. Monitor AM labs/imaging. Past Medical History Past Medical History: CHF, CVA and Hypertension Additional Medical History: Syncope, Left Carotid Artery Occlusion, Chronic Back Pain, Breast Cancer Colon cancer PE Past Surgical History Surgical History: Abdominal Surgery, CABG/Valve Surgery, Cholecystectomy, Hysterectomy and Mastectomy Additional Surgical History: Heart Catherization x 2, Left Mastectomy, Hernia Repair Colon surgery IVC Family History Family Medical History: Diabetes Mellitus, Heart Failure and Hypertension Social History Does patient currently use any type of tobacco product: No Have you used tobacco products in the last 12 months: No Type of Tobacco Use: None Does any household member use tobacco: No Alcohol Use: None Drug Use: None Medications Home Medications: Home Medications Medication Instructions Recorded Confirmed Type famotidine 20 mg tablet 20 mg PO BID 08/16/22 01/02/24 History furosemide 20 mg tablet 10 mg PO QDAY 10/12/22 01/02/24 History apixaban 5 mg tablet (Eliquis) 5 mg PO BID 02/16/23 01/02/24 History clopidogrel 75 mg tablet (Plavix) 75 mg PO QDAY 02/16/23 01/02/24 History ondansetron HCl 4 mg tablet 4 mg PO Q6H PRN 02/16/23 01/02/24 History potassium chloride 10 mEq 10 meq PO BID 02/16/23 01/02/24 History capsule,extended release docusate sodium 100 mg tablet 100 mg PO QDAY constipation 01/02/24 01/02/24 History haloperidol 0.5 mg tablet 0.5 mg PO Q4HR PRN 01/02/24 01/02/24 History lorazepam 0.5 mg tablet 0.5 mg PO Q4H PRN 01/02/24 01/02/24 History meclizine 12.5 mg tablet 12.5 mg PO TID PRN 01/02/24 01/02/24 History morphine 0.5 mg/mL injection 0.25 mg Q3H 01/02/24 01/02/24 History solution sennosides 8.6 mg tablet (Senna 8.6 mg PO HS PRN constipation 01/02/24 01/02/24 History Lax) Labs 01/03/24 04:03 01/03/24 04:03 Labs: Laboratory WBC 3.9 X10^3/uL (3.6-10.0) 01/03/24 04:03 RBC 2.73 X10^6/uL (3.5-5.4) L 01/03/24 04:03 Hgb 9.1 g/dL (12.0-16.0) L D 01/03/24 04:03 Hct 27.2 % (36.0-47.0) L 01/03/24 04:03 MCV 99.5 fL (80.0-100.0) 01/03/24 04:03 MCH 33.3 pg (27.0-34.0) 01/03/24 04:03 MCHC 33.4 g/dL (33.0-35.0) 01/03/24 04:03 RDW 14.9 % (11.6-16.5) 01/03/24 04:03 Plt Count 195 X10^3/uL (150.0-450.0) 01/03/24 04:03 MPV 9.2 fL (7.4-11.0) 01/03/24 04:03 Neut % (Auto) 71.1 % (42.0-75.0) 01/03/24 04:03 Lymph % (Auto) 15.8 % (21.0-51.0) L 01/03/24 04:03 [place] % (Auto) 9.7 % (0.0-13.0) 01/03/24 04:03 Eos % (Auto) 2.3 % (0.9-2.9) 01/03/24 04:03 Baso % (Auto) 1.1 % (0.2-1.0) H 01/03/24 04:03 Neut # (Auto) 2.8 x10^3/uL (2.2-4.8) 01/03/24 04:03 Lymph # (Auto) 0.6 X10^3/uL (1.3-2.9) L 01/03/24 04:03 [place] # (Auto) 0.4 x10^3/uL (0.3-0.8) 01/03/24 04:03 Eos # (Auto) 0.1 x10^3/uL (0.0-0.2) 01/03/24 04:03 Baso # (Auto) 0.0 X10^3/uL (0.0-0.1) 01/03/24 04:03 Absolute Nucleated RBC 0.1 /100WBC 01/03/24 04:03 PT 20.9 SECONDS (11.8-14.3) 01/02/24 11:23 INR Target Range - 01/02/24 11:23 INR 1.83 (0.8-1.3) H 01/02/24 11:23 APTT 41.4 SECONDS (22.9-36.5) H 01/02/24 11:23 PTT Comment - 01/02/24 11:23 Sodium 142 mmol/L (136-145) 01/03/24 04:03 Corrected Sodium TNP 01/03/24 04:03 Potassium 3.9 mmol/L (3.5-5.1) 01/03/24 04:03 Chloride 107 mmol/L (98-107) 01/03/24 04:03 Carbon Dioxide 32.2 mmol/L (21-32) H 01/03/24 04:03 BUN 16 mg/dL (7-18) 01/03/24 04:03 Creatinine 0.76 mg/dL (0.55-1.02) 01/03/24 04:03 Est GFR (MDRD) Af Amer > 60 (>60) 01/03/24 04:03 Est GFR (MDRD) Non-Af > 60 (>60) 01/03/24 04:03 Glucose 83 mg/dL (65-99) 01/03/24 04:03 Calcium 7.4 mg/dL (8.5-10.1) L 01/03/24 04:03 Corrected Calcium 9.6 mg/dL (8.5-10.1) 01/03/24 04:03 Magnesium 1.7 mg/dL (2.0-2.9) L 01/03/24 04:03 Total Bilirubin 0.20 mg/dL (0.2-1.0) 01/03/24 04:03 AST 18 Units/L (15-37) 01/03/24 04:03 ALT 8 Units/L (12-78) L 01/03/24 04:03 Alkaline Phosphatase 63 Units/L (46-116) 01/03/24 04:03 Troponin I High Sens 22.2 ng/L (4.0-60.0) 01/02/24 11:23 B-Natriuretic Peptide 533 pg/mL (0-79) H 01/02/24 11:23 Total Protein 4.2 g/dL (6.4-8.2) L 01/03/24 04:03 Albumin 1.2 g/dL (3.4-5.0) L 01/03/24 04:03 Globulin 3.0 g/dL (2.5-4.5) 01/03/24 04:03 Albumin/Globulin Ratio 0.4 Ratio (1.1-2.1) L 01/03/24 04:03 Review of Systems Constitutional: No Symptoms Reported Eyes: No Symptoms Reported Respiratory: Shortness of Breath Cardiovascular: No Symptoms Reported Gastrointestinal: Abdominal Pain Musculoskeletal: No Symptoms Reported Skin: No Symptoms Reported Neurological: No Symptoms Reported Physical Exam Vital Signs: Vital Signs Temperature 97.6 F Temperature 98.0 F Pulse Rate [Apical] 65 Pulse Rate [Apical] 61 Pulse Rate [Apical] 64 Pulse Rate [Apical] 66 Respiratory Rate 24 Respiratory Rate 14 Respiratory Rate 26 Respiratory Rate 20 Blood Pressure [Left Arm] 122/58 Blood Pressure [Left Arm] 104/52 Blood Pressure [Left Arm] 110/57 Blood Pressure [Left Arm] 105/56 O2 Sat by Pulse Oximetry 100 O2 Sat by Pulse Oximetry 100 O2 Sat by Pulse Oximetry 100 O2 Sat by Pulse Oximetry 100 Oriented: Normal Eyes: Normal Respiratory: Diminished Throughout Cardiovascular: Normal Auscultation: Bowel Sounds: Normal Palpation: Normal Tenderness: Diffuse and Mild Skin: Decreased [place] Psychiatric: Normal Mood Description: Calm Affect: Normal Speech Pattern: Clear and Appropriate Assessment/Plan (1) Abdominal ascites: Qualifiers: Ascites type: other type Qualified Code(s): R18.8 - Other ascites Status: Acute (2) Hypoalbuminemia: Status: Acute (3) Congestive heart failure: Qualifiers: Heart failure chronicity: chronic Heart failure type: unspecified Qualified Code(s): I50.9 - Heart failure, unspecified Status: Acute (4) CAD (coronary artery disease): Qualifiers: Associated angina: unspecified whether angina present Coronary Disease- Associated Artery/Lesion type: unspecified vessel or lesion type [place] vs. transplanted heart: unspecified whether [place] or transplanted heart Qualified Code(s): I25.10 - Atherosclerotic heart disease of [place] coronary artery without angina pectoris Status: Chronic (5) Cirrhosis: Qualifiers: Ascites presence: with ascites Hepatic cirrhosis type: unspecified [facility] cirrhosis Qualified Code(s): K74.60 - Unspecified cirrhosis of liver; R18.8 - Other ascites Status: Acute (6) Pleural effusion: Status: Acute
[2024-01-03] MEDS ORDERED: K-DUR TAB 20 MEQ PO SCH (10:00)
[2024-01-03 10:24] LABS: IRON 21 ug/dL (50-175)
[2024-01-03] MEDS: ALBUMIN HUMAN 25%- 100 ML 100 ML IV SCH (11:47)
[2024-01-03 12:26] VITALS: BP 103/53; PULSE 63; RESP 19; TEMP 97.7
--- NOTE | 2024-01-03 14:21 | DR.PROGNOT ---
HOSPITAL PROGRESS NOTE Progress Note for Day of: Progress Note Date: 01/03/24 Chief Complaint Chief Complaint: Patient is doing better after her paracentesis, more than 4800 cc was drained. Less shortness of breath, no abdominal pain. Albumin level 1.2. BUN and creatinine are normal. Electrolytes are normal, WBC 3.9 and hemoglobin 9.1. Drainage catheter was removed and bulky dressing was applied. The rest of her systemic review is the same as before. Past Medical Family Social History Allergies: Allergies zolpidem [From Ambien] Allergy (Verified 10/12/23 11:42) Vital Signs Vital Signs: Vital Signs Temperature 97.7 F Temperature 97.6 F Pulse Rate [Apical] 63 Pulse Rate [Apical] 65 Respiratory Rate 19 Respiratory Rate 24 Blood Pressure [Left Arm] 103/53 Blood Pressure [Left Arm] 122/58 O2 Sat by Pulse Oximetry 100 O2 Sat by Pulse Oximetry 100 Physical Exam Oriented: Normal Eyes: Normal Respiratory: Normal Cardiovascular: Normal GI:Auscultation: Normal GI:Palpation: Normal GI: Tenderness: Diffuse, Mild and Other (Soft flat nontender abdomen with good bowel sounds. Moderate residual ascites.) Skin: Decreased [place] Psychiatric: Normal Mood Description: Calm Affect: Normal Speech Pattern: Clear and Appropriate Laboratory and Diagnostics 01/03/24 04:03 01/03/24 04:03 Labs: Laboratory WBC 3.9 X10^3/uL (3.6-10.0) 01/03/24 04:03 RBC 2.73 X10^6/uL (3.5-5.4) L 01/03/24 04:03 Hgb 9.1 g/dL (12.0-16.0) L D 01/03/24 04:03 Hct 27.2 % (36.0-47.0) L 01/03/24 04:03 MCV 99.5 fL (80.0-100.0) 01/03/24 04:03 MCH 33.3 pg (27.0-34.0) 01/03/24 04:03 MCHC 33.4 g/dL (33.0-35.0) 01/03/24 04:03 RDW 14.9 % (11.6-16.5) 01/03/24 04:03 Plt Count 195 X10^3/uL (150.0-450.0) 01/03/24 04:03 MPV 9.2 fL (7.4-11.0) 01/03/24 04:03 Neut % (Auto) 71.1 % (42.0-75.0) 01/03/24 04:03 Lymph % (Auto) 15.8 % (21.0-51.0) L 01/03/24 04:03 [place] % (Auto) 9.7 % (0.0-13.0) 01/03/24 04:03 Eos % (Auto) 2.3 % (0.9-2.9) 01/03/24 04:03 Baso % (Auto) 1.1 % (0.2-1.0) H 01/03/24 04:03 Neut # (Auto) 2.8 x10^3/uL (2.2-4.8) 01/03/24 04:03 Lymph # (Auto) 0.6 X10^3/uL (1.3-2.9) L 01/03/24 04:03 [place] # (Auto) 0.4 x10^3/uL (0.3-0.8) 01/03/24 04:03 Eos # (Auto) 0.1 x10^3/uL (0.0-0.2) 01/03/24 04:03 Baso # (Auto) 0.0 X10^3/uL (0.0-0.1) 01/03/24 04:03 Absolute Nucleated RBC 0.1 /100WBC 01/03/24 04:03 PT 20.9 SECONDS (11.8-14.3) 01/02/24 11:23 INR Target Range - 01/02/24 11:23 INR 1.83 (0.8-1.3) H 01/02/24 11:23 APTT 41.4 SECONDS (22.9-36.5) H 01/02/24 11:23 PTT Comment - 01/02/24 11:23 Sodium 142 mmol/L (136-145) 01/03/24 04:03 Corrected Sodium TNP 01/03/24 04:03 Potassium 3.9 mmol/L (3.5-5.1) 01/03/24 04:03 Chloride 107 mmol/L (98-107) 01/03/24 04:03 Carbon Dioxide 32.2 mmol/L (21-32) H 01/03/24 04:03 BUN 16 mg/dL (7-18) 01/03/24 04:03 Creatinine 0.76 mg/dL (0.55-1.02) 01/03/24 04:03 Est GFR (MDRD) Af Amer > 60 (>60) 01/03/24 04:03 Est GFR (MDRD) Non-Af > 60 (>60) 01/03/24 04:03 Glucose 83 mg/dL (65-99) 01/03/24 04:03 Calcium 7.4 mg/dL (8.5-10.1) L 01/03/24 04:03 Corrected Calcium 9.6 mg/dL (8.5-10.1) 01/03/24 04:03 Magnesium 1.7 mg/dL (2.0-2.9) L 01/03/24 04:03 Iron 21 ug/dL (50-175) L 01/03/24 04:03 Ferritin 142 ng/mL (8-252) 01/03/24 04:03 Total Bilirubin 0.20 mg/dL (0.2-1.0) 01/03/24 04:03 AST 18 Units/L (15-37) 01/03/24 04:03 ALT 8 Units/L (12-78) L 01/03/24 04:03 Alkaline Phosphatase 63 Units/L (46-116) 01/03/24 04:03 Troponin I High Sens 22.2 ng/L (4.0-60.0) 01/02/24 11:23 B-Natriuretic Peptide 533 pg/mL (0-79) H 01/02/24 11:23 Total Protein 4.2 g/dL (6.4-8.2) L 01/03/24 04:03 Albumin 1.2 g/dL (3.4-5.0) L 01/03/24 04:03 Globulin 3.0 g/dL (2.5-4.5) 01/03/24 04:03 Albumin/Globulin Ratio 0.4 Ratio (1.1-2.1) L 01/03/24 04:03 Vitamin B12 > 2000 pg/mL (193-986) H 01/03/24 04:03 Folate 16.4 ng/mL (>8.6) 01/03/24 04:03 Assessment and Plan 1: Recurrent tense ascites status post paracentesis and drainage.. Patient could be discharged today and will follow in the office as needed. Problem Patient Problems: Patient Problems Abdominal ascites (Acute) R18.8 Dyspnea (Acute) R06.00
--- NOTE | 2024-01-05 13:13 | DR.SSS ---
SHORT STAY SUMMARY Admission Date Date of Admission: 01/02/24 Discharge Date Discharge Date: 01/03/24 Admission Diagnoses Admission Diagnoses: Abdominal pain Dyspnea Discharge Diagnoses Discharge Diagnoses: Recurrent Ascites Chronic respiratory failure Liver Cirrhosis Hospice patient Breast cancer Chief Complaint Chief Complaint: abdominal pain, SOB History of Present Illness History of Present Illness: Ms Daniel is a 88y/o female with a hx of breast cancer, liver cirrhosis, recurrent ascites, CABG/Valve repair presented with worsening abdominal pain and distension. She has been seen for similar symptoms in the past and has required paracentesis. In the ER, Dr León was consulted and paracentesis was performed. She was admitted for further management and evaluation. Past Medical History Past Medical History: CHF, CVA and Hypertension Additional Medical History: Syncope, Left Carotid Artery Occlusion, Chronic Back Pain, Breast Cancer Colon cancer PE Past Surgical History Surgical History: Abdominal Surgery, CABG/Valve Surgery, Cholecystectomy, Hysterectomy and Mastectomy Additional Surgical History: Heart Catherization x 2, Left Mastectomy, Hernia Repair Colon surgery IVC Allergies Allergies Allergy/AdvReac Type Severity Reaction Status Date / Time zolpidem [From Ambien] Allergy Verified 10/12/23 11:42 Medications Home Medications: zolpidem [From Ambien] Allergy (Verified 10/12/23 11:42) CONTINUE taking the following medications docusate sodium 100 mg tablet 100 mg PO QDAY constipation 01/02/24 [History] haloperidol 0.5 mg tablet 0.5 mg PO Q4HR PRN 01/02/24 [History] lorazepam 0.5 mg tablet 0.5 mg PO Q4H PRN 01/02/24 [History] meclizine 12.5 mg tablet 12.5 mg PO TID PRN 01/02/24 [History] morphine 0.5 mg/mL injection solution 0.25 mg Q3H 01/02/24 [History] sennosides 8.6 mg tablet (Senna Lax) 8.6 mg PO HS PRN constipation 01/02/24 [History] Family History Family Medical History: Diabetes Mellitus, Heart Failure and Hypertension Social History Does patient currently use any type of tobacco product: No Have you used tobacco products in the last 12 months: No Type of Tobacco Use: None Does any household member use tobacco: No Alcohol Use: None Drug Use: None Review of Systems Constitutional: Weakness Eyes: No Symptoms Reported ENT: No Symptoms Reported Respiratory: Shortness of Breath Cardiovascular: No Symptoms Reported Gastrointestinal: Abdominal Pain Genitourinary: No Symptoms Reported Musculoskeletal: No Symptoms Reported Skin: No Symptoms Reported Neurological: No Symptoms Reported Physical Exam Vital Signs: Last Vital Signs Temp 97.7 F 01/03/24 12:00 Pulse 63 01/03/24 12:00 Resp 19 01/03/24 12:00 BP 103/53 01/03/24 12:00 Pulse Ox 100 01/03/24 12:00 O2 Del Method Nasal Cannula 01/03/24 12:00 O2 Flow Rate 3 01/03/24 07:00 FiO2 32 01/03/24 12:00 Oriented: Normal Eyes: Normal Nose: Normal Throat: Normal Respiratory: Diminished Throughout Cardiovascular: Normal Auscultation: Bowel Sounds: Normal Tenderness: Diffuse and Mild Skin: Normal Musculoskeletal: Normal Psychiatric: Normal Mood Description: Calm Affect: Normal Speech Pattern: Clear and Appropriate Labs Labs: Laboratory Last Values WBC 3.9 X10^3/uL (3.6-10.0) 01/03/24 04:03 RBC 2.73 X10^6/uL (3.5-5.4) L 01/03/24 04:03 Hgb 9.1 g/dL (12.0-16.0) L D 01/03/24 04:03 Hct 27.2 % (36.0-47.0) L 01/03/24 04:03 MCV 99.5 fL (80.0-100.0) 01/03/24 04:03 MCH 33.3 pg (27.0-34.0) 01/03/24 04:03 MCHC 33.4 g/dL (33.0-35.0) 01/03/24 04:03 RDW 14.9 % (11.6-16.5) 01/03/24 04:03 Plt Count 195 X10^3/uL (150.0-450.0) 01/03/24 04:03 MPV 9.2 fL (7.4-11.0) 01/03/24 04:03 Neut % (Auto) 71.1 % (42.0-75.0) 01/03/24 04:03 Lymph % (Auto) 15.8 % (21.0-51.0) L 01/03/24 04:03 [place] % (Auto) 9.7 % (0.0-13.0) 01/03/24 04:03 Eos % (Auto) 2.3 % (0.9-2.9) 01/03/24 04:03 Baso % (Auto) 1.1 % (0.2-1.0) H 01/03/24 04:03 Neut # (Auto) 2.8 x10^3/uL (2.2-4.8) 01/03/24 04:03 Lymph # (Auto) 0.6 X10^3/uL (1.3-2.9) L 01/03/24 04:03 [place] # (Auto) 0.4 x10^3/uL (0.3-0.8) 01/03/24 04:03 Eos # (Auto) 0.1 x10^3/uL (0.0-0.2) 01/03/24 04:03 Baso # (Auto) 0.0 X10^3/uL (0.0-0.1) 01/03/24 04:03 Absolute Nucleated RBC 0.1 /100WBC 01/03/24 04:03 PT 20.9 SECONDS (11.8-14.3) 01/02/24 11:23 INR Target Range - 01/02/24 11:23 INR 1.83 (0.8-1.3) H 01/02/24 11:23 APTT 41.4 SECONDS (22.9-36.5) H 01/02/24 11:23 PTT Comment - 01/02/24 11:23 Sodium 142 mmol/L (136-145) 01/03/24 04:03 Corrected Sodium TNP 01/03/24 04:03 Potassium 3.9 mmol/L (3.5-5.1) 01/03/24 04:03 Chloride 107 mmol/L (98-107) 01/03/24 04:03 Carbon Dioxide 32.2 mmol/L (21-32) H 01/03/24 04:03 BUN 16 mg/dL (7-18) 01/03/24 04:03 Creatinine 0.76 mg/dL (0.55-1.02) 01/03/24 04:03 Est GFR (MDRD) Af Amer > 60 (>60) 01/03/24 04:03 Est GFR (MDRD) Non-Af > 60 (>60) 01/03/24 04:03 Glucose 83 mg/dL (65-99) 01/03/24 04:03 Calcium 7.4 mg/dL (8.5-10.1) L 01/03/24 04:03 Corrected Calcium 9.6 mg/dL (8.5-10.1) 01/03/24 04:03 Magnesium 1.7 mg/dL (2.0-2.9) L 01/03/24 04:03 Iron 21 ug/dL (50-175) L 01/03/24 04:03 Ferritin 142 ng/mL (8-252) 01/03/24 04:03 Total Bilirubin 0.20 mg/dL (0.2-1.0) 01/03/24 04:03 AST 18 Units/L (15-37) 01/03/24 04:03 ALT 8 Units/L (12-78) L 01/03/24 04:03 Alkaline Phosphatase 63 Units/L (46-116) 01/03/24 04:03 Troponin I High Sens 22.2 ng/L (4.0-60.0) 01/02/24 11:23 B-Natriuretic Peptide 533 pg/mL (0-79) H 01/02/24 11:23 Total Protein 4.2 g/dL (6.4-8.2) L 01/03/24 04:03 Albumin 1.2 g/dL (3.4-5.0) L 01/03/24 04:03 Globulin 3.0 g/dL (2.5-4.5) 01/03/24 04:03 Albumin/Globulin Ratio 0.4 Ratio (1.1-2.1) L 01/03/24 04:03 Vitamin B12 > 2000 pg/mL (193-986) H 01/03/24 04:03 Folate 16.4 ng/mL (>8.6) 01/03/24 04:03 Assessment/Plan (1) Abdominal ascites: (2) Hypoalbuminemia: (3) Congestive heart failure: (4) CAD (coronary artery disease): (5) Cirrhosis: (6) Pleural effusion: Hospital Course Hospital Course: She states she feels better this morning. She is on 3L O2 that she does use at home. Patient was currently home with hospice care. Her labs were monitored and electrolytes were replaced as needed. Her home medications were resumed. Dr. León was following the patient. Patient had more than 4800 cc drained. She was also given albumin. Patient was stable for discharge home. She was referred back to [facility] care. Patient was stable at discharge. Discharge Medications Discharge Medications: Home Medication List docusate sodium 100 mg tablet 100 mg PO QDAY constipation 01/02/24 [History] haloperidol 0.5 mg tablet 0.5 mg PO Q4HR PRN 01/02/24 [History] lorazepam 0.5 mg tablet 0.5 mg PO Q4H PRN 01/02/24 [History] meclizine 12.5 mg tablet 12.5 mg PO TID PRN 01/02/24 [History] morphine 0.5 mg/mL injection solution 0.25 mg Q3H 01/02/24 [History] sennosides 8.6 mg tablet (Senna Lax) 8.6 mg PO HS PRN constipation 01/02/24 [History] Prescriptions: Discharge Disposition Discharge Disposition: Home with hospice Discharge Plan Discharge Plan Patient Disposition: 50 DISCHARGED TO HOSPICE -HOME Condition: Stable Health Concerns: Post Hospitalization: new medications and changes needed to prevent readmission or further decline. Pt educated and given instructions on all concerns. Plan of Treatment: Continue with present treatment and follow up plan. Pt is to keep follow up appointment as instructed and take medications as ordered. Prescriptions: No Action oxycodone 5 mg tablet 5 mg PO Q8H MDD 3 PRN (Reason: pain) 30 Days Qty: 90 0RF famotidine 20 mg Tablet 20 mg PO BID potassium chloride 10 mEq Capsule, Extended Release 10 meq PO BID ondansetron HCl 4 mg Tablet 4 mg PO Q6H PRN clopidogrel [Plavix] 75 mg Tablet 75 mg PO QDAY Eliquis 5 mg Tablet 5 mg PO BID haloperidol 0.5 mg Tablet 0.5 mg PO Q4HR PRN sennosides [Senna Lax] 8.6 mg tablet 8.6 mg PO HS PRN (Reason: constipation) meclizine 12.5 mg Tablet 12.5 mg PO TID PRN morphine 0.5 mg/mL Solution 0.25 mg Q3H lorazepam 0.5 mg Tablet 0.5 mg PO Q4H PRN docusate sodium 100 mg tablet 100 mg PO QDAY furosemide 20 mg Tablet 10 mg PO QDAY Follow ups/Referrals Follow ups/Referrals: [facility] [Other] MACKENZIE BOWDEN [Primary Care Provider] - 3 days Instructions Instructions: Ascites, Hospice Stand Alone Forms: Post Hospital Follow Up Care
== END 2024-01-03 13:35 | disposition hospice, home (50) ==
LOC: ER 11:14 → ICU 11:14
PROVIDERS: ADMIT Internal Medicine; ATTEND Internal Medicine
DX: K74.60 Unspecified cirrhosis of liver; R79.1 Abnormal coagulation profile; R79.0 Abnormal level of blood mineral; J90 Pleural effusion, not elsewhere classified; R26.89 Other abnormalities of gait and mobility; E88.09 Other disorders of plasma-protein metabolism, not elsewhere classified; R07.89 Other chest pain; I50.9 Heart failure, unspecified; Z95.0 Presence of cardiac pacemaker; R18.8 Other ascites; I25.10 Atherosclerotic heart disease of native coronary artery without angina pectoris; Z85.3 Personal history of malignant neoplasm of breast; E83.42 Hypomagnesemia; R06.02 Shortness of breath; I11.0 Hypertensive heart disease with heart failure; K74.69 Other cirrhosis of liver

== ENCOUNTER 2024-02-12 11:20 | Observation (INO) ==
--- NOTE | 2024-02-12 12:27 | ED.ABDFE ---
HPI Time Seen Time Seen by Provider: 02/12/24 12:27 PCP Primary Care Physician: quinn harris Complaint Chief Complaint:: patient c/o of sob and increased abd distention that has been going on for a couple days but has gotten worse the last few days. COVID-19 Coronavirus risk:travel/contact w/high risk person: No Has patient experienced Coronavirus symptoms: No Source History Provided: Patient Mode of arrival Mode of Arrival: Stretcher Timing Onset of Chief Complaint: 02/07/24 PMH PMH Past Medical History: Yes Past Medical History: CHF, CVA and Hypertension Past Medical History Comment: colon ca, chronic venous insuff, a-fib Past Surgical History: Yes Surgical History: Abdominal Surgery, CABG/Valve Surgery, Cholecystectomy, Hysterectomy and Mastectomy Past Surgical History Comment: heart valve replacment, IVC filter, Carotid arter y, pacemaker, colon ca removed Family History History of Family Medical Conditions: Yes Family Medical History: Diabetes Mellitus, Heart Failure and Hypertension Social History Does patient currently use any type of tobacco product: No Have you used tobacco products in the last 12 months: No Type of Tobacco Use: None Does any household member use tobacco: No Alcohol Use: None Do you use any recreational Drugs:: No Lives With: Family Lives Where: Home Travel Risk Coronavirus risk:travel/contact w/high risk person: No Has patient experienced Coronavirus symptoms: No Infectious screening In the last 2 months have you had wt loss of >10#?: NO Have you had fever, night sweats or hemotysis?: No Have you traveled outside the country in the last 6 months?: No Isolation: Standard PE Vital Signs Vitals: Vital Signs Temperature 98.0 F Pulse Rate 73 Pulse Rate 75 Pulse Rate 68 Pulse Rate 63 Pulse Rate 67 Pulse Rate 71 Pulse Rate 72 Pulse Rate 74 Pulse Rate 75 Pulse Rate 73 Pulse Rate 73 Pulse Rate 75 Pulse Rate 75 Pulse Rate 76 Pulse Rate 72 Pulse Rate 74 Pulse Rate 76 Pulse Rate 77 Pulse Rate 74 Pulse Rate 73 Pulse Rate 77 Pulse Rate 74 Respiratory Rate 16 Blood Pressure 121/59 Blood Pressure 124/58 Blood Pressure 107/53 Blood Pressure 116/56 Blood Pressure 102/55 Blood Pressure 114/60 Blood Pressure 110/56 Blood Pressure 124/58 Blood Pressure 119/64 Blood Pressure 122/66 Blood Pressure 122/66 Blood Pressure 122/66 Blood Pressure 111/66 Blood Pressure 120/62 Blood Pressure 124/65 Blood Pressure 122/65 O2 Sat by Pulse Oximetry 100 O2 Sat by Pulse Oximetry 100 O2 Sat by Pulse Oximetry 100 O2 Sat by Pulse Oximetry 98 O2 Sat by Pulse Oximetry 100 O2 Sat by Pulse Oximetry 100 O2 Sat by Pulse Oximetry 85 O2 Sat by Pulse Oximetry 99 O2 Sat by Pulse Oximetry 98 O2 Sat by Pulse Oximetry 100 O2 Sat by Pulse Oximetry 100 O2 Sat by Pulse Oximetry 100 O2 Sat by Pulse Oximetry 100 O2 Sat by Pulse Oximetry 100 O2 Sat by Pulse Oximetry 99 O2 Sat by Pulse Oximetry 100 O2 Sat by Pulse Oximetry 100 O2 Sat by Pulse Oximetry 100 O2 Sat by Pulse Oximetry 98 O2 Sat by Pulse Oximetry 100 O2 Sat by Pulse Oximetry 100 O2 Sat by Pulse Oximetry 100 O2 Sat by Pulse Oximetry 100 ROR Labs Reviewed 02/12/24 12:48 02/12/24 13:28 Laboratory: WBC 5.8 X10^3/uL (3.6-10.0) 02/12/24 12:48 RBC 3.66 X10^6/uL (3.5-5.4) 02/12/24 12:48 Hgb 11.7 g/dL (12.0-16.0) L 02/12/24 12:48 Hct 35.7 % (36.0-47.0) L 02/12/24 12:48 MCV 97.8 fL (80.0-100.0) 02/12/24 12:48 MCH 32.1 pg (27.0-34.0) 02/12/24 12:48 MCHC 32.9 g/dL (33.0-35.0) L 02/12/24 12:48 RDW 14.2 % (11.6-16.5) 02/12/24 12:48 Plt Count 223 X10^3/uL (150.0-450.0) 02/12/24 12:48 MPV 9.3 fL (7.4-11.0) 02/12/24 12:48 Neut % (Auto) 85.0 % (42.0-75.0) H 02/12/24 12:48 Lymph % (Auto) 7.3 % (21.0-51.0) L 02/12/24 12:48 [place] % (Auto) 6.8 % (0.0-13.0) 02/12/24 12:48 Eos % (Auto) 0.1 % (0.9-2.9) L 02/12/24 12:48 Baso % (Auto) 0.8 % (0.2-1.0) 02/12/24 12:48 Neut # (Auto) 4.9 x10^3/uL (2.2-4.8) H 02/12/24 12:48 Lymph # (Auto) 0.4 X10^3/uL (1.3-2.9) L 02/12/24 12:48 [place] # (Auto) 0.4 x10^3/uL (0.3-0.8) 02/12/24 12:48 Eos # (Auto) 0.0 x10^3/uL (0.0-0.2) 02/12/24 12:48 Baso # (Auto) 0.0 X10^3/uL (0.0-0.1) 02/12/24 12:48 Absolute Nucleated RBC 0.1 /100WBC 02/12/24 12:48 Sodium 134 mmol/L (136-145) L 02/12/24 13:28 Corrected Sodium TNP 02/12/24 13:28 Potassium 5.2 mmol/L (3.5-5.1) H 02/12/24 13:28 Chloride 101 mmol/L (98-107) 02/12/24 13:28 Carbon Dioxide 25.5 mmol/L (21-32) 02/12/24 13:28 BUN 34 mg/dL (7-18) H 02/12/24 13:28 Creatinine 1.84 mg/dL (0.55-1.02) H 02/12/24 13:28 Est GFR (MDRD) Af Amer 33 (>60) L 02/12/24 13:28 Est GFR (MDRD) Non-Af 28 (>60) L 02/12/24 13:28 Glucose 81 mg/dL (65-99) 02/12/24 13:28 Calcium 7.9 mg/dL (8.5-10.1) L 02/12/24 13:28 Corrected Calcium 9.9 mg/dL (8.5-10.1) 02/12/24 13:28 Total Bilirubin 0.50 mg/dL (0.2-1.0) 02/12/24 13:28 AST 21 Units/L (15-37) 02/12/24 13:28 ALT 8 Units/L (12-78) L 02/12/24 13:28 Alkaline Phosphatase 74 Units/L (46-116) 02/12/24 13:28 Total Protein 5.0 g/dL (6.4-8.2) L 02/12/24 13:28 Albumin 1.5 g/dL (3.4-5.0) L 02/12/24 13:28 Globulin 3.5 g/dL (2.5-4.5) 02/12/24 13:28 Albumin/Globulin Ratio 0.4 Ratio (1.1-2.1) L 02/12/24 13:28 Amylase 41 Units/L (25-115) 02/12/24 13:28 Lipase 13 Units/L (16-77) L 02/12/24 13:28 Specimen Type Clean catch urine 02/12/24 14:25 Urine Color Yellow (YELLOW) 02/12/24 14:25 Urine Appearance Slightly hazy (CLEAR) 02/12/24 14:25 Urine pH 5.0 (5.0 - 8.0) 02/12/24 14:25 Ur Specific [place] 1.020 (1.000-1.030) 02/12/24 14:25 Urine Protein 2+ (NEGATIVE) 02/12/24 14:25 Urine Glucose (UA) Negative (NEGATIVE) 02/12/24 14:25 Urine Ketones Negative (NEGATIVE) 02/12/24 14:25 Urine Blood 1+ (NEGATIVE) 02/12/24 14:25 Urine Nitrite Positive (NEGATIVE) 02/12/24 14:25 Urine Bilirubin 1+ (NEGATIVE) 02/12/24 14:25 Urine Urobilinogen Normal (NORMAL) 02/12/24 14:25 Ur Leukocyte Esterase 1+ (NEGATIVE) 02/12/24 14:25 Urine RBC 3-5 /HPF (0-3) A 02/12/24 14:25 Urine WBC 5-10 /HPF (0-5) A 02/12/24 14:25 Ur Squamous Epith Cells Moderate /HPF (NEGATIVE) 02/12/24 14:25 Urine Bacteria 2+ /HPF (NEGATIVE) 02/12/24 14:25 Hyaline Casts Few /LPF (NEGATIVE) 02/12/24 14:25 Ur Culture Indicated? Yes/culture set up 02/12/24 14:25 Opioid Opioid Risk Tool Age (Jeet box if 16-45): No History of Preadolescent Sexual Abuse: No Total: 0 Total Score Risk Category: Low Risk Copyright: [facility] predicting aberrant behaviors Discharge Plan Diagnosis Discharge Problem: Tense ascites, UTI (urinary tract infection), Acute dyspnea Discharge Plan Patient Disposition: HOME, SELF-CARE Condition: Stable Prescriptions: No Action oxycodone 5 mg tablet 5 mg PO Q8H MDD 3 PRN (Reason: pain) 30 Days Qty: 90 0RF famotidine 20 mg Tablet 20 mg PO BID potassium chloride 10 mEq Capsule, Extended Release 10 meq PO BID ondansetron HCl 4 mg Tablet 4 mg PO Q6H PRN clopidogrel [Plavix] 75 mg Tablet 75 mg PO QDAY Eliquis 5 mg Tablet 5 mg PO BID haloperidol 0.5 mg Tablet 0.5 mg PO Q4HR PRN sennosides [Senna Lax] 8.6 mg tablet 8.6 mg PO HS PRN (Reason: constipation) meclizine 12.5 mg Tablet 12.5 mg PO TID PRN morphine 0.5 mg/mL Solution 0.25 mg Q3H lorazepam 0.5 mg Tablet 0.5 mg PO Q4H PRN docusate sodium 100 mg tablet 100 mg PO QDAY furosemide 20 mg Tablet 10 mg PO QDAY Health Concerns: Post Hospitalization: new medications and changes needed to prevent readmission or further decline. Pt educated and given instructions on all concerns. Plan of Treatment: Continue with present treatment and follow up plan. Pt is to keep follow up appointment as instructed and take medications as ordered. Orders to Discharge Patient Discharge Orders: Transfer (Routine); Ordered 02/12/24 Ordered By: RIGOBERTO DONALD Follow ups/Referrals Follow ups/Referrals: MACKENZIE HARRIS [Primary Care Provider] - 3 days Instructions Stand Alone Forms: Post Hospital Follow Up Care
[2024-02-12 13:36] LABS: BASOPHILS % (AUTO) 0.8 % (0.2-1.0); EOSINOPHILS % (AUTO) 0.1 % (0.9-2.9); HEMATOCRIT 35.7 % (36.0-47.0); HEMOGLOBIN 11.7 g/dL (12.0-16.0); LYMPHOCYTES # (AUTO) 0.4 X10^3/uL (1.3-2.9); LYMPHOCYTES % (AUTO) 7.3 % (21.0-51.0); MEAN CORPUSCULAR HEMOGLOBIN 32.1 pg (27.0-34.0); MEAN CORPUSCULAR HGB CONC 32.9 g/dL (33.0-35.0); MEAN CORPUSCULAR VOLUME 97.8 fL (80.0-100.0); MEAN PLATELET VOLUME 9.3 fL (7.4-11.0); MONOCYTES # (AUTO) 0.4 x10^3/uL (0.3-0.8); MONOCYTES % (AUTO) 6.8 % (0.0-13.0); NEUTROPHILS # (AUTO) 4.9 x10^3/uL (2.2-4.8); PLATELET COUNT 223 X10^3/uL (150.0-450.0); RED BLOOD COUNT 3.66 X10^6/uL (3.5-5.4); RED CELL DISTRIBUTION WIDTH 14.2 % (11.6-16.5); WHITE BLOOD COUNT 5.8 X10^3/uL (3.6-10.0)
[2024-02-12 14:37] LABS: BILIRUBIN,URINE 1+ (NEGATIVE); BLOOD/HEMOGLOBIN,URINE 1+ (NEGATIVE); GLUCOSE, URINE NEGATIVE (NEGATIVE); KETONES,URINE NEGATIVE (NEGATIVE); LEUKOCYTE ESTERASE ,URINE 1+ (NEGATIVE); NITRITES,URINE POSITIVE (NEGATIVE); PROTEIN,URINE 2+ (NEGATIVE); UROBILINOGEN,URINE NORMAL (NORMAL)
[2024-02-12 14:40] LABS: APPEARANCE,URINE SLIGHTLY HAZY (CLEAR); COLOR,URINE YELLOW (YELLOW)
[2024-02-12 14:54] LABS: BACTERIA,URINE 2+ /HPF (NEGATIVE); SQUAMOUS EPITHELIAL CELL,UR MODERATE /HPF (NEGATIVE)
[2024-02-12 14:55] LABS: HYALINE CASTS, URINE FEW /LPF (NEGATIVE)
[2024-02-12] MEDS: ALBUMIN HUMAN 25%- 100 ML 100 ML IV ONE (15:00)
[2024-02-12 15:09] LABS: ALANINE AMINOTRANSFERASE 8 Units/L (12-78); ALBUMIN 1.5 g/dL (3.4-5.0); ALKALINE PHOSPHATASE 74 Units/L (46-116); AMYLASE 41 Units/L (25-115); ASPARTATE AMINO TRANSFERASE 21 Units/L (15-37); BLOOD UREA NITROGEN 34 mg/dL (7-18); CALCIUM 7.9 mg/dL (8.5-10.1); CARBON DIOXIDE 25.5 mmol/L (21-32); CHLORIDE 101 mmol/L (98-107); COR CA(FOR HYPOALB) 9.9 mg/dL (8.5-10.1); CREATININE 1.84 mg/dL (0.55-1.02); GLUCOSE 81 mg/dL (65-99); LIPASE 13 Units/L (16-77); POTASSIUM 5.2 mmol/L (3.5-5.1); SODIUM 134 mmol/L (136-145); eGFR NON BLACK RACES 28 (>60)
[2024-02-12] MEDS: ROCEPHIN VIAL 1 GRAM IVP ONE (15:58)
[2024-02-12 18:49] VITALS: BMI 28.3
[2024-02-12] MEDS: ULTRAM PO PRN (19:36)
[2024-02-12] MEDS: MILK OF MAGNESIA PO SCH (21:15)
[2024-02-13 03:48] VITALS: TEMP 97.9
[2024-02-13 06:06] LABS: BASOPHILS % (AUTO) 0.6 % (0.2-1.0); EOSINOPHILS % (AUTO) 0.2 % (0.9-2.9); HEMATOCRIT 31.9 % (36.0-47.0); HEMOGLOBIN 10.8 g/dL (12.0-16.0); LYMPHOCYTES # (AUTO) 0.5 X10^3/uL (1.3-2.9); LYMPHOCYTES % (AUTO) 9.7 % (21.0-51.0); MEAN CORPUSCULAR HEMOGLOBIN 32.8 pg (27.0-34.0); MEAN CORPUSCULAR HGB CONC 33.8 g/dL (33.0-35.0); MEAN CORPUSCULAR VOLUME 97.1 fL (80.0-100.0); MEAN PLATELET VOLUME 8.9 fL (7.4-11.0); MONOCYTES # (AUTO) 0.5 x10^3/uL (0.3-0.8); MONOCYTES % (AUTO) 9.4 % (0.0-13.0); NEUTROPHILS # (AUTO) 4.2 x10^3/uL (2.2-4.8); NEUTROPHILS % (AUTO) 80.1 % (42.0-75.0); PLATELET COUNT 192 X10^3/uL (150.0-450.0); RED BLOOD COUNT 3.28 X10^6/uL (3.5-5.4); WHITE BLOOD COUNT 5.3 X10^3/uL (3.6-10.0)
[2024-02-13 06:29] LABS: ALANINE AMINOTRANSFERASE 6 Units/L (12-78); ALBUMIN 1.5 g/dL (3.4-5.0); ALKALINE PHOSPHATASE 56 Units/L (46-116); AMYLASE 29 Units/L (25-115); ASPARTATE AMINO TRANSFERASE 17 Units/L (15-37); BLOOD UREA NITROGEN 34 mg/dL (7-18); CALCIUM 7.7 mg/dL (8.5-10.1); CARBON DIOXIDE 27.8 mmol/L (21-32); CHLORIDE 101 mmol/L (98-107); COR CA(FOR HYPOALB) 9.7 mg/dL (8.5-10.1); CREATININE 1.64 mg/dL (0.55-1.02); GLUCOSE 72 mg/dL (65-99); LIPASE 11 Units/L (16-77); POTASSIUM 4.7 mmol/L (3.5-5.1); SODIUM 135 mmol/L (136-145); TOTAL PROTEIN 4.3 g/dL (6.4-8.2); eGFR NON BLACK RACES 32 (>60)
[2024-02-13] MEDS: ELIQUIS PO SCH (09:24)
[2024-02-13] MEDS: ROCEPHIN VIAL 1 GRAM 1 G in NS 100 ML IV 100 ML IV SCH (09:25)
[2024-02-13] MEDS: ALBUMIN HUMAN 25%- 100 ML 100 ML IV ONE (09:57)
[2024-02-13] MEDS: NS 250 ML IV 25 ML IV PRN (09:57)
[2024-02-13 11:02] VITALS: RESP 18; O2SAT 95
[2024-02-13 13:42] VITALS: BP 93/50; PULSE 73
--- NOTE | 2024-02-13 18:59 | DR.SSS ---
SHORT STAY SUMMARY Admission Date Date of Admission: 02/12/24 Discharge Date Discharge Date: 02/13/24 Admission Diagnoses Admission Diagnoses: Ascites Abdominal pain Generalized weakness Discharge Diagnoses Discharge Diagnoses: Ascites s/p paracentesis UTI Anemia CKD Chief Complaint Chief Complaint: abdominal distension History of Present Illness History of Present Illness: Ms Daniel is a 88y/o female with a hx of breast ca ncer, liver cirrhosis, recurrent ascites, CABG/Valve repair presented with worsening abdominal pain and distension. She has been seen for similar symptoms in the past and has required paracentesis. In the ER, Dr León was consulted and paracentesis was performed. She was admitted for observation. Patient's labs were monitored. UA showed infection so patient was started on IV Rocephin. Past Medical History Past Medical History: CHF, CVA and Hypertension Additional Medical History: Syncope, Left Carotid Artery Occlusion, Chronic Back Pain, Breast Cancer Colon cancer PE Past Surgical History Surgical History: Abdominal Surgery, CABG/Valve Surgery, Cholecystectomy, Hysterectomy and Mastectomy Additional Surgical History: Heart Catherization x 2, Left Mastectomy, Hernia Repair Colon surgery IVC Allergies Allergies Allergy/AdvReac Type Severity Reaction Status Date / Time zolpidem [From Ambien] Allergy Verified 10/12/23 11:42 Medications Home Medications: zolpidem [From Ambien] Allergy (Verified 10/12/23 11:42) New Prescriptions cephalexin 500 mg capsule 500 mg PO BID 7 days #14 caps 02/13/24 [Rx] Family History Family Medical History: Diabetes Mellitus, [place], Coronary Artery Disease and Hypertension Social History Does patient currently use any type of tobacco product: No Have you used tobacco products in the last 12 months: No Type of Tobacco Use: None Does any household member use tobacco: No Alcohol Use: None Drug Use: None Review of Systems Constitutional: No Symptoms Reported Eyes: No Symptoms Reported Respiratory: Shortness of Breath Cardiovascular: No Symptoms Reported Gastrointestinal: Abdominal Pain Musculoskeletal: No Symptoms Reported Skin: No Symptoms Reported Neurological: Confusion Physical Exam Vital Signs: Last Vital Signs Temp 97.9 F 02/13/24 03:47 Pulse 74 02/13/24 03:47 Resp 17 02/13/24 03:47 BP 99/54 02/13/24 03:47 Pulse Ox 94 L 02/13/24 03:47 O2 Del Method Room Air 02/13/24 09:03 O2 Flow Rate 3 02/13/24 09:03 FiO2 32 02/13/24 09:03 Oriented: Normal Eyes: Normal Throat: Normal Respiratory: Diminished Throughout Cardiovascular: Normal Auscultation: Bowel Sounds: Normal Tenderness: Diffuse and Mild Skin: Decreased [place] Musculoskeletal: Normal Psychiatric: Normal Mood Description: Calm Affect: Normal Speech Pattern: Clear and Appropriate Labs Labs: Laboratory Last Values WBC 5.3 X10^3/uL (3.6-10.0) 02/13/24 05:38 RBC 3.28 X10^6/uL (3.5-5.4) L 02/13/24 05:38 Hgb 10.8 g/dL (12.0-16.0) L 02/13/24 05:38 Hct 31.9 % (36.0-47.0) L 02/13/24 05:38 MCV 97.1 fL (80.0-100.0) 02/13/24 05:38 MCH 32.8 pg (27.0-34.0) 02/13/24 05:38 MCHC 33.8 g/dL (33.0-35.0) 02/13/24 05:38 RDW 14.0 % (11.6-16.5) 02/13/24 05:38 Plt Count 192 X10^3/uL (150.0-450.0) 02/13/24 05:38 MPV 8.9 fL (7.4-11.0) 02/13/24 05:38 Neut % (Auto) 80.1 % (42.0-75.0) H 02/13/24 05:38 Lymph % (Auto) 9.7 % (21.0-51.0) L 02/13/24 05:38 [place] % (Auto) 9.4 % (0.0-13.0) 02/13/24 05:38 Eos % (Auto) 0.2 % (0.9-2.9) L 02/13/24 05:38 Baso % (Auto) 0.6 % (0.2-1.0) 02/13/24 05:38 Neut # (Auto) 4.2 x10^3/uL (2.2-4.8) 02/13/24 05:38 Lymph # (Auto) 0.5 X10^3/uL (1.3-2.9) L 02/13/24 05:38 [place] # (Auto) 0.5 x10^3/uL (0.3-0.8) 02/13/24 05:38 Eos # (Auto) 0.0 x10^3/uL (0.0-0.2) 02/13/24 05:38 Baso # (Auto) 0.0 X10^3/uL (0.0-0.1) 02/13/24 05:38 Absolute Nucleated RBC 0.1 /100WBC 02/13/24 05:38 Sodium 135 mmol/L (136-145) L 02/13/24 05:38 Corrected Sodium TNP 02/13/24 05:38 Potassium 4.7 mmol/L (3.5-5.1) 02/13/24 05:38 Chloride 101 mmol/L (98-107) 02/13/24 05:38 Carbon Dioxide 27.8 mmol/L (21-32) 02/13/24 05:38 BUN 34 mg/dL (7-18) H 02/13/24 05:38 Creatinine 1.64 mg/dL (0.55-1.02) H 02/13/24 05:38 Est GFR (MDRD) Af Amer 38 (>60) L 02/13/24 05:38 Est GFR (MDRD) Non-Af 32 (>60) L 02/13/24 05:38 Glucose 72 mg/dL (65-99) 02/13/24 05:38 Calcium 7.7 mg/dL (8.5-10.1) L 02/13/24 05:38 Corrected Calcium 9.7 mg/dL (8.5-10.1) 02/13/24 05:38 Total Bilirubin 0.50 mg/dL (0.2-1.0) 02/13/24 05:38 AST 17 Units/L (15-37) 02/13/24 05:38 ALT 6 Units/L (12-78) L 02/13/24 05:38 Alkaline Phosphatase 56 Units/L (46-116) 02/13/24 05:38 Total Protein 4.3 g/dL (6.4-8.2) L 02/13/24 05:38 Albumin 1.5 g/dL (3.4-5.0) L 02/13/24 05:38 Globulin 2.8 g/dL (2.5-4.5) 02/13/24 05:38 Albumin/Globulin Ratio 0.5 Ratio (1.1-2.1) L 02/13/24 05:38 Amylase 29 Units/L (25-115) 02/13/24 05:38 Lipase 11 Units/L (16-77) L 02/13/24 05:38 Specimen Type Clean catch urine 02/12/24 14:25 Urine Color Yellow (YELLOW) 02/12/24 14:25 Urine Appearance Slightly hazy (CLEAR) 02/12/24 14:25 Urine pH 5.0 (5.0 - 8.0) 02/12/24 14:25 Ur Specific [place] 1.020 (1.000-1.030) 02/12/24 14:25 Urine Protein 2+ (NEGATIVE) 02/12/24 14:25 Urine Glucose (UA) Negative (NEGATIVE) 02/12/24 14:25 Urine Ketones Negative (NEGATIVE) 02/12/24 14:25 Urine Blood 1+ (NEGATIVE) 02/12/24 14:25 Urine Nitrite Positive (NEGATIVE) 02/12/24 14:25 Urine Bilirubin 1+ (NEGATIVE) 02/12/24 14:25 Urine Urobilinogen Normal (NORMAL) 02/12/24 14:25 Ur Leukocyte Esterase 1+ (NEGATIVE) 02/12/24 14:25 Urine RBC 3-5 /HPF (0-3) A 02/12/24 14:25 Urine WBC 5-10 /HPF (0-5) A 02/12/24 14:25 Ur Squamous Epith Cells Moderate /HPF (NEGATIVE) 02/12/24 14:25 Urine Bacteria 2+ /HPF (NEGATIVE) 02/12/24 14:25 Hyaline Casts Few /LPF (NEGATIVE) 02/12/24 14:25 Ur Culture Indicated? Yes/culture set up 02/12/24 14:25 Hospital Course Hospital Course: Patient was kept overnight for observation after paracentesis. Her labs were monitored. She was given albumin. Patient was stable for discharge. She will be sent on PO antibiotics for UTI. Patient is currently on hospice and will be discharged back to hospice services. Discharge Medications Discharge Medications: Home Medication List cephalexin 500 mg capsule 500 mg PO BID 7 days #14 caps 02/13/24 [Rx] Prescriptions: cephalexin Linh Palacio Discharge Disposition Discharge Disposition: Home Discharge Plan Discharge Plan Patient Disposition: 50 DISCHARGED TO HOSPICE -HOME Condition: Stable Health Concerns: Post Hospitalization: new medications and changes needed to prevent readmission or further decline. Pt educated and given instructions on all concerns. Care Plan Goals: Problem: Pain/Alteration in Comfort Goal: Improve/ Resolve Pain; Achieve Pain Tolerance Instructions: Take pain medications as prescribed. Contact your primary care provider if your pain is unrelieved or worsens. Follow up with primary care provider as directed. Plan of Treatment: Continue with present treatment and follow up plan. Pt is to keep follow up appointment as instructed and take medications as ordered. Prescription drug monitoring program results: PDMP reviewed and no concerns identified Prescriptions: New cephalexin 500 mg capsule 500 mg PO BID 7 Days Qty: 14 0RF Continued oxycodone 5 mg tablet 5 mg PO Q8H MDD 3 PRN (Reason: pain) 30 Days Qty: 90 0RF famotidine 20 mg Tablet 20 mg PO BID potassium chloride 10 mEq Capsule, Extended Release 10 meq PO BID ondansetron HCl 4 mg Tablet 4 mg PO Q6H PRN clopidogrel [Plavix] 75 mg Tablet 75 mg PO QDAY Eliquis 5 mg Tablet 5 mg PO BID haloperidol 0.5 mg Tablet 0.5 mg PO Q4HR PRN sennosides [Senna Lax] 8.6 mg tablet 8.6 mg PO HS PRN (Reason: constipation) meclizine 12.5 mg Tablet 12.5 mg PO TID PRN morphine 0.5 mg/mL Solution 0.25 mg Q3H lorazepam 0.5 mg Tablet 0.5 mg PO Q4H PRN docusate sodium 100 mg tablet 100 mg PO QDAY furosemide 20 mg Tablet 10 mg PO QDAY Follow ups/Referrals Follow ups/[facility]errals: [facility]Other] - 02/13/24 10:40 am (Current patient with Hospice. Called Maryse Rivas RN [phone] and notified.) MACKENZIE BOWDEN [Primary Care Provider] - 3 days Instructions Instructions: Shortness of Breath, Adult, [id number], Asc[facility], Hospice Stand Alone Forms: Post Hospital Follow Up Care
== END 2024-02-13 12:20 | disposition hospice, home (50) ==
LOC: ER 11:20 → MED/SURG 16:32 → INTOOBSV 16:32 → MED/SURG 16:56
PROVIDERS: ADMIT Internal Medicine; ATTEND Internal Medicine